=== PATIENT | male | born 1940 | race Caucasian/White ===

== ENCOUNTER → 2016-05-29 | Outpatient (CLI) | payer OTHER, BC ==
[~2016-05-29] MED LIST: ALPR-411 PO; ALPR1TAB3 PO; CARBDRO OPB; CLB/200 PO; FOLI1TAB7 PO; MULT-506 PO; OFLO0.3S4 OPR; PRED1SUS3 OPR; TRAM-10 PO; TRAM-453 PO; WARF-246 PO; WARF5TAB7 PO; WARF7.5T4 PO
[2016-05-29 10:52] LABS: HEMATOCRIT 50.3 % (42-52); MEAN CORPUSCULAR HEMOGLOBIN 31.2 pg (25-34); MEAN CORPUSCULAR HGB CONC 33.2 g/dl (32-36); MEAN PLATELET VOLUME 9.8 fL (7.4-10.4); PLATELET COUNT 216 K/uL (130-400); RED BLOOD COUNT 5.35 M/uL (4.7-6.1); WHITE BLOOD COUNT 5.52 K/uL (4.8-10.8)
[2016-05-29 11:10] LABS: ESTIMATED AVERAGE GLUCOSE 114 mg/dl; HA1C FLAG Normal (Normal)
[2016-05-29 11:14] LABS: BLOOD UREA NITROGEN 21 mg/dl (7-18); BUN/CREATININE RATIO 18.9 (10-20); CALCIUM 8.7 mg/dl (8.5-10.1); CARBON DIOXIDE 33 mmol/L (21-32); CHLORIDE 106 mmol/L (98-107); GLUCOSE 88 mg/dl (70-99); POTASSIUM 4.2 mmol/L (3.5-5.1); SODIUM 143 mmol/L (136-145)
--- NOTE | 2016-06-07 10:43 | CODING QUERY MEDICAL NECESSITY ---
CQSUPPORTING DIAGNOSIS NEEDED A supporting diagnosis is required for the test/procedure performed on this patient in order for us to be reimbursed by the patient's insurance. Please provide a supporting diagnosis for the following test/procedure listed below next to the test name along with your signature. *If there is no additional diagnosis for this patient that would support the following test/procedure please document that below next to the test/procedure. Test(s)/Procedure(s) that require a supporting diagnosis: DOS 05/29/16 GLYCATED HEMOGLOBIN TEST Provider Signature: Date: Thank you Jazmine Willis Health Information Management Once completed, please kindly fax back to [phone] For questions please call [phone]
== END ==
LOC: C.LABBC 07:39
PROVIDERS: ATTEND Ophthalmology
DX: H35.61 Retinal hemorrhage, right eye (principal); H25.13 Age-related nuclear cataract, bilateral

== ENCOUNTER → 2016-05-31 | Outpatient (CLI) | payer OTHER, BC ==
--- NOTE | 2016-05-31 14:27 | DIAGNOSTIC IMAGING REPORT ---
BILATERAL CAROTID DOPPLER STUDY HISTORY: Mental status change RETINAL HEMORRHAGE RT EYE COMPARISON: None. TECHNIQUE: Real-time, grayscale, and color Doppler sonography of the carotid arteries was performed. Imaging reviewed in the transverse and longitudinal planes. All measurements were calculated based on NASCET criteria. FINDINGS: Antegrade flow is seen in the bilateral vertebral arteries. The brachial pressures are hemodynamically similar. Minimal plaque formation bilaterally The peak systolic velocity within the right ICA is 64. The right systolic ratio is 0.9. The peak systolic velocity within the left ICA is 59. The left systolic ratio is 0.8. IMPRESSION: Minimal plaque formation bilaterally. No significant stenotic process Electronically signed by: Vasile Grimes M.D. 05/31/2016 2:25 PM Dictated Date/Time: 05/31/2016 2:24 PM
== END | disposition home or self-care (01) ==
PROVIDERS: ATTEND Ophthalmology
DX: H35.61 Retinal hemorrhage, right eye (principal); I65.23 Occlusion and stenosis of bilateral carotid arteries

== ENCOUNTER → 2016-06-23 | Day surgery (SDC) | payer OTHER, BC ==
[2016-06-14 11:06] VITALS: Ht 188 cm; Wt 116.7 kg
--- NOTE | 2016-06-14 11:32 | PAT Medication Instructions ---
Service Date Jun 14, 2016. Current Home Medication List Alprazolam (Xanax), 1 MG PO HS Celecoxib (CeleBREX), 200 MG PO QAM Folic Acid (Folvite), 1 MG PO NOON Ofloxacin (Oph) (Ocuflox Oph Soln), 1 DROPS OPR UD Prednisolone Acetate (Ophth) (Pred Forte 1% Oph), 1 DROPS OPR UD Warfarin Sod (Jantoven), 5 MG PO 4XWEEK Warfarin Sod (Jantoven), 7.5 MG PO 3XWEEK Medication Instructions For Your Scheduled Surgery - Per 's instructions Ofloxacin (Oph) (Ocuflox Oph Soln), 1 DROPS OPR UD Prednisolone Acetate (Ophth) (Pred Forte 1% Oph), 1 DROPS OPR UD - Take the following medications as scheduled the day before surgery: Warfarin Sod (Coumadin) (okay to continue per ) Alprazolam (Xanax), 1 MG PO HS Celecoxib (CeleBREX), 200 MG PO QAM Folic Acid (Folvite), 1 MG PO NOON NO MEDS THE MORNING OF THE SURGERY; Nothing to eat or drink after midnight If you have any questions please call us at [phone] or [phone] or [phone]
[~2016-06-23] VITALS: Ht 188 cm; Wt 116.7 kg
[~2016-06-23] MED LIST changes: +500ML BSS 0.3ML EPI 1:1000PF IRRIG ONE; +ACETAMINOPHEN 325 MG TAB PO PRN; -ALPR-411 PO; +AMVISC PLUS 0.8ML SYRINGE INT OCU ONE; +ATROPINE SULFATE 0.1 MG/ML 5ML SYR IV PRN; +BSS FLUSH ONE; +DEXAMETHASONE SOD INJ 4 MG/ML VIAL ONE; +ENDOCOAT 0.85ML SYRINGE INT OCU ONE; +EpHEDrine SULFATE INJ 50 MG/ML AMP IV PRN; +EpINEphrine INJ 1MG/ML AMP 1 MG/ML AMP ONE; +LACTATED RINGER'S 1000ML 500 ML IV SCH; +LIDOCAINE 4% OP SOLN DROP CHARGE ONE; +LIDOCAINE 4% OP SOLN DROP CHARGE OPR SCH; +LIDOCAINE HCL 1% MPF 2 ML VIAL ONE; +LIDOCAINE HCL 2% 2 ML VIAL (20MG/ML) ONE; +MIDAZOLAM HCL 1 MG/ML 2ML VIAL ONE; +MIX: 4ML BSS 1ML EPI 1:1000 PF TOP ONE; +MOXIFLOXACIN OPH SOLN PER DROP CHARGE ONE; +ONDANSETRON INJ 2 MG/ML 2 ML VIAL ONE; +POVIDONE-IODINE OP SOLN 30 ML BTL ONE; +PROPARACAINE 0.5% OP SOLN PER DROP CHARGE OPR SCH; +PROPOFOL IV EMULSION 10 MG/ML 20 ML VIAL IV ONE; +TOBRAMYCIN/DEXAMETHASONE OPH OINT PER APPLN CHARGE ONE; -WARF-246 PO
[2016-06-23] MEDS: PHENYLEPHRINE HCL 2.5% OP SOLN PER DROP CHARGE OPR SCH ×3 (09:47→09:57)
[2016-06-23] MEDS: TROPICAMIDE 1% OP SOLN PER DROP CHARGE OPR SCH ×3 (09:48→09:58)
[2016-06-23] MEDS: CYCLOPENTOLATE HCL 1% OP SOLN PER DROP CHARGE OPR SCH ×3 (09:49→09:59)
[2016-06-23] MEDS: MOXIFLOXACIN OPH SOLN PER DROP CHARGE OPR SCH ×3 (09:50→10:00)
--- NOTE | 2016-06-23 11:03 | History & Physical Bridge - [place] ---
H&P Re-Evaluation Bridge Note: I have examined the patient, reviewed the History & Physical and in the interval since the performance of the History & Physical I have noted the following changes of clinical significance: No changes noted
--- NOTE | 2016-06-23 11:39 | [facility] Post Operative Brief Note ---
Immediate Operative Summary Operative Date Jun 23, 2016. Pre-Operative Diagnosis Cataract Right Eye Post-Operative Diagnosis Same Procedure(s) Performed Right Cataract Phacoemulsification With Intraocular Lens Implant Surgeon Dr. Blanton Payer Specialist Surgeon(s) None Estimated Blood Loss 0 mL Findings right cataract Specimens None Complication(s) None Disposition
--- NOTE | 2016-06-23 11:40 | [facility] Operative Report ---
Operative Report Date of Service Jun 23, 2016. Operative Report Phaco with monofocal IOL DATE OF OPERATION: 06/23/16 PREOPERATIVE DIAGNOSIS: Senile nuclear cataract, right eye POSTOPERATIVE DIAGNOSIS: Senile nuclear cataract, right eye PROCEDURE PERFORMED: Phacoemulsification with intraocular lens implantation, right eye SURGEON: Dr. Emiliano Blanton ANESTHESIA: LMA general COMPLICATIONS: None DESCRIPTION OF PROCEDURE: After positively identifying the patient both verbally and by wristband in the preoperative area, the right eye was marked as the operative eye. The patient was then brought back to the operating room by the anesthesia and nursing staff where they were given a drop of Lidocaine and betadine into the operative eye. They were then sterilely prepped and draped in the standard fashion typical for ophthalmic surgery. Steri-strips were placed along the upper eyelids to keep the lashes back, and a lid speculum was placed into the operative eye. At this point, a documented time out was performed with members of the ophthalmology, nursing, and anesthesia staffs all agreeing upon the correct patient, correct location for surgery, correct procedure, and correct type and power of intraocular lens to be implanted. The microscope was then swung into position. First, a paracentesis wound was made using a sideport blade. Then, in sequence, 1% preservative-free lidocaine followed by Endocoat viscoelastic was injected into the anterior chamber. Next , the main incision was made with a keratome blade in triplanar fashion. A sharp cystotome was introduced into the eye and used to create a tear in the anterior capsule, which was directed into a continuous curvilinear capsulorrhexis using Utrata forceps. Hydrodissection was then performed with BSS on a flat-tip cannula. Next, the phacoemulsification handpiece was introduced into the eye and used to remove the nucleus in a cqkdal-eep-bqkzkem fashion. This was done without complication and then the irrigation-aspiration handpiece was introduced into the eye and used to remove all remaining cortical and epinuclear material. Amvisc was then injected into the anterior chamber as well as into the capsular bag and using the lens injector system, an MX60 18.5 D lens, serial number [id number], and expiration date 11/2018 was injected into the capsular bag and rotated into the correct position. Next, the irrigation- aspiration handpiece was used to remove all remaining Amvisc. BSS was used to hydrate the main wound, and then BSS was injected into the paracentesis site to reach physiologic pressure and then the main wound was checked and found to be watertight. The patient was given drops of Vigamox and Tobradex ointment into the operative eye, and then the surrounding area was cleaned and dried. A clear plastic shield was placed over the eye and the patient was then sat up and taken from the operating room by the anesthesia staff having tolerated the procedure well and suffering no complications. DISPOSITION: The patient was returned to the recovery room in stable condition. I attest to the content of the Intraoperative Record and any orders documented therein. Any exceptions are noted below.
--- NOTE | 2016-06-23 11:41 | Discharge Instructions-SurgCtr ---
Discharge Instructions Date of Service Jun 23, 2016. Visit Reason for Visit: Right Cataract Discharge Discharge Diagnosis / Problem: right cataract Discharge Goals Goal(s): Decrease discomfort, Improve function Activity Recommendations Activity Limitations: as noted below Anesthesia . Post Anesthesia Instructions: If you have had General Anesthesia or IV Sedation: * Do not drive today. * Resume driving when surgeon permits. * Do not make important decisions or sign legal documents today. * Call surgeon for: 1. Temperature elevations greater than 101 degrees F. 2. Uncontrollable pain. 3. Excessive bleeding. 4. Persistent nausea and vomiting. 5. Medication intolerance (nausea, vomiting or rash). * For nausea and vomiting use only clear liquids such as: tea, soda, bouillon until nausea subsides, then gradually increase diet as tolerated. * If you have any concerns or questions, call your surgeon's office. If physician is unavailable and it is an emergency, call 911 or go to the nearest emergency room. . Instructions / Follow-Up Instructions / Follow-Up ACTIVITY RECOMMENDATIONS: * Light activities. * You may walk outside, read, watch television. * You may notice redness on the white part of the eye and some blurry vision - this is normal. MEDICATIONS: Resume previous medications unless instructed otherwise by your surgeon. Start all eye drops at 1:30 pm today: * Eye drops (today): Prednisone - one drop in operative eye every 2 hours while awake Ofloxacin - one drop in operative eye every 2 hours while awake SPECIAL CARE INSTRUCTIONS: * Tape plastic shield over eye to sleep at night. Call your doctor at with any concerns or problems. FOLLOW UP VISIT: Follow-up with Dr Blanton at [place] office as scheduled. Diet Recommendations Home Diet: no limitations Procedures Procedures Performed: Right Cataract Phacoemulsification With Intraocular Lens Implant Pending Studies Studies pending at discharge: no Medical Emergencies . Who to Call and When: Medical Emergencies: If at any time you feel your situation is an emergency, please call 911 immediately. . Non-Emergent Contact Non-Emergency issues call your: Surgeon . . "Provider Documentation" section prepared by Emiliano Blanton.
[2016-06-23 12:17] VITALS: TEMP 36.4
--- NOTE | 2016-06-23 12:29 | Anesthesia Progress Nt - [facility] ---
Anesthesia Post Op Note Date & Time Jun 23, 2016 at 12:29 Vital Signs Pain Intensity: 2 Vital Signs Past 12 Hours Date Time Temp Pulse Resp B/P Pulse Ox O2 Delivery O2 Flow Rate FiO2 06/23/16 12:17 36.4 66 16 122/81 94 Room Air 06/23/16 12:09 36.8 06/23/16 12:07 77 19 94 06/23/16 12:07 76 19 06/23/16 12:05 137/93 06/23/16 12:02 75 19 95 06/23/16 12:02 79 19 06/23/16 12:00 126/88 06/23/16 11:57 67 18 06/23/16 11:57 66 18 98 06/23/16 11:55 137/86 06/23/16 11:52 73 16 06/23/16 11:52 72 16 97 06/23/16 11:50 144/88 06/23/16 11:49 143/90 06/23/16 11:46 36.4 74 16 148/90 97 Diffusion Mask 5 06/23/16 09:36 36.7 79 22 165/83 98 Room Air Notes Mental Status: alert / awake / arousable, participated in evaluation Pt Amnestic to Procedure: Yes Nausea / Vomiting: adequately controlled Pain: adequately controlled Airway Patency, RR, SpO2: stable & adequate BP & HR: stable & adequate Hydration State: stable & adequate Anesthetic Complications: no major complications apparent
[2016-06-23 12:39] VITALS: BP 142/86; PULSE 67; O2SAT 97
== END | disposition home or self-care (01) ==
LOC: X.SURG 09:00
PROVIDERS: ATTEND Ophthalmology
DX: H25.11 Age-related nuclear cataract, right eye (principal); E78.00 Pure hypercholesterolemia, unspecified

== ENCOUNTER → 2016-07-07 | Day surgery (SDC) | payer OTHER, BC ==
[2016-07-06 10:22] VITALS: Ht 188 cm; Wt 115.9 kg
[~2016-07-07] VITALS: Ht 188 cm; Wt 115.9 kg
[~2016-07-07] MED LIST changes: +FENTANYL CITRATE INJ 50 MCG/1 ML 2 ML VIAL ONE; +LIDOCAINE 4% OP SOLN DROP CHARGE OPL SCH; -LIDOCAINE 4% OP SOLN DROP CHARGE OPR SCH; -OFLO0.3S4 OPR; +PROPARACAINE 0.5% OP SOLN PER DROP CHARGE OPL SCH; -PROPARACAINE 0.5% OP SOLN PER DROP CHARGE OPR SCH
--- NOTE | 2016-07-07 07:32 | History & Physical Bridge - [place] ---
H&P Re-Evaluation Bridge Note: I have examined the patient, reviewed the History & Physical and in the interval since the performance of the History & Physical I have noted the following changes of clinical significance: No changes noted. Left eye cataract surgery
[2016-07-07] MEDS: PHENYLEPHRINE HCL 2.5% OP SOLN PER DROP CHARGE OPL SCH ×3 (07:33→07:43)
[2016-07-07] MEDS: TROPICAMIDE 1% OP SOLN PER DROP CHARGE OPL SCH ×3 (07:34→07:44)
[2016-07-07] MEDS: CYCLOPENTOLATE HCL 1% OP SOLN PER DROP CHARGE OPL SCH ×3 (07:35→07:45)
[2016-07-07] MEDS: MOXIFLOXACIN OPH SOLN PER DROP CHARGE OPL SCH ×3 (07:36→07:46)
--- NOTE | 2016-07-07 08:39 | [facility] Post Operative Brief Note ---
Immediate Operative Summary Operative Date Jul 07, 2016. Pre-Operative Diagnosis Cataract Left Eye Post-Operative Diagnosis Same Procedure(s) Performed Left Cataract Phacoemulsification With Intraocular Lens Implant Surgeon Dr. Blanton Meat Pumper Surgeon(s) None Estimated Blood Loss 0 Findings left cataract Specimens None Complication(s) None Disposition
--- NOTE | 2016-07-07 08:41 | [facility] Operative Report ---
Operative Report Date of Service Jul 07, 2016. Operative Report Phaco with monofocal IOL DATE OF OPERATION: 07/07/16 PREOPERATIVE DIAGNOSIS: Senile nuclear cataract, left eye POSTOPERATIVE DIAGNOSIS: Senile nuclear cataract, left eye PROCEDURE PERFORMED: Phacoemulsification with intraocular lens implantation, left eye SURGEON: Dr. Emiliano Blanton ANESTHESIA: LMA general COMPLICATIONS: None DESCRIPTION OF PROCEDURE: After positively identifying the patient both verbally and by wristband in the preoperative area, the left eye was marked as the operative eye. The patient was then brought back to the operating room by the anesthesia and nursing staff where general anesthesia by LMA was induced by the anesthesia staff. The patient was then sterilely prepped and draped in the standard fashion typical for ophthalmic surgery. Steri-strips were placed along the upper eyelids to keep the lashes back, and a lid speculum was placed into the operative eye. At this point, a documented time out was performed with members of the ophthalmology, nursing, and anesthesia staffs all agreeing upon the correct patient, correct location for surgery, correct procedure, and correct type and power of intraocular lens to be implanted. The microscope was then swung into position. First, a paracentesis wound was made using a sideport blade. Then, in sequence, 1% preservative-free lidocaine followed by Endocoat viscoelastic was injected into the anterior chamber. Next , the main incision was made with a keratome blade in triplanar fashion. A sharp cystotome was introduced into the eye and used to create a tear in the anterior capsule, which was directed into a continuous curvilinear capsulorrhexis using Utrata forceps. Hydrodissection was then performed with BSS on a flat-tip cannula. Next, the phacoemulsification handpiece was introduced into the eye and used to remove the nucleus in a sbmntv-ygl-csyrhln fashion. This was done without complication and then the irrigation-aspiration handpiece was introduced into the eye and used to remove all remaining cortical and epinuclear material. Amvisc was then injected into the anterior chamber as well as into the capsular bag and using the lens injector system, an MX60 18.0 D lens, serial number [id number], and expiration date 04/2018 was injected into the capsular bag and rotated into the correct position. Next, the irrigation- aspiration handpiece was used to remove all remaining Amvisc. BSS was used to hydrate the main wound, and then BSS was injected into the paracentesis site to reach physiologic pressure and then the main wound was checked and found to be watertight. The patient was given drops of Vigamox and Tobradex ointment into the operative eye, and then the surrounding area was cleaned and dried. A clear plastic shield was placed over the eye and the patient was then sat up and taken from the operating room by the anesthesia staff having tolerated the procedure well and suffering no complications. DISPOSITION: The patient was returned to the recovery room in stable condition. I attest to the content of the Intraoperative Record and any orders documented therein. Any exceptions are noted below.
--- NOTE | 2016-07-07 08:42 | Discharge Instructions-SurgCtr ---
Discharge Instructions Date of Service Jul 07, 2016. Visit Reason for Visit: Left Cataract Discharge Discharge Diagnosis / Problem: left cataract Discharge Goals Goal(s): Decrease discomfort, Improve function Activity Recommendations Activity Limitations: as noted below Anesthesia . Post Anesthesia Instructions: If you have had General Anesthesia or IV Sedation: * Do not drive today. * Resume driving when surgeon permits. * Do not make important decisions or sign legal documents today. * Call surgeon for: 1. Temperature elevations greater than 101 degrees F. 2. Uncontrollable pain. 3. Excessive bleeding. 4. Persistent nausea and vomiting. 5. Medication intolerance (nausea, vomiting or rash). * For nausea and vomiting use only clear liquids such as: tea, soda, bouillon until nausea subsides, then gradually increase diet as tolerated. * If you have any concerns or questions, call your surgeon's office. If physician is unavailable and it is an emergency, call 911 or go to the nearest emergency room. . Instructions / Follow-Up Instructions / Follow-Up ACTIVITY RECOMMENDATIONS: * Light activities. * You may walk outside, read, watch television. * You may notice redness on the white part of the eye and some blurry vision - this is normal. MEDICATIONS: Resume previous medications unless instructed otherwise by your surgeon. Start all eye drops at 10:30 am today: * Eye drops (today): Prednisone - one drop in operative eye every 2 hours while awake Ofloxacin - one drop in operative eye every 2 hours while awake SPECIAL CARE INSTRUCTIONS: * Tape plastic shield over eye to sleep at night. Call your doctor at with any concerns or problems. FOLLOW UP VISIT: Follow-up with Dr Blanton at [place] office as scheduled. Diet Recommendations Home Diet: no limitations Procedures Procedures Performed: Left Cataract Phacoemulsification With Intraocular Lens Implant Pending Studies Studies pending at discharge: no Medical Emergencies . Who to Call and When: Medical Emergencies: If at any time you feel your situation is an emergency, please call 911 immediately. . Non-Emergent Contact Non-Emergency issues call your: Surgeon . . "Provider Documentation" section prepared by Emiliano Blanton. .
[2016-07-07 09:17] VITALS: TEMP 36.2
--- NOTE | 2016-07-07 09:33 | Anesthesia Progress Nt - [facility] ---
Anesthesia Post Op Note Date & Time Jul 07, 2016 at 09:32 Vital Signs Pain Intensity: 1 Vital Signs Past 12 Hours Date Time Temp Pulse Resp B/P Pulse Ox O2 Delivery O2 Flow Rate FiO2 07/07/16 09:17 36.2 64 18 133/86 95 Room Air 07/07/16 09:10 36.6 135/80 07/07/16 09:07 68 10 07/07/16 09:07 68 10 93 07/07/16 09:05 133/80 07/07/16 09:02 69 14 07/07/16 09:02 69 14 95 07/07/16 09:00 129/78 07/07/16 08:57 71 11 07/07/16 08:57 72 11 94 07/07/16 08:55 128/73 07/07/16 08:52 73 20 07/07/16 08:52 75 20 96 07/07/16 08:51 141/84 07/07/16 08:47 71 19 99 07/07/16 08:47 71 19 07/07/16 08:45 135/81 07/07/16 08:43 135/85 07/07/16 08:42 36.4 77 16 138/85 96 Mask 6 07/07/16 07:23 36.6 73 16 145/93 96 Room Air Notes Mental Status: alert / awake / arousable, participated in evaluation Pt Amnestic to Procedure: Yes Nausea / Vomiting: adequately controlled Pain: adequately controlled Airway Patency, RR, SpO2: stable & adequate BP & HR: stable & adequate Hydration State: stable & adequate Anesthetic Complications: no major complications apparent
[2016-07-07 09:40] VITALS: BP 137/82; PULSE 65; O2SAT 96
== END | disposition home or self-care (01) ==
LOC: X.SURG 07:06
PROVIDERS: ATTEND Ophthalmology
DX: H25.12 Age-related nuclear cataract, left eye (principal); E78.00 Pure hypercholesterolemia, unspecified; Z79.01 Long term (current) use of anticoagulants; Z79.899 Other long term (current) drug therapy; Z86.718 Personal history of other venous thrombosis and embolism

== ENCOUNTER 2016-12-07 04:55 | Day surgery (SDC) | payer OTHER, BC ==
[2016-12-01 15:48] VITALS: BMI 33.0
--- NOTE | 2016-12-01 16:15 | PAT Medication Instructions ---
Service Date Dec 01, 2016. Current Home Medication List Alprazolam (Xanax), 1 MG PO HS Carboxymethylcellulose-Glyceri (Clear Eyes For Dry Eyes), 1 DROP OPB PRN Celecoxib (CeleBREX), 200 MG PO QAM Folic Acid (Folvite), 1 MG PO NOON Warfarin Sod (Jantoven), 5 MG PO 3XWEEK Warfarin Sod (Jantoven), 7.5 MG PO 4XWEEK Medication Instructions For Your Scheduled Surgery - Check with surgeon/Dr. Shankar for instructions: Warfarin Sod (Jantoven), 5 MG PO 3XWEEK Warfarin Sod (Jantoven), 7.5 MG PO 4XWEEK - Check with surgeon for instructions: Celecoxib (CeleBREX), 200 MG PO QAM - Hold the following medications the morning of surgery: Folic Acid (Folvite), 1 MG PO NOON - Take the following medications the morning of surgery with a sip of water: Carboxymethylcellulose-Glyceri (Clear Eyes For Dry Eyes), 1 DROP OPB PRN (if needed) - Take the following medications as scheduled the night before surgery: Carboxymethylcellulose-Glyceri (Clear Eyes For Dry Eyes), 1 DROP OPB PRN(if needed) Alprazolam (Xanax), 1 MG PO HS If you have any questions please call us at [phone] or [phone] or [phone]
[2016-12-01 16:35] LABS: BASO % 1.3 %; BASO ABS # 0.08 K/uL (0-0.2); COMPLETE YES; EOS % 5.5 %; IG% 0.2 %; LYMPH % 35.3 %; LYMPH ABS # 2.18 K/uL (1.2-3.4); MEAN CELL VOLUME 94.9 fL (80-100); MEAN CORPUSCULAR HEMOGLOBIN 32.6 pg (25-34); MEAN CORPUSCULAR HGB CONC 34.4 g/dl (32-36); MEAN PLATELET VOLUME 9.7 fL (7.4-10.4); MONO % 9.2 %; NEUT % 48.5 %; PLATELET COUNT 199 K/uL (130-400); RED BLOOD COUNT 5.06 M/uL (4.7-6.1); WHITE BLOOD COUNT 6.17 K/uL (4.8-10.8)
[2016-12-01 16:53] LABS: BUN/CREATININE RATIO 14.6 (10-20); CALCIUM 9.4 mg/dl (8.5-10.1); CREATININE 1.2 mg/dl (0.60-1.40)
--- NOTE | 2016-12-01 16:54 | DIAGNOSTIC IMAGING REPORT ---
CHEST 2 VIEWS ROUTINE CLINICAL HISTORY: pat preoperative evaluation COMPARISON STUDY: 05/10/2014 FINDINGS: The bones soft tissues and hemidiaphragms are normal. The cardiomediastinal silhouette is normal. The lungs are clear. The pulmonary vasculature is normal. IMPRESSION: Negative chest. The above report was generated using voice recognition software. It may contain grammatical, syntax or spelling errors. Electronically signed by: Vasile Grimes M.D. 12/01/2016 4:53 PM Dictated Date/Time: 12/01/2016 4:52 PM
[2016-12-01 17:00] LABS: INR 1.9 (0.9-1.1); PARTIAL THROMBOPLASTIN RATIO 1.3; PROTHROMBIN TIME (PATIENT) 20.4 SECONDS (9.0-12.0)
[~2016-12-07] VITALS: Ht 182.9 cm; Wt 109.0 kg
[~2016-12-07 04:55] MED LIST changes: -500ML BSS 0.3ML EPI 1:1000PF IRRIG ONE; -ACETAMINOPHEN 325 MG TAB PO PRN; -AMVISC PLUS 0.8ML SYRINGE INT OCU ONE; -ATROPINE SULFATE 0.1 MG/ML 5ML SYR IV PRN; -BSS FLUSH ONE; -DEXAMETHASONE SOD INJ 4 MG/ML VIAL ONE; -ENDOCOAT 0.85ML SYRINGE INT OCU ONE; -EpHEDrine SULFATE INJ 50 MG/ML AMP IV PRN; -EpINEphrine INJ 1MG/ML AMP 1 MG/ML AMP ONE; -FENTANYL CITRATE INJ 50 MCG/1 ML 2 ML VIAL ONE; -LACTATED RINGER'S 1000ML 500 ML IV SCH; -LIDOCAINE 4% OP SOLN DROP CHARGE ONE; -LIDOCAINE 4% OP SOLN DROP CHARGE OPL SCH; -LIDOCAINE HCL 1% MPF 2 ML VIAL ONE; -LIDOCAINE HCL 2% 2 ML VIAL (20MG/ML) ONE; -MIDAZOLAM HCL 1 MG/ML 2ML VIAL ONE; -MIX: 4ML BSS 1ML EPI 1:1000 PF TOP ONE; -MOXIFLOXACIN OPH SOLN PER DROP CHARGE ONE; -MULT-506 PO; -ONDANSETRON INJ 2 MG/ML 2 ML VIAL ONE; -POVIDONE-IODINE OP SOLN 30 ML BTL ONE; -PRED1SUS3 OPR; -PROPARACAINE 0.5% OP SOLN PER DROP CHARGE OPL SCH; -PROPOFOL IV EMULSION 10 MG/ML 20 ML VIAL IV ONE; -TOBRAMYCIN/DEXAMETHASONE OPH OINT PER APPLN CHARGE ONE; -TRAM-10 PO; -TRAM-453 PO
[2016-12-07 05:32] VITALS: BP 135/79; PULSE 77; TEMP 37; O2SAT 96; Ht 182.9 cm; Wt 109.0 kg
[2016-12-07] MEDS ORDERED: MULT-506 PO (05:32)
[2016-12-07] MEDS ORDERED: LACTATED RINGER'S 1000ML 1,000 ML IV SCH (06:00)
[2016-12-07] MEDS ORDERED: PROPOFOL IV EMULSION 10 MG/ML 20 ML VIAL IV ONE (06:21)
[2016-12-07] MEDS ORDERED: LIDOCAINE HCL 2% 2 ML VIAL (20MG/ML) ONE (06:21)
[2016-12-07] MEDS ORDERED: DEXAMETHASONE SOD INJ 4 MG/ML VIAL ONE (06:21)
[2016-12-07] MEDS ORDERED: CISATRACURIUM BESYLATE IV SOLN 2 MG/ML 10 ML VIAL ONE (06:21)
[2016-12-07] MEDS ORDERED: ONDANSETRON INJ 2 MG/ML 2 ML VIAL ONE (06:21)
[2016-12-07 06:22] LABS: INR 1.1 (0.9-1.1); PROTHROMBIN TIME (PATIENT) 11.9 SECONDS (9.0-12.0)
[2016-12-07] MEDS ORDERED: FENTANYL CITRATE INJ 50 MCG/1 ML 2 ML VIAL ONE (06:22)
--- NOTE | 2016-12-07 06:31 | History & Physical Bridge Note ---
H&P Re-Evaluation Bridge Note: I have examined the patient, reviewed the History & Physical and in the interval since the performance of the History & Physical I have noted the following changes of clinical significance: No changes noted pt marked son to be here later
[2016-12-07] MEDS ORDERED: BUPIVACAINE 0.5 % 5 MG/1 ML MPF 30ML VIAL ONE (06:41)
[2016-12-07] MEDS ORDERED: BACITRACIN 50000 UNIT VIAL ONE (06:42)
[2016-12-07] MEDS ORDERED: CEFAZOLIN SOD 1 GM VIAL ONE (07:17)
[2016-12-07] MEDS ORDERED: ETOMIDATE 2 MG/ML 20 ML VIAL IV ONE (08:17)
[2016-12-07] MEDS ORDERED: SODIUM CHLORIDE 0.9% 1000ML 1,000 ML IV SCH (08:33)
--- NOTE | 2016-12-07 08:41 | Discharge Instructions ---
Discharge Instructions Date of Service Dec 07, 2016. Admission Reason for Admission: Right Inguinal Hernia Discharge Discharge Diagnosis / Problem: Right Inguinal Hernia Discharge Goals Goal(s): Decrease discomfort, Improve function Activity Recommendations Activity Limitations: as noted below Lifting Limitations: no more than 10 pounds Exercise/Sports Limitations: until after follow-up appointment May Resume Sexual Activity: after follow-up appointment Shower/Bathe: tomorrow Driving or Machine Use: resume 3 days after discharge . Instructions / Follow-Up Instructions / Follow-Up You may apply an ice bag to the area for the next [address]. [address] ice directly on surgical incision. You may restart your Coumadin today, 12/07/2016. Please follow-up in the office for staple removal in 1 week. Please follow-up with Dr. Arechiga in the office in 1-2 weeks. Please call the office at [phone] to make an appointment if you do not have one already. Please call the office with any questions or concerns. Current Hospital Diet Patient's current hospital diet: Discharge Diet Recommended Diet: Regular Diet Procedures Procedures Performed: Right Open Incarcerated Pantaloon Hernia Repair with Marlex Mesh and Excision of Lipoma of the Cord, Partial Omentectomy Pending Studies Studies pending at discharge: yes List of pending studies: Pathology report. Medical Emergencies . Who to Call and When: Medical Emergencies: If at any time you feel your situation is an emergency, please call 911 immediately. . Non-Emergent Contact Non-Emergency issues call your: Primary Care Provider, Surgeon Call Non-Emergent contact if: temperature is above 101.5, your pain is not controlled, wound has increased drainage, wound has increased redness . "Provider Documentation" section prepared by Raegan Hyde. . VTE Core Measure Inpt VTE Proph given/why not?: SCD's [place] Drug Monitoring Program Search Results: patient reviewed within database, no issues identified
--- NOTE | 2016-12-07 08:42 | [facility] Operative Report ---
Operative Report Operative Date Dec 07, 2016. Pre-Operative Diagnosis Right Inguinal Hernia Post-Operative Diagnosis Right Incarcerated Pantaloon Hernia Procedure(s) Performed Right Open Incarcerated Pantaloon Hernia Repair with Marlex Mesh and Excision of Lipoma of the Cord, Partial Omentectomy Surgeon Dr. Ezio Arechiga Application Lead Surgeon(s) Raegan Hyde PA-C Estimated Blood Loss 10ml Findings incarcerated omentum in pantaloon hernia and lipoma cord Specimens A.) Omentum B.) Hernia Sac C.) Lipoma of the Cord Indications pain right groin Description of Procedure Or summary dictated confirmation number [id number] I attest to the content of the Intraoperative Record and any orders documented therein. Any exceptions are noted below.
[2016-12-07] MEDS ORDERED: ATROPINE SULFATE 0.1 MG/ML 5ML SYR IV PRN (08:45)
[2016-12-07] MEDS ORDERED: FLUMAZENIL 0.1 MG/1 ML 10 ML VIAL IV PRN (08:45)
[2016-12-07] MEDS ORDERED: LABETALOL HCL IV 5 MG/ML 20ML IV PRN (08:45)
[2016-12-07] MEDS ORDERED: PROMETHAZINE HCL INJ 12.5 MG in SODIUM CHLORIDE 0.9% 50ML 50 ML IV PRN (08:45)
[2016-12-07] MEDS ORDERED: HYDROmorphone INJ 1 MG/ML SYR IV PRN (08:45)
[2016-12-07] MEDS ORDERED: ONDANSETRON INJ 2 MG/ML 2 ML VIAL IV PRN ×2 (08:45)
[2016-12-07] MEDS ORDERED: NALOXONE HCL 0.4 MG/1 ML VIAL/CARP IV PRN (08:45)
[2016-12-07] MEDS ORDERED: EpHEDrine SULFATE INJ 50 MG/ML AMP IV PRN (08:45)
[2016-12-07] MEDS ORDERED: METOPROLOL TARTRATE 1 MG/ML VIAL ONE (08:47)
[2016-12-07] MEDS ORDERED: METOPROLOL TARTRATE 1 MG/ML VIAL IV STA (08:48)
[2016-12-07] MEDS ORDERED: TRAM-10 PO (08:51)
--- NOTE | 2016-12-07 09:28 | Anesthesiology Progress Note ---
Anesthesia Post Op Note Date & Time Dec 07, 2016 at 09:27 Vital Signs Pain Intensity: 0 Vital Signs Past 12 Hours Date Time Temp Pulse Resp B/P (MAP) Pulse Ox O2 Delivery O2 Flow Rate FiO2 12/07/16 09:21 92 125/78 12/07/16 09:20 93 22 152/94 93 Room Air 12/07/16 09:10 98 24 141/66 92 Room Air 12/07/16 09:00 93 24 141/89 92 Room Air 12/07/16 08:51 104 146/89 12/07/16 08:50 96 24 154/91 99 Oxymask 10 12/07/16 08:40 92 22 134/97 99 Oxymask 10 12/07/16 08:31 37.2 86 16 163/89 98 Oxymask 10 12/07/16 05:32 37 77 20 135/79 (97) 96 Room Air Notes Mental Status: alert / awake / arousable, participated in evaluation Pt Amnestic to Procedure: Yes Nausea / Vomiting: adequately controlled Pain: adequately controlled Airway Patency, RR, SpO2: stable & adequate BP & HR: stable & adequate Hydration State: stable & adequate Anesthetic Complications: no major complications apparent
[2016-12-07 09:35] VITALS: BP 138/82; PULSE 78; TEMP 36.5; O2SAT 97
[2016-12-07 10:05] VITALS: BP 155/80; PULSE 80; O2SAT 95
[2016-12-07] MEDS ORDERED: TRAM-453 PO (10:14)
--- NOTE | 2016-12-07 17:20 | OPERATIVE REPORT ---
DATE OF OPERATION: 12/07/2016 SURGEON: Dr. Arechiga. HYPOID GEAR GENERATOR: Raegan Hyde. PREOPERATIVE DIAGNOSIS: Right inguinal hernia. POSTOPERATIVE DIAGNOSES: Right incarcerated pantaloon hernia and lipoma of the cord. PROCEDURE: Open repair of right pantaloon hernia with partial omentectomy and excision lipoma of the cord with Marlex mesh repair tension free. SUMMARY: The patient was brought into the operating room theater. Right lower quadrant was prepped with Betadine scrubbing solution and properly draped. Systemic antibiotics was given, 0.5% Marcaine was used to infiltrate 2 fingerbreadths medial anterior superior iliac crest as a preemptive analgesia with .5% marcaine deep to the external oblique. An incision was made parallel to the inguinal ligament, deepened through subcutaneous tissue. The patient had a significant amount of soft tissue lipomatous tissue, in fact the lateral portion where the incision was abutting a previous sort of mathews incision, right lower quadrant for ruptured appendix done years ago. The incision was quite low that initially I thought he may have had repair of hernia. When I examined him in the office, this was more for an appendectomy. Once we gone into the external oblique, we freed the subcutaneous tissue from the external oblique to the shelving portion. More local was used underneath the external oblique. We opened the external oblique to the course this fibers down the external ring. Significant amount of tissue was protruding through the external ring. We at this point finger dissection placed around the cord and structure over a Ange drain and then we identified that the patient had a significant amount of tissue and contents along the cord structure that actually went above the conjoined tendon all the way laterally, superiorly was stuck underneath the previous appendectomy incision. We freed up these adhesive bands down to the transversalis fascia with fibers using the cautery. We then were able to once freed this up, identified the inferior epigastric vessels very easily. The patient had a direct weakness coming through and also an indirect hernia which was quite large. The indirect hernia was then opened after we freed up from the cord structures, which was a chronic inflammatory tissue. Once we got into the hernial sac, we were able to identify that the patient had an incarcerated omentum in that area adherent to the hernia wall. We freed this up and then partially resected it, ligating the base with 2-0 silk, returned everything in the abdomen, resected the indirect sac and closed it with 3-0 chromic suture. We then used nterrupted 3-0 silk sutures just sort of approximating some transversalis fascia above and below the direct area all the way to the internal ring to get some of this fibrotic tissue out of the way. The patient also had a lipomatous tissue going down along the cord that we freed up and ligated at the base with 2-0 silk. Once this has been performed, we then brought a sheet of Marlex mesh and sutured onto the symphysis pubis, conjoined tendon and shelving portion of the inguinal ligament superiorly, we went way up high underneath the external oblique to make sure that we incorporated enough of good tissue and went very laterally onto the scar tissue that he had had underneath the external oblique from the previous appendectomy incision the internal ring that could only accommodate the tip of a hemostat. Throughout the procedure, we never did see any nerve fibers recognizable, there was a lot of pulling of these fibrous tissue, the curves could be pulled. Once the internal ring was reconstructed to accommodate the tip of a hemostat, the area was checked for hemostasis and appeared satisfactory. A few small bleeders along the cord were ligated with 2-0 silk. We irrigated, more local was used and closed the external oblique on top of the cord and mesh with 3-0 interrupted silk, 3-0 Dexon subcutaneously and mi for skin edges. Dressing was applied. The procedure was tolerated well by the patient. Estimated blood loss approximately 10 mL. The patient was taken to recovery room in good condition. I attest to the content of the Intraoperative Record and any orders documented therein. Any exceptions are noted below. SHERRY
== END 2016-12-07 10:51 | disposition home or self-care (01) ==
LOC: C.ACU 04:55
PROVIDERS: ATTEND Surgery
DX: K40.30 Unilateral inguinal hernia, with obstruction, without gangrene, not specified as recurrent (principal); D17.6 Benign lipomatous neoplasm of spermatic cord; M19.90 Unspecified osteoarthritis, unspecified site; E78.5 Hyperlipidemia, unspecified; Z79.01 Long term (current) use of anticoagulants; Z86.718 Personal history of other venous thrombosis and embolism; Z86.711 Personal history of pulmonary embolism; Z90.49 Acquired absence of other specified parts of digestive tract; Z82.49 Family history of ischemic heart disease and other diseases of the circulatory system

== ENCOUNTER 2018-05-29 07:58 | Inpatient (IN) ==
[2018-05-29 08:29] LABS: Basophils # (auto) 0.04 K/uL (0-0.2); Basophils % (auto) 0.8 %; Eosinophils # (auto) 0.33 K/uL (0-0.5); Eosinophils % (auto) 6.4 %; Hematocrit (blood only) 47.6 % (42-52); Hemoglobin 16.2 g/dL (14.0-18.0); Lymphocytes # (auto) 2.01 K/uL (1.2-3.4); Lymphocytes % (auto) 38.8 %; Mean Corpuscular Volume 94.4 fL (80-100); Mean Platelet Volume 9.4 fL (7.4-10.4); Monocytes # (auto) 0.39 K/uL (0.11-0.59); Monocytes % (auto) 7.5 %; Neutrophils # (auto) 2.41 K/uL (1.4-6.5); Neutrophils % (auto) 46.5 %; Platelet Count 186 K/uL (130-400); RDW Coefficient of Variation 13.3 % (11.5-14.5); RDW Standard Deviation 45.9 fL (36.4-46.3); Red Blood Count 5.04 M/uL (4.7-6.1); White Blood Count 5.18 K/uL (4.8-10.8)
[2018-05-29 08:41] LABS: INR 2.6 (0.9-1.1); Prothrombin Time 24.8 Seconds (9.0-12.0)
--- NOTE | 2018-05-29 08:41 | XRay Report ---
XR chest 1V portable CLINICAL HISTORY: Atypical chest pain COMPARISON STUDY: May 10, 2014 FINDINGS: The heart is the upper limits of normal in size. There is stable aortic tortuosity/ectasia. There is mild elevation right hemidiaphragm. There is no failure. There is no focal pulmonary consol idation. There are no pleural effusions. Linear opacities at both lung bases likely represent subsegm ental atelectasis.[ IMPRESSION: Stable mild aortic tortuosity/ectasia. No acute findings. Electronically signed by: Josh Blackwood M.D. 05/29/2018 8:40 AM
[2018-05-29 08:44] LABS: Alanine Aminotransferase 28 U/L (12-78); Albumin Level 3.4 gm/dl (3.4-5.0); Aspartate Aminotransferase 25 U/L (15-37); BUN Creatinine Ratio 20.9 (10-20); Blood Urea Nitrogen 25 mg/dl (7-18); Calcium 8.7 mg/dl (8.5-10.1); Carbon Dioxide 30 mmol/L (21-32); Chloride 104 mmol/L (98-107); Est GFR (African American) 67.7; Est GFR (Non-African American) 58.4; Glucose 86 mg/dl (70-99); Potassium 3.9 mmol/L (3.5-5.1); Sodium 139 mmol/L (136-145)
[2018-05-29 08:49] LABS: Albumin Globulin Ratio 0.8 (0.9-2); Alkaline Phosphatase 55 U/L (45-117); Bilirubin,Total 0.5 mg/dl (0.2-1); Globulin 4.2 gm/dl (2.5-4.0); Total Protein 7.6 gm/dl (6.4-8.2); Troponin I < 0.015 ng/ml (0-0.045)
--- NOTE | 2018-05-29 09:52 | Emergency Department Note ---
Entered by Audrey Patel acting as a scribe for Zhou Beckham DO History of Present Illness General Chief complaint: Chest Pain Stated complaint: CHEST PAIN Time Seen by Provider: 05/29/18 08:21 Source: patient History of Present Illness Provider complaint: chest pain Onset (ago): month(s) (over 1 month) Location: chest Severity: mild Pain Consistency: + intermittent Quality: + other (chest pain) Exacerbated By: + other (exercise) Associated symptoms: + other (shortness of breath) The patient is a 77 year old male who presents to the Emergency Room with complaints of intermittent, mild chest pain beginning over 1 month ago. He reports he experiences this pain after a few minutes of using a treadmill or bike, and he was previously able to exercise for over 1 hour. The patient states he also experiences this pain when attempting to walk. He reports his chest pain is accompanied by shortness of breath. The patient notes he saw his PCP (Dr. Shankar) for these symptoms 3 weeks ago, and has a stress test scheduled for later this week. Home Medications Home Medications Medication Instructions Recorded Confirmed Type Cataract Injection 0 mg IM UD 05/29/18 05/29/18 History alprazolam 0.5 mg PO BID 05/29/18 05/29/18 History carboxymethylcellulose-glycern 1 drp OPB QAM 05/29/18 05/29/18 History celecoxib 400 mg PO QAM 05/29/18 05/29/18 History warfarin 5 mg PO 3XWK 05/29/18 05/29/18 History warfarin 7.5 mg PO 4XWK 05/29/18 05/29/18 History Allergies Allergy/AdvReac Type Severity Reaction Status Date / Time diltiazem Allergy Intermediate ITCHING Verified 05/29/18 08:33 AND FLUSHING codeine Allergy Mild RASH Verified 05/29/18 08:33 Past Med/Surg History Medical History Murmur (Chronic) Hx of blood clots (Resolved) Social History Feels Safe at Home: Yes Smoking Status: Never smoker Review of Systems See HPI for pertinent positives & negatives. and A total of 10 systems reviewed and were otherwise negative Physical Exam Vital Signs Vital Signs - 24 hr 05/29/18 07:58 05/29/18 08:05 05/29/18 08:23 Temperature 36.7 C Temperature Source Oral Oral Sepsis Recent Fever Within 48 Hours No Sepsis New/Unexplained Change in Mental Status No Sepsis Action Taken by Nursing No Action Required Pulse Rate 81 70 Respiratory Rate 20 20 Respiratory Effort / Characteristics Non-Labored Respiratory Depth Normal Respiratory Pattern Regular Blood Pressure 150/94 H Blood Pressure Mean 112 Pulse Oximetry 97 93 Oxygen Delivery Method Room Air Room Air CONSTITUTIONAL/VITAL SIGNS: Reviewed / noted above. GENERAL: Non-toxic in appearance. INTEGUMENTARY: Warm, dry, and [place]. HEAD: Normocephalic. EYES: without scleral icterus or trauma. ENT/OROPHARYNX: clear and moist. LYMPHADENOPATHY/NECK: Is supple without lymphadenopathy or meningismus. RESPIRATORY: Lungs clear and equal. CARDIOVASCULAR: Regular rate and rhythm. Systolic ejection murmur. GI/ABDOMEN: Soft and nontender. No organomegaly or pulsatile mass. No rebound or guarding. Normal bowel sounds. EXTREMITIES: Warm and well perfused. BACK: No CVA tenderness. NEUROLOGICAL: Intact without focal deficits. PSYCHIATRIC: normal affect. MUSCULOSKELETAL: Normally developed with good muscle tone. Course 0826: Past medical records reviewed. The patient was evaluated in room A10, and a complete history and physical examination were performed. 0838: I reviewed the patient's case with Liza Ogden advanced practice provider. He recommends hospitalist evaluation of the patient and a catheterization tomorrow. 0954: Discussed the case with Lucia Law [facility] hospitalist. She will evaluated the patient for further management. 0959: Upon reevaluation, the patient is resting. I discussed test results. They verbalized agreement with the treatment plan. Consultations Consultation #1: Liza Ogden advanced practice provider Time: 08:38 Consultation #2: Lucia Law [facility] hospitalist Time: 09:54 Medical Decision Making Differential Diagnosis the differential was considered includes acute myocardial infarction, acute coronary syndrome, myocarditis, pericarditis, pericardial effusions /tamponad, esophageal perforation, thoracic aortic dissection, pulmonary embolism, pneumonia, pneumothorax, pancreatitis, shingles, acute cholecystitis, perforated abdominal viscus. Medical Records Attestation: I reviewed the patient's medical records. Home Medications Current Medication List: was personally reviewed by me Laboratory Data Attestation: I reviewed the patient's lab results. Result diagrams: 05/29/18 08:13 05/29/18 08:13 Lab Results 05/29/18 05/29/18 05/29/18 Range/Units 08:13 08:13 08:13 WBC 5.18 (4.8-10.8) K/uL RBC 5.04 (4.7-6.1) M/uL Hgb 16.2 (14.0-18.0) g/dL Hct 47.6 (42-52) % MCV 94.4 (80-100) fL MCH 32.1 (25-34) pg MCHC 34.0 (32-36) g/dL RDW Std Deviation 45.9 (36.4-46.3) fL RDW Coeff of Ryan 13.3 (11.5-14.5) % Plt Count 186 (130-400) K/uL MPV 9.4 (7.4-10.4) fL Immature Gran % (Auto) 0.0 % Neut % (Auto) 46.5 % Lymph % (Auto) 38.8 % [place] % (Auto) 7.5 % Eos % (Auto) 6.4 % Baso % (Auto) 0.8 % Immature Gran # (Auto) 0.00 (0.00-0.02) K/uL Neut # (Auto) 2.41 (1.4-6.5) K/uL Lymph # (Auto) 2.01 (1.2-3.4) K/uL Sioux # (Auto) 0.39 (0.11-0.59) K/uL Eos # (Auto) 0.33 (0-0.5) K/uL Baso # (Auto) 0.04 (0-0.2) K/uL PT 24.8 H (9.0-12.0) Seconds INR 2.6 H (0.9-1.1) Sodium 139 (136-145) mmol/L Potassium 3.9 (3.5-5.1) mmol/L Chloride 104 (98-107) mmol/L Carbon Dioxide 30 (21-32) mmol/L Anion Gap 5.0 (3-11) BUN 25 H (7-18) mg/dl Creatinine 1.20 (0.6-1.4) mg/dl Est Cr Clr Drug Dosing 66.0 ml/min Est GFR ( Amer) 67.7 Est GFR (Non-Af Amer) 58.4 BUN/Creatinine Ratio 20.9 H (10-20) Glucose 86 (70-99) mg/dl Calcium 8.7 (8.5-10.1) mg/dl Total Bilirubin 0.5 (0.2-1) mg/dl AST 25 (15-37) U/L ALT 28 (12-78) U/L Alkaline Phosphatase 55 (45-117) U/L Troponin I < 0.015 (0-0.045) ng/ml Total Protein 7.6 (6.4-8.2) gm/dl Albumin 3.4 (3.4-5.0) gm/dl Globulin 4.2 H (2.5-4.0) gm/dl Albumin/Globulin Ratio 0.8 L (0.9-2) Lipase 115 (73-393) U/L Imaging Data Radiologist's Impression: Radiology results as stated below per my review and the radiologist's interpretation: XR chest 1V portable CLINICAL HISTORY: Atypical chest pain COMPARISON STUDY: May 10, 2014 FINDINGS: The heart is the upper limits of normal in size. There is stable aortic tortuosity/ectasia. There is mild elevation right hemidiaphragm. There is no failure. There is no focal pulmonary consolidation. There are no pleural effusions. Linear opacities at both lung bases likely represent subsegmental atelectasis.[ IMPRESSION: Stable mild aortic tortuosity/ectasia. No acute findings. Electronically signed by: Josh Blackwood M.D. 05/29/2018 8:40 AM ECG Data Attestation: I personally reviewed and interpreted this ECG as follows: Indication: chest pain Rate (beats per minute): 75 Rhythm: normal sinus Findings: no PAC, no PVC and no ST elevation Blood Pressure Blood Pressure Findings: Elevated blood pressure Blood Pressure Disposition: further management by hospitalist DANIEL Pereira This is a 77-year-old male who presents to the ED with a chief complaint of upper chest pain and dyspnea on exertion. The patient reports that he used to be able to do about 1 hour of exercise on a treadmill, recumbent bike or walking in the neighborhood. Over the past month or so, the patient states that he is only been able to walk for about 5 or 10 minutes and then he develops retrosternal chest pain in the upper sternum area as well as dyspnea. His symptoms resolved with rest. The patient states that he saw his PCP and is scheduled to have a stress test on the of this month but felt that he could not wait any longer. He is currently not having any symptoms. His EKG shows a normal sinus rhythm at a rate of 75. CBC is normal. Chemistry panel was unremarkable. INR is 2.6. He is on Coumadin for history of PE. Troponin was negative. I did speak with Dr. garcia from [place] cardiology. He recommends the patient be admitted to the medicine service for likely cardiac catheteriza tion tomorrow. Impression & Plan Unstable angina Discharge Plan Visit Data Chief Complaint: Chest Pain Stated Complaint: CHEST PAIN ED Provider: Zhou Beckham Discharge Problem: Unstable angina Patient Disposition: Being Evaluated by Hospitalist Forms Stand Alone Forms: Call Back Authorization, My [facility] Prescriptions Prescriptions: No Action celecoxib 200 mg capsule 400 mg PO QAM RF: 0 alprazolam 0.5 mg tablet 0.5 mg PO BID RF: 0 warfarin 5 mg tablet 5 mg PO 3XWK RF: 0 warfarin 5 mg tablet 7.5 mg PO 4XWK RF: 0 carboxymethylcellulose-glycern 0.5-0.9 % Drops 1 drp OPB QAM RF: 0 Cataract Injection IM UD RF: 0 Referrals Referrals: Roque Shankar MD [Primary Care Provider] - The scribe's documentation has been prepared under my direction and personally reviewed by me in its entirety. I confirm that the note above accurately reflects all work, treatment, procedures, and medical decision making performed by me.
[2018-05-29] MEDS ORDERED: ONDANSETRON INJ 2 MG/ML 2 ML VIAL IV PRN (10:04)
[2018-05-29] MEDS ORDERED: ACETAMINOPHEN 325 MG TAB PO PRN (10:04)
[2018-05-29] MEDS ORDERED: WARFARIN SOD 5 MG TAB PO SCH ×2 (10:15)
--- NOTE | 2018-05-29 10:35 | History & Physical Report ---
Date of Service May 29, 2018 Assessment & Plan (1) Unstable angina: - Admit to tele - Trend cardiac biomarkers, initial set was negative - EKG reviewed as above - Check 2 D echo, will request outside records be sent as pt recalls having Echo within past 6mo-[address] Joy - Cardiology consulted for possible cath tomorrow - will hold coumadin and bridge with heparin gtt overnight. - PT/OT consulted (2) HLD (hyperlipidemia): - Cholesterol panel recently drawn, per pt last week. No repeats at this time. Not on statin therapy. (3) Atrial flutter: - hx of such in 2013, pt was electively cardioverted at that time. No recurrent bouts. (4) History of pulmonary embolism: (5) History of DVT (deep vein thrombosis): - Hx of clots in 2010 s/p L TKA - Hold coumadin tonight in anticipation of cardiac cath tomorrow am. Bridge with heparin gtt. Resume coumadin per cardiology. (6) Cervical radiculopathy: - Stable (7) Arthritis: - Stable, hold celecoxib. Would discontinue as outpatient with increased risk for GI bleed while on anticoagulation - discuss w/ pt prior to dc (8) Anxiety: - Stable (9) DVT prophylaxis: - Heparin gtt as above History of Present Illness Chief Complaint: Exertional chest pain, dyspnea Primary Care Provider: Roque Shankar MD This is a 77 yo M with PMHx of atrial flutter about 5 years ago, DVT and PE in 2010 s/p Left TKA on Coumadin, HLD, arthritis, cervical radiculopathy, anxiety, who presents today with worsening chest pain and dyspnea on exertion. The patient notes that he has been exercising routinely for at least one year. He typically works out for 1 hour/day on treadmill or bicycle. Within the last 6 weeks the patient has been unable to complete an entire hour and feels worsening chest pain and dyspnea on exertion within the first 5 minutes of exercise. He reports that he has seen his PCP, Dr. Shankar and followed up with cardiology, Dr. Tatum as an outpatient. He believes he has an upcoming stress test scheduled this . Cardiology advises that the patient should be admitted for possible stress testing and/or cardiac cath. Patient denies any shortness of breath or chest pain at rest. He denies any lightheadedness, dizziness, palpitations or flutter. Allergies Allergy/AdvReac Type Severity Reaction Status Date / Time diltiazem Allergy Intermediate ITCHING Verified 05/29/18 08:33 AND FLUSHING codeine Allergy Mild RASH Verified 05/29/18 08:33 Home Medications Home Medications Medication Instructions Recorded Confirmed Type Cataract Injection 0 mg IM UD 05/29/18 05/29/18 History alprazolam 0.5 mg PO BID 05/29/18 05/29/18 History carboxymethylcellulose-glycern 1 drp OPB QAM 05/29/18 05/29/18 History celecoxib 400 mg PO QAM 05/29/18 05/29/18 History warfarin 5 mg PO 3XWK 05/29/18 05/29/18 History warfarin 7.5 mg PO 4XWK 05/29/18 05/29/18 History Past Med/Surg History Medical History 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, sequela Anxiety Arthritis Cervical radiculopathy Anticoagulated on Coumadin History of DVT (deep vein thrombosis) History of pulmonary embolism Atrial flutter HLD (hyperlipidemia) Murmur (Chronic) Hx of blood clots (Resolved) Surgical History Status post total left knee replacement S/P hernia repair S/P tonsillectomy S/P hemorrhoidectomy S/P cataract surgery History of appendectomy Social History Preferred Language: Sudanese Communication Ability: Effective Sql Ssrs Ssis Developer Required: No Beliefs That Will Affect Care: None Current Living Situation: Alone Other Information That Helps Us Care for You: No Feels Safe at Home: Yes Safety Concerns: Feels Safe At This Time Smoking Status: Never smoker Hx Alcohol Use: No Hx Substance Use: No Review of Systems Constitutional: No fever, sweats or chills Eyes: No diplopia, no worsening or blurred vision ENT: normal hearing, no trouble swallowing Respiratory: As per HPI. No cough, sputum. Cardiovascular: As per HPI. No tightness or palpitations Abdomen: No pain, nausea, vomiting, diarrhea or constipation Musculoskeletal: No joint pain, calf pain, swelling Neurologic: No weakness, numbness/tingling, or balance problems Psychiatric: No anxiety or depression Skin: No rash or itch Physical Exam Vital Signs (Past 24 Hours): Last Vital Signs Temp 36.7 C 05/29/18 08:05 Pulse 77 05/29/18 10:10 Resp 21 05/29/18 10:10 BP 138/85 05/29/18 10:03 Pulse Ox 97 05/29/18 10:10 Physical Exam: General: awake, alert, no apparent distress Head: Normocephalic, atraumatic ENT: PERRL, EOMI, no pharyngeal exudate, mucous membranes moist Chest: Clear to auscultation, on room air, no adventitious breath sounds Cardiac: Regular rate and rhythm, + NAZIA, no JVD, normal peripheral pulses, good capillary refill Abdominal: NABS x 4 quadrants, soft, nontender to palpation, no rebound, guarding or tenderness Extremities: Normal inspection, L partial amputation of ring finger, + left TKA scar, no peripheral edema or erythema, calfs nontender to palpation Psych: Normal mood and affect Neuro: AAO x 3, strength intact bilaterally and related 5/5, no motor deficits, speech is clear, no peripheral sensory deficits Constitutional: WD/WN, vitals as above Eyes: normal visual cornelius by confrontation and + anicteric sclerae Neck: normal visual inspection and trachea midline Respiratory: normal respiratory effort, lungs clear to auscultation Cardiovascular: Rate/Rhythm: regular rate and regular rhythm Gastrointestinal (Abdomen): Inspection/Auscultation: abdomen not distended Percussion/Palpation: abdomen soft; abdomen nontender Musculoskeletal: Head/Neck/Chest: normocephalic and head atraumatic Neg for peripheral LE edema, + pedal pulses Skin: no rashes, warm and dry Neurologic: awake; not confused Speech / Cognition: normal speech Psychiatric: A+Ox3, euthymic affect Lymphatic: Exam as done by Angelina Clifton DO Results & Data Diagnostic Findings XR chest 1V portable CLINICAL HISTORY: Atypical chest pain COMPARISON STUDY: May 10, 2014 FINDINGS: The heart is the upper limits of normal in size. There is stable aortic tortuosity/ectasia. There is mild elevation right hemidiaphragm. There is no failure. There is no focal pulmonary consolidation. There are no pleural effusions. Linear opacities at both lung bases likely represent subsegmental atelectasis.[ IMPRESSION: Stable mild aortic tortuosity/ectasia. No acute findings. ECG Additional Comments: 29-MAY-2018 08:04:05 [facility] Normal sinus rhythm Left axis deviation Abnormal ECG When compared with ECG of 14-JUN-2016 11:43, No significant change was found Vent. rate 75 BPM IA interval 150 ms QRS duration 92 ms QT/QTc 392/437 ms P-R-T axes 46 -40 17 Code Status & VTE Plan Code Status Full code Supervising Physician Co-Signing Physician Notes Pt seen and examined by me. Denies current chest pain or SOB. Last chest pain was Tuesday but just didn't feel right. States he has been working out "pretty hard" since joining a gym in July but over the last month he was having difficulty exercising on the treadmill or bike after about 5 minutes. He became more concerned once he started having chest pain. Tolerating PO without issue. Agree with HPI/ROS as noted by PA See above for my exam in PE section Agree with plan as outlined above Chest pain Cardiology is planning on cath tomorrow INR is within range on coumadin, reversing and then restarting post-cath as per cardiology EKG NSR Trop neg and will trend
[2018-05-29] MEDS ORDERED: PHYTONADIONE 5 MG TAB PO STA (14:13)
[2018-05-29] MEDS ORDERED: PHYTONADIONE PED 2 MG, ORA-SWEET SYRUP 2.25 ML, ORA-PLUS SUSP VEHICLE 2.25 ML, BARCODE ... PO SCH (14:30)
[2018-05-29] MEDS ORDERED: Heparin IV Low Dose *NO* Bolus IV ONE (20:00)
[2018-05-29] MEDS ORDERED: HEPARIN LOW DOSE DEXTROSE 25,000 UNITS/500 ML IV SCH (20:00)
[2018-05-29] MEDS: ALPRAZolam 0.5 MG TABLET PO SCH (21:09)
[2018-05-30 06:49] LABS: Hematocrit (blood only) 49.6 % (42-52); Mean Corpuscular Hgb Conc 34.3 g/dL (32-36); Mean Corpuscular Volume 94.7 fL (80-100); Mean Platelet Volume 9.7 fL (7.4-10.4); Platelet Count 196 K/uL (130-400); RDW Coefficient of Variation 13.3 % (11.5-14.5); RDW Standard Deviation 46.2 fL (36.4-46.3); Red Blood Count 5.24 M/uL (4.7-6.1); White Blood Count 6.03 K/uL (4.8-10.8)
[2018-05-30 06:59] LABS: INR 1.7 (0.9-1.1); Prothrombin Time 17.1 Seconds (9.0-12.0)
[2018-05-30 07:22] LABS: Albumin Level 3.4 gm/dl (3.4-5.0); BUN Creatinine Ratio 18.4 (10-20); Calcium 8.5 mg/dl (8.5-10.1); Creatinine Clr Calc Pharmacy 67.5 ml/min; Est GFR (African American) 70.5; Est GFR (Non-African American) 60.8; Magnesium 2.2 mg/dl (1.8-2.4); Potassium 3.9 mmol/L (3.5-5.1)
[2018-05-30 07:25] LABS: Albumin Globulin Ratio 0.7 (0.9-2); Globulin 4.6 gm/dl (2.5-4.0)
[2018-05-30] MEDS ORDERED: SODIUM CHLORIDE 0.9% 1000ML 1,000 ML IV ONE (09:00)
[2018-05-30] MEDS: ALPRAZolam 0.5 MG TABLET PO SCH ×2 (10:22→22:01)
--- NOTE | 2018-05-30 10:35 | Consultation Report ---
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 REASON FOR CONSULTATION: Chest discomfort and unstable angina. Dear Dr. Andersen: Thank you for requesting a cardiology consultation on Ra with regards to his progressive anginal symptoms. As you know, he is a very pleasant 77-year-old gentleman who has been working out over the last 9 months. He was exercising almost every day, burning 700 calories while at the gym. Off until 6 weeks ago, he felt well. He started noticing 6 weeks ago when he would walk on the treadmill that he would get upper chest tightness and then burning into his throat. There was no radiation to his jaw, down his arms or into his back. If he stopped, his symptoms would improve. He also noted increasing belching after the episode. He also notes if he climbs 2 flights of stairs. He is starting to get some shortness of breath and some mild tightness. This was a significant change for him. He had contacted his primary care provider who recommended stress testing which was scheduled for this week. His son was in town and was concerned about his symptoms and suggests that he should come to the Emergency Room. In the ER, his troponins are negative. He is currently pain free. His INR was therapeutic upon arrival. He was given oral vitamin K in order to reverse his Coumadin level. He does describe driving to his son's which is about 4-1/2 hours from here and then driving to [place]. He notes that his Coumadin levels have been therapeutic and he was therapeutic when he came to the hospital today. He notes when he traveled, he got up out of the car every couple of hours and walked around, given his history of prior DVT and pulmonary emboli. He denies any bleeding, bruising, dark stools, black stools, fevers, chills, sweats, cough, productive sputum. He denies any upcoming surgery or need for colonoscopy or tooth extraction. He denies any palpitations or fluttering. He has noted some mild shortness of breath in the last week or 2 when he goes to lay down at night which was new for him as well. He does have some arthritic discomfort. The rest of review of system is otherwise negative. PAST MEDICAL HISTORY: 1. Episode of atrial flutter in July 2012, status post cardioversion. 2. Echocardiogram 05/2016 with mild to moderate aortic stenosis and mild aortic insufficiency and normal biventricular size and function. 3. History of PACs. 4. 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 5. Hyperlipidemia. 6. Osteoarthritis, status post bilateral knee replacements. 7. History of vertigo. 8. Anxiety. 9. Cervical disc disease. 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 He denies any tobacco use. He does drink beer and wine. ALLERGIES: CODEINE AND DILTIAZEM. MEDICATIONS: Reviewed in electronic medical record. FAMILY HISTORY: Noncontributory. PHYSICAL EXAMINATION: GENERAL: He is awake, alert, oriented x3. He is in no acute distress. He is a well-appearing male, looks younger than stated age. VITAL SIGNS: His heart rate is 72, blood pressure 122/77, respirations 18. His sat is 95% on room air. HEENT: 2+ carotid upstrokes. No evidence of carotid bruits. Jugular venous pressure appeared normal. Sclerae is anicteric. Hearing is normal. LUNGS: Clear to auscultation bilaterally. No rales, rhonchi or wheezing. HEART: Regular rate and rhythm. There is a soft systolic ejection murmur, 2/6 early to mid peaking. There were no appreciable diastolic murmurs. ABDOMEN: Soft, nontender, nondistended. Positive bowel sounds. EXTREMITIES: No clubbing, cyanosis or edema. PSYCHIATRIC: His affect appeared appropriate. NEUROLOGIC: Grossly nonfocal. LABORATORY STUDIES: Sodium 138, potassium 3.9, BUN 21, creatinine 1.16. AST and ALT were normal. His lipase was normal. Troponins are negative x3. Hemoglobin was 17, platelet count of 196. His INR on admission was 2.6 and is 1.7 this morning. Chest x-ray: Tortuous aorta. No acute findings. EKG, 05/29/2018, normal sinus rhythm, left axis deviation, no acute ST-T changes. IMPRESSION: 1. Unstable angina. 2. History of atrial flutter, maintaining sinus rhythm. 3. Normal biventricular size and function by echo, May 2016. 4. History of PACs. 5. Mild to moderate aortic stenosis with mild aortic insufficiency. 6. 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 As I discussed with Ra and his family, I believe he needs a cardiac catheterization to define his coronary anatomy given his classic symptoms of unstable angina. I do not think he has had a recurrent pulmonary embolism as his INRs have been therapeutic and he has been very cognizant of getting out of the car and walking around after an hour or 2 of driving. I discussed the risks and benefits of cardiac catheterization, risks including but not limited to bleeding or infection of the puncture site, damage to his radial or femoral artery, risk of contrast-induced nephropathy, allergic reaction to contrast and one in 1000 risk of heart attack, stroke or dying with the procedure were discussed. I discussed with him his options with catheterization would be medical therapy versus angioplasty and stenting versus the small chance that he would need bypass surgery if he had left main or triple-vessel disease. He understands the risks and wishes to proceed. I have contacted the cardiac catheterization, laboratory and discussed his case with Dr. Samuel Ward of interventional cardiology. His INR this morning is 1.7 and therefore it is safe to proceed with his catheterization. I did discuss with him if we do intervene with a stent, he will be on Plavix and Coumadin and triple therapy with aspirin, Plavix and Coumadin for a month. Additionally, given his MTHFR mutation, we will need to bridge him with Lovenox until his INR comes back up in light of his oral vitamin K that he received. We will start IV fluids at 80 mL an hour x1 liter. Additionally, I would start Crestor 20 mg at bedtime. His heart rate and blood pressure at this point are acceptable and depending on the results, we can consider adding low-dose beta kylah. Further recommendations will be forthcoming. Thank you for allowing us to participate in his care. SHERRY
[2018-05-30] MEDS ORDERED: MIDAZOLAM HCL 1 MG/ML 2ML VIAL ONE ×2 (14:45→15:38)
[2018-05-30] MEDS ORDERED: fentaNYL citrate 100 MCG/2 ML VIAL ONE (14:45)
[2018-05-30] MEDS ORDERED: NiCARDipine HCL INJ 2.5 MG/ML 10 ML AMP ONE (14:45)
[2018-05-30] MEDS ORDERED: HEPARIN (PORCINE) 1000 UNIT/ML 10 ML (CATH LAB USE ONLY) ONE (14:45)
[2018-05-30] MEDS ORDERED: NITROGLYCERIN/D5W 100MCG/ML 20ML SYR ONE (14:46)
--- NOTE | 2018-05-30 15:02 | Pre Anesthesia Assessment ---
Date of Service May 30, 2018 Pre Sedation Assessment Vital Signs Temp Pulse Pulse Resp BP BP Pulse Ox 05/30/18 11:01 36.7 C 77 19 145/81 H 93 05/30/18 08:00 72 05/30/18 07:31 36.6 C 74 18 122/77 95 05/30/18 03:57 36.4 C L 68 17 128/77 94 05/29/18 23:12 36.6 C 74 16 119/75 93 05/29/18 19:51 36.6 C 67 18 146/80 H 94 05/29/18 15:49 36.5 C 75 16 149/87 H 96 Cardiovascular RRR, no murmur, no edema Respiratory normal respiratory effort, lungs clear to auscultation Pre-Sedation Airway Assessment Smoking Status: Never smoker Hx Sleep Apnea: No Hx Difficult Intubation: No Short, Thick Neck: No Thyromental Distance: > or= 3.5 Finger Breadths Oral Cavity: + WNL Mallampati Class: III Procedure Planning Contraindications for Sedation: none Current Medications Reviewed: Yes Notes The planned sedation has been discussed with the patient. Informed Consent was obtained. I have identified the patient, determined the appropriateness of sedation and have assessed the patient immediately prior to the procedure. All medicine(s) and interventions are by my order.
[2018-05-30] MEDS ORDERED: TICAGRELOR 90 MG TAB PO ONE (16:10)
--- NOTE | 2018-05-30 16:51 | Cardiology Consultation ---
Date of Consultation May 30, 2018 Assessment & Plan (1) Unstable angina: 2. 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 Moderate aortic stenosis 4. Hyperlipidemia Patient here with progressive, accelerating typical angina over the last 6 weeks. Suspicion for high risk coronary disease is elevated and agree with proceeding directly with cardiac catheterization. Discussed procedure including risks, benefits, alternatives with patient and he is willing to proceed. INR today 1.7 after vitamin K yesterday. Plan to perform procedure via right radial artery. No other contraindications. Further recommendations pending findings of procedure. Thank you for allowing us to participate in the care of this patient. Please contact with any questions. History of Present Illness Attending Physician: Walter Andersen History of Present Illness Mr. Li is a 77-year-old male admitted with unstable angina followed by Dr. Joy. Interventional cardiology consult for cardiac catheterization. Patient has a history of mild to moderate aortic stenosis, multiple prior PE/DVT with MT HFR mutation on chronic anticoagulation, hyperlipidemia, single episode of atrial flutter back in 2012. Prior to 6 weeks ago was very active exercising regularly without limitations. Since that time is had progressive exertional chest pressure radiating up into his neck. Due to progressive nature of symptoms presented to ED. EKG unremarkable. Troponins have been negative. Allergies Allergy/AdvReac Type Severity Reaction Status Date / Time diltiazem Allergy Intermediate ITCHING Verified 05/29/18 08:33 AND FLUSHING codeine Allergy Mild RASH Verified 05/29/18 08:33 Home Medications Home Medications Medication Instructions Recorded Confirmed Type Cataract Injection 0 mg IM UD 05/29/18 05/29/18 History alprazolam 0.5 mg PO BID 05/29/18 05/29/18 History carboxymethylcellulose-glycern 1 drp OPB QAM 05/29/18 05/29/18 History celecoxib 400 mg PO QAM 05/29/18 05/29/18 History warfarin 5 mg PO 3XWK 05/29/18 05/29/18 History warfarin 7.5 mg PO 4XWK 05/29/18 05/29/18 History Patient History Medical History 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, sequela Anxiety Arthritis Cervical radiculopathy Anticoagulated on Coumadin History of DVT (deep vein thrombosis) History of pulmonary embolism Atrial flutter HLD (hyperlipidemia) Murmur (Chronic) Hx of blood clots (Resolved) Surgical History Status post total left knee replacement S/P hernia repair S/P tonsillectomy S/P hemorrhoidectomy S/P cataract surgery History of appendectomy Social History Communication Ability: Effective Beliefs That Will Affect Care: None marital status: / Current Living Situation: Alone Other Information That Helps Us Care for You: No Feels Safe at Home: Yes Safety Concerns: Feels Safe At This Time Smoking Status: Never smoker Hx Alcohol Use: No Hx Substance Use: No Review of Systems 10 point review of systems was completed and was otherwise negative unless stated in HPI Physical Exam Vital Signs (Past 24 Hours): Last Vital Signs Temp 36.6 C 05/30/18 16:27 Pulse 80 05/30/18 16:44 Resp 16 05/30/18 16:44 BP 130/82 05/30/18 16:44 Pulse Ox 94 05/30/18 16:44 Physical Exam: General: Comfortable, no acute distress Eyes: Sclerae anicteric, extraocular movements intact HENT: Oropharynx clear mucous membranes moist Neck: Normal carotid upstrokes, no bruits. No JVD. Lungs: Clear to auscultation bilaterally, no rhonchi or wheezes Cardiac: Regular rate and rhythm, 2 out of 6 systolic ejection murmur Vascular: 2+ radial bilaterally Abdomen: Soft, nontender, nondistended, positive bowel sounds. Extremities: Well perfused, no peripheral edema Skin: No rashes or lesions. Neuro: Nonfocal Psych: Alert orient x3, normal affect and mood
--- NOTE | 2018-05-30 16:56 | Post Anesthesia Assessment ---
Date of Service May 30, 2018 Post Sedation Assessment Vital Signs Temp Pulse Pulse Resp BP BP Pulse Ox 05/30/18 16:44 80 16 130/82 94 05/30/18 16:27 36.6 C 84 16 128/86 94 05/30/18 16:15 91 H 18 135/82 97 05/30/18 11:01 36.7 C 77 19 145/81 H 93 05/30/18 08:00 72 05/30/18 07:31 36.6 C 74 18 122/77 95 05/30/18 03:57 36.4 C L 68 17 128/77 94 05/29/18 23:12 36.6 C 74 16 119/75 93 05/29/18 19:51 36.6 C 67 18 146/80 H 94 Recovery Score Activity: Moves 4 extremities Respiration: Deep Breath/Cough Circulation: +/-20% PreAnes Value Consciousness: Fully Awake Oxygen Saturation: O2 needed for >90% Discharge Sedation Level of Care: Fast Track Phase II Post Sedation Plan On clinical assessment, the patient appears to have tolerated the sedation without complications. Patient is recovering as anticipated. Patient will continue to be monitored by nursing and may be discharged when sedation discharge criteria are met per below protocol. Upon Completions of procedure and additional 15 minutes continue every 5 minute vital signs and the P.A.R. score; then discharge to a Phase I or Fast Track to Phase II per the following guidelines: * Discharge Patient to appropriate Phase II area if PAR is 8 or greater or return to pre- procedure baseline. The post - procedure orders will be as directed. * If PAR score is less than 8 or not return to pre-procedure baseline then patient will follow Phase I monitoring till PAR is reached for Phase II. The Phase I may be done in procedure room or may call to secure a Phase I area. * If naloxone or flumazenil are used for reversal, hold in Phase I for continued monitoring from when last reversal dose was given for a minimum of 60 minutes or longer pending the nurse and/or physician discretion of patient condition before discharge to Phase II. Please call the Sedation Physician to re-evaluate and complete post-note for discharge to Phase II area. Do NOT discharge from procedure sedation or Phase 1 until post- sedation evaluation note is complete by procedure /sedation MD Sedation Discharge Instructions to be given to the patient at discharge to home.
[2018-05-30] MEDS ORDERED: SODIUM CHLORIDE 0.9% 1000ML 1,000 ML IV SCH (17:00)
--- NOTE | 2018-05-30 17:07 | Cardiac Catheterization ---
Cardiac Cath Procedure Full Procedure Date May 30, 2018 Pre-Procedure Diagnosis Pre-Procedure Diagnosis: Acute Coronary Syndrome AUC Score AUC Score: 7 Post-Procedure Diagnosis Post-Procedure Diagnosis: Severe CAD and Successful PCI Procedure(s) Performed Procedure(s) Performed: Coronary Angiography and Drug Eluting Stent Mechanical Service Representative Samuel Ward MD Public Health Educator(s) Jamie Estimated Blood Loss Estimated Blood Loss: 15 Medication(s) Medication(s): Fentanyl, Heparin, Lidocaine 1%, Nicardipine, Nitroglycerin and Versed Summary of Findings Indication: Accelerating angina Access: 6 Fr right radial artery Catheters: [place], JL 3.5 guide Findings: LM -angiographically normal LAD -95+% hazy focal ostial stenosis, mid to distal luminal irregularities. Vessel extends to the apex gives off moderate caliber first diagonal with 50-60% proximal stenosis Circumflex -large caliber vessel, 20% ostial stenosis. Gives off large trifurcating OM 3 without significant disease RCA -large caliber, dominant, 30-40% proximal stenosis, mid and distal segment luminal irregularities.. -- PCI -- Antithrombotic therapy: Heparin, ticagrelor Procedure: Left main cannulated with JL 3.5 guide Cylinder Sander Operator 50 wire passed across lesion into distal vessel Pro-water wire passed into circumflex artery Ostial LAD lesion predilated with 2.5 compliant balloon Dilated lesion stented with 3.0 x 15 mm Xience Lorna drug-eluting stent Stent post-dilated with 3.5 noncompliant balloon IC vasodilators administered for spasm Post procedure YSABEL 3 flow, stent well expanded with minimal residual stenosis and no apparent cardiac complications. Arterial Closure: TR band Summary: 1. Severe single vessel coronary artery disease -95+% ostial LAD 50-60% proximal first diagonal 2. Successful PCI of ostial LAD with single drug-eluting stent (3.0 x 15 mm Xience Lorna; postdilated with 3.5 NC). Recommendations: To PCU for continued monitoring Loaded with ticagrelor and Chief Writer Can resume Coumadin tonight. Transition ticagrelor to clopidogrel tomorrow. Triple therapy with aspirin, clopidogrel, Coumadin for 1 month then okay to continue on clopidogrel, Coumadin alone for at least one year. Continue statin, and ASCVD risk factor modification Consult cardiac Rehab Hemodynamics Rest Ao:: 123/77/100 Final Ao: 121/70/95 LV: Recommendations Recommendations: PCI without planned CABG Specimens Specimens: None Radiation Exposure (mGy) 3331 Contrast (mls) 130 Fluids (cc crystalloids) Fluids (cc crystalloids): 90 Drains Drains: None Anesthesia moderate Procedural Complication(s) None Disposition PCU ACC Data: Chief Writer Cardiac Status Clinical evaluation leading to the procedure CAD Presenation: Unstable angina Anginal Classification: CCS III Heart Failure: No Cardiogenic Shock within 24 Hours: No Cardiac Arrest within 24 Hours: No Imaging Studies Past 6 Months: Yes Stress Studies Past 6 Months: No Diagnostic Physicians Name: Samuel Ward MD Status: Elective Closure Device Percutaneous Entry Location: Radial Closure Device: Angio-Seal Recommendations: PCI without planned CABG PCI Indication: Unstable Angina Lesion Segment Name: Ostial LAD Culprit Artery: Yes Stenosis Prior to Rx (%): 95% Chronic Total Occlusion: No IVUS: No FFR: No Pre-Procedure YSABEL Flow: 2 Previously Treated Lesion: No Lesion Complexity: Non-High/Non-C Lesion Length (mm): 12 Thrombus Present: Yes Bifurcation Lesion: Yes Guidewire Across Lesion: Stenosis Post-Procedure (%): 0 Post-Procedure YSABEL Flow: 3 Devices(s) Deployed: Yes Yes Intraprocedure Events Significant Disection: No Perforation: No
[2018-05-30] MEDS ORDERED: WARFARIN SOD 7.5 MG TAB PO ONE (18:30)
[2018-05-30] MEDS ORDERED: ROSUVASTATIN CALCIUM 20 MG TAB PO SCH (21:00)
[2018-05-30] MEDS ORDERED: TICAGRELOR 90 MG TAB PO SCH (21:00)
--- NOTE | 2018-05-30 21:18 | Hospitalist Progress Note ---
Date of Service May 30, 2018 Assessment & Plan (1) Unstable angina: - Admit to tele - Trend cardiac biomarkers, x3 negative Given clinical presentation of unstable angina, patient had catherization done. Coumadin was held, but was reinstated today. 7.5 mg of coumadin given today. Cath findings: Severe single vessel coronary artery disease -95+% ostial LAD 50-60% proximal first diagonal Successful PCI of ostial LAD with single drug-eluting stent (3.0 x 15 mm Xience Lorna; postdilated with 3.5 NC). Loaded with ticagrelor and Belt Back Operator Transition ticagrelor to clopidogrel tomorrow. Triple therapy with aspirin, clopidogrel, Coumadin for 1 month then okay to continue on clopidogrel, Coumadin alone for at least one year. Continue statin, and ASCVD risk factor modification Consult cardiac Rehab EKG reviewed (2) HLD (hyperlipidemia): Started on rosuvastatin. (3) Atrial flutter: - hx of such in 2013, pt was electively cardioverted at that time. No recurrent bouts. (4) History of pulmonary embolism: (5) History of DVT (deep vein thrombosis): - Hx of clots in 2010 s/p L TKA (6) Cervical radiculopathy: - Stable (7) Arthritis: - Stable, hold celecoxib. Would discontinue as outpatient with increased risk for GI bleed while on anticoagulation - discuss w/ pt prior to dc (8) Anxiety: - Stable (9) DVT prophylaxis: - restarted coumadin. Subjective 77 yo male reports feeling well.Patient had catherization done today and has mild pain in his right wrist. Aside from this, patient denies any chest pain, nausea, vomiting, diarrhea. ROS: Constitutional: No fever, sweats or chills Eyes: No diplopia, no worsening or blurred vision ENT: normal hearing, no trouble swallowing Respiratory: No cough, sputum. Cardiovascular: No tightness or palpitations Abdomen: No pain, nausea, vomiting, diarrhea or constipation Musculoskeletal: No joint pain, calf pain, swelling Neurologic: No weakness, numbness/tingling, or balance problems Psychiatric: No anxiety or depression Skin: No rash or itch Physical Exam Vital Signs (Past 24 Hours): Last Vital Signs Temp 36.5 C 05/30/18 20:22 Pulse 68 05/30/18 20:37 Resp 18 05/30/18 20:37 BP 129/84 05/30/18 20:37 Pulse Ox 96 05/30/18 20:37 Physical Exam: General: awake, alert, no apparent distress Head: Normocephalic, atraumatic ENT: PERRL, EOMI, no pharyngeal exudate, mucous membranes moist Chest: Clear to auscultation, on room air, no adventitious breath sounds Cardiac: Regular rate and rhythm, + NAZIA, no JVD, normal peripheral pulses, good capillary refill Abdominal: NABS x 4 quadrants, soft, nontender to palpation, no rebound, guarding or tenderness Extremities: Normal inspection, L partial amputation of ring finger, + left TKA scar, no peripheral edema or erythema, calfs nontender to palpation; right wrist has ecchymosis from procedure. Psych: Normal mood and affect Neuro: AAO x 3, strength intact bilaterally and related 5/5, no motor deficits, speech is clear, no peripheral sensory deficits
[2018-05-31 06:28] LABS: Hemoglobin 16.9 g/dL (14.0-18.0); Mean Corpuscular Hgb Conc 35.2 g/dL (32-36); Mean Corpuscular Volume 94.3 fL (80-100); Mean Platelet Volume 9.2 fL (7.4-10.4); Platelet Count 193 K/uL (130-400); RDW Coefficient of Variation 13.2 % (11.5-14.5); RDW Standard Deviation 45.6 fL (36.4-46.3); Red Blood Count 5.09 M/uL (4.7-6.1); White Blood Count 6.72 K/uL (4.8-10.8)
[2018-05-31 06:44] LABS: INR 1.3 (0.9-1.1); Prothrombin Time 12.9 Seconds (9.0-12.0)
[2018-05-31 06:54] LABS: Albumin Level 3.3 gm/dl (3.4-5.0); BUN Creatinine Ratio 19.9 (10-20); Calcium 8.5 mg/dl (8.5-10.1); Creatinine Clr Calc Pharmacy 79.3 ml/min; Est GFR (African American) 86.5; Est GFR (Non-African American) 74.6; Magnesium 2.1 mg/dl (1.8-2.4); Potassium 3.8 mmol/L (3.5-5.1)
[2018-05-31 06:57] LABS: Albumin Globulin Ratio 0.7 (0.9-2); Bilirubin,Total 0.9 mg/dl (0.2-1); Globulin 4.4 gm/dl (2.5-4.0); Total Protein 7.7 gm/dl (6.4-8.2)
[2018-05-31] MEDS: ALPRAZolam 0.5 MG TABLET PO SCH (08:13)
[2018-05-31] MEDS ORDERED: CLOPIDOGREL BISULFATE 300 MG TAB PO SCH (09:00)
[2018-05-31] MEDS ORDERED: ASPIRIN 81 MG ECTAB PO SCH (09:00)
--- NOTE | 2018-05-31 09:20 | Cardiology Progress Note ---
Date of Service May 31, 2018 He feels well. He has any chest pain chest pressure chest heaviness. Denies any shortness of breath. He denies any throat discomfort like he had before his hospitalization. He has had palpitations or lightheadedness dizziness presyncope or syncope. Denies any lower extremity edema. He notes he has not slept well in the hospital. He denies any right wrist or arm discomfort or hand discomfort. The rest of the complete review of systems otherwise negative Physical Exam Vital Signs (Past 24 Hours): Last Vital Signs Temp 36.3 C L 05/31/18 07:11 Pulse 80 05/31/18 07:11 Resp 16 05/31/18 07:11 BP 119/77 05/31/18 07:11 Pulse Ox 96 05/31/18 07:11 He is awake alert oriented x3 HEENT 1+ carotid upstrokes, no evidence of carotid bruits, jugular venous pressu re appeared normal, sclerae anicteric hearing is normal Lungs: Clear to auscultation bilaterally no rales rhonchi or wheezing Heart: Regular rate and rhythm there is a 2 out of 6 crescendo decrescendo murmur which is early to mid peaking at the right sternal border Abdomen: Soft nontender nondistended positive bowel sounds Extremities: He has brisk right radial pulse his right hand is warm to touch she has no discomfort; no lower extremity edema Psychiatric: His affect appeared appropriate Findings: LM -angiographically normal LAD -95+% hazy focal ostial stenosis, mid to distal luminal irregularities. Vessel extends to the apex gives off moderate caliber first diagonal with 50-60% proximal stenosis Circumflex -large caliber vessel, 20% ostial stenosis. Gives off large trifurcating OM 3 without significant disease RCA -large caliber, dominant, 30-40% proximal stenosis, mid and distal segment luminal irregularities.. -- PCI -- Antithrombotic therapy: Heparin, ticagrelor Procedure: Left main cannulated with JL 3.5 guide Staff Nurse Midwife 50 wire passed across lesion into distal vessel Pro-water wire passed into circumflex artery Ostial LAD lesion predilated with 2.5 compliant balloon Dilated lesion stented with 3.0 x 15 mm Xience Lorna drug-eluting stent Summary: 1. Severe single vessel coronary artery disease -95+% ostial LAD 50-60% proximal first diagonal 2. Successful PCI of ostial LAD with single drug-eluting stent (3.0 x 15 mm Xience Lorna; postdilated with 3.5 NC). Impressions: 1. Unstable angina 2. Status post angioplasty and stenting of a 95% ostial LAD lesion 3. Residual 50-60% proximal first diagonal lesion and a 30-40% proximal RCA lesion 4. Hyperlipidemia 5. History of previous DVT and pulmonary embolism with MTHFR mutation on chronic Coumadin anticoagulation In discussion with interventional cardiology we would recommend aspirin 81 mg daily for 30 days. Plavix 75 mg daily for a year along with his chronic Coumadin anticoagulation. Given his prior extensive history of DVT and PE and a subtherapeutic INR as we reversed his Coumadin with oral vitamin K I would recommend Lovenox a milligram per kilogram twice daily until his INR is greater than 2.0. This was again discussed with interventional cardiology. I would start him on pantoprazole to protect his stomach over the next year while on triple therapy initially and then dual therapy for the next year. His blood pressure is well controlled there is no room for beta blockers or JANELLE inhibitors at this point. We will arrange for his follow-up in the office in the next 10 days. He was given post-cath instructions including not driving until Tuesday and avoiding submerging his right wrist into a hot tub bath tub pool or bucket of water. He was also given important instructions with regards to signs and symptoms of bleeding.
[2018-05-31] MEDS ORDERED: CLOPIDOGREL BISULFATE 75 MG TAB PO SCH (10:00)
[2018-05-31] MEDS ORDERED: PANTOprazole 40 MG TAB PO SCH (10:00)
[2018-05-31] MEDS ORDERED: ENOXAPARIN 100 MG/1ML SYR SQ SCH (10:00)
[2018-05-31] MEDS ORDERED: WARFARIN SOD 7.5 MG TAB PO ONE (18:04)
--- NOTE | 2018-06-08 16:13 | Discharge Summary ---
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 The patient notes that he has been exercising routinely for at least one year. He typically works out for 1 hour/day on treadmill or bicycle. Within the last 6 weeks the patient has been unable to complete an entire hour and feels worsening chest pain and dyspnea on exertion within the first 5 minutes of exercise. He reports that he has seen his PCP, Dr. Shankar and followed up with cardiology, Dr. Tatum as an outpatient. He believes he has an upcoming stress test scheduled this . Cardiology advises that the patient should be admitted for possible stress testing and/or cardiac cath. Patient denies any shortness of breath or chest pain at rest. He denies any lightheadedness, dizziness, palpitations or flutter. Principal Diagnosis Unstable angina Discharge Exam General: awake, alert, no apparent distress Head: Normocephalic, atraumatic ENT: PERRL, EOMI, no pharyngeal exudate, mucous membranes moist Chest: Clear to auscultation, on room air, no adventitious breath sounds Cardiac: Regular rate and rhythm, + NAZIA, no JVD, normal peripheral pulses, good capillary refill Abdominal: NABS x 4 quadrants, soft, nontender to palpation, no rebound, guarding or tenderness Extremities: Normal inspection, L partial amputation of ring finger, + left TKA scar, no peripheral edema or erythema, calfs nontender to palpation; Psych: Normal mood and affect Neuro: AAO x 3, strength intact bilaterally and related 5/5, no motor deficits, speech is clear, no peripheral sensory deficits Discharge Data Allergies Allergy/AdvReac Type Severity Reaction Status Date / Time diltiazem Allergy Intermediate ITCHING Verified 05/29/18 08:33 AND FLUSHING codeine Allergy Mild RASH Verified 05/29/18 08:33 Consultations 05/29/18 09:54 ED Decision to Admit Stat 05/29/18 10:03 Consult Case Management - Discharge Planning Routine 05/29/18 10:50 Consult Health Information Management Stat 05/29/18 11:21 Consult Cardiology Routine 05/30/18 08:59 Consult Cardiac Catheterization Routine 05/31/18 09:55 Consult Cardiac Rehabilitation Routine Procedures Performed Operation Date: 05/30/18 14:00 Actual Procedures p Cath, Coronaries ONLY (no LV) - Jayy Ward MD s Drug Eluting Stent SGl Vessel - Jayy Ward MD s Cineradiography w/Routine Exam - Jayy Ward MD Ordered Studies 05/30/18 11:25 CL Cath Imgs for PACS use only Routine Hospital Course (1) Unstable angina: - Admit to tele - Trend cardiac biomarkers, x3 negative Given clinical presentation of unstable angina, patient had catherization done. Coumadin was held, but was reinstated today. 7.5 mg of coumadin given today. 05/30 Cath findings: Severe single vessel coronary artery disease -95+% ostial LAD 50-60% proximal first diagonal Successful PCI of ostial LAD with single drug-eluting stent (3.0 x 15 mm Xience Lorna; postdilated with 3.5 NC). Loaded with ticagrelor and Lining Cutter Transition ticagrelor to clopidogrel tomorrow. Triple therapy with aspirin, clopidogrel, Coumadin for 1 month then okay to continue on clopidogrel, Coumadin alone for at least one year. Continue statin, and ASCVD risk factor modification Consult cardiac Rehab EKG reviewed 05/31 Appreciate Cardio input. In discussion with interventional cardiology we would recommend aspirin 81 mg daily for 30 days. Plavix 75 mg daily for a year along with his chronic Coumadin anticoagulation. Given his prior extensive history of DVT and PE and a subtherapeutic INR as we reversed his Coumadin with oral vitamin K I would recommend Lovenox a milligram per kilogram twice daily until his INR is greater than 2.0. This was again discussed with interventional cardiology. I would start him on pantoprazole to protect his stomach over the next year while on triple therapy initially and then dual therapy for the next year. His blood pressure is well controlled there is no room for beta blockers or JANELLE inhibitors at this point. We will arrange for his follow-up in the office in the next 10 days. He was given post-cath instructions including not driving until Tuesday and avoiding submerging his right wrist into a hot tub bath tub pool or bucket of water. He was also given important instructions with regards to signs and symptoms of bleeding. (2) HLD (hyperlipidemia): Started on rosuvastatin. (3) Atrial flutter: - hx of such in 2013, pt was electively cardioverted at that time. No recurrent bouts. (4) History of pulmonary embolism: (5) History of DVT (deep vein thrombosis): - Hx of clots in 2010 s/p L TKA (6) Cervical radiculopathy: - Stable (7) Arthritis: - Stable, hold celecoxib. Would discontinue as outpatient with increased risk for GI bleed while on anticoagulation - discuss w/ pt prior to dc (8) Anxiety: - Stable (9) DVT prophylaxis: - restarted coumadin. Total Time Total Time Spent Total Time Spent (In Minutes): 31 Total Time Includes: Examination of the Patient, Discharge Planning and Medication Reconciliation Discharge Plan Discharge Items Patient Disposition: Home - Self-Care Reason For Visit: UNSTABLE ANGINA Discharge Diagnosis: Unstable angina Discharge Goals: Decrease discomfort Activity: Resume your previous activity Non-emergency contact: Primary Care Provider Call non-emergency contact if: you have any medication questions Follow-up/Referrals: Roque Shankar MD [Primary Care Provider] - 06/05/18 1:10 pm (Please, follow up with Dr. Jan Shankar on TuesdayJune 05 at 1:10 pm. *If you need to change this appointment, call the office at [phone].) Gigi Joy, [Family Provider] - (Please, follow up with Dr. Joy. His nurse will call you with the appointment details. *If you have any questions, call the office at [phone].) Diet: Heart Healthy [facility] Provider Instructions: You were seen here and had a stent placed in your heart. You will be discharged on warfarin. You will have your INR rechecked on tuesday. you will continue on lovenox until tuesday. Prescriptions: New clopidogrel 75 mg Tablet 75 mg PO QAM Qty: 30 RF: 0 rosuvastatin [Crestor] 20 mg Tablet 20 mg PO HS Qty: 30 RF: 0 aspirin [Ecotrin Low Strength] 81 mg Tablet,Delayed Release (Dr/Ec) 81 mg PO QAM Qty: 30 RF: 0 enoxaparin 100 mg/mL syringe 100 mg SQ Q12H Qty: 5 RF: 0 Continued alprazolam 0.5 mg tablet 0.5 mg PO BID RF: 0 warfarin 5 mg tablet 5 mg PO 3XWK RF: 0 warfarin 5 mg tablet 7.5 mg PO 4XWK RF: 0 carboxymethylcellulose-glycern 0.5-0.9 % Drops 1 drp OPB QAM RF: 0 Cataract Injection IM UD RF: 0 Discontinued celecoxib 200 mg capsule 400 mg PO QAM RF: 0 Stand-Alone Forms: Call Back Authorization, [facility] Discharge Orders: Discharge Order (Routine); Ordered 05/31/18 Ordered By: Walter Andersen Admission Data Admit Date/Time: 05/29/18 10:02 Attending Provider: Walter Andersen Admit Provider: Angelina Clifton Primary Care Provider: Roque Shankar Other Providers: Patrick Manning ; Angelina Clifton ; Jayy Ward Service: Telemetry Other Interventions: Discharge Summary Assessment (RN) Last Done: 05/31/18 11:22 DC Date/Time DO NOT enter until pt leaves facility: 05/31/18 11:48
== END 2018-05-31 11:48 | disposition home or self-care (01) | DRG 247 ==
LOC: ED 07:58 → SUATTDRO 10:02 → 2S 10:02
PROC: CLB.CCO (2018-05-30 14:00)

== ENCOUNTER 2022-09-15 19:43 | Inpatient (IN) ==
[2022-09-15 20:39] LABS: Basophils # (auto) 0.06 K/uL (0-0.2); Basophils % (auto) 0.9 %; Eosinophils % (auto) 1.5 %; Hematocrit (blood only) 46.5 % (42.0-52.0); Immature Granulocytes # (auto) 0.02 K/uL (0.01-0.20); Immature Granulocytes % (auto) 0.3 %; Lymphocytes # (auto) 1.85 K/uL (1.2-3.4); Lymphocytes % (auto) 27.2 %; Mean Corpuscular Hemoglobin 29.9 pg (25.0-34.0); Mean Corpuscular Hgb Conc 34.4 g/dL (32.0-36.0); Mean Corpuscular Volume 86.9 fL (80.0-100.0); Mean Platelet Volume 9.4 fL (9.4-12.4); Monocytes % (auto) 7.3 %; Neutrophils # (auto) 4.28 K/uL (1.40-6.50); Neutrophils % (auto) 62.8 %; Platelet Count 243 K/uL (130-400); RDW Coefficient of Variation 13.3 % (11.5-14.5); RDW Standard Deviation 41.4 fL (36.4-46.3); Red Blood Count 5.35 M/uL (4.70-6.10); White Blood Count 6.81 K/ul (4.8-10.8)
[2022-09-15 20:50] LABS: Albumin Globulin Ratio 1.2 (0.9-2); Albumin Level 4.2 gm/dl (3.4-5.0); BUN Creatinine Ratio 11.6 (10-20); Bilirubin,Total 0.7 mg/dl (0.2-1.0); Calcium 9.3 mg/dl (8.6-10.3); Creatinine Clr Calc Pharmacy 57.6 ml/min; Est GFR (African American) 59.9 ml/min; Est GFR (Non-African American) 51.7 ml/min; Globulin 3.6 gm/dl (2.5-4.0); Potassium 3.8 mmol/L (3.5-5.1); Total Protein 7.8 gm/dl (6.0-8.3)
[2022-09-15] MEDS ORDERED: SODIUM CHLORIDE 0.9% 500 ML IV ONE (20:56)
[2022-09-15 20:57] LABS: Troponin I High Sensitivity 14.9 pg/ml (0-20)
--- NOTE | 2022-09-15 20:57 | Emergency Department Note ---
Impression & Plan Atrial fibrillation with RVR, Anticoagulated on Coumadin, History of atrial flutter, Hypertension ED Provider Note NAME: INDIRA NCIHOLS AGE: 82 SEX: M ARRIVES VIA: Walk-In INFORMANT: Patient ED PROVIDER(S): Morgan Ngo MD CHIEF COMPLAINT: Dizziness, weakness. 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 The patient is a poor historian regarding exactly what he is feeling but denies shortness of breath or heart racing but simply "cannot get comfortable". He was seen in the emergency department 2 weeks ago for similar symptoms and improved with Ativan. His blood pressure was elevated and he reports upon follow-up with his steno typist had his diltiazem increased from 120 XR daily to 240 XR daily which he has been doing. He denies any fevers, cough, congestion, chest pain or shortness of breath. He reports he will feel lightheaded and weak frequently. Of note, the patient did arrive to emergency department during time of high volume, acuity and prolonged emergency department waiting times. Critical pathways initiated from triage. On my evaluation, the patient is well-appearing no acute distress, afebrile with heart rate in the 100s-130s and what appears to be atrial flutter with variable AV block versus atrial fibrillation. Blood pressure was elevated at 170s/130s. Vital signs otherwise stable. Patient appears clinically dry to euvolemic. EKG demonstrates atrial fibrillation versus atrial flutter with variable AV block at 135 bpm, left anterior fascicular block, LVH, no overt ST elevation or depression, QTc 399, QRS 86. CXR negative for acute cardiopulmonary process per my preliminary review. WBC, H/H and platelets within normal limits. H/H is 16/46.5 increased from prior and so may reflect a component of hemoconcentration. INR is therapeutic at 2.9. Chemistry without metabolic acidosis. Electrolytes and LFTs without significant abnormality. High-sensitivity troponin 14.9, within normal limits. TSH within normal limits. COVID-19 RNA, KIYA test was negative. Patient was treated with IV fluid hydration and 15 mg of IV diltiazem with some improvement in his heart rate to the 110s-120s but with continued hypertension. Given the patient's recurrent symptoms and repeat Emergency Department visits in the past 2 weeks the patient and his son at the bedside did agree with plan for admission for further management. He was given additional 15 mg dose of IV diltiazem and had additional rate control and improvement. Case was discussed with Dr. Campbell, [facility] who will evaluate the patient for admission. Further management per admitting team. Triage Nursing notes reviewed and agree them. Prior/outside medical records reviewed Vital Signs: reviewed Differential diagnosis: Benign positional vertigo, dehydration, hypovolemia, anemia, tumor, infection, hypoglycemia, electrolyte abnormalities, cardiac sources, intracerebral event, toxicologic, neurologic, as well as other pathologies. ER treatment provided: See below. Diagnostics interpreted by me: ECG: Atrial fibrillation versus atrial flutter with variable AV block at 135 bpm, left anterior fascicular block, LVH, no overt ST elevation or depression, QTc 399, QRS 86 Cardiac Monitoring: An order for continuous cardiac monitoring was placed and demonstrated Atrial fibrillation versus atrial flutter with variable AV block at 135 bpm. Laboratory studies: See below Imaging studies: See below Consultation(s): Case was discussed with Dr. Campbell, [facility] who will evaluate the patient for admission. 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 The patient is a poor historian regarding exactly what he is feeling but denies shortness of breath or heart racing but simply "cannot get comfortable". He was seen in the emergency department 2 weeks ago for similar symptoms and improved with Ativan. His blood pressure was elevated and he reports upon follow-up with his steno typist had his diltiazem increased from 120 XR daily to 240 XR daily which he has been doing. He denies any feve rs, cough, congestion, chest pain or shortness of breath. He reports he will feel lightheaded and weak frequently. ROS: See above HPI for pertinent positives & negatives. A total of 10 systems reviewed and were otherwise negative. VITALS:See Below PHYSICAL EXAMINATION: GENERAL: Awake, alert, well-appearing, in no distress. BmI 33.0. HENT: Normocephalic, atraumatic. Oropharynx with dry mucous membranes and otherwise unremarkable. EYES: Normal conjunctiva. Sclera non-icteric. NECK: Supple. No nuchal rigidity. FROM. No JVD. RESPIRATORY: Clear to auscultation. CARDIAC: Tachycardic rate, normal rhythm. Extremities warm and well perfused. Pulses equal. ABDOMEN: Soft, non-distended. No tenderness to palpation. No rebound or guarding. No masses. RECTAL: Deferred. MUSCULOSKELETAL: Chest examination reveals no tenderness. The back is symmetrical on inspection without obvious abnormality. There is no CVA tenderness to palpation. No joint edema. LOWER EXTREMITIES: Calves are equal size bilaterally and non-tender. No edema. No discoloration. NEURO: Normal sensorium. No sensory or motor deficits noted. SKIN: No rash or jaundice noted. ED COURSE: Critical Care: I have personally spent greater than 45 minutes of critical care time in the direct management of this patient. This includes bedside care, interpretation of diagnostic studies, and testing, discussion with consultants, patient, and family members, and other required patient management activities. This 45 minutes is in excess of all separately billable procedures. 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, sequela Surgical History History of appendectomy S/P cataract surgery S/P hemorrhoidectomy S/P hernia repair S/P tonsillectomy Status post total left knee replacement Family History Other Family history of 5, 10-methylenetetrahydofolate deficiency Hypertension Stroke Social History Smoking Status: Never smoker Second Hand Exposure: No; Do You Dip or Chew Tobacco: No; Tobacco Cessation Education Requested by Patient: No Hx Alcohol Use: No Hx Substance Use: No Preferred Language: Belarusian Communication Ability: Effective Chick Room Supervisor Required: No Beliefs That Will Affect Care: None marital status: / Current Living Situation: Alone Other Information That Helps Us Care for You: No Feels Safe at Home: Yes Safety Concerns: Feels Safe At This Time Assistive Devices: None Allergies Allergies Allergy/AdvReac Type Severity Reaction Status Date / Time codeine Allergy Intermediate RASH Verified 05/19/22 01:50 diltiazem Allergy Intermediate ITCHING Verified 05/19/22 01:50 AND FLUSHING Home Meds Home Medications Medication Instructions Recorded Confirmed celecoxib 200 mg capsule (Celebrex) 200 mg PO DAILY 08/07/18 09/15/22 pantoprazole 40 mg tablet,delayed 40 mg PO DAILY 12/21/18 09/15/22 release (Protonix) quetiapine 25 mg tablet 25 mg PO HS 03/27/20 09/15/22 melatonin 5 mg capsule 5 mg PO HS 01/14/21 09/15/22 folic acid 1 mg tablet 1 mg PO DAILY 09/18/21 09/15/22 diltiazem HCl 120 mg 120 mg PO BID 02/22/22 09/16/22 capsule,extended release 24 hr (Cartia XT) aspirin 81 mg tablet,delayed 81 mg PO DAILY 05/18/22 09/15/22 release (Adult Low Dose Aspirin) warfarin 5 mg tablet See Rx Instructions PO UD 09/02/22 09/15/22 Results & Data (ED) Vital Signs Vital Signs - 24 hr 09/15/22 19:52 09/15/22 20:28 09/15/22 20:30 Temperature 36.8 C Temperature Source Temporal Artery Scan Pulse Rate - Lying Pulse Rate - Sitting Pulse Rate - Standing Pulse Rate 109 H 129 H Pulse Rate from SpO2 Sensor 117 H 111 H Respiratory Rate 18 20 Blood Pressure - Lying Blood Pressure - Sitting Blood Pressure- Standing Blood Pressure 174/130 H Blood Pressure Mean 144 Pulse Oximetry 98 95 93 Oxygen Delivery Method Room Air Sepsis Recent Fever Within 48 Hours No Sepsis New/Unexplained Change in Mental Status No Sepsis Action Taken by Nursing No Action Required 09/15/22 20:47 09/15/22 20:17 09/15/22 21:00 Temperature Temperature Source Pulse Rate - Lying Pulse Rate - Sitting Pulse Rate - Standing Pulse Rate 122 H 141 H 117 H Pulse Rate from SpO2 Sensor 116 H 102 H Respiratory Rate 11 L 22 Blood Pressure - Lying Blood Pressure - Sitting Blood Pressure- Standing Blood Pressure 156/111 H 127/102 H Blood Pressure Mean 126 110 Pulse Oximetry 96 96 Oxygen Delivery Method Sepsis Recent Fever Within 48 Hours Sepsis New/Unexplained Change in Mental Status Sepsis Action Taken by Nursing 09/15/22 21:49 09/15/22 22:00 09/15/22 22:06 Temperature Temperature Source Pulse Rate - Lying Pulse Rate - Sitting Pulse Rate - Standing Pulse Rate 130 H 120 H Pulse Rate from SpO2 Sensor 104 H Respiratory Rate 16 17 Blood Pressure - Lying Blood Pressure - Sitting Blood Pressure- Standing Blood Pressure Blood Pressure Mean Pulse Oximetry 95 93 Oxygen Delivery Method Sepsis Recent Fever Within 48 Hours Sepsis New/Unexplained Change in Mental Status Sepsis Action Taken by Nursing 09/15/22 22:06 09/15/22 22:30 09/15/22 22:32 Temperature Temperature Source Pulse Rate - Lying Pulse Rate - Sitting Pulse Rate - Standing Pulse Rate 130 H Pulse Rate from SpO2 Sensor Respiratory Rate 23 Blood Pressure - Lying Blood Pressure - Sitting Blood Pressure- Standing Blood Pressure 152/113 H 198/114 H Blood Pressure Mean 126 142 Pulse Oximetry Oxygen Delivery Method Sepsis Recent Fever Within 48 Hours Sepsis New/Unexplained Change in Mental Status Sepsis Action Taken by Nursing 09/15/22 22:32 09/15/22 22:37 09/15/22 22:37 Temperature Temperature Source Pulse Rate - Lying Pulse Rate - Sitting Pulse Rate - Standing Pulse Rate 133 H 134 H Pulse Rate from SpO2 Sensor Respiratory Rate 22 21 Blood Pressure - Lying Blood Pressure - Sitting Blood Pressure- Standing Blood Pressure 189/153 H Blood Pressure Mean 165 Pulse Oximetry 97 Oxygen Delivery Method Sepsis Recent Fever Within 48 Hours Sepsis New/Unexplained Change in Mental Status Sepsis Action Taken by Nursing 09/15/22 22:45 09/15/22 22:46 09/15/22 22:46 Temperature Temperature Source Pulse Rate - Lying Pulse Rate - Sitting Pulse Rate - Standing Pulse Rate 108 H 118 H 101 H Pulse Rate from SpO2 Sensor Respiratory Rate 18 16 Blood Pressure - Lying Blood Pressure - Sitting Blood Pressure- Standing Blood Pressure 173/128 H Blood Pressure Mean 143 Pulse Oximetry 96 Oxygen Delivery Method Sepsis Recent Fever Within 48 Hours Sepsis New/Unexplained Change in Mental Status Sepsis Action Taken by Nursing 09/15/22 23:00 09/15/22 23:00 09/15/22 23:15 Temperature Temperature Source Pulse Rate - Lying Pulse Rate - Sitting Pulse Rate - Standing Pulse Rate 103 H 99 H Pulse Rate from SpO2 Sensor Respiratory Rate 16 21 Blood Pressure - Lying Blood Pressure - Sitting Blood Pressure- Standing Blood Pressure 158/120 H 165/107 H Blood Pressure Mean 132 126 Pulse Oximetry 98 97 Oxygen Delivery Method Room Air Sepsis Recent Fever Within 48 Hours Sepsis New/Unexplained Change in Mental Status Sepsis Action Taken by Nursing 09/15/22 23:15 09/15/22 23:30 09/16/22 00:00 Temperature Temperature Source Pulse Rate - Lying Pulse Rate - Sitting Pulse Rate - Standing Pulse Rate 93 H 101 H Pulse Rate from SpO2 Sensor 96 H 109 H Respiratory Rate 11 L Blood Pressure - Lying Blood Pressure - Sitting Blood Pressure- Standing Blood Pressure 165/107 H 163/108 H Blood Pressure Mean 126 126 Pulse Oximetry 96 94 Oxygen Delivery Method Sepsis Recent Fever Within 48 Hours Sepsis New/Unexplained Change in Mental Status Sepsis Action Taken by Nursing 09/16/22 00:01 09/16/22 00:19 09/16/22 00:17 Temperature Temperature Source Pulse Rate - Lying Pulse Rate - Sitting Pulse Rate - Standing Pulse Rate 114 H 89 85 Pulse Rate from SpO2 Sensor 96 H 85 Respiratory Rate 18 13 Blood Pressure - Lying Blood Pressure - Sitting Blood Pressure- Standing Blood Pressure 154/119 H 145/106 H Blood Pressure Mean 130 119 Pulse Oximetry 95 95 Oxygen Delivery Method Sepsis Recent Fever Within 48 Hours Sepsis New/Unexplained Change in Mental Status Sepsis Action Taken by Nursing 09/16/22 00:30 09/16/22 00:30 09/16/22 01:16 Temperature Temperature Source Pulse Rate - Lying 93 H Pulse Rate - Sitting 109 H Pulse Rate - Standing 119 H Pulse Rate 92 H Pulse Rate from SpO2 Sensor 97 H Respiratory Rate 20 Blood Pressure - Lying 164/110 H Blood Pressure - Sitting 133/106 H Blood Pressure- Standing 132/78 Blood Pressure 152/100 H 152/100 H Blood Pressure Mean 117 117 Pulse Oximetry 94 Oxygen Delivery Method Sepsis Recent Fever Within 48 Hours Sepsis New/Unexplained Change in Mental Status Sepsis Action Taken by Nursing 09/16/22 01:16 09/16/22 01:16 09/16/22 01:18 Temperature Temperature Source Pulse Rate - Lying Pulse Rate - Sitting Pulse Rate - Standing Pulse Rate 96 H 114 H Pulse Rate from SpO2 Sensor Respiratory Rate 10 L 20 Blood Pressure - Lying Blood Pressure - Sitting Blood Pressure- Standing Blood Pressure 164/111 H Blood Pressure Mean 128 Pulse Oximetry Oxygen Delivery Method Sepsis Recent Fever Within 48 Hours Sepsis New/Unexplained Change in Mental Status Sepsis Action Taken by Nursing 09/16/22 01:18 09/16/22 01:19 09/16/22 01:19 Temperature Temperature Source Pulse Rate - Lying Pulse Rate - Sitting Pulse Rate - Standing Pulse Rate 128 H Pulse Rate from SpO2 Sensor Respiratory Rate 18 Blood Pressure - Lying Blood Pressure - Sitting Blood Pressure- Standing Blood Pressure 133/106 H 132/78 Blood Pressure Mean 115 96 Pulse Oximetry Oxygen Delivery Method Sepsis Recent Fever Within 48 Hours Sepsis New/Unexplained Change in Mental Status Sepsis Action Taken by Nursing 09/16/22 01:30 Temperature Temperature Source Pulse Rate - Lying Pulse Rate - Sitting Pulse Rate - Standing Pulse Rate 102 H Pulse Rate from SpO2 Sensor Respiratory Rate 14 Blood Pressure - Lying Blood Pressure - Sitting Blood Pressure- Standing Blood Pressure Blood Pressure Mean Pulse Oximetry Oxygen Delivery Method Sepsis Recent Fever Within 48 Hours Sepsis New/Unexplained Change in Mental Status Sepsis Action Taken by Nursing Laboratory Data Attestation: I reviewed the patient's lab results. 09/15/22 20:10 09/15/22 20:10 Lab Results 09/15/22 09/15/22 09/15/22 Range/Units 20:10 20:10 20:10 WBC 6.81 (4.8-10.8) K/ul RBC 5.35 (4.70-6.10) M/uL Hgb 16.0 (14.0-18.0) g/dl Hct 46.5 (42.0-52.0) % MCV 86.9 (80.0-100.0) fL MCH 29.9 (25.0-34.0) pg MCHC 34.4 (32.0-36.0) g/dL RDW Std Deviation 41.4 (36.4-46.3) fL RDW Coeff of Ryan 13.3 (11.5-14.5) % Plt Count 243 (130-400) K/uL MPV 9.4 (9.4-12.4) fL Immature Gran % (Auto) 0.3 % Neut % (Auto) 62.8 % Lymph % (Auto) 27.2 % [place] % (Auto) 7.3 % Eos % (Auto) 1.5 % Baso % (Auto) 0.9 % Neut # (Auto) 4.28 (1.40-6.50) K/uL Lymph # (Auto) 1.85 (1.2-3.4) K/uL [place] # (Auto) 0.50 (0.11-0.59) K/uL Eos # (Auto) 0.10 (0-0.50) K/uL Baso # (Auto) 0.06 (0-0.2) K/uL Immature Gran # (Auto) 0.02 (0.01-0.20) K/uL PT 29.8 H (9.0-12.0) Seconds INR 2.9 H (0.9-1.1) APTT 38.5 H (21.0-31.0) Seconds PTT Ratio 1.4 Sodium 138 (136-145) mmol/L Potassium 3.8 (3.5-5.1) mmol/L Chloride 104 (98-107) mmol/L Carbon Dioxide 26 (21-32) mmol/L Anion Gap 8 (3-11) BUN 15 (6-23) mg/dl Creatinine 1.29 (0.6-1.4) mg/dl Est Cr Clr Drug Dosing 57.6 ml/min Est GFR ( Amer) 59.9 ml/min Est GFR (Non-Af Amer) 51.7 ml/min BUN/Creatinine Ratio 11.6 (10-20) Glucose 109 H (70-99(Fasting)) mg/dl Calcium 9.3 (8.6-10.3) mg/dl Phosphorus 3.1 (2.5-4.9) mg/dl Magnesium 2.1 (1.7-2.4) mg/dl Total Bilirubin 0.7 (0.2-1.0) mg/dl AST 20 (13-39) U/L ALT 12 (7-52) U/L Alkaline Phosphatase 66 (34-104) U/L Troponin I High Sens 14.9 (0-20) pg/ml Total Protein 7.8 (6.0-8.3) gm/dl Albumin 4.2 (3.4-5.0) gm/dl Globulin 3.6 (2.5-4.0) gm/dl Albumin/Globulin Ratio 1.2 (0.9-2) TSH (0.300-4.500) uIu/ml SARS-CoV-2, RNA, NAAT (NEGATIVE) 09/15/22 09/16/22 Range/Units 21:02 00:24 WBC (4.8-10.8) K/ul RBC (4.70-6.10) M/uL Hgb (14.0-18.0) g/dl Hct (42.0-52.0) % MCV (80.0-100.0) fL MCH (25.0-34.0) pg MCHC (32.0-36.0) g/dL RDW Std Deviation (36.4-46.3) fL RDW Coeff of Ryan (11.5-14.5) % Plt Count (130-400) K/uL MPV (9.4-12.4) fL Immature Gran % (Auto) % Neut % (Auto) % Lymph % (Auto) % [place] % (Auto) % Eos % (Auto) % Baso % (Auto) % Neut # (Auto) (1.40-6.50) K/uL Lymph # (Auto) (1.2-3.4) K/uL [place] # (Auto) (0.11-0.59) K/uL Eos # (Auto) (0-0.50) K/uL Baso # (Auto) (0-0.2) K/uL Immature Gran # (Auto) (0.01-0.20) K/uL PT (9.0-12.0) Seconds INR (0.9-1.1) APTT (21.0-31.0) Seconds PTT Ratio Sodium (136-145) mmol/L Potassium (3.5-5.1) mmol/L Chloride (98-107) mmol/L Carbon Dioxide (21-32) mmol/L Anion Gap (3-11) BUN (6-23) mg/dl Creatinine (0.6-1.4) mg/dl Est Cr Clr Drug Dosing ml/min Est GFR ( Amer) ml/min Est GFR (Non-Af Amer) ml/min BUN/Creatinine Ratio (10-20) Glucose (70-99(Fasting)) mg/dl Calcium (8.6-10.3) mg/dl Phosphorus (2.5-4.9) mg/dl Magnesium (1.7-2.4) mg/dl Total Bilirubin (0.2-1.0) mg/dl AST (13-39) U/L ALT (7-52) U/L Alkaline Phosphatase (34-104) U/L Troponin I High Sens (0-20) pg/ml Total Protein (6.0-8.3) gm/dl Albumin (3.4-5.0) gm/dl Globulin (2.5-4.0) gm/dl Albumin/Globulin Ratio (0.9-2) TSH 2.457 (0.300-4.500) uIu/ml SARS-CoV-2, RNA, NAAT NEGATIVE (NEGATIVE) Administered Medications Aspirin (Aspirin 81 Mg Ectab) 81 mg PO DAILY [facility] Stop: 10/16/22 08:59 Last Admin: 09/16/22 09:01 Dose: 81 mg Documented By: ES Folic Acid (Folic Acid 1 Mg Tab) 1 mg PO DAILY [facility] Stop: 10/16/22 08:59 Last Admin: 09/16/22 09:02 Dose: 1 mg Documented By: ES Hydroxyzine HCl (Hydroxyzine Hcl 10 Mg Tab) 10 mg PO QID PRN PRN Reason: Anxiety Stop: 10/16/22 06:03 Last Admin: 09/16/22 11:53 Dose: 10 mg Documented By: ES Pantoprazole Sodium (Pantoprazole 40 Mg Tab) 40 mg PO DAILY [facility] Stop: 10/16/22 08:59 Last Admin: 09/16/22 09:01 Dose: 40 mg Documented By: ES Warfarin Sodium (Warfarin Sod 5 Mg Tab) 5 mg PO [id number] [facility] Stop: 10/16/22 16:14 Last Admin: 09/16/22 17:00 Dose: 5 mg Documented By: ES Discontinued Medications Diltiazem HCl (Diltiazem Hcl 5 Mg/Ml 5 Ml Vial) 15 mg IV NOW STA Stop: 09/15/22 22:27 Last Admin: 09/15/22 22:37 Dose: 15 mg Documented By: RAMOS Co-signed By: CAROLIN Diltiazem HCl (Diltiazem Hcl 5 Mg/Ml 5 Ml Vial) 15 mg IV NOW STA Stop: 09/15/22 23:44 Last Admin: 09/16/22 00:02 Dose: 15 mg Documented By: SONG Co-signed By: RAMOS Diltiazem HCl (Diltiazem Hcl 120 Mg Capcr) 120 mg PO BID YVON Stop: 10/16/22 08:59 Last Admin: 09/16/22 09:01 Dose: 120 mg Documented By: LISANDRO Diltiazem HCl (Diltiazem Hcl 120 Mg Capcr) 120 mg PO ONE ONE Stop: 09/16/22 12:01 Last Admin: 09/16/22 13:36 Dose: 120 mg Documented By: LISANDRO Sodium Chloride (Nss) 500 mls @ 999 mls/hr IV .Q31M ONE Stop: 09/15/22 21:26 Last Infusion: 09/15/22 23:00 Dose: 0 mls/hr Documented By: Admin: 09/15/22 22:02 Dose: 999 mls/hr Documented By: SONG Potassium Chloride/Sodium Chloride (Normal Saline W/20 Meq Kcl) 20 meq in 1,000 mls @ 50 mls/hr IV .Q20H STA; Protocol Stop: 09/16/22 21:14 Last Infusion: 09/16/22 17:00 Dose: 0 mls/hr Documented By: Admin: 09/16/22 01:53 Dose: 50 mls/hr Documented By: SONG Melatonin (Melatonin 3 Mg Tab) 6 mg PO ONE STA Stop: 09/16/22 02:56 Last Admin: 09/16/22 03:04 Dose: 6 mg Documented By: SONG Metoprolol Tartrate (Metoprolol Tartrate 1 Mg/Ml Vial) 2.5 mg IV NOW STA Stop: 09/16/22 03:34 Last Admin: 09/16/22 04:03 Dose: 2.5 mg Documented By: MIKI Potassium Chloride (Potassium Chloride Crtab 20 Meq Tabcr) 20 meq PO NOW STA Stop: 09/16/22 00:25 Last Admin: 09/16/22 01:21 Dose: 20 meq Documented By: SONG Quetiapine Fumarate (Quetiapine Fumarate 25 Mg Tablet) 25 mg PO ONE STA Stop: 09/16/22 02:55 Last Admin: 09/16/22 03:04 Dose: 25 mg Documented By: BS Imaging Data Radiologist's Impression: Chest X-Ray 09/15/22 19:56 SINGLE VIEW CHEST CLINICAL HISTORY: Atypical chest pain. FINDINGS: An AP, portable, upright chest radiograph is compared to chest x-ray and chest CT dated 08/30/2022. The heart is enlarged noting atherosclerotic calcification of the thoracic aorta. The pulmonary vasculature is noncongested. Chronic interstitial thickening is previous. There is chronic elevation of the right hemidiaphragm with bibasilar scarring/atelectasis. No airspace co nsolidation or large pleural effusion is identified. No pneumothorax is seen. The skeletal structures are osteopenic. The bony thorax is grossly intact. IMPRESSION: Cardiomegaly with no acute cardiopulmonary abnormality identified. ACT 112: Negative or not required by law. Electronically signed by: Christiano Avery M.D. 09/16/2022 7:19 AM Discharge Plan Visit Data Chief Complaint: Cardiac Assessment Stated Complaint: ANXIETY, HASNT SLEPT IN 2 DAYS ED Provider: Morgan Ngo Discharge Problem: Atrial fibrillation with RVR, Anticoagulated on Coumadin, History of atrial flutter, Hypertension Patient Disposition: Admitted As Inpatient Discharge Instructions Interventions: ED Discharge Assessment Last Done: 09/16/22 03:48
[2022-09-15 21:05] LABS: INR 2.9 (0.9-1.1); Partial Thromboplastin Ratio 1.4; Partial Thromboplastin Time 38.5 Seconds (21.0-31.0); Prothrombin Time 29.8 Seconds (9.0-12.0)
[2022-09-15 21:34] LABS: Magnesium 2.1 mg/dl (1.7-2.4)
[2022-09-15 21:40] LABS: Phosphorus 3.1 mg/dl (2.5-4.9)
[2022-09-15] MEDS ORDERED: dilTIAZem HCl 5 MG/ML 5 ML VIAL IV STA ×2 (22:26→23:43)
[2022-09-16] MEDS ORDERED: POTASSIUM CHLORIDE CRTAB 20 MEQ TABCR PO STA (00:24)
[2022-09-16] MEDS ORDERED: NSS + 20MEQ KCL 20 MEQ/1,000 ML BAG IV STA (01:15)
--- NOTE | 2022-09-16 01:32 | History & Physical Report ---
Date of Service September 16, 2022 Assessment & Plan (1) Atrial fibrillation with rapid ventricular response: Plan: New onset secondary to uncontrolled BP, anxiety hx atrial flutter status post cardioversion PE/DVT/MTHFR mutation on Coumadin INR therapeutic hx CAD status post stent moderate to severe (TTE 2021 ) hyperlipidemia on statin Rx PCU Titrate patient's home calcium channel kylah TTE, cardiology consult Re: New onset A-fib N.p.o. until patient seen by cardiology in a.m. for possible cardioversion if patient does not convert Anxiolytic as needed Psych consult re: anxiety DVT prophylaxis. Coumadin INR goal between 2 and 3 Full code Text document was generated using [employer] voice recognition software. It may contain grammatical or spelling errors. Kindly contact undersigned for clarification of any documentation item in question. History of Present Illness Chief Complaint: Anxiety, feel like I am going to pass out Primary Care Provider: Javier Price, DO History obtained from patient, family, and records. Medical history significant for CAD status post stent, PE DVT/MTHFR mutation/atrial flutter status post cardioversion on Coumadin, moderate to severe (TTE 2021 ), hypertension, hyperlipidemia, anxiety disorder, osteoarthritis. Last confinement 2018 for unstable angina. Successful PCI of ostial LAD lesion done. Recent ER visit 2 weeks ago for shortness of breath and weakness. Patient discharged home with negative work-up except for subtherapeutic INR. Last night, patient felt like he was going to pass out. Increased anxiety levels for some time now as per patient. Denies suicidality. Compliant with home medications. Denies chest pain, SOB, abdominal pain, headache. SBP 170s upon arrival at the ER. Patient noted to be in rapid A-fib. 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 Allergies Allergy/AdvReac Type Severity Reaction Status Date / Time codeine Allergy Intermediate RASH Verified 05/19/22 01:50 diltiazem Allergy Intermediate ITCHING Verified 05/19/22 01:50 AND FLUSHING Home Medications Medication Instructions Recorded Confirmed Type celecoxib 200 mg capsule (Celebrex) 200 mg PO DAILY 08/07/18 09/15/22 History pantoprazole 40 mg tablet,delayed 40 mg PO DAILY 12/21/18 09/15/22 History release (Protonix) quetiapine 25 mg tablet 25 mg PO HS 03/27/20 09/15/22 History melatonin 5 mg capsule 5 mg PO HS 01/14/21 09/15/22 History folic acid 1 mg tablet 1 mg PO DAILY 09/18/21 09/15/22 History diltiazem HCl 120 mg 120 mg PO BID 02/22/22 09/16/22 History capsule,extended release 24 hr (Cartia XT) aspirin 81 mg tablet,delayed 81 mg PO DAILY 05/18/22 09/15/22 History release (Adult Low Dose Aspirin) warfarin 5 mg tablet See Rx Instructions PO UD 09/02/22 09/15/22 History Past Med/Surg History Medical History Anticoagulated on Coumadin Anxiety Arthritis Atrial flutter Cervical radiculopathy History of DVT (deep vein thrombosis) History of pulmonary embolism HLD (hyperlipidemia) Hx of blood clots Murmur 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, sequela Surgical History History of appendectomy S/P cataract surgery S/P hemorrhoidectomy S/P hernia repair S/P tonsillectomy Status post total left knee replacement Family History Other Family history of 5, 10-methylenetetrahydofolate deficiency Hypertension Stroke Social History Smoking Status: Never smoker Second Hand Exposure: No; Do You Dip or Chew Tobacco: No; Tobacco Cessation Education Requested by Patient: No Hx Alcohol Use: No Hx Substance Use: No Preferred Language: Haitian Communication Ability: Effective 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 Beliefs That Will Affect Care: None marital status: / Current Living Situation: Alone Other Information That Helps Us Care for You: No Feels Safe at Home: Yes Safety Concerns: Feels Safe At This Time Assistive Devices: None Review of Systems Review of Systems: As per HPI, all other systems reviewed and negative Physical Exam Physical Exam: GENERAL: Comfortable, pleasant, slightly anxious, obese, no respiratory distress SKIN: Normal color, warm HEENT: Partial alopecia, [place] palpebral conjunctivae, no ptosis, moist buccal mucosa NECK : Supple, no tenderness CHEST : CTA, no tenderness HEART : Irregular, systolic murmur ABDOMEN: Some distention, nontender EXTREMITIES : No LE swelling/tenderness, no other conspicuous deformities noted NEUROLOGIC : Coherent, no facial asymmetry, no other gross focality Results & Data Results & Data Vital Signs (Past 12 Hours) Vital Signs Temp Pulse Resp BP Pulse Ox O2 Del Method 09/16/22 00:30 92 H 20 152/100 H 94 09/16/22 00:30 152/100 H 09/16/22 00:17 85 13 145/106 H 95 09/16/22 00:19 89 09/16/22 00:01 114 H 18 154/119 H 95 09/16/22 00:00 101 H 94 09/15/22 23:30 93 H 11 L 163/108 H 96 09/15/22 23:15 165/107 H 09/15/22 23:15 99 H 21 165/107 H 97 09/15/22 23:00 103 H 16 98 Room Air 09/15/22 23:00 158/120 H 09/15/22 22:46 101 H 173/128 H 09/15/22 22:46 118 H 16 09/15/22 22:45 108 H 18 96 09/15/22 22:37 189/153 H 09/15/22 22:37 134 H 21 09/15/22 22:32 133 H 22 97 09/15/22 22:32 198/114 H 09/15/22 22:30 130 H 23 09/15/22 22:06 152/113 H 09/15/22 22:06 120 H 17 93 09/15/22 22:00 130 H 16 09/15/22 21:49 95 09/15/22 21:00 117 H 22 127/102 H 96 09/15/22 20:17 141 H 09/15/22 20:47 122 H 11 L 156/111 H 96 09/15/22 20:30 129 H 20 93 09/15/22 20:28 95 09/15/22 19:52 36.8 C 109 H 18 174/130 H 98 Room Air Laboratory Results Laboratory Results WBC 6.81 K/ul (4.8-10.8) 09/15/22 20:10 RBC 5.35 M/uL (4.70-6.10) 09/15/22 20:10 Hgb 16.0 g/dl (14.0-18.0) 09/15/22 20:10 Hct 46.5 % (42.0-52.0) 09/15/22 20:10 MCV 86.9 fL (80.0-100.0) 09/15/22 20:10 MCH 29.9 pg (25.0-34.0) 09/15/22 20:10 MCHC 34.4 g/dL (32.0-36.0) 09/15/22 20:10 RDW Std Deviation 41.4 fL (36.4-46.3) 09/15/22 20:10 RDW Coeff of Ryan 13.3 % (11.5-14.5) 09/15/22 20:10 Plt Count 243 K/uL (130-400) 09/15/22 20:10 MPV 9.4 fL (9.4-12.4) 09/15/22 20:10 Immature Gran % (Auto) 0.3 % 09/15/22 20:10 Neut % (Auto) 62.8 % 09/15/22 20:10 Lymph % (Auto) 27.2 % 09/15/22 20:10 [place] % (Auto) 7.3 % 09/15/22 20:10 Eos % (Auto) 1.5 % 09/15/22 20:10 Baso % (Auto) 0.9 % 09/15/22 20:10 Neut # (Auto) 4.28 K/uL (1.40-6.50) 09/15/22 20:10 Lymph # (Auto) 1.85 K/uL (1.2-3.4) 09/15/22 20:10 [place] # (Auto) 0.50 K/uL (0.11-0.59) 09/15/22 20:10 Eos # (Auto) 0.10 K/uL (0-0.50) 09/15/22 20:10 Baso # (Auto) 0.06 K/uL (0-0.2) 09/15/22 20:10 Immature Gran # (Auto) 0.02 K/uL (0.01-0.20) 09/15/22 20:10 PT 29.8 Seconds (9.0-12.0) H 09/15/22 20:10 INR 2.9 (0.9-1.1) H 09/15/22 20:10 APTT 38.5 Seconds (21.0-31.0) H 09/15/22 20:10 PTT Ratio 1.4 09/15/22 20:10 Sodium 138 mmol/L (136-145) 09/15/22 20:10 Potassium 3.8 mmol/L (3.5-5.1) 09/15/22 20:10 Chloride 104 mmol/L (98-107) 09/15/22 20:10 Carbon Dioxide 26 mmol/L (21-32) 09/15/22 20:10 Anion Gap 8 (3-11) 09/15/22 20:10 BUN 15 mg/dl (6-23) 09/15/22 20:10 Creatinine 1.29 mg/dl (0.6-1.4) 09/15/22 20:10 Est Cr Clr Drug Dosing 57.6 ml/min 09/15/22 20:10 Est GFR ( Amer) 59.9 ml/min 09/15/22 20:10 Est GFR (Non-Af Amer) 51.7 ml/min 09/15/22 20:10 BUN/Creatinine Ratio 11.6 (10-20) 09/15/22 20:10 Glucose 109 mg/dl (70-99(Fasting)) H 09/15/22 20:10 Calcium 9.3 mg/dl (8.6-10.3) 09/15/22 20:10 Phosphorus 3.1 mg/dl (2.5-4.9) 09/15/22 20:10 Magnesium 2.1 mg/dl (1.7-2.4) 09/15/22 20:10 Total Bilirubin 0.7 mg/dl (0.2-1.0) 09/15/22 20:10 AST 20 U/L (13-39) 09/15/22 20:10 ALT 12 U/L (7-52) 09/15/22 20:10 Alkaline Phosphatase 66 U/L (34-104) 09/15/22 20:10 Troponin I High Sens 14.9 pg/ml (0-20) 09/15/22 20:10 Total Protein 7.8 gm/dl (6.0-8.3) 09/15/22 20:10 Albumin 4.2 gm/dl (3.4-5.0) 09/15/22 20:10 Globulin 3.6 gm/dl (2.5-4.0) 09/15/22 20:10 Albumin/Globulin Ratio 1.2 (0.9-2) 09/15/22 20:10 TSH 2.457 uIu/ml (0.300-4.500) 09/16/22 00:24 SARS-CoV-2, RNA, NAAT NEGATIVE (NEGATIVE) 09/15/22 21:02 Diagnostic Findings Chest x-ray as per interpretation cardiomegaly EKG as per my interpretation :Rate 140, A-fib, LAD, LAFB, no ischemia
[2022-09-16] MEDS ORDERED: QUEtiapine FUMARATE 25 MG TABLET PO STA (02:54)
[2022-09-16] MEDS ORDERED: MELATONIN 3 MG TAB PO STA (02:55)
[2022-09-16] MEDS ORDERED: METOPROLOL TARTRATE 1 MG/ML VIAL IV STA (03:33)
[2022-09-16] MEDS ORDERED: ACETAMINOPHEN 325 MG TAB PO PRN (03:57)
[2022-09-16] MEDS ORDERED: MELATONIN 3 MG TAB PO PRN (04:03)
[2022-09-16 06:14] LABS: Basophils # (auto) 0.06 K/uL (0-0.2); Basophils % (auto) 0.9 %; Eosinophils # (auto) 0.09 K/uL (0-0.50); Eosinophils % (auto) 1.4 %; Hematocrit (blood only) 43.7 % (42.0-52.0); Hemoglobin 14.9 g/dl (14.0-18.0); Immature Granulocytes # (auto) 0.01 K/uL (0.01-0.20); Immature Granulocytes % (auto) 0.2 %; Lymphocytes # (auto) 1.18 K/uL (1.2-3.4); Lymphocytes % (auto) 18.4 %; Mean Corpuscular Hemoglobin 29.3 pg (25.0-34.0); Mean Corpuscular Hgb Conc 34.1 g/dL (32.0-36.0); Mean Platelet Volume 9.6 fL (9.4-12.4); Monocytes # (auto) 0.62 K/uL (0.11-0.59); Monocytes % (auto) 9.7 %; Neutrophils # (auto) 4.46 K/uL (1.40-6.50); Neutrophils % (auto) 69.4 %; Platelet Count 203 K/uL (130-400); RDW Coefficient of Variation 13.1 % (11.5-14.5); RDW Standard Deviation 40.9 fL (36.4-46.3); Red Blood Count 5.08 M/uL (4.70-6.10); White Blood Count 6.42 K/ul (4.8-10.8)
[2022-09-16 06:39] LABS: BUN Creatinine Ratio 9.6 (10-20); Calcium 8.7 mg/dl (8.6-10.3); Creatinine Clr Calc Pharmacy 59.4 ml/min; Est GFR (African American) 62.2 ml/min; Est GFR (Non-African American) 53.7 ml/min; INR 2.5 (0.9-1.1); Potassium 3.8 mmol/L (3.5-5.1); Prothrombin Time 25.7 Seconds (9.0-12.0)
--- NOTE | 2022-09-16 07:21 | XRay Report ---
SINGLE VIEW CHEST CLINICAL HISTORY: Atypical chest pain. FINDINGS: An AP, portable, upright chest radiograph is compared to chest x-ray and chest CT dated 08/19. The heart is enlarged noting atherosclerotic calcification of the thoracic aorta. The pulmona ry vasculature is noncongested. Chronic interstitial thickening is previous. There is chronic elevati on of the right hemidiaphragm with bibasilar scarring/atelectasis. No airspace consolidation or large pleural effusion is identified. No pneumothorax is seen. The skeletal structures are osteopenic. The bony thorax is grossly intact. IMPRESSION: Cardiomegaly with no acute cardiopulmonary abnormality identified. ACT 112: Negative or not required by law. Electronically signed by: Christiano Avery M.D. 09/16/2022 7:19 AM
--- NOTE | 2022-09-16 08:47 | Electrocardiogram Report ---
Test Reason : Blood Pressure : / mmHG Vent. Rate : 135 BPM Atrial Rate : 000 BPM P-R Int : 000 ms QRS Dur : 086 ms QT Int : 266 ms P-R-T Axes : 000 -53 017 degrees QTc Int : 399 ms Atrial fibrillation with rapid ventricular response Left anterior fascicular block Pulmonary disease pattern Voltage criteria for left ventricular hypertrophy Abnormal ECG When compared with ECG of 30-AUG-2022 09:00, Atrial fibrillation has replaced Sinus rhythm HR has increased by 37 bpm Confirmed by Leo Meng ([id number]) on 09/16/2022 8:47:10 AM Referred By: REFERRED SELF Confirmed By:Leo Meng
[2022-09-16] MEDS ORDERED: dilTIAZem HCL 120 MG CAPCR PO SCH (09:00)
[2022-09-16] MEDS: ASPIRIN 81 MG ECTAB PO SCH (09:01)
[2022-09-16] MEDS: PANTOprazole 40 MG TAB PO SCH (09:01)
[2022-09-16] MEDS: FOLIC ACID 1 MG TAB PO SCH (09:02)
--- NOTE | 2022-09-16 11:45 | Cardiology Consultation ---
Date of Consultation September 16, 2022 Assessment & Plan (1) Atrial fibrillation with rapid ventricular response: Plan Cardiac History: 1. History of CAD s/p cardiac catheterization 05/29/18 with angioplasty and stenting of hazy 95% ostial LAD lesion with mid to distal luminal irregula rities; moderate size first diagonal branch with a 50-60% proximal stenosis; large circumflex with a 20% ostial stenosis; large dominant RCA with a 30-40% proximal stenosis. 2. Status post angioplasty and stenting with a 3.0 x 15 mm Xience Lorna drug- eluting stent 2018. 3. Cardiac catheterization 12/08/2020 with normal right-sided and left-sided pressures. Status post angioplasty and stenting of a 90% proximal OM3 lesion. 4. Negative stress echo for ischemia on 06/07/2021, with a functional capacity that was 116%, better than most men his age without evidence of chronotropic incompetence. 5. Hyperlipidemia. 6. History of pulmonary emboli and DVT with MTHFR mutation. 7. Echocardiogram 08/2022 with [id number] aortic stenosis, preserved left ventricular systolic function and no evidence of regional wall motion abnormalities. 8. History of atrial flutter 07/2012 status post cardioversion. Unfortunately, Mr. Li's INR had a period 2 weeks ago of subtherapeutic levels. At this point he would need CHEVY first to safely cardiovert without undue risk of stroke. The alternative is to discharge him to home with a rate control strategy and plan for cardioversion in a couple of weeks on an outpatient basis after he has been anticoagulated properly for at least 3 weeks. These options were discussed with him and he is agreeable to discharge and cardioversion outpatient. We'll see him in the office in 2 weeks. If he is tolerating rate controlled afib, we may just continue with that strategy. My suspicion is he was having episodes of afib over the last few months at least given his complaints of worsening fatigue. I did ask that he get up and start to move around to make sure he is tolerating being in a fib ok and that his heart rate is not excessively high with exertion. I would give him until this evening before deciding on discharge depending on how he does through the day. He is not having any concerning anginal symptoms and his HS troponin was normal. He appears euvolemic. His daily diltiazem dosing can be increased to 360 mg. His resting sinus rate tends to run a little on the high side 70s-90s so this should not make him excessively bradycardic should he convert on his own. He has also been hypertensive and his diltiazem was last titrated up on 09/03. He has an echo pending. He had one this month in the [facility] system which was stable from previous. History of Present Illness Attending Physician: Shorty Scott MD History of Present Illness Mr. Li presented to the emergency department last night for complaints of fatigue and shortness of breath. He was found to be in afib RVR and treated with diltiazem pushes. He did not have any sensation of palpitations. He denies any chest pain. He has not had any recent illnesses or changes in his oral intake. No obvious triggers. His electrolytes were unremarkable on presentation. At this point he is feeling fairly comfortable. He remains in afib on the monitor, rate in the 80s-1teens. Allergies Allergy/AdvReac Type Severity Reaction Status Date / Time codeine Allergy Intermediate RASH Verified 05/19/22 01:50 diltiazem Allergy Intermediate ITCHING Verified 05/19/22 01:50 AND FLUSHING Home Medications Medication Instructions Recorded Confirmed Type celecoxib 200 mg capsule (Celebrex) 200 mg PO DAILY 08/07/18 09/15/22 History pantoprazole 40 mg tablet,delayed 40 mg PO DAILY 12/21/18 09/15/22 History release (Protonix) quetiapine 25 mg tablet 25 mg PO HS 03/27/20 09/15/22 History melatonin 5 mg capsule 5 mg PO HS 01/14/21 09/15/22 History folic acid 1 mg tablet 1 mg PO DAILY 09/18/21 09/15/22 History diltiazem HCl 120 mg 120 mg PO BID 02/22/22 09/16/22 History capsule,extended release 24 hr (Cartia XT) aspirin 81 mg tablet,delayed 81 mg PO DAILY 05/18/22 09/15/22 History release (Adult Low Dose Aspirin) warfarin 5 mg tablet See Rx Instructions PO UD 09/02/22 09/15/22 History Patient History Medical History Anticoagulated on Coumadin Anxiety Arthritis Atrial flutter Cervical radiculopathy History of DVT (deep vein thrombosis) History of pulmonary embolism HLD (hyperlipidemia) Hx of blood clots Murmur 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, sequela Surgical History History of appendectomy S/P cataract surgery S/P hemorrhoidectomy S/P hernia repair S/P tonsillectomy Status post total left knee replacement Family History Other Family history of 5, 10-methylenetetrahydofolate deficiency Hypertension Stroke Social History Smoking Status: Never smoker Second Hand Exposure: No; Do You Dip or Chew Tobacco: No; Tobacco Cessation Education Requested by Patient: No Hx Alcohol Use: No Hx Substance Use: No Preferred Language: Palauan Communication Ability: Effective 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 Beliefs That Will Affect Care: None marital status: / Current Living Situation: Alone Other Information That Helps Us Care for You: No Feels Safe at Home: Yes Safety Concerns: Feels Safe At This Time Assistive Devices: None Review of Systems Review of Systems: All systems reviewed & are unremarkable except as noted in HPI & below Physical Exam Constitutional: WD/WN, vitals as above Respiratory: normal respiratory effort, lungs clear to auscultation Cardiovascular: Rate/Rhythm: + abnormal rate and + abnormal rhythm Heart Sounds: + murmur (3/6 rusb systolic murmur) Extremities: no edema Skin: no rashes, warm and dry Neurologic: moves all extremities and awake Psychiatric: A+Ox3, euthymic affect Results & Data Vital Signs (Past 12 Hours) Vital Signs Temp Pulse Pulse Resp BP BP Pulse Ox 09/16/22 09:24 89 18 09/16/22 08:14 36.4 C L 87 21 148/88 H 95 09/16/22 04:30 09/16/22 03:57 09/16/22 04:03 36.5 C 110 H 16 170/91 H 95 09/16/22 04:03 89 138/85 09/16/22 04:03 36.5 C 110 H 16 170/91 H 95 09/16/22 02:35 109 H 14 09/16/22 02:00 94 H 18 171/101 H 94 09/16/22 01:30 102 H 14 09/16/22 01:19 128 H 18 09/16/22 01:19 132/78 09/16/22 01:18 133/106 H 09/16/22 01:18 114 H 20 09/16/22 01:16 96 H 10 L 09/16/22 01:16 164/111 H 09/16/22 00:30 92 H 20 152/100 H 94 09/16/22 00:30 152/100 H 09/16/22 00:17 85 13 145/106 H 95 09/16/22 00:19 89 09/16/22 00:01 114 H 18 154/119 H 95 09/16/22 00:00 101 H 94 Pulse Ox O2 Del Method O2 Del Method 09/16/22 09:24 09/16/22 08:14 Room Air 09/16/22 04:30 Room Air 09/16/22 03:57 95 Room Air 09/16/22 04:03 Room Air 09/16/22 04:03 09/16/22 04:03 Room Air 09/16/22 02:35 09/16/22 02:00 Room Air 09/16/22 01:30 09/16/22 01:19 09/16/22 01:19 09/16/22 01:18 09/16/22 01:18 09/16/22 01:16 09/16/22 01:16 09/16/22 00:30 09/16/22 00:30 09/16/22 00:17 09/16/22 00:19 09/16/22 00:01 09/16/22 00:00
[2022-09-16] MEDS: hydrOXYzine HCl 10 MG TAB PO PRN ×2 (11:53→21:33)
[2022-09-16] MEDS ORDERED: dilTIAZem HCL 120 MG CAPCR PO ONE (12:00)
--- NOTE | 2022-09-16 15:35 | XCELERA ---
[id number]
[2022-09-16] MEDS ORDERED: WARFARIN SOD 5 MG TAB PO SCH (16:15)
--- NOTE | 2022-09-16 18:22 | Hospitalist Progress Note ---
Date of Service September 16, 2022 delayed entry date of service noted above Assessment & Plan (1) Atrial fibrillation with rapid ventricular response: Plan: per admitting service notes with addendum: New onset secondary to uncontrolled BP, anxiety hx atrial flutter status post cardioversion PE/DVT/MTHFR mutation on Coumadin -- Cardiology consulted Cardizem increased monitor plan for cardioversion as outpatient -- INR reviewed continue Coumadin hx CAD status post stent moderate to severe (TTE 2021 ) hyperlipidemia on statin Rx Psych consult re: anxiety DVT prophylaxis. Coumadin INR goal between 2 and 3 Full code plan of care discussed with patient in detail and at length all questions answered he is understanding, agreeable, comfortable with the plan of care Admission and Anticipated Discharge Date Admission Date: September 16, 2022 Subjective ff up for A fib, etc seen resting in bed, comfortable states he feels fine overall no chest pain, dyspnea, palpitations, dizziness denies anxiety no other symptoms Review of Systems Review of Systems: all noted and negative except for above Physical Exam Physical Exam: General- oriented x 3, not in distress, speaks in sentences with no effort or accessory muscle use Head- atraumatic Eyes- PERRL, EOMI, anicteric ENT- oropharynx clear Neck- supple, no JVD, no adenopathy, no thyromegaly; carotids +2/2, no bruits appreciated Lungs- clear to auscultation bilaterally, no rales/wheezes Heart- normal rate, irregularly irregular rhythm; no murmur, no gallop, no rub appreciated Abdomen- normal bowel sounds, nondistended, soft, nontender, no masses or hepatosplenomegaly Extremities- no pretibial edema, no calf tenderness; peripheral pulses intact Neuro- alert, oriented x 3; CN 2-12 grossly intact; motor 5/5 bilaterally;sensation 100% on all extremities; no other gross focal neurologic deficits Skin- warm & dry Results & Data Results & Data Vital Signs (Past 12 Hours) Vital Signs Temp Pulse Pulse Resp BP BP Pulse Ox 09/16/22 16:56 36.3 C L 89 18 147/98 H 97 09/16/22 11:53 36.6 C 16 96 09/16/22 11:50 114 H 153/105 H 159/92 H 09/16/22 09:24 89 18 09/16/22 08:14 36.4 C L 87 21 148/88 H 95 O2 Del Method 09/16/22 16:56 Room Air 09/16/22 11:53 Room Air 09/16/22 11:50 09/16/22 09:24 09/16/22 08:14 Room Air all noted and reviewed including below
[2022-09-16] MEDS ORDERED: QUEtiapine FUMARATE 25 MG TABLET PO SCH (21:00)
[2022-09-17] MEDS: FOLIC ACID 1 MG TAB PO SCH (07:59)
[2022-09-17] MEDS: PANTOprazole 40 MG TAB PO SCH (07:59)
[2022-09-17] MEDS: ASPIRIN 81 MG ECTAB PO SCH (07:59)
[2022-09-17 08:57] LABS: INR 1.9 (0.9-1.1); Prothrombin Time 19.8 Seconds (9.0-12.0)
[2022-09-17] MEDS ORDERED: dilTIAZem HCL 180 MG CAPCR PO SCH (09:00)
[2022-09-17] MEDS ORDERED: WARFARIN SOD 7.5 MG TAB PO SCH (16:00)
--- NOTE | 2022-09-22 08:52 | Hospitalist Progress Note ---
Date of Service September 22, 2022 delayed entry date of service 09/17/22 Assessment & Plan (1) Atrial fibrillation with rapid ventricular response: Plan: hx atrial flutter status post cardioversion PE/DVT/MTHFR mutation on Coumadin - echo: normal EF, moderate to severe aortic stenosis, severe LVH -- Cardiology consulted- Dr. Joy Cardizem increased to 360mg daily HR controlled plan for possible cardioversion as outpatient in 2-3 weeks -- continue Coumadin Anxiety -- patient reports panic attacks Psych consulted recommend Vistaril 10mg QID PRN -- ff up with PCP hx CAD status post stent moderate to severe (TTE 2021 ) hyperlipidemia on statin Rx DVT prophylaxis. Coumadin INR goal between 2 and 3 Full code plan of care discussed with patient in detail and at length all questions answered he is understanding, agreeable, comfortable with the plan of care Admission and Anticipated Discharge Date Admission Date: September 16, 2022 Subjective ff up for a fib in RVR, etc seen resting in chair, comfortable states he feels fine overall no chest pain, dyspnea, palpitations, dizziness ambulating with no problems admits to having panic attacks at home - happens anytime during the day, also at night- preventing him from falling asleep had an episode last evening and this morning- Vistaril helped no other symptoms Review of Systems Review of Systems: all noted and negative except for above Physical Exam Physical Exam: General- oriented x 3, not in distress, speaks in sentences with no effort or accessory muscle use Eyes- anicteric Neck- no JVD Lungs- clear breath sounds bilaterally, no rales/wheezes Heart- normal rate, irregularly irregular rhythm; no murmurs Abdomen- normal bowel sounds, nondistended, soft, nontender Extremities- no pretibial edema, no calf tenderness Neuro- alert, oriented x 3; no gross focal neurologic deficits Skin- warm & dry Results & Data Results & Data Vital Signs (Past 12 Hours) all noted and reviewed including below
--- NOTE | 2022-09-22 08:57 | Discharge Summary ---
Discharge Summary Date of Service September 22, 2022 delayed entry date of service 09/17/22 Notes For Next Care Provider Medication Changes From Visit Cardizem CD (diltiazem controlled release) -long acting Cardizem for heart rate control Vistaril (hydroxyzine) -as needed for anxiety, panic attack Please stop taking Cartia XT Admission HPI Per Admitting Provider History obtained from patient, family, and records. Medical history significant for CAD status post stent, PE DVT/MTHFR mutation/atrial flutter status post cardioversion on Coumadin, moderate to severe (TTE 2021 ), hypertension, hyperlipidemia, anxiety disorder, osteoarthritis. Last confinement 2018 for unstable angina. Successful PCI of ostial LAD lesion done. Recent ER visit 2 weeks ago for shortness of breath and weakness. Patient discharged home with negative work-up except for subtherapeutic INR. Last night, patient felt like he was going to pass out. Increased anxiety levels for some time now as per patient. Denies suicidality. Compliant with home medications. Denies chest pain, SOB, abdominal pain, headache. SBP 170s upon arrival at the ER. Patient noted to be in rapid A-fib. 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 Admission Exam Per Admitting Provider General- oriented x 3, not in distress, speaks in sentences with no effort or accessory muscle use Eyes- anicteric Neck- no JVD Lungs- clear breath sounds bilaterally, no rales/wheezes Heart- normal rate, irregularly irregular rhythm; no murmurs Abdomen- normal bowel sounds, nondistended, soft, nontender Extremities- no pretibial edema, no calf tenderness Neuro- alert, oriented x 3; no gross focal neurologic deficits Skin- warm & dry Principal Dx & Hospital Course #1 = Principal Diagnosis (1) Atrial fibrillation with rapid ventricular response: hx atrial flutter status post cardioversion PE/DVT/MTHFR mutation on Coumadin - echo: normal EF, moderate to severe aortic stenosis, severe LVH -- Cardiology consulted- Dr. Benita Lopezm increased to 360mg daily HR controlled plan for possible cardioversion as outpatient in 2-3 weeks ff up rashad Joy in 2 weeks -- continue Coumadin Anxiety -- patient reports panic attacks Psych consulted recommend Vistaril 10mg QID PRN -- ff up with PCP hx CAD status post stent moderate to severe (TTE 2021 ) hyperlipidemia on statin Rx DVT prophylaxis. Coumadin INR goal between 2 and 3 Full code plan of care discussed with patient in detail and at length all questions answered he is understanding, agreeable, comfortable with the plan of care Discharge Exam General- oriented x 3, not in distress, speaks in sentences with no effort or accessory muscle use Eyes- anicteric Neck- no JVD Lungs- clear breath sounds bilaterally, no rales/wheezes Heart- normal rate, irregularly irregular rhythm; no murmurs Abdomen- normal bowel sounds, nondistended, soft, nontender Extremities- no pretibial edema, no calf tenderness Neuro- alert, oriented x 3; no gross focal neurologic deficits Skin- warm & dry Updated Medication List Medication Instructions Recorded Confirmed Type celecoxib 200 mg capsule (Celebrex) 200 mg PO DAILY 08/07/18 09/15/22 History pantoprazole 40 mg tablet,delayed 40 mg PO DAILY 12/21/18 09/15/22 History release (Protonix) quetiapine 25 mg tablet 25 mg PO HS 03/27/20 09/15/22 History melatonin 5 mg capsule 5 mg PO HS 01/14/21 09/15/22 History folic acid 1 mg tablet 1 mg PO DAILY 09/18/21 09/15/22 History aspirin 81 mg tablet,delayed 81 mg PO DAILY 05/18/22 09/15/22 History release (Adult Low Dose Aspirin) warfarin 5 mg tablet See Rx Instructions PO UD 09/02/22 09/15/22 History diltiazem HCl 180 mg 360 mg PO QAM 30 days #60 caps 09/17/22 Rx capsule,extended release 24 hr hydroxyzine HCl 10 mg tablet 10 mg PO QID PRN Anxiety, panic 09/17/22 Rx attack #20 tabs Hospital Stay Data Consultations 09/15/22 23:47 ED Decision to Admit Stat 09/16/22 03:57 Consult Cardiology Routine 09/16/22 10:06 Consult Behavioral Health Liaison Routine Pending Results Patient Have Any Pending Studies at Discharge: No Discharge Instructions Given to Patient (Per Discharging Provider) PLEASE REFER TO YOUR NEW MEDICATION LIST AND FOLLOW INSTRUCTIONS CAREFULLY. YOUR NEW MEDICATIONS INCLUDE: Cardizem CD (diltiazem controlled release) -long acting Cardizem for heart rate control Vistaril (hydroxyzine) -as needed for anxiety, panic attack Please stop taking Cartia XT PLEASE CALL YOUR PRIMARY CARE PHYSICIAN OR RETURN TO THE ER IF WITH WORSENING OF SYMPTOMS, INCLUDING Palpitations, dizziness, chest pain, shortness of breath, Worsening of anxiety, panic attacks, etc. FOLLOW UP WITH PRIMARY CARE PHYSICIAN OUTLINED ABOVE. 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 Total Time Total Time Spent Total Time Spent (In Minutes): > 30 minutes
== END 2022-09-17 17:29 | disposition home or self-care (01) | DRG 309 ==
LOC: ED 19:43 → OBSVTOIN 09-16 01:34 → INTOOBSV 09-16 01:34 → 4W 09-16 01:34

== ENCOUNTER 2024-06-25 09:59 | Inpatient (IN) ==
--- NOTE | 2024-06-25 10:42 | Emergency Department Note ---
Impression & Plan Falls, Current use of half-way anticoagulation, Back pain, Gallbladder pain ED Provider Note Provider: Tio Jackson MD CHIEF COMPLAINT: Falls, back pain HISTORY OF PRESENT ILLNESS: Patient is a 83-year-old gentleman past medical history significant for atrial fibrillation on Coumadin, factor V Leiden, arthritis, PE, and hyperlipidemia presenting here today with son after several falls. Patient states over the past 6 days he has had multiple falls too numerous to count. States that he has been unsteady on his feet and been tripping on things. Denies fainting or feeling lightheaded or having palpitations. Denies striking his head to his knowledge. He did fall last night and was on the ground for about 2 hours but then was able to get up and make his way to his bed and sleep for approximately 10 hours. Feeling well rested and no pain if not moving. If trying to move developed significant to severe mid lower back pain. Unsteady on his feet according to son. No fevers or recent cough or cold. No chest pain, shortness of breath, abdominal pain, nausea or vomiting. Denies significant injury to the extremities. Denies history of back surgery or significant back problems. No new numbness or tingling reported in the extremities. PAST MEDICAL HISTORY: As noted above MEDICATIONS: Reviewed home medications includes Coumadin SOCIAL HISTORY: Lives at home by himself PHYSICAL EXAM: GENERAL: alert and oriented in no acute distress on stretcher, somewhat hard of hearing and son at bedside Head: normocephalic and atraumatic EYES: No injection, discharge or icterus. EOMI. NECK: Trachea midline. Good range of motion ENT: Mucous membranes pink and moist. LUNGS: Airway patent. No retractions. Breath sounds clear HEART: Regular rate and rhythm. No chest wall tenderness ABDOMEN: Soft moderate mid abdominal tenderness to the right abdomen. No guarding. BACK: No midline tenderness, no SI joint tenderness. No bilateral flank tenderness. SKIN: Acyanotic, warm, dry, without rashes EXTREMITIES: Without swelling, tenderness or deformity NEUROLOGICAL: No focal deficits. No aphasia. No facial droop or slurred speech. Normal strength and tone in the extremities. Sensation to gross touch normal. Ambulatory. EK bpm atrial fibrillation. No acute ST segment elevation or depression with a QTc of 469. Left axis noted. CONTINUOUS CARDIAC MONITORING: was ordered and showed a heart rate of 90s to 110s bpm in atrial fibrillation GCS 15. Patient's laboratory studies and imaging reviewed. Differential includes Fracture, dislocation, contusion, intra-abdominal, pneumothorax, intrathoracic, intracranial, neurologic, compartment syndrome, rhabdomyolysis, as well as other pathologies. IMPRESSION/MEDICAL DECISION MAKING: Patient with multiple falls. Denies striking head but is on significant anticoagulation with Coumadin. INR basic blood work checked. He describes a mechanical trip and fall type events but we will do a broad workup to exclude any obvious findings of metabolic or infectious abnormality. Does not appear meningitic. Does not appear septic. Given his use of anticoagulation with falls trauma hoff scan with lumbar spine CT additionally obtained to look for occult traumatic injury or occult bleeding. Patient with no significant wounds. Some mild lower abdominal tenderness of unclear etiology as he denies abdominal pain without palpation. States he has been eating and drinking okay. Noted to be in A-fib but has a history and fairly well rate controlled at this time. Blood work here without significant anemia or leukocytosis. Normal platelet count. Normal electrolytes. No significant transaminitis or elevated CK. Doubt rhabdomyolysis. Normal troponin. Creatinine 1.49 today from baseline around 1.2. INR slightly subtherapeutic at 1.5. In the case of his multiple falls this is a good thing. Doubt acute CVA or stroke. CT head and cervical spine per radiology report without acute traumatic injury noted. CT lumbar spine without acute traumatic injury noted per report. CT of the chest abdomen pelvis without traumatic findings and evidence of a small right pleural effusion without pneumothorax and some mild dilation of the aorta and central pulmonary arteries. There is a note of some mild gallbladder distention and thickening with small amount of paracolic fluid and stranding nonspecific in nature. Discussed the patient and son. Patient again states the pain is mostly with movement but critically tender in the right upper quadrant. Denies a lot of pain at rest. Does report that he has not been eating or well last several days as he is lost an appetite. Maybe vomited. Son was unaware of this. Will discuss with general surgery and complete a right upper quadrant ultrasound of the gallbladder for further evaluation here. General surgery team recommended Zosyn and medical admission given his comorbidities and they will further evaluate. Does appear additionally that we have ERCP capabilities here this week as well if needed. DIAGNOSIS: Falls, abdominal pain, back pain, long-term anticoagulationA-fib DISPOSITION: Hospitalist will evaluate as well as general surgery team Patient was agreeable with this plan. 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 S/P hernia repair x3, open inguinal hernia repair 12/07/16 LMA#5. S/P tonsillectomy S/P hemorrhoidectomy S/P cataract surgery rt/lt History of appendectomy Anxiety Arthritis Cervical radiculopathy happens periodically Anticoagulated on Coumadin (Acute) History of DVT (deep vein thrombosis) ~11 years ago, "moderate" History of pulmonary embolism "severe" blood clot, years ago Atrial flutter f/u dr. joy, [facility] HLD (hyperlipidemia) Medical History (Updated 06/25/24 @ 13:43 by Angelina Lobo PA-C) Aortic stenosis mod-severe CAD (coronary artery disease) CAD s/p cardiac catheterization 05/29/18 with angioplasty and stenting of hazy 95% ostial LAD lesion with mid to distal luminal irregularities; moderate size first diagonal branch with a 50-60% proximal stenosis; large circumflex with a 20% ostial stenosis; large dominant RCA with a 30-40% proximal stenosis. Status post angioplasty and stenting with a 3.0 x 15 mm Xience Lorna drug- eluting stent 2018. Cardiac catheterization 12/08/2020 with normal right-sided and left-sided pressures. Status post angioplasty and stenting of a 90% proximal OM3 lesion. Factor V Leiden GERD (gastroesophageal reflux disease) Retinal vein occlusion of right eye seeing Dr. Gonzales currently for injections for ~8-9 weeks Murmur Surgical History (Updated 06/25/24 @ 14:31 by HERRERA Wood) S/P TAVR (transcatheter aortic valve replacement) History of cardiac cath 05/2018, [facility], x1 stent 11/2020, [facility] x1 stent; f/u dr. joy, [facility] History of toe surgery Kellert procedure-part of joint removed and toe is now shorter History of esophagogastroduodenoscopy (EGD) Hx of colonoscopy Family History Other Family history of 5, 10-methylenetetrahydofolate deficiency Hypertension Stroke Social History Smoking Status: Never smoker Second Hand Exposure: Yes; Do You Dip or Chew Tobacco: No; Hx Alcohol Use: Yes Alcohol type: beer and wine Hx Substance Use: No Preferred Language: Gabonese Communication Ability: Effective Coutierier Required: No Beliefs That Will Affect Care: None marital status: / Current Living Situation: Alone current occupation: Retired Feels Safe at Home: Yes Assistive Devices: None Allergies Allergies Allergy/AdvReac Type Severity Reaction Status Date / Time codeine Allergy Intermediate RASH Verified 10/18/22 14:23 diltiazem Allergy Intermediate ITCHING Verified 10/18/22 14:23 AND FLUSHING Home Meds Home Medications Medication Instructions Recorded Confirmed celecoxib 200 mg capsule (Celebrex) 200 mg PO QAM 08/07/18 06/25/24 pantoprazole 40 mg tablet,delayed 40 mg PO QAM 12/21/18 06/25/24 release (Protonix) melatonin 5 mg capsule 5 mg PO HS 01/14/21 06/25/24 folic acid 1 mg tablet 1 mg PO QAM 09/18/21 06/25/24 aspirin 81 mg tablet,delayed 81 mg PO QAM 05/18/22 06/25/24 release (Adult Low Dose Aspirin) sertraline 50 mg tablet 100 mg PO Q24H 01/18/23 06/25/24 furosemide 20 mg tablet (Lasix) 20 mg PO DAILY PRN Edema 02/01/23 06/25/24 diltiazem HCl 300 mg capsule,24 300 mg PO DAILY 10/19/23 06/25/24 hr,extended release acetaminophen 325 mg tablet 650 mg PO Q6H PRN pain 12/21/23 06/25/24 amoxicillin 500 mg capsule 2,000 mg PO UD PRN prior to dental 12/21/23 06/25/24 visits metoprolol succinate 25 mg 50 mg PO HS 12/21/23 06/25/24 tablet,extended release 24 hr (Toprol XL) pravastatin 10 mg tablet 10 mg PO DAILY 05/28/24 06/25/24 Previous Rx's Medication Instructions Recorded warfarin 4 mg tablet See Rx Instructions PO DAILY #80 04/02/24 tabs Results & Data (ED) Vital Signs Vital Signs - 24 hr 06/25/24 10:14 06/25/24 10:29 06/25/24 10:56 Temperature 36.6 C Temperature Source Temporal Artery Scan Pulse Rate 117 H 112 H Pulse Rate [Apical] 116 H Respiratory Rate 18 17 17 Respiratory Effort / Characteristics Non-Labored Non-Labored Spontaneous Respiratory Depth Normal Normal Respiratory Pattern Regular Blood Pressure 118/79 Blood Pressure [Left Arm] 107/81 Blood Pressure Mean 92 Blood Pressure Mean [Left Arm] 89 Blood Pressure Position [Left Arm] Semi-fowlers Pulse Oximetry 93 95 94 Oxygen Delivery Method Room Air Room Air Room Air Sepsis Recent Fever Within 48 Hours No Sepsis New/Unexplained Change in Mental Status N/A Sepsis Action Taken by Nursing No Action Required 06/25/24 11:17 06/25/24 11:19 06/25/24 11:19 Temperature Temperature Source Pulse Rate 112 H Pulse Rate [Apical] 104 H 101 H Respiratory Rate 18 17 Respiratory Effort / Characteristics Non-Labored Spontaneous Non-Labored Spontaneous Respiratory Depth Normal Normal Respiratory Pattern Regular Blood Pressure Blood Pressure [Left Arm] 156/93 H 156/93 H Blood Pressure Mean Blood Pressure Mean [Left Arm] 114 114 Blood Pressure Position [Left Arm] Semi-fowlers Pulse Oximetry 95 95 Oxygen Delivery Method Room Air Room Air Sepsis Recent Fever Within 48 Hours Sepsis New/Unexplained Change in Mental Status Sepsis Action Taken by Nursing 06/25/24 12:00 06/25/24 13:00 06/25/24 13:00 Temperature Temperature Source Pulse Rate Pulse Rate [Apical] 91 H 98 H 95 H Respiratory Rate 17 17 17 Respiratory Effort / Characteristics Non-Labored Spontaneous Non-Labored Spontaneous Non-Labored Spontaneous Respiratory Depth Normal Normal Normal Respiratory Pattern Blood Pressure Blood Pressure [Left Arm] 150/94 H 146/86 H 146/86 H Blood Pressure Mean Blood Pressure Mean [Left Arm] 112 106 106 Blood Pressure Position [Left Arm] Semi-fowlers Semi-fowlers Semi-fowlers Pulse Oximetry 97 97 93 Oxygen Delivery Method Room Air Room Air Room Air Sepsis Recent Fever Within 48 Hours Sepsis New/Unexplained Change in Mental Status Sepsis Action Taken by Nursing Laboratory Data 06/25/24 10:53 06/25/24 10:53 Lab Results 06/25/24 06/25/24 06/25/24 Range/Units 10:53 10:59 11:01 WBC 8.50 (4.8-10.8) K/ul RBC 4.82 (4.70-6.10) M/uL Hgb 15.3 (14.0-18.0) g/dl POC Hgb 15.6 (14.0-18.0) g/dl Hct 43.8 (42.0-52.0) % POC Hct 46 (42-52) % MCV 90.9 (80.0-100.0) fL MCH 31.7 (25.0-34.0) pg MCHC 34.9 (32.0-36.0) g/dL RDW Std Deviation 43.8 (36.4-46.3) fL RDW Coeff of Ryan 13.1 (11.5-14.5) % Plt Count 200 (130-400) K/uL MPV 9.5 (9.4-12.4) fL Immature Gran % (Auto) 0.6 % Neut % (Auto) 80.4 % Lymph % (Auto) 9.1 % Freestone % (Auto) 9.2 % Eos % (Auto) 0.2 % Baso % (Auto) 0.5 % Neut # (Auto) 6.84 H (1.40-6.50) K/uL Lymph # (Auto) 0.77 L (1.20-3.40) K/uL Freestone # (Auto) 0.78 H (0.11-0.59) K/uL Eos # (Auto) 0.02 (0.00-0.50) K/uL Baso # (Auto) 0.04 (0.00-0.20) K/uL Immature Gran # (Auto) 0.05 (0.01-0.20) K/uL PT 15.5 H (9.0-12.0) Seconds INR 1.5 H (0.9-1.1) APTT 33 H (21-31) Seconds PTT Ratio 1.2 POC Sodium 136 (135-144) mmol/L Sodium 136 (136-145) mmol/L POC Potassium 3.7 (3.3-5.0) mmol/L Potassium 3.8 (3.5-5.1) mmol/L POC Chloride 101 (101-112) mmol/L Chloride 100 (98-107) mmol/L Carbon Dioxide 26 (21-32) mmol/L POC Total CO2 23 L (24-31) mmol/L Anion Gap 10 (3-11) POC Anion Gap 17.0 (16-25) mmol/L POC BUN 26 H (7-18) mg/dl BUN 24 H (6-23) mg/dl Creatinine 1.49 H (0.6-1.4) mg/dl POC Creatinine 1.6 H (0.6-1.3) mg/dl Est Cr Clr Drug Dosing Not Reportable eGFR 46.57 BUN/Creatinine Ratio 16.1 (10-20) Glucose 94 (70-99(Fasting)) mg/dl POC Glucose (other) 95 (70-99) mg/dl Calcium 9.1 (8.6-10.3) mg/dl POC Ioniz Calcium Luis 1.11 L (1.12-1.32) mmol/l Total Bilirubin 1.9 H (0.2-1.0) mg/dl AST 21 (13-39) U/L ALT 19 (7-52) U/L Alkaline Phosphatase 64 (34-104) U/L Total Creatine Kinase 55 (30-223) U/L Troponin I High Sens 13.4 (0-20) pg/ml Total Protein 7.6 (6.0-8.3) gm/dl Albumin 3.6 (3.4-5.0) gm/dl Globulin 4.0 (2.5-4.0) gm/dl Albumin/Globulin Ratio 0.9 (0.9-2) Lipase 8 L (11-82) U/L Urine Color Urine Appearance (Clear) Urine pH (4.5-7.5) Ur Specific [place] (1.000-1.030) Urine Protein (Negative) Urine Glucose (UA) (Negative) Urine Ketones (Negative) Urine Blood (Negative) Urine Nitrite (Negative) Urine Bilirubin (Negative) Urine Urobilinogen (Negative) Ur Leukocyte Esterase (Negative) Urine WBC (Auto) (0-5) /hpf Urine RBC (Auto) (0-2) /hpf U Hyaline Cast (Auto) (0-2) /lpf U Epithel Cells (Auto) (0-2) /hpf Urine Bacteria (Auto) (None Seen) Urine Mucus (None Prsent) SARS-CoV-2, RNA, NAAT NEGATIVE (NEGATIVE) Blood Type A Positive Antibody Screen NEGATIVE 06/25/24 Range/Units 12:23 WBC (4.8-10.8) K/ul RBC (4.70-6.10) M/uL Hgb (14.0-18.0) g/dl POC Hgb (14.0-18.0) g/dl Hct (42.0-52.0) % POC Hct (42-52) % MCV (80.0-100.0) fL MCH (25.0-34.0) pg MCHC (32.0-36.0) g/dL RDW Std Deviation (36.4-46.3) fL RDW Coeff of Ryan (11.5-14.5) % Plt Count (130-400) K/uL MPV (9.4-12.4) fL Immature Gran % (Auto) % Neut % (Auto) % Lymph % (Auto) % Freestone % (Auto) % Eos % (Auto) % Baso % (Auto) % Neut # (Auto) (1.40-6.50) K/uL Lymph # (Auto) (1.20-3.40) K/uL Freestone # (Auto) (0.11-0.59) K/uL Eos # (Auto) (0.00-0.50) K/uL Baso # (Auto) (0.00-0.20) K/uL Immature Gran # (Auto) (0.01-0.20) K/uL PT (9.0-12.0) Seconds INR (0.9-1.1) APTT (21-31) Seconds PTT Ratio POC Sodium (135-144) mmol/L Sodium (136-145) mmol/L POC Potassium (3.3-5.0) mmol/L Potassium (3.5-5.1) mmol/L POC Chloride (101-112) mmol/L Chloride (98-107) mmol/L Carbon Dioxide (21-32) mmol/L POC Total CO2 (24-31) mmol/L Anion Gap (3-11) POC Anion Gap (16-25) mmol/L POC BUN (7-18) mg/dl BUN (6-23) mg/dl Creatinine (0.6-1.4) mg/dl POC Creatinine (0.6-1.3) mg/dl Est Cr Clr Drug Dosing eGFR BUN/Creatinine Ratio (10-20) Glucose (70-99(Fasting)) mg/dl POC Glucose (other) (70-99) mg/dl Calcium (8.6-10.3) mg/dl POC Ioniz Calcium Luis (1.12-1.32) mmol/l Total Bilirubin (0.2-1.0) mg/dl AST (13-39) U/L ALT (7-52) U/L Alkaline Phosphatase (34-104) U/L Total Creatine Kinase (30-223) U/L Troponin I High Sens (0-20) pg/ml Total Protein (6.0-8.3) gm/dl Albumin (3.4-5.0) gm/dl Globulin (2.5-4.0) gm/dl Albumin/Globulin Ratio (0.9-2) Lipase (11-82) U/L Urine Color Dark Yellow Urine Appearance Clear (Clear) Urine pH 6.0 (4.5-7.5) Ur Specific [place] 1.045 H (1.000-1.030) Urine Protein 1+ H (Negative) Urine Glucose (UA) Negative (Negative) Urine Ketones Trace H (Negative) Urine Blood Negative (Negative) Urine Nitrite Negative (Negative) Urine Bilirubin Negative (Negative) Urine Urobilinogen Positive H (Negative) Ur Leukocyte Esterase Negative (Negative) Urine WBC (Auto) 0-5 (0-5) /hpf Urine RBC (Auto) 0-2 (0-2) /hpf U Hyaline Cast (Auto) 0-2 (0-2) /lpf U Epithel Cells (Auto) 0-2 (0-2) /hpf Urine Bacteria (Auto) None Seen (None Seen) Urine Mucus Present A (None Prsent) SARS-CoV-2, RNA, NAAT (NEGATIVE) Blood Type Antibody Screen Administered Medications Discontinued Medications Fentanyl Citrate (Fentanyl Citrate Pf 100 Mcg/2 Ml Vial) 25 mcg IV NOW STA Stop: 06/25/24 12:55 Last Admin: 06/25/24 13:17 Dose: 25 mcg Documented By: MARC Piperacillin Sod/Tazobactam Sod (Zosyn) 4.5 gm in 100 mls @ 200 mls/hr IV NOW ONE; Protocol Stop: 06/25/24 13:23 Last Infusion: 06/25/24 14:09 Dose: Infused Documented By: [facility] Admin: 06/25/24 13:17 Dose: 200 mls/hr Documented By: MARC Ioversol (Optiray 320 100ml) 94 ml IV ONCE ONE Stop: 06/25/24 11:41 Last Admin: 06/25/24 11:41 Dose: 94 ml Documented By: [facility] Imaging Data Radiologist's Impression: Abdomen/Pelvis CT 06/25/24 10:35 CT SCAN OF THE ABDOMEN AND PELVIS WITH IV CONTRAST CLINICAL HISTORY: Fall. COMPARISON STUDY: CT of the abdomen and pelvis May 19, 2022. TECHNIQUE: Following the IV administration of 94 cc of Optiray 320, CT scan of the abdomen and pelvis is performed from the lung bases to the proximal femora. Images are reviewed in the axial, sagittal, and coronal planes. IV contrast was administered without complication. A dose lowering technique was utilized adhering to the principles of ALARA. FINDINGS: The chest CT will be reported separately. A small right pleural effusion is present. There is cardiomegaly with dilatation the central pulmonary arteries. The gallbladder is mildly distended. Mild gallbladder wall thickening with a small amount of pericholecystic fluid. There is no biliary or pancreatic ductal dilatation. There is no evidence for traumatic injury to the liver, spleen, adrenal glands, kidneys or pancreas. There is no hydronephrosis. Caliber and wall thickness of small and large bowel are normal. There is extensive sigmoid diverticulosis without evidence for acute diverticulitis. No acute fractures within the lumbar spine, pelvis or hips are identified. IMPRESSION: 1. No acute traumatic findings within the abdomen or pelvis. 2. Mildly distended gallbladder with mild gallbladder wall thickening and small amount of pericholecystic fluid and stranding. These findings are nonspecific and acute cholecystitis cannot be excluded. Right upper quadrant ultrasound could be obtained for further evaluation. 3. Extensive sigmoid diverticulosis. No evidence for acute diverticulitis. ACT 112: Negative or not required by law. Electronically signed by: Isaiah Nye M.D. 06/25/2024 12:[address] 06/25/24 10:35 CT cervical spine wo con CLINICAL HISTORY: Trauma. COMPARISON: 05/19/2022 TECHNIQUE: Multiple axial CT images of the cervical spine were obtained without contrast. A dose lowering technique was utilized adhering to the principles of ALARA. FINDINGS: There are mild diffuse degenerative findings. No fracture or subluxation seen at the cervical spine. There are carotid bulb calcifications. IMPRESSION: No cervical spine fracture seen. ACT 112: Negative or not required by law. The above report was generated using voice recognition software. It may contain grammatical, syntax or spelling errors. Electronically signed by: Primitivo Dhaliwal M.D. 06/25/2024 12:[address] 06/25/24 10:35 CT SCAN OF THE CHEST WITH IV CONTRAST CLINICAL HISTORY: Fall. COMPARISON STUDY: Chest CT August 30, 2022. Chest radiograph performed earlier today. TECHNIQUE: Following the IV administration of 94 cc of Optiray 320, CT scan of the thorax was performed from the thoracic inlet to the upper abdomen. Images are reviewed in the axial, sagittal, and coronal planes. IV contrast was administered without complication. A dose lowering technique was utilized adhering to the principles of ALARA. FINDINGS: There is no evidence for traumatic injury to the thoracic aorta. Ascending aorta is mildly dilated, measuring 4.2 cm at the level of the main pulmonary artery. There is a prosthetic cardiac valve. The heart is moderately enlarged. There is moderate dilatation of the central pulmonary arteries. There is no pericardial effusion. No pneumothorax. Small right pleural effusion is present. Ground glass opacities within the lungs favor atelectasis. There is no pulmonary contusion. No acute rib or thoracic spine fractures identified. The abdomen and pelvis CT will be reported separately. Mild gallbladder distention is better depicted on that exam. IMPRESSION: 1. No acute traumatic findings within the chest. 2. Small right pleural effusion. No pneumothorax. 3. Moderate cardiomegaly and mild dilatation of the ascending aorta. Moderate dilatation of the central pulmonary arteries. ACT 112: Negative or not required by law. Electronically signed by: Isaiah Nye M.D. 06/25/2024 12:07 PM Chest X-Ray 06/25/24 10:35 XR chest 1V portable CLINICAL HISTORY: Trauma COMPARISON STUDY: 09/15/2022 FINDINGS: There is prior cardiac valve repair. There is mild cardiomegaly without pulmonary vascular congestion. There is stable mild elevation of the right hemidiaphragm. Stable mild scarring or atelectasis at the right lung base. No new consolidation or pleural effusion. No pneumothorax. IMPRESSION: No acute findings. ACT 112: Negative or not required by law. Electronically signed by: Primitivo Dhaliwal M.D. 06/25/2024 11:[address] 06/25/24 10:35 CT head/brain wo con CLINICAL HISTORY: trauma. TECHNIQUE: Multiple axial CT images of the head were obtained without contrast. A dose lowering technique was utilized adhering to the principles of ALARA. COMPARISON: 06/18/2022 FINDINGS: No intracranial hemorrhage seen. No mass effect, midline shift, or hydrocephalus. There are moderate chronic small vessel ischemic changes. No skull fracture seen. Visualized paranasal sinuses and mastoid air cells are clear. IMPRESSION: No acute findings. ACT 112: Negative or not required by law. The above report was generated using voice recognition software. It may contain grammatical, syntax or spelling errors. Electronically signed by: Primitivo Dhaliwal M.D. 06/25/2024 12:[address] 06/25/24 10:35 CT lumbar spine w con CLINICAL HISTORY: fall, coumadin, back pain COMPARISON STUDY: CT of the abdomen and pelvis May 19, 2022. TECHNIQUE: Axial images of the lumbar spine were obtained following intravenous injection of 94 cc of Optiray 320 IV. Sagittal and coronal reformats were viewed. A dose lowering technique was utilized adhering to the principles of ALARA. FINDINGS: There is mild rightward curvature of the lumbar spine. Vertebral body heights are maintained. There are no lumbar spine fractures. No osseous lesions are identified. The central canal and neural foramen are suboptimally assessed given CT technique. There is severe multilevel facet arthrosis. Moderate disc space narrowing is most pronounced at the L2-L3 level. There is endplate osteophytosis within the lumbar spine. IMPRESSION: 1. No acute lumbar spine fractures. 2. Moderate multilevel degenerative changes within the lumbar spine. ACT 112: Negative or not required by law. Electronically signed by: Isaiah Nye M.D. 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, Back pain, Gallbladder pain Patient Disposition: Being Evaluated by Hospitalist Forms Stand Alone Forms: [facility] Prescriptions Prescriptions: No Action celecoxib [Celebrex] 200 mg capsule 200 mg PO QAM Patient Comments: mid morning metoprolol succinate [Toprol XL] 25 mg tablet extended release 24 hr 50 mg PO HS sertraline 50 mg tablet 100 mg PO Q24H acetaminophen 325 mg tablet 650 mg PO Q6H PRN (Reason: pain) amoxicillin 500 mg capsule 2,000 mg PO UD PRN (Reason: prior to dental visits) folic acid 1 mg tablet 1 mg PO QAM Patient Comments: mid morning pantoprazole [Protonix] 40 mg tablet,delayed release (DR/EC) 40 mg PO QAM melatonin 5 mg capsule 5 mg PO HS aspirin [Adult Low Dose Aspirin] 81 mg tablet,delayed release (DR/EC) 81 mg PO QAM Patient Comments: per patient, Dr. Joy added back in April 2022 furosemide [Lasix] 20 mg tablet 20 mg PO DAILY PRN (Reason: Edema) Rx Instructions: reported med diltiazem HCl 300 mg capsule,extended release 24 hr 300 mg PO DAILY pravastatin 10 mg tablet 10 mg PO DAILY warfarin 4 mg tablet See Rx Instructions PO DAILY Qty: 80 0RF Rx Instructions: no warfarin on Sundays, 4 mg all other days -- per [facility] Referrals Referrals: Javier Price DO [Primary Care Provider] -
[2024-06-25 11:12] LABS: Basophils # (auto) 0.04 K/uL (0.00-0.20); Basophils % (auto) 0.5 %; Eosinophils # (auto) 0.02 K/uL (0.00-0.50); Eosinophils % (auto) 0.2 %; Hematocrit (blood only) 43.8 % (42.0-52.0); Hemoglobin 15.3 g/dl (14.0-18.0); Immature Granulocytes # (auto) 0.05 K/uL (0.01-0.20); Immature Granulocytes % (auto) 0.6 %; Lymphocytes # (auto) 0.77 K/uL (1.20-3.40); Lymphocytes % (auto) 9.1 %; Mean Corpuscular Hemoglobin 31.7 pg (25.0-34.0); Mean Corpuscular Hgb Conc 34.9 g/dL (32.0-36.0); Mean Corpuscular Volume 90.9 fL (80.0-100.0); Mean Platelet Volume 9.5 fL (9.4-12.4); Monocytes # (auto) 0.78 K/uL (0.11-0.59); Monocytes % (auto) 9.2 %; Neutrophils # (auto) 6.84 K/uL (1.40-6.50); Neutrophils % (auto) 80.4 %; Platelet Count 200 K/uL (130-400); RDW Coefficient of Variation 13.1 % (11.5-14.5); RDW Standard Deviation 43.8 fL (36.4-46.3); Red Blood Count 4.82 M/uL (4.70-6.10)
[2024-06-25 11:13] LABS: iSTAT Creatinine 1.6 mg/dl (0.6-1.3); iSTAT Hemoglobin 15.6 g/dl (14.0-18.0); iSTAT Ionized Calcium 1.11 mmol/l (1.12-1.32); iSTAT Potassium 3.7 mmol/L (3.3-5.0)
--- NOTE | 2024-06-25 11:14 | XRay Report ---
XR chest 1V portable CLINICAL HISTORY: Trauma COMPARISON STUDY: 09/15/2022 FINDINGS: There is prior cardiac valve repair. There is mild cardiomegaly without pulmonary vascular congestion. There is stable mild elevation of the right hemidiaphragm. Stable mild scarring or atelec tasis at the right lung base. No new consolidation or pleural effusion. No pneumothorax. IMPRESSION: No acute findings. ACT 112: Negative or not required by law. Electronically signed by: Primitivo Dhaliwal M.D. 06/25/2024 11:13 AM
[2024-06-25 11:33] LABS: Alanine Aminotransferase 19 U/L (7-52); Albumin Globulin Ratio 0.9 (0.9-2); Albumin Level 3.6 gm/dl (3.4-5.0); Alkaline Phosphatase 64 U/L (34-104); Anion Gap 10 (3-11); Aspartate Aminotransferase 21 U/L (13-39); BUN Creatinine Ratio 16.1 (10-20); Bilirubin,Total 1.9 mg/dl (0.2-1.0); Blood Urea Nitrogen 24 mg/dl (6-23); Calcium 9.1 mg/dl (8.6-10.3); Carbon Dioxide 26 mmol/L (21-32); Chloride 100 mmol/L (98-107); Creatine Kinase 55 U/L (30-223); Glucose 94 mg/dl (70-99(Fasting)); Lipase 8 U/L (11-82); Potassium 3.8 mmol/L (3.5-5.1); Sodium 136 mmol/L (136-145); Total Protein 7.6 gm/dl (6.0-8.3)
[2024-06-25 11:36] LABS: Troponin I High Sensitivity 13.4 pg/ml (0-20)
[2024-06-25] MEDS: OPTIRAY 320 100ml IV ONE (11:41)
[2024-06-25 11:46] LABS: INR 1.5 (0.9-1.1); Partial Thromboplastin Ratio 1.2; Partial Thromboplastin Time 33 Seconds (21-31); Prothrombin Time 15.5 Seconds (9.0-12.0)
--- NOTE | 2024-06-25 12:09 | CT Scan Report ---
CT SCAN OF THE CHEST WITH IV CONTRAST CLINICAL HISTORY: Fall. COMPARISON STUDY: Chest CT August 30, 2022. Chest radiograph performed earlier today. TECHNIQUE: Following the IV administration of 94 cc of Optiray 320, CT scan of the thorax was perform ed from the thoracic inlet to the upper abdomen. Images are reviewed in the axial, sagittal, and verónica nal planes. IV contrast was administered without complication. A dose lowering technique was utilize d adhering to the principles of ALARA. FINDINGS: There is no evidence for traumatic injury to the thoracic aorta. Ascending aorta is mildly dilated, measuring 4.2 cm at the level of the main pulmonary artery. There is a prosthetic cardiac va lve. The heart is moderately enlarged. There is moderate dilatation of the central pulmonary arteries . There is no pericardial effusion. No pneumothorax. Small right pleural effusion is present. Ground glass opacities within the lungs favor atelectasis. There is no pulmonary contusion. No acute rib or thoracic spine fractures identified. The abdomen and pelvis CT will be reported separately. Mild gall bladder distention is better depicted on that exam. IMPRESSION: 1. No acute traumatic findings within the chest. 2. Small right pleural effusion. No pneumothorax. 3. Moderate cardiomegaly and mild dilatation of the ascending aorta. Moderate dilatation of the centr al pulmonary arteries. ACT 112: Negative or not required by law. Electronically signed by: Isaiah Nye M.D. 06/25/2024 12:07 PM
--- NOTE | 2024-06-25 12:12 | CT Scan Report ---
CT head/brain wo con CLINICAL HISTORY: trauma. TECHNIQUE: Multiple axial CT images of the head were obtained without contrast. A dose lowering tech nique was utilized adhering to the principles of ALARA. COMPARISON: 06/18/2022 FINDINGS: No intracranial hemorrhage seen. No mass effect, midline shift, or hydrocephalus. There are moderate chronic small vessel ischemic changes. No skull fracture seen. Visualized paranasal sinuses and mastoid air cells are clear. IMPRESSION: No acute findings. ACT 112: Negative or not required by law. The above report was generated using voice recognition software. It may contain grammatical, syntax o r spelling errors. Electronically signed by: Primitivo Dhaliwal M.D. 06/25/2024 12:11 PM
--- NOTE | 2024-06-25 12:12 | CT Scan Report ---
CT SCAN OF THE ABDOMEN AND PELVIS WITH IV CONTRAST CLINICAL HISTORY: Fall. COMPARISON STUDY: CT of the abdomen and pelvis May 19, 2022. TECHNIQUE: Following the IV administration of 94 cc of Optiray 320, CT scan of the abdomen and pelvi s is performed from the lung bases to the proximal femora. Images are reviewed in the axial, sagittal , and coronal planes. IV contrast was administered without complication. A dose lowering technique wa s utilized adhering to the principles of ALARA. FINDINGS: The chest CT will be reported separately. A small right pleural effusion is present. There is cardiomegaly with dilatation the central pulmonary arteries. The gallbladder is mildly distended. Mild gallbladder wall thickening with a small amount of pericholecystic fluid. There is no biliary or pancreatic ductal dilatation. There is no evidence for traumatic injury to the liver, spleen, adrena l glands, kidneys or pancreas. There is no hydronephrosis. Caliber and wall thickness of small and la rge bowel are normal. There is extensive sigmoid diverticulosis without evidence for acute diverticul itis. No acute fractures within the lumbar spine, pelvis or hips are identified. IMPRESSION: 1. No acute traumatic findings within the abdomen or pelvis. 2. Mildly distended gallbladder with mild gallbladder wall thickening and small amount of pericholecy stic fluid and stranding. These findings are nonspecific and acute cholecystitis cannot be excluded. Right upper quadrant ultrasound could be obtained for further evaluation. 3. Extensive sigmoid diverticulosis. No evidence for acute diverticulitis. ACT 112: Negative or not required by law. Electronically signed by: Isaiah Nye M.D. 06/25/2024 12:11 PM
--- NOTE | 2024-06-25 12:14 | CT Scan Report ---
CT lumbar spine w con CLINICAL HISTORY: fall, coumadin, back pain COMPARISON STUDY: CT of the abdomen and pelvis May 19, 2022. TECHNIQUE: Axial images of the lumbar spine were obtained following intravenous injection of 94 cc of Optiray 320 IV. Sagittal and coronal reformats were viewed. A dose lowering technique was utilized a dhering to the principles of ALARA. FINDINGS: There is mild rightward curvature of the lumbar spine. Vertebral body heights are maintaine d. There are no lumbar spine fractures. No osseous lesions are identified. The central canal and neur al foramen are suboptimally assessed given CT technique. There is severe multilevel facet arthrosis. Moderate disc space narrowing is most pronounced at the L2-L3 level. There is endplate osteophytosis within the lumbar spine. IMPRESSION: 1. No acute lumbar spine fractures. 2. Moderate multilevel degenerative changes within the lumbar spine. ACT 112: Negative or not required by law. Electronically signed by: Isaiah Nye M.D. 06/25/2024 12:13 PM
--- NOTE | 2024-06-25 12:15 | CT Scan Report ---
CT cervical spine wo con CLINICAL HISTORY: Trauma. COMPARISON: 05/19/2022 TECHNIQUE: Multiple axial CT images of the cervical spine were obtained without contrast. A dose low ering technique was utilized adhering to the principles of ALARA. FINDINGS: There are mild diffuse degenerative findings. No fracture or subluxation seen at the cervic al spine. There are carotid bulb calcifications. IMPRESSION: No cervical spine fracture seen. ACT 112: Negative or not required by law. The above report was generated using voice recognition software. It may contain grammatical, syntax o r spelling errors. Electronically signed by: Primitivo Dhaliwal M.D. 06/25/2024 12:14 PM
[2024-06-25 12:55] LABS: Appearance Urine Clear (Clear); Bacteria Urine Automated None Seen (None Seen); Bilirubin Urine Negative (Negative); Blood Urine Negative (Negative); Color Urine Dark Yellow; Epithelial Cell Urine Auto 0-2 /hpf (0-2); Glucose Urine UA Negative (Negative); Ketones Urine Trace (Negative); Leukocyte Esterase Urine Negative (Negative); Mucus Urine Present (None Prsent); Nitrite Urine Negative (Negative); Protein Urine 1+ (Negative); RBC Urine Automated 0-2 /hpf (0-2); Specific Gravity Urine 1.045 (1.000-1.030); Urobilinogen Urine Positive (Negative); WBC Urine Automated 0-5 /hpf (0-5)
[2024-06-25 12:56] LABS: Cast Urine Automated 0-2 /lpf (0-2)
[2024-06-25] MEDS: PIPERACILLIN/TAZOBACTAM 4.5 GM/100 ML BAG IV ONE (13:17)
[2024-06-25] MEDS: fentaNYL citrate PF 100 MCG/2 ML VIAL IV STA (13:17)
--- NOTE | 2024-06-25 13:44 | Surgery Consultation ---
Date of Consultation June 25, 2024 Assessment & Plan (1) Falls: (2) Atrial fibrillation with rapid ventricular response: (3) RUQ abdominal pain: (4) History of pulmonary embolism: (5) CAD (coronary artery disease): (6) S/P TAVR (transcatheter aortic valve replacement): (7) Gallbladder pain: (8) History of atrial flutter: Plan 83 yo male with history of afib on Coumadin with subtherapeutic INR at 1.5 who presented to ED due to multiple falls more recently in last week with CT scan showing possible acute cholecystitis. Possible biliary obstruction given mild jaundice and T. bili is 1.9 and examination is consistent with acute cholecystitis. Although no leukocytosis and lfts, alk phos, and lipase are wnl. Waiting for abdominal ultrasound. Discussed with patient and son may require further gallbladder imaging with HIDA scan vs MRCP pending ultrasound results. IF there is any biliary obstruction will need GI consult for ERCP. Will await ultrasound results and determine next steps. Recommend hospitalist admit, Continue Zosyn, pain management as needed, and hold Coumadin. Discussed with Dr. Blank who agrees with above. History of Present Illness Reason for Consultation: RUQ pain, Cholecystitis Requesting Physician: Dr. Jackson History of Present Illness Mr. Li is a 83 yo male with history of afib, factor V leiden, HTN, atrial flutter, hyperlipidemia, arhtritis, anxiety, who presented to ED due to multiple falls. History obtained by patient and son is at bedside. History is somewhat limited, but patient states that he has had falls but significantly increased in last 6 days or so with at least 6 falls. Was face down after last fall for a few hours. States he was not feeling sick prior to these multiple falls. No fevers or chills but appetite has been low and he states I have not been eating or drinking much or taking my normal medications. Urinating has been decreased. Son states he was at his house Tuesday evening for meal and ate some food without any nausea, vomiting, or abdominal pain. He denies of any recent postprandial abdominal pain, nausea or vomiting. No prior issues with his gallbladder. History of hernia repair and appendectomy. Takes Coumadin for his afib but has not been taking his medications recently. Allergies Allergy/AdvReac Type Severity Reaction Status Date / Time codeine Allergy Intermediate RASH Verified 10/18/22 14:23 diltiazem Allergy Intermediate ITCHING Verified 10/18/22 14:23 AND FLUSHING Home Medications Medication Instructions Recorded Confirmed Type celecoxib 200 mg capsule (Celebrex) 200 mg PO QAM 08/07/18 06/25/24 History pantoprazole 40 mg tablet,delayed 40 mg PO QAM 12/21/18 06/25/24 History release (Protonix) melatonin 5 mg capsule 5 mg PO HS 01/14/21 06/25/24 History folic acid 1 mg tablet 1 mg PO QAM 09/18/21 06/25/24 History aspirin 81 mg tablet,delayed 81 mg PO QAM 05/18/22 06/25/24 History release (Adult Low Dose Aspirin) sertraline 50 mg tablet 100 mg PO Q24H 01/18/23 06/25/24 History furosemide 20 mg tablet (Lasix) 20 mg PO DAILY PRN Edema 02/01/23 06/25/24 History diltiazem HCl 300 mg capsule,24 300 mg PO DAILY 10/19/23 06/25/24 History hr,extended release acetaminophen 325 mg tablet 650 mg PO Q6H PRN pain 12/21/23 06/25/24 History amoxicillin 500 mg capsule 2,000 mg PO UD PRN prior to dental 12/21/23 06/25/24 History visits metoprolol succinate 25 mg 50 mg PO HS 12/21/23 06/25/24 History tablet,extended release 24 hr (Toprol XL) warfarin 4 mg tablet See Rx Instructions PO DAILY #80 04/02/24 06/25/24 Rx tabs pravastatin 10 mg tablet 10 mg PO DAILY 05/28/24 06/25/24 History Patient History Medical History (Updated 06/25/24 @ 13:43 by Angelina Lobo PA-C) Aortic stenosis mod-severe CAD (coronary artery disease) CAD s/p cardiac catheterization 05/29/18 with angioplasty and stenting of hazy 95% ostial LAD lesion with mid to distal luminal irregularities; moderate size first diagonal branch with a 50-60% proximal stenosis; large circumflex with a 20% ostial stenosis; large dominant RCA with a 30-40% proximal stenosis. Status post angioplasty and stenting with a 3.0 x 15 mm Xience Lorna drug- eluting stent 2018. Cardiac catheterization 12/08/2020 with normal right-sided and left-sided pressures. Status post angioplasty and stenting of a 90% proximal OM3 lesion. Factor V Leiden GERD (gastroesophageal reflux disease) Retinal vein occlusion of right eye seeing Dr. Gonzales currently for injections for ~8-9 weeks Murmur Surgical History (Updated 06/25/24 @ 14:31 by HERRERA Wood) S/P TAVR (transcatheter aortic valve replacement) History of cardiac cath 05/2018, [facility], x1 stent 11/2020, [facility] x1 stent; f/u dr. oglesby, [facility] History of toe surgery Kellert procedure-part of joint removed and toe is now shorter History of esophagogastroduodenoscopy (EGD) Hx of colonoscopy Family History Other Family history of 5, 10-methylenetetrahydofolate deficiency Hypertension Stroke Social History Smoking Status: Never smoker Second Hand Exposure: Yes; Do You Dip or Chew Tobacco: No; Hx Alcohol Use: Yes Alcohol type: beer and wine Hx Substance Use: No Preferred Language: Hong Konger Communication Ability: Effective Tso Required: No Beliefs That Will Affect Care: None marital status: / Current Living Situation: Alone current occupation: Retired Feels Safe at Home: Yes Assistive Devices: None Review of Systems Review of Systems: All systems reviewed & are unremarkable except as noted in HPI & below Physical Exam Constitutional: WD/WN, vitals as above cooperative and comfortable; no acute distress, not ill appearing, not in distress and not diaphoretic Eyes: + icteric sclera Respiratory: normal respiratory effort, lungs clear to auscultation Cardiovascular: Rate/Rhythm: + irregularly irregular Heart Sounds: normal S1 and normal S2 Gastrointestinal (Abdomen): Inspection/Auscultation: abdomen normal to inspection; abdomen not distended Percussion/Palpation: + abdomen tender (RUQ), + guarding (RUQ, + Muprhy's) and abdomen soft; abdomen not rigid and abdomen not firm Skin: no rashes, warm and dry + jaundice (mild generalized jaundice) Psychiatric: Orientation: alert and oriented x 3 Results & Data Vital Signs (Past 12 Hours) Vital Signs Temp Pulse Pulse Resp BP BP Pulse Ox 06/25/24 12:00 91 H 17 150/94 H 97 06/25/24 11:19 101 H 17 156/93 H 95 06/25/24 11:19 104 H 18 156/93 H 95 06/25/24 11:17 112 H 06/25/24 10:56 112 H 17 94 06/25/24 10:29 116 H 17 107/81 95 06/25/24 10:14 36.6 C 117 H 18 118/79 93 O2 Del Method 06/25/24 12:00 Room Air 06/25/24 11:19 Room Air 06/25/24 11:19 Room Air 06/25/24 11:17 06/25/24 10:56 Room Air 06/25/24 10:29 Room Air 06/25/24 10:14 Room Air Laboratory Results 06/25/24 06/25/24 06/25/24 Range/Units 12:23 11:01 10:59 WBC (4.8-10.8) K/ul RBC (4.70-6.10) M/uL Hgb (14.0-18.0) g/dl POC Hgb 15.6 (14.0-18.0) g/dl Hct (42.0-52.0) % POC Hct 46 (42-52) % MCV (80.0-100.0) fL MCH (25.0-34.0) pg MCHC (32.0-36.0) g/dL RDW Std Deviation (36.4-46.3) fL RDW Coeff of Ryan (11.5-14.5) % Plt Count (130-400) K/uL MPV (9.4-12.4) fL Immature Gran % (Auto) % Neut % (Auto) % Lymph % (Auto) % [place] % (Auto) % Eos % (Auto) % Baso % (Auto) % Neut # (Auto) (1.40-6.50) K/uL Lymph # (Auto) (1.20-3.40) K/uL [place] # (Auto) (0.11-0.59) K/uL Eos # (Auto) (0.00-0.50) K/uL Baso # (Auto) (0.00-0.20) K/uL Immature Gran # (Auto) (0.01-0.20) K/uL PT (9.0-12.0) Seconds INR (0.9-1.1) APTT (21-31) Seconds PTT Ratio POC Sodium 136 (135-144) mmol/L Sodium (136-145) mmol/L POC Potassium 3.7 (3.3-5.0) mmol/L Potassium (3.5-5.1) mmol/L POC Chloride 101 (101-112) mmol/L Chloride (98-107) mmol/L Carbon Dioxide (21-32) mmol/L POC Total CO2 23 L (24-31) mmol/L Anion Gap (3-11) POC Anion Gap 17.0 (16-25) mmol/L POC BUN 26 H (7-18) mg/dl BUN (6-23) mg/dl Creatinine (0.6-1.4) mg/dl POC Creatinine 1.6 H (0.6-1.3) mg/dl Est Cr Clr Drug Dosing eGFR BUN/Creatinine Ratio (10-20) Glucose (70-99(Fasting)) mg/dl POC Glucose (other) 95 (70-99) mg/dl Calcium (8.6-10.3) mg/dl POC Ioniz Calcium Luis 1.11 L (1.12-1.32) mmol/l Total Bilirubin (0.2-1.0) mg/dl AST (13-39) U/L ALT (7-52) U/L Alkaline Phosphatase (34-104) U/L Total Creatine Kinase (30-223) U/L Troponin I High Sens (0-20) pg/ml Total Protein (6.0-8.3) gm/dl Albumin (3.4-5.0) gm/dl Globulin (2.5-4.0) gm/dl Albumin/Globulin Ratio (0.9-2) Lipase (11-82) U/L Urine Color Dark Yellow Urine Appearance Clear (Clear) Urine pH 6.0 (4.5-7.5) Ur Specific Scalf 1.045 H (1.000-1.030) Urine Protein 1+ H (Negative) Urine Glucose (UA) Negative (Negative) Urine Ketones Trace H (Negative) Urine Blood Negative (Negative) Urine Nitrite Negative (Negative) Urine Bilirubin Negative (Negative) Urine Urobilinogen Positive H (Negative) Ur Leukocyte Esterase Negative (Negative) Urine WBC (Auto) 0-5 (0-5) /hpf Urine RBC (Auto) 0-2 (0-2) /hpf U Hyaline Cast (Auto) 0-2 (0-2) /lpf U Epithel Cells (Auto) 0-2 (0-2) /hpf Urine Bacteria (Auto) None Seen (None Seen) Urine Mucus Present A (None Prsent) SARS-CoV-2, RNA, NAAT NEGATIVE (NEGATIVE) Blood Type Antibody Screen 06/25/24 Range/Units 10:53 WBC 8.50 (4.8-10.8) K/ul RBC 4.82 (4.70-6.10) M/uL Hgb 15.3 (14.0-18.0) g/dl POC Hgb (14.0-18.0) g/dl Hct 43.8 (42.0-52.0) % POC Hct (42-52) % MCV 90.9 (80.0-100.0) fL MCH 31.7 (25.0-34.0) pg MCHC 34.9 (32.0-36.0) g/dL RDW Std Deviation 43.8 (36.4-46.3) fL RDW Coeff of Ryan 13.1 (11.5-14.5) % Plt Count 200 (130-400) K/uL MPV 9.5 (9.4-12.4) fL Immature Gran % (Auto) 0.6 % Neut % (Auto) 80.4 % Lymph % (Auto) 9.1 % [place] % (Auto) 9.2 % Eos % (Auto) 0.2 % Baso % (Auto) 0.5 % Neut # (Auto) 6.84 H (1.40-6.50) K/uL Lymph # (Auto) 0.77 L (1.20-3.40) K/uL [place] # (Auto) 0.78 H (0.11-0.59) K/uL Eos # (Auto) 0.02 (0.00-0.50) K/uL Baso # (Auto) 0.04 (0.00-0.20) K/uL Immature Gran # (Auto) 0.05 (0.01-0.20) K/uL PT 15.5 H (9.0-12.0) Seconds INR 1.5 H (0.9-1.1) APTT 33 H (21-31) Seconds PTT Ratio 1.2 POC Sodium (135-144) mmol/L Sodium 136 (136-145) mmol/L POC Potassium (3.3-5.0) mmol/L Potassium 3.8 (3.5-5.1) mmol/L POC Chloride (101-112) mmol/L Chloride 100 (98-107) mmol/L Carbon Dioxide 26 (21-32) mmol/L POC Total CO2 (24-31) mmol/L Anion Gap 10 (3-11) POC Anion Gap (16-25) mmol/L POC BUN (7-18) mg/dl BUN 24 H (6-23) mg/dl Creatinine 1.49 H (0.6-1.4) mg/dl POC Creatinine (0.6-1.3) mg/dl Est Cr Clr Drug Dosing Not Reportable eGFR 46.57 BUN/Creatinine Ratio 16.1 (10-20) Glucose 94 (70-99(Fasting)) mg/dl POC Glucose (other) (70-99) mg/dl Calcium 9.1 (8.6-10.3) mg/dl POC Ioniz Calcium Luis (1.12-1.32) mmol/l Total Bilirubin 1.9 H (0.2-1.0) mg/dl AST 21 (13-39) U/L ALT 19 (7-52) U/L Alkaline Phosphatase 64 (34-104) U/L Total Creatine Kinase 55 (30-223) U/L Troponin I High Sens 13.4 (0-20) pg/ml Total Protein 7.6 (6.0-8.3) gm/dl Albumin 3.6 (3.4-5.0) gm/dl Globulin 4.0 (2.5-4.0) gm/dl Albumin/Globulin Ratio 0.9 (0.9-2) Lipase 8 L (11-82) U/L Urine Color Urine Appearance (Clear) Urine pH (4.5-7.5) Ur Specific Scalf (1.000-1.030) Urine Protein (Negative) Urine Glucose (UA) (Negative) Urine Ketones (Negative) Urine Blood (Negative) Urine Nitrite (Negative) Urine Bilirubin (Negative) Urine Urobilinogen (Negative) Ur Leukocyte Esterase (Negative) Urine WBC (Auto) (0-5) /hpf Urine RBC (Auto) (0-2) /hpf U Hyaline Cast (Auto) (0-2) /lpf U Epithel Cells (Auto) (0-2) /hpf Urine Bacteria (Auto) (None Seen) Urine Mucus (None Prsent) SARS-CoV-2, RNA, NAAT (NEGATIVE) Blood Type A Positive Antibody Screen NEGATIVE Diagnostic Findings CT SCAN OF THE ABDOMEN AND PELVIS WITH IV CONTRAST CLINICAL HISTORY: Fall. COMPARISON STUDY: CT of the abdomen and pelvis May 19, 2022. TECHNIQUE: Following the IV administration of 94 cc of Optiray 320, CT scan of the abdomen and pelvis is performed from the lung bases to the proximal femora. Images are reviewed in the axial, sagittal, and coronal planes. IV contrast was administered without complication. A dose lowering technique was utilized adhering to the principles of ALARA. FINDINGS: The chest CT will be reported separately. A small right pleural effusion is present. There is cardiomegaly with dilatation the central pulmonary arteries. The gallbladder is mildly distended. Mild gallbladder wall thickening with a small amount of pericholecystic fluid. There is no biliary or pancreatic ductal dilatation. There is no evidence for traumatic injury to the liver, spleen, adrenal glands, kidneys or pancreas. There is no hydronephrosis. Caliber and wall thickness of small and large bowel are normal. There is extensive sigmoid diverticulosis without evidence for acute diverticulitis. No acute fr actures within the lumbar spine, pelvis or hips are identified. IMPRESSION: 1. No acute traumatic findings within the abdomen or pelvis. 2. Mildly distended gallbladder with mild gallbladder wall thickening and small amount of pericholecystic fluid and stranding. These findings are nonspecific and acute cholecystitis cannot be excluded. Right upper quadrant ultrasound could be obtained for further evaluation. 3. Extensive sigmoid diverticulosis. No evidence for acute diverticulitis. I PERSONALLY REVIEWED CT SCAN IMAGES AND CONCUR WITH ABOVE FINDINGS
--- NOTE | 2024-06-25 14:53 | History & Physical Report ---
Date of Service June 25, 2024 Assessment & Plan (1) RUQ abdominal pain: Plan: 83 year old male presenting to the emergency room with complaints of increased falls and as per patient's son "not seeming right". Also found to have severe RUQ pain. 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 * Admit to [facility] Telemetry * CT abdomen and pelvis showed Mildly distended gallbladder with mild gallbladder wall thickening and small amount of pericholecystic fluid and stranding. * US Gallbladder consistent with early acute cholecystitis. Gallbladder sludge with a few small gallstones and trace pericholecystic fluid. * General Surgery consulted * NPO with IVF possible surgery tomorrow s/p Zosyn administration in the ED. Will continue abx regimen. * CBC no diff ordered for AM labs (2) CHAVA (acute kidney injury): Plan: Evidence of CHAVA with elevated creatinine, BUN with stable electrolytes * IVF- Normal saline with KCL at 80ml/hr while NPO * Trend renal functioning * CMP ordered for AM labs (3) Atrial fibrillation with rapid ventricular response: Plan: [facility] * Resume home meds- dilitiazem, metropolol * Coumadin on hold for surgery * Subtherapeutic INR 1.5- will begin heparin as bridge for surgery * Heparin low-dose without bolus ordered * INR, Mag, Phos ordered for AM labs * Appreciate Cardiology input- consult ordered, follows with [facility] * EKG as needed for chest pain (4) CAD (coronary artery disease): Plan: History of multivessel disease with angioplasty and stent placement. S/P TAVR with post-operative retinal vein occlusion, PE, DVT, See HPI for details. Chronic anticoagulation with close follow-up at [facility] Anticoagulation clinic. History of Factor V Leiden and hypercoagulable genetic disposition. * Holding aspirin for now, continue statin and beta kylah as per home routine * Echo order placed Plan DVT Ppx: On IV Heparin as above Code status: Full PCP: Dr. Javier Price Dispo: Admit to [place] Patient seen in collaboration with Dr. Alcantar. Please see addendum.I spent a total of 75 minutes coordinating, documenting and providing care for this patient excluding time spent in the performance of separately billed services or time spent by another provider/QHP. History of Present Illness Primary Care Provider: Javier Price, DO 83 year old male presenting to the emergency room with complaints of increased falls and as per patient's son "not seeming right". Also found to have severe RUQ pain. 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 Patient is a poor historian of present illness with periods of confusion and uncertainty with reasons why he was taken to the emergency room. His son was at the bedside and assisted with obtaining a history. The son contacted his father this morning and reported his father did not seem right. The patient has been falling more frequently recently, but last Tuesday seemed fine and did not report any abdominal pain. The patient reports for the past several days, he has had RUQ pain, shortness of breath that he believes is from the RUQ pain, decreased appetite. He reports not taking any of his medications in the past 3 days. The son was not able to confirm recent medication adherence. The patient denies chest pain, N/V/D, urinary difficulty, recent illnesses, fevers, lower leg swelling. In the emergency room, the patient had severe RUQ tenderness with repositioning and deep breathing. He was hemodynamically stable with a stable pulse ox at 95% on room air. Heart rate high 90's- 110's. No apparent injuries from recent falls. No evidence of leukocystosis. CHAVA present, possibly due to decreased intake the past few days, Cr 1.49 (baseline 1.2), BUN 24. GFR 46. Urine Spec Grav elevated 1.045 with protein, ketones and urobili. Liver enzymes normal. History obtained from patient and family member report as well as external chart review. Allergies Allergy/AdvReac Type Severity Reaction Status Date / Time codeine Allergy Intermediate RASH Verified 10/18/22 14:23 diltiazem Allergy Intermediate ITCHING Verified 10/18/22 14:23 AND FLUSHING Home Medications Medication Instructions Recorded Confirmed Type celecoxib 200 mg capsule (Celebrex) 200 mg PO QAM 08/07/18 06/25/24 History pantoprazole 40 mg tablet,delayed 40 mg PO QAM 12/21/18 06/25/24 History release (Protonix) melatonin 5 mg capsule 5 mg PO HS 01/14/21 06/25/24 History folic acid 1 mg tablet 1 mg PO QAM 09/18/21 06/25/24 History aspirin 81 mg tablet,delayed 81 mg PO QAM 05/18/22 06/25/24 History release (Adult Low Dose Aspirin) sertraline 50 mg tablet 100 mg PO Q24H 01/18/23 06/25/24 History furosemide 20 mg tablet (Lasix) 20 mg PO DAILY PRN Edema 02/01/23 06/25/24 History diltiazem HCl 300 mg capsule,24 300 mg PO DAILY 10/19/23 06/25/24 History hr,extended release acetaminophen 325 mg tablet 650 mg PO Q6H PRN pain 12/21/23 06/25/24 History amoxicillin 500 mg capsule 2,000 mg PO UD PRN prior to dental 12/21/23 06/25/24 History visits metoprolol succinate 25 mg 50 mg PO HS 12/21/23 06/25/24 History tablet,extended release 24 hr (Toprol XL) warfarin 4 mg tablet See Rx Instructions PO DAILY #80 04/02/24 06/25/24 Rx tabs pravastatin 10 mg tablet 10 mg PO DAILY 05/28/24 06/25/24 History Past Med/Surg History Problem List (Updated 06/25/24 @ 15:29 by HERRERA Wood) CHAVA (acute kidney injury) RUQ abdominal pain Gallbladder pain (Acute) Back pain (Acute) Current use of scrap charger anticoagulation (Acute) Falls (Acute) Encounter for pre-operative examination Factor V Leiden (Chronic) Unstable angina (Acute) DVT prophylaxis Epistaxis Chronic anticoagulation (Chronic) Atrial fibrillation with rapid ventricular response Atrial fibrillation with RVR (Acute) History of atrial flutter (Acute) Hypertension (Acute) 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 S/P hernia repair x3, open inguinal hernia repair 12/07/16 LMA#5. S/P tonsillectomy S/P hemorrhoidectomy S/P cataract surgery rt/lt History of appendectomy Anxiety Arthritis Cervical radiculopathy happens periodically Anticoagulated on Coumadin (Acute) History of DVT (deep vein thrombosis) ~11 years ago, "moderate" History of pulmonary embolism "severe" blood clot, years ago Atrial flutter f/u dr. oglesby, [facility] HLD (hyperlipidemia) Medical History (Updated 06/25/24 @ 15:29 by HERRERA Wood) Aortic stenosis mod-severe CAD (coronary artery disease) CAD s/p cardiac catheterization 05/29/18 with angioplasty and stenting of hazy 95% ostial LAD lesion with mid to distal luminal irregularities; moderate size first diagonal branch with a 50-60% proximal stenosis; large circumflex with a 20% ostial stenosis; large dominant RCA with a 30-40% proximal stenosis. Status post angioplasty and stenting with a 3.0 x 15 mm Xience Lorna drug- eluting stent 2018. Cardiac catheterization 12/08/2020 with normal right-sided and left-sided pressures. Status post angioplasty and stenting of a 90% proximal OM3 lesion. Factor V Leiden GERD (gastroesophageal reflux disease) Retinal vein occlusion of right eye seeing Dr. Gonzales currently for injections for ~8-9 weeks Murmur Surgical History (Updated 06/25/24 @ 14:31 by HERRERA Wood) S/P TAVR (transcatheter aortic valve replacement) History of cardiac cath 05/2018, [facility], x1 stent 11/2020, [facility] x1 stent; f/u dr. oglesby, [facility] History of toe surgery Kellert procedure-part of joint removed and toe is now shorter History of esophagogastroduodenoscopy (EGD) Hx of colonoscopy Family History Other Family history of 5, 10-methylenetetrahydofolate deficiency Hypertension Stroke Social History Smoking Status: Never smoker Second Hand Exposure: Yes; Do You Dip or Chew Tobacco: No; Hx Alcohol Use: Yes Alcohol type: beer and wine Hx Substance Use: No Preferred Language: Sinhala Communication Ability: Effective Dope Firer Required: No Beliefs That Will Affect Care: None marital status: / Current Living Situation: Alone current occupation: Retired Feels Safe at Home: Yes Assistive Devices: None Review of Systems Review of Systems: All systems reviewed & are unremarkable except as noted in HPI & below Physical Exam Physical Exam: VITALS: Reviewed. WEIGHT/BMI reviewed. GEN: Healthy appearing, well-developed, NAD. PSYCH: Good Judgment. AOx3, forgetful with limited insight. Normal memory, mood, and affect. HEENT -Head: NC/AT; -Eyes: PERRL, EOMI. No discharge or redn ess; -Nose: Normal nares. -Mouth and throat: MMM. Normal gums, muc ponce, palate,.[place] teeth NECK: Supple, with no masses. CV: irregularly, irregular rhythm, slightly tachycardic 90-110's, + murmur, no swelling, strong pulses LUNGS: CTAB, slightly diminished d/t effort, no w/r/c. ABD: Soft, severe tenderness RUQ, NBS, no masses or organomegaly. : N/A SKIN: Warm, well perfused. 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 NEURO: Normal muscle strength and tone. No focal deficits. Results & Data Results & Data Vital Signs (Past 12 Hours) Vital Signs Temp Pulse Pulse Resp BP BP Pulse Ox 06/25/24 13:00 95 H 17 146/86 H 93 06/25/24 13:00 98 H 17 146/86 H 97 06/25/24 12:00 91 H 17 150/94 H 97 06/25/24 11:19 101 H 17 156/93 H 95 06/25/24 11:19 104 H 18 156/93 H 95 06/25/24 11:17 112 H 06/25/24 10:56 112 H 17 94 06/25/24 10:29 116 H 17 107/81 95 06/25/24 10:14 36.6 C 117 H 18 118/79 93 O2 Del Method 06/25/24 13:00 Room Air 06/25/24 13:00 Room Air 06/25/24 12:00 Room Air 06/25/24 11:19 Room Air 06/25/24 11:19 Room Air 06/25/24 11:17 06/25/24 10:56 Room Air 06/25/24 10:29 Room Air 06/25/24 10:14 Room Air Laboratory Results Short CBC 06/25/24 Range/Units 10:53 WBC 8.50 (4.8-10.8) K/ul Hgb 15.3 (14.0-18.0) g/dl Hct 43.8 (42.0-52.0) % Plt Count 200 (130-400) K/uL BMP 06/25/24 10:53 Sodium 136 Potassium 3.8 Chloride 100 Carbon Dioxide 26 BUN 24 H Creatinine 1.49 H Glucose 94 Calcium 9.1 Cardiac Enzymes 06/25/24 Range/Units 10:53 Total Creatine Kinase 55 (30-223) U/L Liver Function 06/25/24 Range/Units 10:53 Total Bilirubin 1.9 H (0.2-1.0) mg/dl AST 21 (13-39) U/L ALT 19 (7-52) U/L Alkaline Phosphatase 64 (34-104) U/L Albumin 3.6 (3.4-5.0) gm/dl Urine 06/25/24 Range/Units 12:23 Urine Color Dark Yellow Urine Appearance Clear (Clear) Urine pH 6.0 (4.5-7.5) Ur Specific [place] 1.045 H (1.000-1.030) Urine Protein 1+ H (Negative) Urine Glucose (UA) Negative (Negative) Diagnostic Findings Abdomen/Pelvis CT 06/25/24 10:35 CT SCAN OF THE ABDOMEN AND PELVIS WITH IV CONTRAST CLINICAL HISTORY: Fall. COMPARISON STUDY: CT of the abdomen and pelvis May 19, 2022. TECHNIQUE: Following the IV administration of 94 cc of Optiray 320, CT scan of the abdomen and pelvis is performed from the lung bases to the proximal femora. Images are reviewed in the axial, sagittal, and coronal planes. IV contrast was administered without complication. A dose lowering technique was utilized adhering to the principles of ALARA. FINDINGS: The chest CT will be reported separately. A small right pleural effusion is present. There is cardiomegaly with dilatation the central pulmonary arteries. The gallbladder is mildly distended. Mild gallbladder wall thickening with a small amount of pericholecystic fluid. There is no biliary or pancreatic ductal dilatation. There is no evidence for traumatic injury to the liver, spleen, adrenal glands, kidneys or pancreas. There is no hydronephrosis. Caliber and wall thickness of small and large bowel are normal. There is extensive sigmoid diverticulosis without evidence for acute diverticulitis. No acute fractures within the lumbar spine, pelvis or hips are identified. IMPRESSION: 1. No acute traumatic findings within the abdomen or pelvis. 2. Mildly distended gallbladder with mild gallbladder wall thickening and small amount of pericholecystic fluid and stranding. These findings are nonspecific and acute cholecystitis cannot be excluded. Right upper quadrant ultrasound could be obtained for further evaluation. 3. Extensive sigmoid diverticulosis. No evidence for acute diverticulitis. ACT 112: Negative or not required by law. Electronically signed by: Isaiah Nye M.D. 06/25/2024 12:[address] 06/25/24 10:35 CT cervical spine wo con CLINICAL HISTORY: Trauma. COMPARISON: 05/19/2022 TECHNIQUE: Multiple axial CT images of the cervical spine were obtained without contrast. A dose lowering technique was utilized adhering to the principles of ALARA. FINDINGS: There are mild diffuse degenerative findings. No fracture or subluxation seen at the cervical spine. There are carotid bulb calcifications. IMPRESSION: No cervical spine fracture seen. ACT 112: Negative or not required by law. The above report was generated using voice recognition software. It may contain grammatical, syntax or spelling errors. Electronically signed by: Primitivo Dhaliwal M.D. 06/25/2024 12:[address] 06/25/24 10:35 CT SCAN OF THE CHEST WITH IV CONTRAST CLINICAL HISTORY: Fall. COMPARISON STUDY: Chest CT August 30, 2022. Chest radiograph performed earlier today. TECHNIQUE: Following the IV administration of 94 cc of Optiray 320, CT scan of the thorax was performed from the thoracic inlet to the upper abdomen. Images are reviewed in the axial, sagittal, and coronal planes. IV contrast was administered without complication. A dose lowering technique was utilized adhering to the principles of ALARA. FINDINGS: There is no evidence for traumatic injury to the thoracic aorta. Ascending aorta is mildly dilated, measuring 4.2 cm at the level of the main pulmonary artery. There is a prosthetic cardiac valve. The heart is moderately enlarged. There is moderate dilatation of the central pulmonary arteries. There is no pericardial effusion. No pneumothorax. Small right pleural effusion is present. Ground glass opacities within the lungs favor atelectasis. There is no pulmonary contusion. No acute rib or thoracic spine fractures identified. The abdomen and pelvis CT will be reported separately. Mild gallbladder distention is better depicted on that exam. IMPRESSION: 1. No acute traumatic findings within the chest. 2. Small right pleural effusion. No pneumothorax. 3. Moderate cardiomegaly and mild dilatation of the ascending aorta. Moderate dilatation of the central pulmonary arteries. ACT 112: Negative or not required by law. Electronically signed by: Isaiah Nye M.D. 06/25/2024 12:07 PM Chest X-Ray 06/25/24 10:35 XR chest 1V portable CLINICAL HISTORY: Trauma COMPARISON STUDY: 09/15/2022 FINDINGS: There is prior cardiac valve repair. There is mild cardiomegaly without pulmonary vascular congestion. There is stable mild elevation of the right hemidiaphragm. Stable mild scarring or atelectasis at the right lung base. No new consolidation or pleural effusion. No pneumothorax. IMPRESSION: No acute findings. ACT 112: Negative or not required by law. Electronically signed by: Primitivo Dhaliwal M.D. 06/25/2024 11:[address] 06/25/24 10:35 CT head/brain wo con CLINICAL HISTORY: trauma. TECHNIQUE: Multiple axial CT images of the head were obtained without contrast. A dose lowering technique was utilized adhering to the principles of ALARA. COMPARISON: 06/18/2022 FINDINGS: No intracranial hemorrhage seen. No mass effect, midline shift, or hydrocephalus. There are moderate chronic small vessel ischemic changes. No skull fracture seen. Visualized paranasal sinuses and mastoid air cells are clear. IMPRESSION: No acute findings. ACT 112: Negative or not required by law. The above report was generated using voice recognition software. It may contain grammatical, syntax or spelling errors. Electronically signed by: Primitivo Dhaliwal M.D. 06/25/2024 12:[address] 06/25/24 10:35 CT lumbar spine w con CLINICAL HISTORY: fall, coumadin, back pain COMPARISON STUDY: CT of the abdomen and pelvis May 19, 2022. TECHNIQUE: Axial images of the lumbar spine were obtained following intravenous injection of 94 cc of Optiray 320 IV. Sagittal and coronal reformats were viewed. A dose lowering technique was utilized adhering to the principles of ALARA. FINDINGS: There is mild rightward curvature of the lumbar spine. Vertebral body heights are maintained. There are no lumbar spine fractures. No osseous lesions are identified. The central canal and neural foramen are suboptimally assessed given CT technique. There is severe multilevel facet arthrosis. Moderate disc space narrowing is most pronounced at the L2-L3 level. There is endplate osteophytosis within the lumbar spine. IMPRESSION: 1. No acute lumbar spine fractures. 2. Moderate multilevel degenerative changes within the lumbar spine. ACT 112: Negative or not required by law. Electronically signed by: Isaiah Nye M.D. 06/25/2024 12:13 PM Gallbladder Ultrasound 06/25/24 12:44 US gallbladder CLINICAL HISTORY: Pain, gallbladder COMPARISON STUDY: CT scan earlier today. FINDINGS: Liver is unremarkable measuring 13 cm. Pancreas is not well seen due to overlying bowel gas. There is gallbladder sludge and a few small gallstones. There is mild gallbladder wall thickening measuring up to 5 mm thickness. There is trace pericholecystic fluid. Common bile duct measures normal diameter of 5 mm. No ascites seen. Right kidney shows no hydronephrosis. IMPRESSION: Findings consistent with early acute cholecystitis. ACT 112: Negative or not required by law. Electronically signed by: Primitivo Dhaliwal M.D. 06/25/2024 2:57 PM ECG Additional Comments: I have independently reviewed and interpreted patient's admitting EKG which r evealed: Afib RVR vent rate 107, QTc 469. Code Status & VTE Plan Code Status FULL VTE Prophylaxis Plan VTE Prophylaxis will be ordered: No Supervising Physician Co-Signing Physician Notes Pt was seen and examined by myself, Yanely Alcantar MD on the day of service. Care was coordinated with Patricia Byrne and HERRERA Terry. 83yoM admitted with concern for acute cholecystitis, frequent falls at home. On exam, AAOx3 but poor historian. Very tender in RUQ of the abdomen on exam, faint crackles at the right lung base, trace edema in lower extremities bilaterally. Acute cholecystitis- Gen surg consult, appreciate further recs, IV Zosyn Small right pleural effusion, moderate dilation of central pulm arteries- repeat echo pending, BNP. Holding home lasix in the setting of NPO status and mild CHAVA on admission. However, given concern for CHF/possible right sided heart failure, will hold of continuous IV fluids at this time. Cardiology consult pending for periop recs/optimization. Pt also with Hx of TAVR, CAD Hx of factor 5 leiden, hx of DVT/PE, Hx of a fib/a flutter- on warfarin, will hold perioperatively, INR 1.5 on admission. IV heparin in the interim CHAVA- mild, will defer on continuous IV fluids at this time given pleural effusion. Hold home lasix and other nephtotoxic agents Frequent falls- head ct unremarkable, consider brain MRI, PT/OT Hypocalcemia- AM ionized calcium, replete as needed Otherwise as above. I spent a total [id number] coordinating, documenting, and providing care for this patient excluding time spent in the performance of separately billed services
--- NOTE | 2024-06-25 14:58 | Ultrasound Report ---
US gallbladder CLINICAL HISTORY: Pain, gallbladder COMPARISON STUDY: CT scan earlier today. FINDINGS: Liver is unremarkable measuring 13 cm. Pancreas is not well seen due to overlying bowel gas . There is gallbladder sludge and a few small gallstones. There is mild gallbladder wall thickening m easuring up to 5 mm thickness. There is trace pericholecystic fluid. Common bile duct measures normal diameter of 5 mm. No ascites seen. Right kidney shows no hydronephrosis. IMPRESSION: Findings consistent with early acute cholecystitis. ACT 112: Negative or not required by law. Electronically signed by: Primitivo Dhaliwal M.D. 06/25/2024 2:57 PM
--- NOTE | 2024-06-25 17:10 | Consultation ---
Date of Consultation June 25, 2024 History of Present Illness Reason for Consultation: Blood consent was obtained from the patient (or patient delegate) as delegated by . Risks and benefits were explained. All questions were answered, and the patient (or patient delegate) was offered the opportunity to discuss with attending physician and declined. Allergies Allergy/AdvReac Type Severity Reaction Status Date / Time codeine Allergy Intermediate RASH Verified 10/18/22 14:23 diltiazem Allergy Intermediate ITCHING Verified 10/18/22 14:23 AND FLUSHING Home Medications Medication Instructions Recorded Confirmed Type celecoxib 200 mg capsule (Celebrex) 200 mg PO QAM 08/07/18 06/25/24 History pantoprazole 40 mg tablet,delayed 40 mg PO QAM 12/21/18 06/25/24 History release (Protonix) melatonin 5 mg capsule 5 mg PO HS 01/14/21 06/25/24 History folic acid 1 mg tablet 1 mg PO QAM 09/18/21 06/25/24 History aspirin 81 mg tablet,delayed 81 mg PO QAM 05/18/22 06/25/24 History release (Adult Low Dose Aspirin) sertraline 50 mg tablet 100 mg PO Q24H 01/18/23 06/25/24 History furosemide 20 mg tablet (Lasix) 20 mg PO DAILY PRN Edema 02/01/23 06/25/24 History diltiazem HCl 300 mg capsule,24 300 mg PO DAILY 10/19/23 06/25/24 History hr,extended release acetaminophen 325 mg tablet 650 mg PO Q6H PRN pain 12/21/23 06/25/24 History amoxicillin 500 mg capsule 2,000 mg PO UD PRN prior to dental 12/21/23 06/25/24 History visits metoprolol succinate 25 mg 50 mg PO HS 12/21/23 06/25/24 History tablet,extended release 24 hr (Toprol XL) warfarin 4 mg tablet See Rx Instructions PO DAILY #80 04/02/24 06/25/24 Rx tabs pravastatin 10 mg tablet 10 mg PO DAILY 05/28/24 06/25/24 History Patient History Medical History (Updated 06/25/24 @ 15:29 by HERRERA Wood) Aortic stenosis mod-severe CAD (coronary artery disease) CAD s/p cardiac catheterization 05/29/18 with angioplasty and stenting of hazy 95% ostial LAD lesion with mid to distal luminal irregularities; moderate size first diagonal branch with a 50-60% proximal stenosis; large circumflex with a 20% ostial stenosis; large dominant RCA with a 30-40% proximal stenosis. Status post angioplasty and stenting with a 3.0 x 15 mm Xience Lorna drug- eluting stent 2018. Cardiac catheterization 12/08/2020 with normal right-sided and left-sided pressures. Status post angioplasty and stenting of a 90% proximal OM3 lesion. Factor V Leiden GERD (gastroesophageal reflux disease) Retinal vein occlusion of right eye seeing Dr. Gonzales currently for injections for ~8-9 weeks Murmur Surgical History (Updated 06/25/24 @ 14:31 by HERRERA Wood) S/P TAVR (transcatheter aortic valve replacement) History of cardiac cath 05/2018, [facility], x1 stent 11/2020, [facility] x1 stent; f/u dr. oglesby, [facility] History of toe surgery Kellert procedure-part of joint removed and toe is now shorter History of esophagogastroduodenoscopy (EGD) Hx of colonoscopy Family History Other Family history of 5, 10-methylenetetrahydofolate deficiency Hypertension Stroke Social History Smoking Status: Never smoker Second Hand Exposure: Yes; Do You Dip or Chew Tobacco: No; Hx Alcohol Use: Yes Alcohol type: beer and wine Hx Substance Use: No Preferred Language: Czech Communication Ability: Effective Mock Up Assembler Required: No Beliefs That Will Affect Care: None marital status: / Current Living Situation: Alone current occupation: Retired Feels Safe at Home: Yes Assistive Devices: None Results & Data Vital Signs (Past 12 Hours) Vital Signs Temp Pulse Pulse Resp BP BP Pulse Ox 06/25/24 17:00 37.1 C 103 H 18 158/111 H 95 06/25/24 16:00 37 C 92 H 18 137/99 99 06/25/24 15:25 89 06/25/24 15:00 37 C 93 H 18 154/98 H 95 06/25/24 14:00 85 17 136/108 H 93 06/25/24 13:00 95 H 17 146/86 H 93 06/25/24 13:00 98 H 17 146/86 H 97 06/25/24 12:00 91 H 17 150/94 H 97 06/25/24 11:19 101 H 17 156/93 H 95 06/25/24 11:19 104 H 18 156/93 H 95 06/25/24 11:17 112 H 06/25/24 10:56 112 H 17 94 06/25/24 10:29 116 H 17 107/81 95 06/25/24 10:14 36.6 C 117 H 18 118/79 93 O2 Del Method 06/25/24 17:00 Room Air 06/25/24 16:00 Room Air 06/25/24 15:25 06/25/24 15:00 Room Air 06/25/24 14:00 Room Air 06/25/24 13:00 Room Air 06/25/24 13:00 Room Air 06/25/24 12:00 Room Air 06/25/24 11:19 Room Air 06/25/24 11:19 Room Air 06/25/24 11:17 06/25/24 10:56 Room Air 06/25/24 10:29 Room Air 06/25/24 10:14 Room Air
[2024-06-25] MEDS ORDERED: ONDANSETRON INJ 2 MG/ML 2 ML VIAL IV PRN (18:20)
[2024-06-25] MEDS: PIPERACILLIN/TAZOBACTAM 4.5 GM/100 ML BAG IV SCH (20:30)
[2024-06-25] MEDS: Heparin IV Adult Wt-Based Low-Dose *NO* INITIAL Bolus Protocol IV STA (20:35)
[2024-06-25] MEDS: HEPARIN 25000 UNIT/500 ML D5W 25,000 UNITS/500 ML BAG IV SCH (20:35)
[2024-06-25] MEDS: Patient's HEIGHT &/or WEIGHT Needed STA (20:39)
[2024-06-25] MEDS: SERTRALINE HCL 100 MG TABLET PO SCH (20:39)
[2024-06-25] MEDS: METOPROLOL SUCC 50MG EXT REL TAB PO SCH (20:39)
--- NOTE | 2024-06-25 21:30 | Electrocardiogram Report ---
Test Reason : Blood Pressure : */* mmHG Vent. Rate : 107 BPM Atrial Rate : * BPM P-R Int : * ms QRS Dur : 86 ms QT Int : 352 ms P-R-T Axes : * -43 52 degrees QTcB Int : 469 ms Atrial fibrillation with rapid ventricular response Left axis deviation Possible Anterior infarct (cited on or before 19-Oct-2022) Abnormal ECG When compared with ECG of 19-Oct-2022 07:30, Atrial fibrillation has replaced Sinus rhythm Confirmed by Popeye Chatman ([id number]) on 06/25/2024 9:29:57 PM Referred By: REFERRED SELF Confirmed By: Popeye Chatman
[2024-06-26 03:09] LABS: Hematocrit (blood only) 41.5 % (42.0-52.0); Hemoglobin 14.6 g/dl (14.0-18.0); Mean Corpuscular Hemoglobin 31.7 pg (25.0-34.0); Mean Corpuscular Hgb Conc 35.2 g/dL (32.0-36.0); Mean Corpuscular Volume 90.2 fL (80.0-100.0); Mean Platelet Volume 9.8 fL (9.4-12.4); Platelet Count 189 K/uL (130-400); RDW Standard Deviation 42.5 fL (36.4-46.3); White Blood Count 8.57 K/ul (4.8-10.8)
[2024-06-26 03:25] LABS: Albumin Globulin Ratio 0.9 (0.9-2); Albumin Level 3.4 gm/dl (3.4-5.0); BUN Creatinine Ratio 15.4 (10-20); Bilirubin,Total 1.5 mg/dl (0.2-1.0); Calcium 8.7 mg/dl (8.6-10.3); Creatinine Clr Calc Pharmacy 46.6 ml/min; Globulin 3.7 gm/dl (2.5-4.0); Phosphorus 3.3 mg/dl (2.5-4.9); Potassium 3.6 mmol/L (3.5-5.1); Total Protein 7.1 gm/dl (6.0-8.3)
[2024-06-26 03:40] LABS: ANTI-Xa, UFH(UnfractionatedHep 0.21 IU/ml (0.3-0.7); INR 1.5 (0.9-1.1); Prothrombin Time 15.8 Seconds (9.0-12.0)
[2024-06-26] MEDS: D5NSS + 20MEQ KCL 20 MEQ/1,000 ML BAG IV SCH (06:24)
--- NOTE | 2024-06-26 08:50 | Cardiology Consultation ---
Date of Consultation June 26, 2024 Assessment & Plan (1) Atrial fibrillation with RVR: (2) Gallbladder pain: Plan Past cardiac history: 1. CAD s/p cardiac catheterization 05/29/2018 with angioplasty and stenting of 95% ostial LAD lesion wtih mid to distal luminal irregularities; moderat size first diagonal branch with 50-60% proximal stenosis; large circumflex with a 20% ostial stenosis; large dominant RCA with 30-40% proximal stenosis 2. Cardiac catheterization 12/08/2020 with normal right and left sided pressures. S/p angioplasty and stetnting of a 90% proximal OM3 lesion 3. HLD 4. History of PE and DVT with MTHFR mutation 5. S/p resilia 29 mm TAVR 09/2023 6. Post TAVR LBBB now resolved 7. Echo 10/2023 with normal LV function, TAVR function, mild perivalvular leak, moderate MR and TR 8. Chronic afib Mr. Li has an echo pending. His bnp is elevated but he is not overtly fluid overloaded. I would hold off diuresis for now given his limited po intake and mild CHAVA. He is not having any concerning anginal symptoms or ischemic changes on EKG. His trop was wnl. His heart rate has improved now that he is taking his medications and his pain is better controlled. He is in chronic afib. His diastolic murmur over his aortic valve sounds similar to previous. He has an echo pending. Baby aspirin should be maintained perioperatively. Barring any concerning findings on his echo, he can proceed with his surgery at a moderate risk for cardiac complication perioperatively. We discussed that this includes less likely severe adverse events like , heart attack and stroke and also more manageable and more likely events like afib rvr or heart failure. History of Present Illness Attending Physician: Jonathan Rhodes DO History of Present Illness Mr Li presented to the emergency department yesterday due to increased falls and family's concern that he was not himself. He also had severe RUQ pain. He had not been taking his medications for the past 3 days. He is currently undergoing workup for acute cholecystitis and general surgery is consulted. His heart rates have been ranging [id number] in afib. His HS troponin was normal. No overt ischemic changes on EKG. He does have an elevated bnp but no significant congestion on CT, although he does have a small pleural effusion and moderate dilation of his central pulmonary arteries. His son is with him at bedside. Mr. Li denies sob or chest pain. He appears comfortable laying back in bed. No edema. He does have some moments of confusion. Allergies Allergy/AdvReac Type Severity Reaction Status Date / Time codeine Allergy Intermediate RASH Verified 10/18/22 14:23 diltiazem Allergy Intermediate ITCHING Verified 10/18/22 14:23 AND FLUSHING Home Medications Medication Instructions Recorded Confirmed Type celecoxib 200 mg capsule (Celebrex) 200 mg PO QAM 08/07/18 06/25/24 History pantoprazole 40 mg tablet,delayed 40 mg PO QAM 12/21/18 06/25/24 History release (Protonix) melatonin 5 mg capsule 5 mg PO HS 01/14/21 06/25/24 History folic acid 1 mg tablet 1 mg PO QAM 09/18/21 06/25/24 History aspirin 81 mg tablet,delayed 81 mg PO QAM 05/18/22 06/25/24 History release (Adult Low Dose Aspirin) sertraline 50 mg tablet 100 mg PO Q24H 01/18/23 06/25/24 History furosemide 20 mg tablet (Lasix) 20 mg PO DAILY PRN Edema 02/01/23 06/25/24 History diltiazem HCl 300 mg capsule,24 300 mg PO DAILY 10/19/23 06/25/24 History hr,extended release acetaminophen 325 mg tablet 650 mg PO Q6H PRN pain 12/21/23 06/25/24 History amoxicillin 500 mg capsule 2,000 mg PO UD PRN prior to dental 12/21/23 06/25/24 History visits metoprolol succinate 25 mg 50 mg PO HS 12/21/23 06/25/24 History tablet,extended release 24 hr (Toprol XL) warfarin 4 mg tablet See Rx Instructions PO DAILY #80 04/02/24 06/25/24 Rx tabs pravastatin 10 mg tablet 10 mg PO DAILY 05/28/24 06/25/24 History Patient History Medical History Aortic stenosis mod-severe CAD (coronary artery disease) CAD s/p cardiac catheterization 05/29/18 with angioplasty and stenting of hazy 95% ostial LAD lesion with mid to distal luminal irregularities; moderate size first diagonal branch with a 50-60% proximal stenosis; large circumflex with a 20% ostial stenosis; large dominant RCA with a 30-40% proximal stenosis. Status post angioplasty and stenting with a 3.0 x 15 mm Xience Lorna drug- eluting stent 2018. Cardiac catheterization 12/08/2020 with normal right-sided and left-sided pressures. Status post angioplasty and stenting of a 90% proximal OM3 lesion. Factor V Leiden GERD (gastroesophageal reflux disease) Retinal vein occlusion of right eye seeing Dr. Gonzales currently for injections for ~8-9 weeks Murmur Surgical History S/P TAVR (transcatheter aortic valve replacement) History of cardiac cath 05/2018, [facility], x1 stent 11/2020, [facility] x1 stent; f/u dr. oglesby, [facility] History of toe surgery Kellert procedure-part of joint removed and toe is now shorter History of esophagogastroduodenoscopy (EGD) Hx of colonoscopy Family History Other Family history of 5, 10-methylenetetrahydofolate deficiency Hypertension Stroke Social History Smoking Status: Never smoker Second Hand Exposure: Yes; Do You Dip or Chew Tobacco: No; Hx Alcohol Use: Yes Alcohol type: beer and wine Hx Substance Use: No Preferred Language: Croatian Communication Ability: Effective Partner Alliance Manager Required: No Beliefs That Will Affect Care: None marital status: / Current Living Situation: Alone current occupation: Retired Other Information That Helps Us Care for You: No Feels Safe at Home: Yes Safety Concerns: Feels Safe At This Time Assistive Devices: Walker Assistive Devices Comment: all at home Review of Systems Review of Systems: All systems reviewed & are unremarkable except as noted in HPI & below Physical Exam Constitutional: WD/WN, vitals as above Respiratory: normal respiratory effort, lungs clear to auscultation Cardiovascular: Rate/Rhythm: + abnormal rate and + abnormal rhythm Heart Sounds: + murmur (rusb diastolic murmur 2/6) Extremities: no edema Neurologic: moves all extremities and awake Psychiatric: Orientation: oriented x 3 (some confusion ) Results & Data Vital Signs (Past 12 Hours) Vital Signs Temp Pulse Pulse Resp BP BP Pulse Ox 06/26/24 08:00 37.0 C 93 H 16 159/97 H 95 06/26/24 07:34 91 H 06/26/24 02:25 36.8 C 91 H 16 130/79 95 06/25/24 22:41 36.9 C 98 H 18 145/95 H 94 06/25/24 21:48 92 H O2 Del Method 06/26/24 08:00 Room Air 06/26/24 07:34 06/26/24 02:25 Room Air 06/25/24 22:41 Room Air 06/25/24 21:48
[2024-06-26] MEDS: MoRPHine SULFATE 2 MG/ML CARP ONE (09:17)
--- NOTE | 2024-06-26 10:09 | Nuclear Medicine Report ---
NUCLEAR MEDICINE HEPATOBILIARY SCAN CLINICAL HISTORY: Right upper quadrant pain. COMPARISON: Right upper quadrant ultrasound and CT of the abdomen and pelvis June 25, 2024. TECHNIQUE: 5 mCi of technetium 99m Choletec IV was injected at 8:11 AM on June 26, 2024. Immediatel y following injection, imaging of the abdomen was carried out for 60 minutes in the anterior projecti on. Radiotracer within the gallbladder was not visualized at 60 minutes. Therefore, 2 mg of morphine was administered IV as per protocol. Imaging was performed for an additional 30 minutes. FINDINGS: Hepatic uptake of radiotracer is prompt and homogeneous. Radiotracer activity is identifie d within the common bile duct and small bowel at 15 minutes. There is no radiotracer within the gallb ladder at 60 minutes. No radiotracer within the gallbladder was noted 30 minutes following morphine a dministration. IMPRESSION: Nonvisualization of radiotracer within the gallbladder indicative of cystic duct obstruc tion. The findings are consistent acute cholecystitis. ACT 112: Negative or not required by law. Electronically signed by: Isaiah Nye M.D. 06/26/2024 10:07 AM
[2024-06-26] MEDS: dilTIAZem HCL 300 MG CAPCR PO SCH (10:10)
[2024-06-26] MEDS: PRAVASTATIN SOD 10 MG TAB PO SCH (10:10)
[2024-06-26] MEDS: FOLIC ACID 1 MG TAB PO SCH (10:11)
[2024-06-26] MEDS: PANTOprazole 40 MG TAB PO SCH (10:11)
[2024-06-26] MEDS: SINCALIDE 2 MCG in SODIUM CHLORIDE 0.9% 100 ML IV ONE (10:16)
--- NOTE | 2024-06-26 10:39 | Surgery Progress Note ---
Date of Service June 26, 2024 Assessment & Plan (1) Acute cholecystitis: Plan: con't IV bax HIDA shows obstruction will need IR drainage or lap addi depending an cardiac clearance if OK'd by cards will plan lap addi for 06/28 if poor surgical candidate IR drainage hold coumadin clear liquids Admission and Anticipated Discharge Date Admission Date: June 25, 2024 Subjective pain controlled no N/V Review of Systems Constitutional: no fever and no chills Respiratory: no cough and no dyspnea Cardiovascular: no chest pain Gastrointestinal: + abdominal pain; no nausea, no vomiting and no change in bowel habits Musculoskeletal: no back pain Physical Exam Constitutional: WD/WN, vitals as above Neck: trachea midline Respiratory: normal respiratory effort, lungs clear to auscultation Cardiovascular: RRR, no murmur, no edema Gastrointestinal (Abdomen): Inspection/Auscultation: abdomen normal to inspection, + abdomen distended and normal bowel sounds Percussion/Palpation: + abdomen tender and abdomen soft; no guarding and abdomen not rigid Musculoskeletal: Head/Neck/Chest: normocephalic and head atraumatic Skin: no rashes, warm and dry Results & Data Vital Signs (Past 12 Hours) Vital Signs Temp Pulse Pulse Resp BP BP Pulse Ox 06/26/24 08:00 37.0 C 93 H 16 159/97 H 95 06/26/24 07:34 91 H 06/26/24 02:25 36.8 C 91 H 16 130/79 95 06/25/24 22:41 36.9 C 98 H 18 145/95 H 94 O2 Del Method 06/26/24 08:00 Room Air 06/26/24 07:34 06/26/24 02:25 Room Air 06/25/24 22:41 Room Air Diagnostic Findings NUCLEAR MEDICINE HEPATOBILIARY SCAN CLINICAL HISTORY: Right upper quadrant pain. COMPARISON: Right upper quadrant ultrasound and CT of the abdomen and pelvis June 25, 2024. TECHNIQUE: 5 mCi of technetium 99m Choletec IV was injected at 8:11 AM on June 26, 2024. Immediately following injection, imaging of the abdomen was carried out for 60 minutes in the anterior projection. Radiotracer within the gallbladder was not visualized at 60 minutes. Therefore, 2 mg of morphine was administered IV as per protocol. Imaging was performed for an additional 30 minutes. FINDINGS: Hepatic uptake of radiotracer is prompt and homogeneous. Radiotracer activity is identified within the common bile duct and small bowel at 15 minutes. There is no radiotracer within the gallbladder at 60 minutes. No radiotracer within the gallbladder was noted 30 minutes following morphine administration. IMPRESSION: Nonvisualization of radiotracer within the gallbladder indicative of cystic duct obstruction. The findings are consistent acute cholecystitis.
[2024-06-26 11:02] LABS: ANTI-Xa, UFH(UnfractionatedHep 0.26 IU/ml (0.3-0.7)
[2024-06-26] MEDS ORDERED: HYDROmorphone INJ 0.5 MG/0.5 ML SYR IV PRN (12:25)
[2024-06-26] MEDS ORDERED: oxyCODONE HCL IR 5 MG TAB (IMMEDIATE RELEASE) PO PRN (12:25)
--- NOTE | 2024-06-26 12:33 | Hospitalist Progress Note ---
Date of Service June 26, 2024 Assessment & Plan (1) Acute cholecystitis: (2) Atrial fibrillation with rapid ventricular response: (3) CHAVA (acute kidney injury): (4) Factor V Leiden: (5) Hypertension: (6) Anticoagulated on Coumadin: (7) CAD (coronary artery disease): (8) Aortic stenosis: Plan Patient with acute cholecystitis. Known atrial fibrillation and factor V Leiden deficiency and coronary artery disease on chronic anticoagulation. Heart rates have improved with some hydration and pain control. Continue IV antibiotics Reviewed surgical consultation. Anticipate either cholecystectomy or coordinating IR drainage depending on cardiac clearance Cardiology consult for surgical restratification Continue IV heparin well planning for procedures. Monitor INR Patient tolerating clear liquid diet, get some oral potassium supplementation Renal function is improving, continue some gentle IV hydration monitor creatinine, monitor for volume overload Son at bedside updated to plan of care as well. Oral and IV options for pain control Admission and Anticipated Discharge Date Admission Date: June 25, 2024 Subjective Patient reports abdominal pain significantly improved. Pain medications helping. No chest pain, shortness of breath or palpitations. Physical Exam Physical Exam: Constitutional: Alert, nontoxic HEENT: Mucous membranes moist. Lungs: Clear to auscultation, decreased, no wheezes rales or rhonchi CV: S1-S2, irregular irregular Abdomen: Soft, moderate right upper quadrant tenderness, positive Fuentes's, slight guarding, no rigidity Extremities: No significant edema Neuro: No focal deficits Psych: Cooperative, normal mood Results & Data Results & Data Vital Signs (Past 12 Hours) Vital Signs Temp Pulse Pulse Resp BP BP Pulse Ox 06/26/24 11:15 36.9 C 98 H 16 154/83 H 95 06/26/24 10:40 06/26/24 08:00 37.0 C 93 H 16 159/97 H 95 06/26/24 07:34 91 H 06/26/24 02:25 36.8 C 91 H 16 130/79 95 O2 Del Method 06/26/24 11:15 Room Air 06/26/24 10:40 Room Air 06/26/24 08:00 Room Air 06/26/24 07:34 06/26/24 02:25 Room Air Diagnostic Findings Reviewed imaging, laboratory and diagnostic studies. Pertinent findings as below. WBCs 8.5 Hemoglobin 14.6 INR 1.5 Sodium 135 Potassium 3.6 Creatinine 1.43, improved HIDA scan consistent with acute cholecystitis
[2024-06-26] MEDS: POTASSIUM CHLORIDE CRTAB 20 MEQ TABCR PO STA (12:45)
[2024-06-26] MEDS: oxyCODONE HCL IR 5 MG TAB (IMMEDIATE RELEASE) PO PRN (12:45)
--- NOTE | 2024-06-26 17:03 | XCELERA ---
[id number]
[2024-06-26 17:32] LABS: ANTI-Xa, UFH(UnfractionatedHep 0.32 IU/ml (0.3-0.7)
[2024-06-27 07:26] LABS: Hematocrit (blood only) 38.8 % (42.0-52.0); Hemoglobin 13.2 g/dl (14.0-18.0); Mean Corpuscular Hemoglobin 31.4 pg (25.0-34.0); Mean Corpuscular Volume 92.2 fL (80.0-100.0); Mean Platelet Volume 9.7 fL (9.4-12.4); Platelet Count 190 K/uL (130-400); RDW Coefficient of Variation 13.1 % (11.5-14.5); RDW Standard Deviation 44.2 fL (36.4-46.3); Red Blood Count 4.21 M/uL (4.70-6.10); White Blood Count 8.03 K/ul (4.8-10.8)
[2024-06-27 07:31] LABS: ANTI-Xa, UFH(UnfractionatedHep 0.32 IU/ml (0.3-0.7)
[2024-06-27 07:56] LABS: BUN Creatinine Ratio 14.4 (10-20); Calcium 8.4 mg/dl (8.6-10.3); Creatinine Clr Calc Pharmacy 50.6 ml/min; Potassium 4.2 mmol/L (3.5-5.1)
--- NOTE | 2024-06-27 08:55 | Cardiology Progress Note ---
Date of Service June 27, 2024 Assessment & Plan (1) Atrial fibrillation with RVR: Plan: on Heparin rate controlled at this time (2) S/P TAVR (transcatheter aortic valve replacement): (3) Diastolic murmur: Plan: will repeat echo with attn to the TAVR to assess for AI as well as PI will review OP ECHO done immediately post TAVR in October (4) Gallbladder pain: Plan: From a CV standpoint he is considered optimized at this time if GB surgery is required. His CV risk is intermediate. Cont IV heparin for Afib as well as Factor V Leiden. Cont IV Abx for coverage for not only GB but also for TAVR. HR control Afib with IV BB and or IV cardizem if needed periop and pt not able to take po check post op ECG Plan Past cardiac history: 1. CAD s/p cardiac catheterization 05/29/2018 with angioplasty and stenting of 95% ostial LAD lesion wtih mid to distal luminal irregularities; moderat size first diagonal branch with 50-60% proximal stenosis; large circumflex with a 20% ostial stenosis; large dominant RCA with 30-40% proximal stenosis 2. Cardiac catheterization 12/08/2020 with normal right and left sided pressures. S/p angioplasty and stetnting of a 90% proximal OM3 lesion 3. HLD 4. History of PE and DVT with MTHFR mutation and Factor V Leiden according to patient 5. S/p resilia 29 mm TAVR 09/2023 6. Post TAVR LBBB now resolved 7. Echo 10/2023 with normal LV function, TAVR function, mild perivalvular leak, moderate MR and TR 8. Chronic afib His bnp is elevated but he is not overtly fluid overloaded. I would hold off diuresis for now given his limited po intake and mild CHAVA. He is not having any concerning anginal symptoms or ischemic changes on EKG. His trop was wnl. His heart rate has improved now that he is taking his medications and his pain is better controlled. He is in chronic afib. Barring any concerning findings on his echo, he can proceed with his surgery at a moderate risk for cardiac complication perioperatively. We discussed that this includes less likely severe adverse events like , heart attack and stroke and also more manageable and more likely events like afib rvr or heart failure. Admission and Anticipated Discharge Date Admission Date: June 25, 2024 Subjective Pt seen and examined. ECHO reviewed.He Has no cardiac complaints at this time. Had TAVR in September 2023 eating clear liquids Review of Systems Review of Systems: All systems reviewed & are unremarkable except as noted in HPI & below Physical Exam Physical Exam: AAO x 3 in NAD Respiratory: CTA Cardiovascular: Grade 3 diastolic murmur noted at base Results & Data Vital Signs (Past 12 Hours) Vital Signs Temp Pulse Resp BP BP Pulse Ox O2 Del Method 06/27/24 07:43 36.8 C 61 18 122/62 97 Room Air 06/27/24 02:27 36.7 C 71 16 129/77 95 Room Air 06/26/24 22:00 36.6 C 74 18 110/70 92 Room Air Laboratory Results Abnormal lab results 06/26/24 06/27/24 Range/Units 10:28 06:45 RBC 4.21 L (4.70-6.10) M/uL Hgb 13.2 L (14.0-18.0) g/dl Hct 38.8 L (42.0-52.0) % Heparin Anti-Xa, Unfract 0.26 L (0.3-0.7) IU/ml Glucose 112 H (70-99(Fasting)) mg/dl Calcium 8.4 L (8.6-10.3) mg/dl Diagnostic Findings ECHO EF normal TAVR appreciated-eccentric AI appreciated-severity difficult to quantitate gradients across valve ok Medications Administered Current Inpatient Medications Acetaminophen (Acetaminophen 325 Mg Tab) 650 mg PO Q4H PRN PRN Reason: pain/fever Stop: 07/25/24 18:19 Diltiazem HCl (Diltiazem Hcl 300 Mg Capcr) 300 mg PO DAILY [facility] Stop: 07/26/24 08:59 Last Admin: 06/27/24 08:51 Dose: 300 mg Folic Acid (Folic Acid 1 Mg Tab) 1 mg PO QAM [facility] Stop: 07/26/24 08:59 Last Admin: 06/27/24 08:52 Dose: 1 mg Hydromorphone HCl (Hydromorphone Inj 0.5 Mg/0.5 Ml Syr) 0.5 mg IV Q4H PRN PRN Reason: Severe Pain (Scale 7, 8, 9,10) Stop: 07/10/24 12:24 Piperacillin Sod/Tazobactam Sod (Zosyn) 4.5 gm in 100 mls @ 25 mls/hr IV Q8H [facility]; Protocol Stop: 07/05/24 18:19 Last Infusion: 06/27/24 05:31 Dose: Infused Heparin Sodium/Dextrose (Heparin 93118 Unit/500 Ml D5w) 25,000 units in 500 mls @ 24 mls/hr IV .[id number] [facility]; Protocol Stop: 07/25/24 18:19 Last Titration: 06/27/24 07:51 Dose: 1,200 units/hr, 24 mls/hr Metoprolol Succinate (Metoprolol Succ 50mg Ext Rel Tab) 50 mg PO HS [facility] Stop: 07/25/24 20:59 Last Admin: 06/26/24 20:22 Dose: 50 mg Ondansetron HCl (Ondansetron Inj 2 Mg/Ml 2 Ml Vial) 4 mg IV Q6H PRN PRN Reason: Nausea Stop: 07/25/24 18:19 Oxycodone HCl (Oxycodone Hcl Ir 5 Mg Tab (Immediate Release)) 5 mg PO Q4H PRN PRN Reason: Moderate Pain (Scale 4, 5, 6) Stop: 07/10/24 12:24 Last Admin: 06/26/24 12:45 Dose: 5 mg Oxycodone HCl (Oxycodone Hcl Ir 5 Mg Tab (Immediate Release)) 10 mg PO Q4H PRN PRN Reason: Severe Pain (Scale 7, 8, 9,10) Stop: 07/10/24 12:24 Pantoprazole Sodium (Pantoprazole 40 Mg Tab) 40 mg PO QAM [facility] Stop: 07/26/24 08:59 Last Admin: 06/27/24 08:52 Dose: 40 mg Pravastatin Sodium (Pravastatin Sod 10 Mg Tab) 10 mg PO DAILY [facility] Stop: 07/26/24 08:59 Last Admin: 06/27/24 08:52 Dose: 10 mg Sertraline HCl (Sertraline Hcl 100 Mg Tablet) 100 mg PO Q24H [facility] Stop: 07/25/24 18:19 Last Admin: 06/26/24 17:26 Dose: 100 mg ECG Additional Comments: Afib LVH
--- NOTE | 2024-06-27 09:44 | Surgery Progress Note ---
Date of Service June 27, 2024 Assessment & Plan (1) Acute cholecystitis: Plan: con't IV abx off coumadin HIDA positive for duct obstruction await cardiac clearance but appears will be reasonable candidate tentative lap addi in AM Admission and Anticipated Discharge Date Admission Date: June 25, 2024 Subjective feels better no complaints Review of Systems Constitutional: no fever, no chills and no anorexia Eyes: no problem reported Respiratory: no cough and no dyspnea Cardiovascular: no chest pain Gastrointestinal: + abdominal pain; no nausea, no vomiting and no change in bowel habits Genitourinary: no dysuria Musculoskeletal: no back pain Neurologic: no localized weakness and no generalized weakness Psychiatric: no behavioral changes Hematologic / Lymphatic: no problem reported Physical Exam Constitutional: WD/WN, vitals as above Eyes: no scleral abnormality Neck: trachea midline Respiratory: normal respiratory effort, lungs clear to auscultation Cardiovascular: RRR, no murmur, no edema Gastrointestinal (Abdomen): Inspection/Auscultation: abdomen normal to inspection and normal bowel sounds; abdomen not distended Percussion/Palpation: + abdomen tender (mild) and abdomen soft; no guarding and abdomen not rigid Musculoskeletal: Head/Neck/Chest: + abnormal head shape and + evidence of head trauma Skin: no rashes, warm and dry Results & Data Vital Signs (Past 12 Hours) Vital Signs Temp Pulse Resp BP BP Pulse Ox O2 Del Method 06/27/24 07:43 36.8 C 61 18 122/62 97 Room Air 06/27/24 02:27 36.7 C 71 16 129/77 95 Room Air 06/26/24 22:00 36.6 C 74 18 110/70 92 Room Air Diagnostic Findings NUCLEAR MEDICINE HEPATOBILIARY SCAN CLINICAL HISTORY: Right upper quadrant pain. COMPARISON: Right upper quadrant ultrasound and CT of the abdomen and pelvis June 25, 2024. TECHNIQUE: 5 mCi of technetium 99m Choletec IV was injected at 8:11 AM on June 26, 2024. Immediately following injection, imaging of the abdomen was carried out for 60 minutes in the anterior projection. Radiotracer within the gallbladder was not visualized at 60 minutes. Therefore, 2 mg of morphine was administered IV as per protocol. Imaging was performed for an additional 30 minutes. FINDINGS: Hepatic uptake of radiotracer is prompt and homogeneous. Radiotracer activity is identified within the common bile duct and small bowel at 15 minutes. There is no radiotracer within the gallbladder at 60 minutes. No radiotracer within the gallbladder was noted 30 minutes following morphine administration. IMPRESSION: Nonvisualization of radiotracer within the gallbladder indicative of cystic duct obstruction. The findings are consistent acute cholecystitis.
--- NOTE | 2024-06-27 17:00 | Hospitalist Progress Note ---
Date of Service June 27, 2024 Assessment & Plan (1) Acute cholecystitis: Plan: -positive HIDA scan for cystic duct dilation and blockage -appreciate surgical consultation, planning lap addi 06/28/2024 -NPO after midnight, preop labs ordered -continue IV abx -continue current level of pain control (2) Atrial fibrillation with rapid ventricular response: Plan: -rate controlled at this time (3) CHAVA (acute kidney injury): Plan: -improved (4) Factor V Leiden: Plan: -noted (5) Hypertension: Plan: -continue home meds (6) Anticoagulated on Coumadin: Plan: -noted -on heparin, stop before procedure (7) CAD (coronary artery disease): Plan: -noted (8) Aortic stenosis: Plan: -noted Plan I spent a total of 45 minutes in direct patient care, including [id number] time with the patient and/or family, reviewing medical records, ordering and reviewing diagnostic tests, and coordinating care with other healthcare providers. This time includes: history taking, physical examination, medical decision making, counseling, ECG interpretation, imaging interpretation, lab interpretation, orders, and education, excluding time spent in the performance of separately billed services. Admission and Anticipated Discharge Date Admission Date: June 25, 2024 Subjective Patient seen and examined at bedside. Patient doing well today. Feels right upper quadrant is much more comfortable today. Review of Systems Review of Systems: CONSTITUTIONAL: Patient denies fevers, chills, sweats and weight changes. EYES: Patient denies any visual symptoms. EARS, NOSE, AND THROAT: No difficulties with hearing. No symptoms of rhinitis or sore throat. CARDIOVASCULAR: Patient denies chest pains, palpitations, orthopnea and paroxysmal nocturnal dyspnea. RESPIRATORY: No dyspnea on exertion, no wheezing or cough. GI: RUQ pain : No urinary hesitancy or dribbling. No nocturia or urinary frequency. No abnormal urethral discharge. MUSCULOSKELETAL: No myalgias or arthralgias. NEUROLOGIC: No chronic headaches, no seizures. Patient denies numbness, tingling or weakness. PSYCHIATRIC: Patient denies problems with mood disturbance. No problems with anxiety. ENDOCRINE: No excessive urination or excessive thirst. DERMATOLOGIC: Patient denies any rashes or skin changes. Physical Exam Physical Exam: Gen: A&O 3 NAD HEENT: NCAT, EOMI, not icteric. External ears normal. No rhinorrhea. Moist mucous membranes. Neck: Supple, full range of motion, no observable masses, No meningeal sign. Lungs: No Respiratory distress. CV: RRR, no edema. Abdomen: RUQ tenderness, mild, per patient improved MSK: No joint swelling, no redness. Skin: No rashes, petechiae, lesions. Normal color per patient. Neuro: Normal Gait, Grossly intact. Psych: Appropriate for situation. Results & Data Results & Data Vital Signs (Past 12 Hours) Vital Signs Temp Pulse Resp BP Pulse Ox O2 Del Method 06/27/24 15:47 36.6 C 49 L 18 121/76 92 Room Air 06/27/24 11:45 36.4 C L 57 L 18 119/72 94 Room Air 06/27/24 07:43 36.8 C 61 18 122/62 97 Room Air Laboratory Results -personally reviewed, hgb at baseline, no leukocytosis, creatinine at baseline Medications Administered Diltiazem HCl (Diltiazem Hcl 300 Mg Capcr) 300 mg PO DAILY [facility] Stop: 07/26/24 08:59 Last Admin: 06/27/24 08:51 Dose: 300 mg Documented By: Admin: 06/26/24 10:10 Dose: 300 mg Documented By: ROSEY Folic Acid (Folic Acid 1 Mg Tab) [facility] [place] Stop: 07/26/24 08:59 Last Admin: 06/27/24 08:52 Dose: 1 mg Documented By: Admin: 06/26/24 10:11 Dose: 1 mg Documented By: ROSEY Piperacillin Sod/Tazobactam Sod (Zosyn) 4.5 gm in 100 mls @ 25 mls/hr IV Q8H [facility]; Protocol Stop: 07/05/24 18:19 Last Infusion: 06/27/24 14:55 Dose: Infused Documented By: Admin: 06/27/24 10:49 Dose: 25 mls/hr Documented By: AEAbhijit Infusion: 06/27/24 05:31 Dose: Infused Documented By: Admin: 06/27/24 02:04 Dose: 25 mls/hr Documented By: Infusion: 06/26/24 21:41 Dose: Infused Documented By: Admin: 06/26/24 17:25 Dose: 25 mls/hr Documented By: Infusion: 06/26/24 14:12 Dose: Infused Documented By: Admin: 06/26/24 10:18 Dose: 25 mls/hr Documented By: Infusion: 06/26/24 06:39 Dose: Infused Documented By: Admin: 06/26/24 02:48 Dose: 25 mls/hr Documented By: Infusion: 06/26/24 00:30 Dose: Infused Documented By: Admin: 06/25/24 20:30 Dose: 25 mls/hr Documented By: BMS Heparin Sodium/Dextrose (Heparin 98760 Unit/500 Ml D5w) 25,000 units in 500 mls @ 24 mls/hr IV .[id number] [facility]; Protocol Stop: 07/25/24 18:19 Last Admin: 06/27/24 13:32 Dose: 1,200 units/hr, 24 mls/hr Documented By: AEM Co-signed By: KMG Titration: 06/27/24 13:32 Dose: Infused Documented By: AEM Co-signed By: KMG Titration: 06/27/24 07:51 Dose: 1,200 units/hr, 24 mls/hr Documented By: AEM Co-signed By: KMG Titration: 06/27/24 07:11 Dose: 1,200 units/hr, 24 mls/hr Documented By: AEM Co-signed By: MCS Titration: 06/26/24 19:10 Dose: 1,200 units/hr, 24 mls/hr Documented By: MCS Co-signed By: AMS Admin: 06/26/24 18:12 Dose: 1,200 units/hr, 24 mls/hr Documented By: AMS Co-signed By: KMC Titration: 06/26/24 18:12 Dose: Infused Documented By: AMS Co-signed By: KMC Titration: 06/26/24 17:36 Dose: 1,200 units/hr, 24 mls/hr Documented By: AMS Co-signed By: KMC Titration: 06/26/24 11:08 Dose: 1,200 units/hr, 24 mls/hr Documented By: AMS Co-signed By: KMG Titration: 06/26/24 07:25 Dose: 1,100 units/hr, 22 mls/hr Documented By: AMS Co-signed By: BMS Titration: 06/26/24 03:59 Dose: 1,100 units/hr, 22 mls/hr Documented By: RONNY Co-signed By: LUIS ENRIQUE Admin: 06/25/24 20:35 Dose: 1,000 units/hr, 20 mls/hr Documented By: RONNY Co-signed By: SHAMEKA Metoprolol Succinate (Metoprolol Succ 50mg Ext Rel Tab) 50 mg PO [facility] Stop: 07/25/24 20:59 Last Admin: 06/26/24 20:22 Dose: 50 mg Documented By: Admin: 06/25/24 20:39 Dose: 50 mg Documented By: RONNY Oxycodone HCl (Oxycodone Hcl Ir 5 Mg Tab (Immediate Release)) 5 mg PO Q4H PRN PRN Reason: Moderate Pain (Scale 4, 5, 6) Stop: 07/10/24 12:24 Last Admin: 06/26/24 12:45 Dose: 5 mg Documented By: ROSEY Pantoprazole Sodium (Pantoprazole 40 Mg Tab) 40 mg PO [facility] Stop: 07/26/24 08:59 Last Admin: 06/27/24 08:52 Dose: 40 mg Documented By: Admin: 06/26/24 10:11 Dose: 40 mg Documented By: ROSEY Pravastatin Sodium (Pravastatin Sod 10 Mg Tab) 10 mg PO DAILY [facility] Stop: 07/26/24 08:59 Last Admin: 06/27/24 08:52 Dose: 10 mg Documented By: Admin: 06/26/24 10:10 Dose: 10 mg Documented By: ROSEY Sertraline HCl (Sertraline Hcl 100 Mg Tablet) 100 mg PO Q24H [facility] Stop: 07/25/24 18:19 Last Admin: 06/26/24 17:26 Dose: 100 mg Documented By: Admin: 06/25/24 20:39 Dose: 100 mg Documented By: RONNY
[2024-06-27] MEDS: ACETAMINOPHEN 325 MG TAB PO PRN (21:06)
--- NOTE | 2024-06-28 07:17 | History & Physical Bridge Note ---
Date of Service June 28, 2024 History & Physical Bridge Note I have examined the patient, reviewed the History & Physical and in the interval since the performance of the History & Physical I have noted the following changes of clinical significance: no changes noted
[2024-06-28 07:46] LABS: Hematocrit (blood only) 38.7 % (42.0-52.0); Hemoglobin 13.3 g/dl (14.0-18.0); Mean Corpuscular Hemoglobin 31.2 pg (25.0-34.0); Mean Corpuscular Hgb Conc 34.4 g/dL (32.0-36.0); Mean Corpuscular Volume 90.8 fL (80.0-100.0); Mean Platelet Volume 9.5 fL (9.4-12.4); Platelet Count 210 K/uL (130-400); RDW Standard Deviation 42.9 fL (36.4-46.3); Red Blood Count 4.26 M/uL (4.70-6.10); White Blood Count 7.24 K/ul (4.8-10.8)
--- NOTE | 2024-06-28 08:14 | Anesthesiology Consultation ---
Date of Service June 28, 2024 Assessment & Plan Chart Review Chart Review: Acceptable Risk for Surgery and Patient NOT seen in Pre Admission Testing Consults Requested none ASA ASA4 Proposed Anesthesia Anesthesia Type: General History Surgery Operation Date: 06/28/24 08:50 Proposed Procedures p Laparoscopic Cholecystectomy - Luisito Blank MD Height/Weight Height: 5 ft 10 in Weight: 98.339 kg Allergies Allergy/AdvReac Type Severity Reaction Status Date / Time codeine Allergy Intermediate RASH Verified 10/18/22 14:23 diltiazem Allergy Intermediate ITCHING Verified 10/18/22 14:23 AND FLUSHING Medications Home Medications Medication Instructions Recorded Confirmed Last Taken celecoxib 200 mg capsule (Celebrex) 200 mg PO QAM 08/07/18 06/25/24 05/18/22 pantoprazole 40 mg tablet,delayed 40 mg PO QAM 12/21/18 06/25/24 05/18/22 release (Protonix) melatonin 5 mg capsule 5 mg PO HS 01/14/21 06/25/24 05/17/22 folic acid 1 mg tablet 1 mg PO QAM 09/18/21 06/25/24 05/18/22 aspirin 81 mg tablet,delayed 81 mg PO QAM 05/18/22 06/25/24 05/18/22 release (Adult Low Dose Aspirin) sertraline 50 mg tablet 100 mg PO Q24H 01/18/23 06/25/24 Unknown furosemide 20 mg tablet (Lasix) 20 mg PO DAILY PRN Edema 02/01/23 06/25/24 Unknown diltiazem HCl 300 mg capsule,24 300 mg PO DAILY 10/19/23 06/25/24 Unknown hr,extended release acetaminophen 325 mg tablet 650 mg PO Q6H PRN pain 12/21/23 06/25/24 Unknown amoxicillin 500 mg capsule 2,000 mg PO UD PRN prior to dental 12/21/23 06/25/24 Unknown visits metoprolol succinate 25 mg 50 mg PO HS 12/21/23 06/25/24 Unknown tablet,extended release 24 hr (Toprol XL) warfarin 4 mg tablet See Rx Instructions PO DAILY #80 04/02/24 06/25/24 Unknown tabs pravastatin 10 mg tablet 10 mg PO DAILY 05/28/24 06/25/24 Unknown Active Medications Generic Name Dose Route Start Last Admin Trade Name Freq PRN Reason Stop Dose Admin Acetaminophen 650 mg 06/25/24 18:20 06/27/24 21:06 Acetaminophen 325 Mg Tab PO 07/25/24 18:19 650 mg Q4H PRN Administration pain/fever Diltiazem HCl 300 mg 06/26/24 09:00 06/27/24 08:51 Diltiazem Hcl 300 Mg Capcr PO 07/26/24 08:59 300 mg DAILY YVON Administration Folic Acid 1 mg 06/26/24 09:00 06/27/24 08:52 Folic Acid 1 Mg Tab PO 07/26/24 08:59 1 mg QAM YVON Administration Piperacillin Sod/Tazobactam Sod 4.5 gm in 100 mls @ 25 mls/hr 06/25/24 18:20 06/28/24 06:43 Zosyn IV 07/05/24 18:19 Infused Q8H YVON Infusion Protocol Heparin Sodium/Dextrose 25,000 units in 500 mls @ 0 mls/hr 06/25/24 18:20 06/28/24 01:25 Heparin 35017 Unit/500 Ml D5w IV 07/25/24 18:19 Not Given .Q0M YVON Protocol 0 UNITS/HR Metoprolol Succinate 50 mg 06/25/24 21:00 06/27/24 22:03 Metoprolol Succ 50mg Ext Rel Tab PO 07/25/24 20:59 50 mg HS YVON Administration Oxycodone HCl 5 mg 06/26/24 12:25 06/26/24 12:45 Oxycodone Hcl Ir 5 Mg Tab (Immediate Release) PO 07/10/24 12:24 5 mg Q4H PRN Administration Moderate Pain (Scale 4, 5, 6) Pantoprazole Sodium 40 mg 06/26/24 09:00 06/27/24 08:52 Pantoprazole 40 Mg Tab PO 07/26/24 08:59 40 mg QAM YVON Administration Pravastatin Sodium 10 mg 06/26/24 09:00 06/27/24 08:52 Pravastatin Sod 10 Mg Tab PO 07/26/24 08:59 10 mg DAILY YVON Administration Sertraline HCl 100 mg 06/25/24 18:20 06/27/24 18:04 Sertraline Hcl 100 Mg Tablet PO 07/25/24 18:19 100 mg Q24H YVON Administration Past Medical History Medical History Aortic stenosis mod-severe CAD (coronary artery disease) CAD s/p cardiac catheterization 05/29/18 with angioplasty and stenting of hazy 95% ostial LAD lesion with mid to distal luminal irregularities; moderate size first diagonal branch with a 50-60% proximal stenosis; large circumflex with a 20% ostial stenosis; large dominant RCA with a 30-40% proximal stenosis. Status post angioplasty and stenting with a 3.0 x 15 mm Xience Lorna drug- eluting stent 2018. Cardiac catheterization 12/08/2020 with normal right-sided and left-sided pressures. Status post angioplasty and stenting of a 90% proximal OM3 lesion. Factor V Leiden GERD (gastroesophageal reflux disease) Retinal vein occlusion of right eye seeing Dr. Gonzales currently for injections for ~8-9 weeks Murmur s/p TAVR for 09/2023 Exercise / Class Metabolic Activity III < 4 Walking/Shop/Light housework Past Family History Family History Other Family history of 5, 10-methylenetetrahydofolate deficiency Hypertension Stroke Past Surgical History Surgical History History of cardiac cath 05/2018, [facility], x1 stent 11/2020, [facility] x1 stent; f/u dr. oglesby, [facility] History of toe surgery Kellert procedure-part of joint removed and toe is now shorter History of esophagogastroduodenoscopy (EGD) Hx of colonoscopy s/p TAVR for 09/2023 Past Anesthesia History No Hx of Anesthesia Complications and No Family Hx of Anesthesia Complications History of PONV No Hx of PONV and No Hx of Motion Sickness Social History Smoking Status: Never smoker Do You Dip or Chew Tobacco: No Hx Alcohol Use: Yes Alcohol type: beer and wine alcohol intake frequency: holidays/special occasions only Hx Substance Use: No substance use type: does not use Physical Exam Vital Signs Last Vital Signs Temp 36.4 C L 06/28/24 07:24 Pulse 79 06/28/24 07:24 Resp 20 06/28/24 07:24 BP 154/82 H 06/28/24 07:24 Pulse Ox 97 06/28/24 07:24 O2 Del Method Room Air 06/28/24 07:24 Testing Laboratory Results 06/28/24 07:27 PT 15.8 Seconds (9.0-12.0) H 06/26/24 02:52 INR 1.5 (0.9-1.1) H 06/26/24 02:52 APTT 33 Seconds (21-31) H 06/25/24 10:53 Urine Color Dark Yellow 06/25/24 12:23 Urine Appearance Clear (Clear) 06/25/24 12:23 Urine pH 6.0 (4.5-7.5) 06/25/24 12:23 Ur Specific [place] 1.045 (1.000-1.030) H 06/25/24 12:23 Urine Protein 1+ (Negative) H 06/25/24 12:23 Urine Glucose (UA) Negative (Negative) 06/25/24 12:23 Urine Ketones Trace (Negative) H 06/25/24 12:23 Urine Nitrite Negative (Negative) 06/25/24 12:23 Ur Leukocyte Esterase Negative (Negative) 06/25/24 12:23 Urine WBC (Auto) 0-5 /hpf (0-5) 06/25/24 12:23 Urine RBC (Auto) 0-2 /hpf (0-2) 06/25/24 12:23 U Hyaline Cast (Auto) 0-2 /lpf (0-2) 06/25/24 12:23 U Epithel Cells (Auto) 0-2 /hpf (0-2) 06/25/24 12:23 Urine Bacteria (Auto) None Seen (None Seen) 06/25/24 12:23 Blood Type A Positive 06/27/24 09:26 Antibody Screen NEGATIVE 06/25/24 10:53 Electrocardiogram Date: 06/25/24 Findings: + AFIB @ (@ 107) Chest X-Ray Date: 06/25/24 Findings: + NAD and + cardiomegaly (mild) Echocardiogram Date: 06/26/24 EF: 55% LV Function: normal RWMA: + none Other Findings: + atrial enlargement (severe LA dilation) and + LVH (mild) Valvular Disease: + MR (mild ) TR - mild RV-mildly dilated w/ NL sys fxn mod. pulm HTN 45-50 Torr AV-bioprosthetic TAVR NL Fxn
[2024-06-28 08:16] LABS: BUN Creatinine Ratio 10.5 (10-20); Calcium 8.7 mg/dl (8.6-10.3); Potassium 3.8 mmol/L (3.5-5.1)
[2024-06-28] MEDS ORDERED: DEXAMETHASONE SOD INJ 4 MG/ML VIAL ONE (08:16)
[2024-06-28] MEDS ORDERED: ONDANSETRON INJ 2 MG/ML 2 ML VIAL ONE (08:16)
[2024-06-28] MEDS ORDERED: LIDOCAINE 2% 2 ML VIAL/AMP(20MG/ML) INFIL ONE (08:16)
[2024-06-28] MEDS ORDERED: fentaNYL citrate PF 100 MCG/2 ML VIAL ONE ×2 (08:16→10:03)
[2024-06-28] MEDS ORDERED: PROPOFOL IV EMULSION 10 MG/ML 20 ML VIAL IV ONE (08:16)
[2024-06-28] MEDS ORDERED: ROCURONIUM BROMIDE 10 MG/ML 5 ML VIAL IV ONE (08:19)
[2024-06-28 08:20] LABS: ANTI-Xa, UFH(UnfractionatedHep < 0.10 IU/ml (0.3-0.7); INR 1.8 (0.9-1.1); Prothrombin Time 18.8 Seconds (9.0-12.0)
[2024-06-28] MEDS: LACTATED RINGER'S 1,000 ML IV SCH (08:23)
[2024-06-28] MEDS ORDERED: NALOXONE HCL 0.4 MG/1 ML VIAL/CARP IV PRN (08:49)
[2024-06-28] MEDS ORDERED: fentaNYL citrate PF 100 MCG/2 ML VIAL IV PRN (08:49)
[2024-06-28] MEDS ORDERED: ePHEDrine sulfate 50 MG/ML AMP IV PRN (08:49)
[2024-06-28] MEDS ORDERED: ATROPINE SULFATE 0.1 MG/ML 10ML SYR IV PRN (08:49)
[2024-06-28] MEDS: ceFAZolin 2000MG 2,000 MG/15 ML SYR IV SCH (08:59)
--- NOTE | 2024-06-28 09:01 | Cardiology Progress Note ---
Date of Service June 28, 2024 Assessment & Plan (1) Atrial fibrillation with RVR: Plan: on Heparin rate controlled at this time (2) S/P TAVR (transcatheter aortic valve replacement): (3) Diastolic murmur: Plan: perivalvular AI will need fu post DC (4) Gallbladder pain: Plan: Cont IV heparin for Afib as well as Factor V Leiden. Cont IV Abx for coverage for not only GB but also for TAVR. HR control Afib with IV BB and or IV cardizem if needed periop and pt not able to take po check post op ECG Kindly resume ASA Plan Past cardiac history: 1. CAD s/p cardiac catheterization 05/29/2018 with angioplasty and stenting of 95% ostial LAD lesion wtih mid to distal luminal irregularities; moderat size first diagonal branch with 50-60% proximal stenosis; large circumflex with a 20% ostial stenosis; large dominant RCA with 30-40% proximal stenosis 2. Cardiac catheterization 12/08/2020 with normal right and left sided pressures. S/p angioplasty and stetnting of a 90% proximal OM3 lesion 3. HLD 4. History of PE and DVT with MTHFR mutation and Factor V Leiden according to patient 5. S/p resilia 29 mm TAVR 09/2023 with moderate perivalvular AI 6. Post TAVR LBBB now resolved 7. Echo 10/2023 with normal LV function, TAVR function, mild perivalvular leak, moderate MR and TR 8. Chronic afib Use IV BB if unable to take po meds. Admission and Anticipated Discharge Date Admission Date: June 25, 2024 Subjective Patient seen and post addi; resting comfortably VSS remain stable Limited ECHO reviewed: suspected moderate perivavlular AI. Will do follow up in the office with Dr. Joy after DC. Review of Systems Review of Systems: All systems reviewed & are unremarkable except as noted in HPI & below Physical Exam Physical Exam: AAO x 3 in NAD Cardiovascular: grade 3/6 diastolic murmur unchanged Results & Data Vital Signs (Past 12 Hours) Vital Signs Temp Pulse Pulse Resp BP BP Pulse Ox 06/28/24 08:27 36.6 C 69 20 148/94 H 96 06/28/24 07:24 36.4 C L 79 20 154/82 H 97 06/28/24 03:07 36.5 C 68 17 148/75 H 95 06/27/24 23:10 06/27/24 23:04 36.7 C 88 18 122/65 97 06/27/24 22:15 49 L O2 Del Method 06/28/24 08:27 Room Air 06/28/24 07:24 Room Air 06/28/24 03:07 Room Air 06/27/24 23:10 Room Air 06/27/24 23:04 Room Air 06/27/24 22:15 Laboratory Results Abnormal lab results 06/28/24 Range/Units 07:27 RBC 4.26 L (4.70-6.10) M/uL Hgb 13.3 L (14.0-18.0) g/dl Hct 38.7 L (42.0-52.0) % PT 18.8 H (9.0-12.0) Seconds INR 1.8 H (0.9-1.1) Heparin Anti-Xa, Unfract < 0.10 L (0.3-0.7) IU/ml Glucose 100 H (70-99(Fasting)) mg/dl Medications Administered Current Inpatient Medications Acetaminophen (Acetaminophen 325 Mg Tab) 650 mg PO Q4H PRN PRN Reason: pain/fever Stop: 07/25/24 18:19 Last Admin: 06/27/24 21:06 Dose: 650 mg Atropine Sulfate (Atropine Sulfate 0.1 Mg/Ml 10ml Syr) 0.5 mg IV Q1M PRN PRN Reason: PACU Use-HR<40 &/or Bradycardi Stop: 06/28/24 16:49 Diltiazem HCl (Diltiazem Hcl 300 Mg Capcr) 300 mg PO DAILY [facility] Stop: 07/26/24 08:59 Last Admin: 06/27/24 08:51 Dose: 300 mg Ephedrine Sulfate (Ephedrine Sulfate 50 Mg/Ml Amp) 5 mg IV Q5M PRN PRN Reason: PACU Use Only-SBP<90 mmHg Stop: 06/28/24 16:49 Fentanyl Citrate (Fentanyl Citrate Pf 100 Mcg/2 Ml Vial) 25 mcg IV Q5M PRN PRN Reason: PACU Use Only-Pain Stop: 06/28/24 16:50 Folic Acid (Folic Acid 1 Mg Tab) 1 mg PO QAM Y[facility]ON Stop: 07/26/24 08:59 Last Admin: 06/27/24 08:52 Dose: 1 mg Piperacillin Sod/Tazobactam Sod (Zosyn) 4.5 gm in 100 mls @ 25 mls/hr IV Q8H [facility]; Protocol Stop: 07/05/24 18:19 Last Infusion: 06/28/24 06:43 Dose: Infused Heparin Sodium/Dextrose (Heparin 44051 Unit/500 Ml D5w) 25,000 units in 500 mls @ 0 mls/hr IV .Q0M [facility]; Protocol Stop: 07/25/24 18:19 Last Admin: 06/28/24 01:25 Dose: Not Given Cefazolin Sodium (Ancef 2000mg) 2,000 mg in 15 mls @ 3.75 mls/min IV PREOP [facility]; Protocol Stop: 06/28/24 18:00 Lactated Ringer's (Lr) 1,000 mls @ 15 mls/hr IV .Q24H [facility] Stop: 06/29/24 08:14 Last Admin: 06/28/24 08:23 Dose: 15 mls/hr Promethazine HCl 6.25 mg/ (Sodium Chloride) 50.25 mls @ 204 mls/hr IV ONCE PRN PRN Reason: PACU Use Only-Nausea/Vomiting Stop: 06/28/24 16:50 Metoprolol Succinate (Metoprolol Succ 50mg Ext Rel Tab) 50 mg PO HS [facility] Stop: 07/25/24 20:59 Last Admin: 06/27/24 22:03 Dose: 50 mg Naloxone HCl (Naloxone Hcl 0.4 Mg/1 Ml Vial/Carp) 0.2 mg IV Q2M PRN PRN Reason: PACU Use Only-Opiate Reversal Stop: 06/28/24 16:50 Ondansetron HCl (Ondansetron Inj 2 Mg/Ml 2 Ml Vial) 4 mg IV Q6H PRN PRN Reason: Nausea Stop: 07/25/24 18:19 Ondansetron HCl (Ondansetron Inj 2 Mg/Ml 2 Ml Vial) 4 mg IV ONCE PRN PRN Reason: PACU Use Only-Nausea/Vomiting Stop: 06/28/24 16:50 Oxycodone HCl (Oxycodone Hcl Ir 5 Mg Tab (Immediate Release)) 5 mg PO Q4H PRN PRN Reason: Moderate Pain (Scale 4, 5, 6) Stop: 07/10/24 12:24 Last Admin: 06/26/24 12:45 Dose: 5 mg Oxycodone HCl (Oxycodone Hcl Ir 5 Mg Tab (Immediate Release)) 10 mg PO Q4H PRN PRN Reason: Severe Pain (Scale 7, 8, 9,10) Stop: 07/10/24 12:24 Pantoprazole Sodium (Pantoprazole 40 Mg Tab) 40 mg PO QAM [facility] Stop: 07/26/24 08:59 Last Admin: 06/27/24 08:52 Dose: 40 mg Pravastatin Sodium (Pravastatin Sod 10 Mg Tab) 10 mg PO DAILY [facility] Stop: 07/26/24 08:59 Last Admin: 06/27/24 08:52 Dose: 10 mg Sertraline HCl (Sertraline Hcl 100 Mg Tablet) 100 mg PO Q24H [facility] Stop: 07/25/24 18:19 Last Admin: 06/27/24 18:04 Dose: 100 mg ECG Additional Comments: post op ecg pnd
[2024-06-28] MEDS ORDERED: SUGAMMADEX SODIUM 200 MG/2 ML VIAL IV ONE (09:14)
[2024-06-28] MEDS ORDERED: ePHEDrine sulfate 50 MG/5 ML SYR ONE (09:28)
[2024-06-28] MEDS: BUPIVACAINE/EPINEPHRINE 0.5% MPF 1:200,000 30 ML VIAL ONE (09:31)
[2024-06-28] MEDS: SURGICEL ABSORB HEMOSTAT 2IN X 14IN TOP ONE (10:02)
--- NOTE | 2024-06-28 10:26 | Operative Report ---
Post Operative Report Pre & Post Diagnosis Operation Date: 06/28/24 08:50 Pre-Op Diagnosis: ACUTE CHOLECYSTITIS Post-Op Diagnosis: ACUTE CHOLECYSTITIS I identified the patient and participated in the time-out.: Yes Procedure Operation Date: 06/28/24 08:50 Actual Procedures p Laparoscopic Cholecystectomy(Not Applicable) - Luisito Blank MD Surgeon Luistio Blank MD Software Reverse Engineer Angelina Lobo PA-C Estimated Blood Loss 80 Findings Consistent with Post-Op Diagnosis Specimens Gallbladder to pathology Drains None Anesthesia Type General Complications none Disposition Accompanied Patient To Recovery: No Disposition: Recovery Room Indications This is an 83-year-old male admitted with acute cholecystitis. He is placed on IV fluids and IV antibiotics. He was on Eliquis and this was held for 72 hours. HIDA scan showed an acute obstruction. Is there for and we taken the OR for laparoscopic cholecystectomy. He understands all the risks in detail. Description of Procedure The patient was taken the OR, placed in the supine position and underwent excellent general endotracheal anesthesia. Their abdomen is prepped and draped normal sterile fashion. A transverse supraumbilical incision was made and dissection was taken down to identify the anterior fascia. Two Vicryl' sutures were placed on either side of the midline and his midline was then incised. The peritoneal cavity was entered bluntly with Ember clamp. A 12mm Ravi trocar was then inserted and secured. Good pneumoperitoneum was achieved to 15 mmHg pressure. The patient was placed in head up and rolled to the left position. A 11mm subxiphoid and two 5mm lateral ports were placed in the normal fashion. The gallbladder was identified and was acutely inflamed. An aspirator was then used to aspirate the gallbladder. This then facilitated grasping the the fundus of the gallbladder which was retracted superiorly. There was significant inflammation and a right hepatic artery high in the triangle with a short cystic artery. The neck of the gallbladder was grasped and then retracted laterally. This splayed open the Hepatocystic triangle. Attention was then turned to taking down the peritoneal attachments and identify the cystic duct and cystic artery. Once these were skeletonized and a medial and lateral window was created between the gallbladder fossa and the duct, thereby ensuring the critical view. Then three clips were then placed distally on cystic duct one proximally on the cystic duct, it was then transected. Two clips were then placed approximately on the cystic artery one distally, the cystic artery was transected. There was some bleeding from the right hepatic artery which was controlled with a tangential clip on the artery. An electrocautery hook was then used to move the gallbladder off the gallbladder fossa. There was some bile spillage but no stones were spilled. The gallbladder was then placed into an Endobag and brought out through the supraumbilical incision. The pneumoperitoneum was re-established and abdomen was irrigated out until the suction fluid was clear. There were some areas on the gallbladder fossa which were raw which were cauterized and then a Surgicel was used to cover the gallbladder fossa. The ports were then removed and the abdomen decompressed. The fascia of the supraumbilical incision was closed with Vicryls. 0.5% Marcaine with epinephrine local was to create a local field block. Interrupted Vicryl was used to close the skin. Dermabond was used to reinforce the incisions. Sterile dressings were applied. Patient tolerated the procedure without complication and sent to the postop recovery period of observation. They will then be sent to the floor for the rest of their care. Angelina Lobo PA-C was present and participated in the entire procedure. She was integral in skin closure, retraction, and camera manipulation. There was no qualified resident available to assist. I attest to the content of the Intraoperative Record and any orders documented therein. Any exceptions are noted below.
[2024-06-28] MEDS: ONDANSETRON INJ 2 MG/ML 2 ML VIAL IV PRN (10:45)
[2024-06-28] MEDS: PROMETHAZINE HCL 6.25 MG in SODIUM CHLORIDE 0.9% 50 ML IV PRN (11:03)
[2024-06-28] MEDS: SODIUM CHLORIDE 0.9% 50 ML BAG ONE (11:14)
[2024-06-28] MEDS: PROMETHAZINE HCL INJ 25 MG/ML 1 ML VIAL ONE (11:14)
[2024-06-28] MEDS: DROPERIDOL 5 MG/2 ML VIAL IV STA (11:43)
[2024-06-28] MEDS: DROPERIDOL 5 MG/2 ML VIAL ONE (11:43)
--- NOTE | 2024-06-28 12:12 | Anesthesiology Progress Note ---
Date of Service June 28, 2024 Anesthesia Post Procedure Vital Signs Vital Signs: Temp Pulse Pulse Pulse Resp BP BP 06/28/24 12:10 99 H 24 161/88 H 06/28/24 12:00 36.5 C 86 22 166/84 H 06/28/24 11:50 83 24 154/88 H 06/28/24 11:40 90 22 167/90 H 06/28/24 11:30 89 22 169/83 H 06/28/24 11:20 82 22 148/77 H 06/28/24 11:10 88 24 151/89 H 06/28/24 11:00 87 20 129/83 06/28/24 10:50 85 22 144/82 H 06/28/24 10:40 85 22 158/80 H 06/28/24 10:31 36.7 C 91 H 12 145/89 H 06/28/24 08:27 36.6 C 69 20 148/94 H 06/28/24 07:24 36.4 C L 79 20 154/82 H 06/28/24 03:07 36.5 C 68 17 148/75 H 06/27/24 23:10 06/27/24 23:04 36.7 C 88 18 122/65 06/27/24 22:15 49 L 06/27/24 19:18 36.6 C 66 16 104/59 L 06/27/24 15:47 36.6 C 49 L 18 121/76 06/27/24 13:00 49 L Pulse Ox O2 Del Method O2 Flow Rate 06/28/24 12:10 100 Nasal Cannula 2 06/28/24 12:00 98 Nasal Cannula 2 06/28/24 11:50 96 Nasal Cannula 2 06/28/24 11:40 95 Nasal Cannula 2 06/28/24 11:30 96 Nasal Cannula 2 06/28/24 11:20 95 Nasal Cannula 2 06/28/24 11:10 94 Nasal Cannula 2 06/28/24 11:00 95 Room Air 06/28/24 10:50 96 Room Air 06/28/24 10:40 97 Oxymask 9 06/28/24 10:31 98 Oxymask 9 06/28/24 08:27 96 Room Air 06/28/24 07:24 97 Room Air 06/28/24 03:07 95 Room Air 04/09/25 23:10 Room Air 06/27/24 23:04 97 Room Air 06/27/24 22:15 06/27/24 19:18 96 Room Air 06/27/24 15:47 92 Room Air 06/27/24 13:00 Pain Intensity Right Lower Abdomen: Pain Intensity: 4 Transfer of Care Handoff Completed per policy Notes Mental Status: alert / awake / arousable Patient Amnestic to Procedure: Yes Nausea / Vomiting: adequately controlled Pain: adequately controlled Airway Patency, RR, SpO2: stable & adequate BP & HR: stable & adequate Hydration State: stable & adequate Anesthetic Complications: no major complications apparent
[2024-06-28] MEDS ORDERED: MoRPHine SULFATE 2 MG/ML CARP IV PRN (12:24)
[2024-06-28] MEDS: MoRPHine SULFATE 2 MG/ML CARP IV PRN (13:15)
[2024-06-28] MEDS: PROMETHAZINE 6.25 MG/50.25 ML BAG IV STA (13:50)
[2024-06-28] MEDS ORDERED: Nursing to Pharmacy Communication SCH (14:15)
--- NOTE | 2024-06-28 14:39 | Hospitalist Progress Note ---
Date of Service June 28, 2024 Assessment & Plan (1) Acute cholecystitis: Plan: -positive HIDA scan for cystic duct dilation and blockage -now POD 0 after lap addi, no immediate post op complications Plan: -appreciate surgical assistance with case -continue IV abx for 24 hours post procedure, likely stop after -incentive spirometer, trend Hgb and creatinine (2) Atrial fibrillation with rapid ventricular response: Plan: -rate controlled at this time -on warfarin at home in setting of Factor V leiden, TAVR, and atrial fibrillation Plan: -will restart heparin when safe to post operatively -restart aspirin when safe to post operatively -will need bridging with heparin to warfarin given high risk for clot, can use lovenox if needed after discharge, discussed with family (3) CHAVA (acute kidney injury): Plan: -resolved (4) Factor V Leiden: Plan: -see above (5) Hypertension: Plan: -continue home meds (6) Anticoagulated on Coumadin: Plan: -noted -on heparin, stop before procedure (7) CAD (coronary artery disease): Plan: -noted (8) Aortic stenosis: Plan: -s/p TAVR Plan I spent a total of 40 minutes in direct patient care, including [id number] time with the patient and/or family, reviewing medical records, ordering and reviewing diagnostic tests, and coordinating care with other healthcare providers. This time includes: history taking, physical examination, medical decision making, counseling, ECG interpretation, imaging interpretation, lab interpretation, orders, and education, excluding time spent in the performance of separately billed services. Admission and Anticipated Discharge Date Admission Date: June 25, 2024 Subjective Patient in procedure this morning. Review of Systems Review of Systems: -in OR this morning Physical Exam Physical Exam: -in OR this morning Results & Data Results & Data Vital Signs (Past 12 Hours) Vital Signs Temp Pulse Pulse Pulse Resp BP BP 06/28/24 14:14 06/28/24 14:12 36.6 C 89 20 167/73 H 06/28/24 13:03 36.6 C 92 H 20 145/78 H 06/28/24 12:36 94 H 06/28/24 12:31 36.6 C 82 18 145/78 H 06/28/24 12:10 99 H 24 161/88 H 06/28/24 12:00 36.5 C 86 22 166/84 H 06/28/24 11:50 83 24 154/88 H 06/28/24 11:40 90 22 167/90 H 06/28/24 11:30 89 22 169/83 H 06/28/24 11:20 82 22 148/77 H 06/28/24 11:10 88 24 151/89 H 06/28/24 11:00 87 20 129/83 06/28/24 10:50 85 22 144/82 H 06/28/24 10:40 85 22 158/80 H 06/28/24 10:31 36.7 C 91 H 12 145/89 H 06/28/24 08:27 36.6 C 69 20 148/94 H 06/28/24 07:24 36.4 C L 79 20 154/82 H 06/28/24 03:07 36.5 C 68 17 148/75 H Pulse Ox O2 Del Method O2 Flow Rate 06/28/24 14:14 95 Room Air 06/28/24 14:12 100 Nasal Cannula 2 06/28/24 13:03 95 Nasal Cannula 2 06/28/24 12:36 06/28/24 12:31 97 Nasal Cannula 2 06/28/24 12:10 100 Nasal Cannula 2 06/28/24 12:00 98 Nasal Cannula 2 06/28/24 11:50 96 Nasal Cannula 2 06/28/24 11:40 95 Nasal Cannula 2 06/28/24 11:30 96 Nasal Cannula 2 06/28/24 11:20 95 Nasal Cannula 2 06/28/24 11:10 94 Nasal Cannula 2 06/28/24 11:00 95 Room Air 06/28/24 10:50 96 Room Air 06/28/24 10:40 97 Oxymask 9 06/28/24 10:31 98 Oxymask 9 06/28/24 08:27 96 Room Air 06/28/24 07:24 97 Room Air 06/28/24 03:07 95 Room Air Laboratory Results -personally reviewed, INR 1.8 subtherapeutic, creatinine and Hgb at baseline Medications Administered Acetaminophen (Acetaminophen 325 Mg Tab) 650 mg PO Q4H PRN PRN Reason: pain/fever Stop: 07/25/24 18:19 Last Admin: 06/27/24 21:06 Dose: 650 mg Documented By: MCS Diltiazem HCl (Diltiazem Hcl 300 Mg Capcr) 300 mg PO DAILY [facility] Stop: 07/26/24 08:59 Last Admin: 06/28/24 14:05 Dose: Not Given Documented By: Admin: 06/27/24 08:51 Dose: 300 mg Documented By: Admin: 06/26/24 10:10 Dose: 300 mg Documented By: AMS Folic Acid (Folic Acid 1 Mg Tab) 1 mg PO QAM [facility] Stop: 07/26/24 08:59 Last Admin: 06/28/24 14:05 Dose: Not Given Documented By: Admin: 06/27/24 08:52 Dose: 1 mg Documented By: Admin: 06/26/24 10:11 Dose: 1 mg Documented By: ROSEY Piperacillin Sod/Tazobactam Sod (Zosyn) 4.5 gm in 100 mls @ 25 mls/hr IV Q8H [facility]; Protocol Stop: 07/05/24 18:19 Last Admin: 06/28/24 14:07 Dose: 25 mls/hr Documented By: Infusion: 06/28/24 06:43 Dose: Infused Documented By: Admin: 06/28/24 02:38 Dose: 25 mls/hr Documented By: Infusion: 06/27/24 22:07 Dose: Infused Documented By: Admin: 06/27/24 17:59 Dose: 25 mls/hr Documented By: Infusion: 06/27/24 14:55 Dose: Infused Documented By: Admin: 06/27/24 10:49 Dose: 25 mls/hr Documented By: Infusion: 06/27/24 05:31 Dose: Infused Documented By: Admin: 06/27/24 02:04 Dose: 25 mls/hr Documented By: Infusion: 06/26/24 21:41 Dose: Infused Documented By: Admin: 06/26/24 17:25 Dose: 25 mls/hr Documented By: Infusion: 06/26/24 14:12 Dose: Infused Documented By: Admin: 06/26/24 10:18 Dose: 25 mls/hr Documented By: Infusion: 06/26/24 06:39 Dose: Infused Documented By: Admin: 06/26/24 02:48 Dose: 25 mls/hr Documented By: Infusion: 06/26/24 00:30 Dose: Infused Documented By: Admin: 06/25/24 20:30 Dose: 25 mls/hr Documented By: RONNY Cefazolin Sodium (Ancef 2000mg) 2,000 mg in 15 mls @ 3.75 mls/min IV PREOP [facility]; Protocol Stop: 06/28/24 18:00 Last Admin: 06/28/24 08:59 Dose: 3.75 mls/min Documented By: MYRIAM Lactated Ringer's (Lr) 1,000 mls @ 15 mls/hr IV .Q24H [facility] Stop: 06/29/24 08:14 Last Infusion: 06/28/24 13:50 Dose: Infused Documented By: Admin: 06/28/24 08:23 Dose: 15 mls/hr Documented By: EULOGIO Promethazine HCl 6.25 mg/ (Sodium Chloride) 50.25 mls @ 204 mls/hr IV ONCE PRN PRN Reason: PACU Use Only-Nausea/Vomiting Stop: 06/28/24 16:50 Last Infusion: 06/28/24 11:39 Dose: Infused Documented By: Admin: 06/28/24 11:24 Dose: 204 mls/hr Documented By: Infusion: 06/28/24 11:18 Dose: Infused Documented By: Admin: 06/28/24 11:03 Dose: 204 mls/hr Documented By: ARMANDO Metoprolol Succinate (Metoprolol Succ 50mg Ext Rel Tab) 50 mg PO HS [facility] Stop: 07/25/24 20:59 Last Admin: 06/27/24 22:03 Dose: 50 mg Documented By: [facility] Admin: 06/26/24 20:22 Dose: 50 mg Documented By: [facility] Admin: 06/25/24 20:39 Dose: 50 mg Documented By: RONNY Morphine Sulfate (Morphine Sulfate 2 Mg/Ml Carp) 1 mg IV Q3H PRN PRN Reason: Pain (1,2,3,4,5) & Pre PT Stop: 07/12/24 12:23 Last Admin: 06/28/24 13:15 Dose: 1 mg Documented By: WILDER Ondansetron HCl (Ondansetron Inj 2 Mg/Ml 2 Ml Vial) 4 mg IV ONCE PRN PRN Reason: PACU Use Only-Nausea/Vomiting Stop: 06/28/24 16:50 Last Admin: 06/28/24 10:45 Dose: 4 mg Documented By: ARMANDO Oxycodone HCl (Oxycodone Hcl Ir 5 Mg Tab (Immediate Release)) 5 mg PO Q4H PRN PRN Reason: Moderate Pain (Scale 4, 5, 6) Stop: 07/10/24 12:24 Last Admin: 06/26/24 12:45 Dose: 5 mg Documented By: ROSEY Pantoprazole Sodium (Pantoprazole 40 Mg Tab) 40 mg PO [facility] Stop: 07/26/24 08:59 Last Admin: 06/28/24 14:05 Dose: Not Given Documented By: Admin: 06/27/24 08:52 Dose: 40 mg Documented By: Admin: 06/26/24 10:11 Dose: 40 mg Documented By: ROSEY Pravastatin Sodium (Pravastatin Sod 10 Mg Tab) 10 mg PO DAILY [facility] Stop: 07/26/24 08:59 Last Admin: 06/28/24 14:05 Dose: Not Given Documented By: Admin: 06/27/24 08:52 Dose: 10 mg Documented By: Admin: 06/26/24 10:10 Dose: 10 mg Documented By: ROSEY Sertraline HCl (Sertraline Hcl 100 Mg Tablet) 100 mg PO Q24H [facility] Stop: 07/25/24 18:19 Last Admin: 06/27/24 18:04 Dose: 100 mg Documented By: Admin: 06/26/24 17:26 Dose: 100 mg Documented By: Admin: 06/25/24 20:39 Dose: 100 mg Documented By: RONNY
[2024-06-28] MEDS ORDERED: PHA DELIRIUM CONSULT PRN (20:17)
--- NOTE | 2024-06-28 21:34 | Electrocardiogram Report ---
Test Reason : Blood Pressure : */* mmHG Vent. Rate : 89 BPM Atrial Rate : 75 BPM P-R Int : * ms QRS Dur : 98 ms QT Int : 388 ms P-R-T Axes : * -35 13 degrees QTcB Int : 472 ms Atrial fibrillation Left axis deviation Minimal voltage criteria for LVH, may be normal variant Poor R wave progression, consider anterior [place] vs. lead placement vs. LVH Abnormal ECG When compared with ECG of 25-Jun-2024 10:43, No significant change was found Confirmed by Popeye Chatman ([id number]) on 06/28/2024 9:34:45 PM Referred By: REFERRED SELF Confirmed By: Popeye Chatman
[2024-06-29 07:53] LABS: Hematocrit (blood only) 38.8 % (42.0-52.0); Hemoglobin 13.2 g/dl (14.0-18.0); Mean Corpuscular Hemoglobin 31.2 pg (25.0-34.0); Mean Corpuscular Volume 91.7 fL (80.0-100.0); Platelet Count 232 K/uL (130-400); RDW Coefficient of Variation 12.8 % (11.5-14.5); RDW Standard Deviation 43.1 fL (36.4-46.3); Red Blood Count 4.23 M/uL (4.70-6.10); White Blood Count 10.87 K/ul (4.8-10.8)
[2024-06-29] MEDS ORDERED: Heparin IV Adult Wt-Based Low-Dose w/ INITIAL Bolus Protocol IV SCH (08:00)
[2024-06-29 08:13] LABS: Calcium 8.7 mg/dl (8.6-10.3); Creatinine Clr Calc Pharmacy 55.3 ml/min; Potassium 4.3 mmol/L (3.5-5.1)
[2024-06-29] MEDS: HEPARIN 25000 UNIT/500 ML D5W 25,000 UNITS/500 ML BAG IV SCH (09:26)
[2024-06-29] MEDS: HEPARIN SOD (PORCINE) 1000 UNIT/ML IV ONE (09:27)
--- NOTE | 2024-06-29 09:56 | Electrocardiogram Report ---
Test Reason : Blood Pressure : */* mmHG Vent. Rate : 85 BPM Atrial Rate : 375 BPM P-R Int : * ms QRS Dur : 100 ms QT Int : 390 ms P-R-T Axes : * -31 15 degrees QTcB Int : 464 ms Atrial fibrillation Left axis deviation Minimal voltage criteria for LVH, may be normal variant Abnormal ECG When compared with ECG of 28-Jun-2024 13:02, No significant change was found Confirmed by Popeye Chatman ([id number]) on 06/29/2024 9:56:24 AM Referred By: REFERRED SELF Confirmed By: Popeye Chatman
--- NOTE | 2024-06-29 13:34 | Surgery Progress Note ---
Date of Service June 29, 2024 Assessment & Plan (1) Acute cholecystitis: Plan: POD # 1 s/p lap addi avss postop pain controlled mild leukocytosis likely reactive Plan: Advance diet as tolerated continue Heparin Continue medical management can resume coumadin [place] surgery covering the weekend Discussed with Dr. Blank who agrees with above Admission and Anticipated Discharge Date Admission Date: June 25, 2024 Subjective feeling okay some pain in the RUQ no n,v tolerated diet this am able to urinate on his own no fevers or chills very tired Physical Exam Constitutional: WD/WN, vitals as above cooperative and comfortable; no acute distress and not ill appearing Respiratory: normal respiratory effort; no respiratory distress Gastrointestinal (Abdomen): Inspection/Auscultation: abdomen normal to inspection and + abdominal surgical incision (c/d/i with dermabond); abdomen not distended Percussion/Palpation: + abdomen tender (RUQ and at incision sites) and abdomen soft; no guarding and abdomen not rigid Skin: no rashes, warm and dry no jaundice Psychiatric: A+Ox3, euthymic affect Results & Data Vital Signs (Past 12 Hours) Vital Signs Temp Pulse Pulse Resp BP BP Pulse Ox 06/29/24 10:54 36.5 C 88 20 107/71 94 06/29/24 07:46 36.7 C 87 18 160/85 H 94 06/29/24 07:34 06/29/24 05:49 81 06/29/24 03:57 36.5 C 90 20 158/96 H 93 O2 Del Method O2 Flow Rate 06/29/24 10:54 Room Air 06/29/24 07:46 Room Air 06/29/24 07:34 Room Air 06/29/24 05:49 06/29/24 03:57 Nasal Cannula 2 Laboratory Results 06/29/24 Range/Units 07:34 WBC 10.87 H (4.8-10.8) K/ul RBC 4.23 L (4.70-6.10) M/uL Hgb 13.2 L (14.0-18.0) g/dl Hct 38.8 L (42.0-52.0) % MCV 91.7 (80.0-100.0) fL MCH 31.2 (25.0-34.0) pg MCHC 34.0 (32.0-36.0) g/dL RDW Std Deviation 43.1 (36.4-46.3) fL RDW Coeff of Ryan 12.8 (11.5-14.5) % Plt Count 232 (130-400) K/uL MPV 9.0 L (9.4-12.4) fL Sodium 137 (136-145) mmol/L Potassium 4.3 (3.5-5.1) mmol/L Chloride 102 (98-107) mmol/L Carbon Dioxide 31 (21-32) mmol/L Anion Gap 4 (3-11) BUN 12 (6-23) mg/dl Creatinine 1.20 (0.6-1.4) mg/dl Est Cr Clr Drug Dosing 55.3 ml/min eGFR 60.38 BUN/Creatinine Ratio 10.0 (10-20) Glucose 115 H (70-99(Fasting)) mg/dl Calcium 8.7 (8.6-10.3) mg/dl
[2024-06-29] MEDS: WARFARIN SOD 4 MG TAB PO SCH (15:11)
--- NOTE | 2024-06-29 15:12 | Hospitalist Progress Note ---
Date of Service June 29, 2024 Assessment & Plan (1) Acute cholecystitis: Plan: -positive HIDA scan for cystic duct dilation and blockage -now POD 1 after lap addi, no immediate post op complications Plan: -appreciate surgical assistance with case -stop antibioitics -incentive spirometer, trend Hgb and creatinine -PT/OT ordered -progress diet, tolerated full liquid well (2) Atrial fibrillation with rapid ventricular response: Plan: -rate controlled at this time -on warfarin at home in setting of Factor V leiden, TAVR, and atrial fibrillation Plan: -start heparin -start aspirin tomorrow morning -will need bridging with heparin to warfarin given high risk for clot, can use lovenox if needed after discharge, discussed with family (3) CHAVA (acute kidney injury): Plan: -resolved (4) Factor V Leiden: Plan: -see above (5) Hypertension: Plan: -continue home meds (6) Anticoagulated on Coumadin: Plan: -noted -on heparin, stop before procedure (7) CAD (coronary artery disease): Plan: -noted (8) Aortic stenosis: Plan: -s/p TAVR Plan I spent a total of 50 minutes in direct patient care, including [id number] time with the patient and/or family, reviewing medical records, ordering and reviewing diagnostic tests, and coordinating care with other healthcare providers. This time includes: history taking, physical examination, medical decision making, counseling, ECG interpretation, imaging interpretation, lab interpretation, orders, and education, excluding time spent in the performance of separately billed services. Admission and Anticipated Discharge Date Admission Date: June 25, 2024 Subjective Patient seen and examined at bedside. Patient doing ok today. States he is tired. However, feels ok overall. Does have some surgical pain. Review of Systems Review of Systems: CONSTITUTIONAL: fatigued EYES: Patient denies any visual symptoms. EARS, NOSE, AND THROAT: No difficulties with hearing. No symptoms of rhinitis or sore throat. CARDIOVASCULAR: Patient denies chest pains, palpitations, orthopnea and paroxysmal nocturnal dyspnea. RESPIRATORY: No dyspnea on exertion, no wheezing or cough. GI: post surgical pain : No urinary hesitancy or dribbling. No nocturia or urinary frequency. No abnormal urethral discharge. MUSCULOSKELETAL: No myalgias or arthralgias. NEUROLOGIC: No chronic headaches, no seizures. Patient denies numbness, tingling or weakness. PSYCHIATRIC: Patient denies problems with mood disturbance. No problems with anxiety. ENDOCRINE: No excessive urination or excessive thirst. DERMATOLOGIC: Patient denies any rashes or skin changes. Physical Exam Physical Exam: Gen: A&O 3 NAD HEENT: NCAT, EOMI, not icteric. External ears normal. No rhinorrhea. Moist mucous membranes. Neck: Supple, full range of motion, no observable masses, No meningeal sign. Lungs: No Respiratory distress. CV: RRR, no edema. Abdomen: mild RUQ pain MSK: No joint swelling, no redness. Skin: No rashes, petechiae, lesions. Normal color per patient. Neuro: Normal Gait, Grossly intact. appears tired Psych: Appropriate for situation. Results & Data Results & Data Vital Signs (Past 12 Hours) Vital Signs Temp Pulse Pulse Resp BP BP Pulse Ox 06/29/24 13:01 60 06/29/24 10:54 36.5 C 88 20 107/71 94 06/29/24 07:46 36.7 C 87 18 160/85 H 94 06/29/24 07:34 06/29/24 05:49 81 06/29/24 03:57 36.5 C 90 20 158/96 H 93 O2 Del Method O2 Flow Rate 06/29/24 13:01 06/29/24 10:54 Room Air 06/29/24 07:46 Room Air 06/29/24 07:34 Room Air 06/29/24 05:49 06/29/24 03:57 Nasal Cannula 2 Laboratory Results -personally reviewed, mild leukocytosis is likely reactive Medications Administered Acetaminophen (Acetaminophen 325 Mg Tab) 650 mg PO Q4H PRN PRN Reason: pain/fever Stop: 07/25/24 18:19 Last Admin: 06/29/24 14:16 Dose: 650 mg Documented By: Admin: 06/29/24 08:43 Dose: 650 mg Documented By: Admin: 06/27/24 21:06 Dose: 650 mg Documented By: DARLENE Diltiazem HCl (Diltiazem Hcl 300 Mg Capcr) 300 mg PO DAILY [facility] Stop: 07/26/24 08:59 Last Admin: 06/29/24 08:42 Dose: 300 mg Documented By: Admin: 06/28/24 14:05 Dose: Not Given Documented By: AEAbhijit Admin: 06/27/24 08:51 Dose: 300 mg Documented By: AEAbhijit Admin: 06/26/24 10:10 Dose: 300 mg Documented By: ROSEY Folic Acid (Folic Acid 1 Mg Tab) [facility] Stop: 07/26/24 08:59 Last Admin: 06/29/24 08:42 Dose: 1 mg Documented By: Admin: 06/28/24 14:05 Dose: Not Given Documented By: AEAbhijit Admin: 06/27/24 08:52 Dose: 1 mg Documented By: AEAbhijit Admin: 06/26/24 10:11 Dose: 1 mg Documented By: ROSEY Heparin Sodium/Dextrose (Heparin 28647 Unit/500 Ml D5w) 25,000 units in 500 mls @ 20 mls/hr IV .Q24H [facility]; Protocol Stop: 07/29/24 09:14 Last Admin: 06/29/24 09:26 Dose: 1,000 units/hr, 20 mls/hr Documented By: DORENE Co-signed By: QUEENIE Metoprolol Succinate (Metoprolol Succ 50mg Ext Rel Tab) 50 mg PO [facility] Stop: 07/25/24 20:59 Last Admin: 06/28/24 21:19 Dose: 50 mg Documented By: Admin: 06/27/24 22:03 Dose: 50 mg Documented By: Admin: 06/26/24 20:22 Dose: 50 mg Documented By: Admin: 06/25/24 20:39 Dose: 50 mg Documented By: RONNY Morphine Sulfate (Morphine Sulfate 2 Mg/Ml Carp) 1 mg IV Q3H PRN PRN Reason: Pain (1,2,3,4,5) & Pre PT Stop: 07/12/24 12:23 Last Admin: 06/28/24 13:15 Dose: 1 mg Documented By: AEAbhijit Oxycodone HCl (Oxycodone Hcl Ir 5 Mg Tab (Immediate Release)) 5 mg PO Q4H PRN PRN Reason: Moderate Pain (Scale 4, 5, 6) Stop: 07/10/24 12:24 Last Admin: 06/26/24 12:45 Dose: 5 mg Documented By: ROSEY Pantoprazole Sodium (Pantoprazole 40 Mg Tab) [facility] Stop: 07/26/24 08:59 Last Admin: 06/29/24 08:43 Dose: 40 mg Documented By: Admin: 06/28/24 14:05 Dose: Not Given Documented By: Admin: 06/27/24 08:52 Dose: 40 mg Documented By: Admin: 06/26/24 10:11 Dose: 40 mg Documented By: ROSEY Pravastatin Sodium (Pravastatin Sod 10 Mg Tab) 10 mg PO DAILY [facility] Stop: 07/26/24 08:59 Last Admin: 06/29/24 08:42 Dose: 10 mg Documented By: Admin: 06/28/24 14:05 Dose: Not Given Documented By: Admin: 06/27/24 08:52 Dose: 10 mg Documented By: Admin: 06/26/24 10:10 Dose: 10 mg Documented By: ROSEY Sertraline HCl (Sertraline Hcl 100 Mg Tablet) 100 mg PO Q24H [facility] Stop: 07/25/24 18:19 Last Admin: 06/28/24 18:06 Dose: 100 mg Documented By: Admin: 06/27/24 18:04 Dose: 100 mg Documented By: Admin: 06/26/24 17:26 Dose: 100 mg Documented By: Admin: 06/25/24 20:39 Dose: 100 mg Documented By: RONNY
[2024-06-29] MEDS ORDERED: MoRPHine SULFATE 2 MG/ML CARP IV PRN (15:56)
[2024-06-29] MEDS: ACETAMINOPHEN 1,000 MG/100 ML VIAL IV PRN (16:05)
[2024-06-29 16:10] LABS: ANTI-Xa, UFH(UnfractionatedHep 0.26 IU/ml (0.3-0.7)
[2024-06-29] MEDS: LACTATED RINGER'S 1,000 ML IV SCH (17:29)
[2024-06-30 00:31] LABS: ANTI-Xa, UFH(UnfractionatedHep 0.21 IU/ml (0.3-0.7)
[2024-06-30] MEDS: oxyCODONE HCL IR 5 MG TAB (IMMEDIATE RELEASE) PO PRN (01:15)
[2024-06-30 07:20] LABS: Hematocrit (blood only) 38.4 % (42.0-52.0); Hemoglobin 13.2 g/dl (14.0-18.0); Mean Corpuscular Hemoglobin 31.5 pg (25.0-34.0); Mean Corpuscular Hgb Conc 34.4 g/dL (32.0-36.0); Mean Corpuscular Volume 91.6 fL (80.0-100.0); Mean Platelet Volume 9.1 fL (9.4-12.4); Platelet Count 252 K/uL (130-400); RDW Standard Deviation 43.6 fL (36.4-46.3); Red Blood Count 4.19 M/uL (4.70-6.10); White Blood Count 9.86 K/ul (4.8-10.8)
[2024-06-30 07:38] LABS: BUN Creatinine Ratio 12.6 (10-20); Calcium 8.6 mg/dl (8.6-10.3); Creatinine Clr Calc Pharmacy 60.1 ml/min; Potassium 3.9 mmol/L (3.5-5.1)
[2024-06-30 07:46] LABS: ANTI-Xa, UFH(UnfractionatedHep 0.26 IU/ml (0.3-0.7); INR 3.1 (0.9-1.1); Prothrombin Time 30.3 Seconds (9.0-12.0)
[2024-06-30 08:13] VITALS: RESP 16
[2024-06-30] MEDS: ASPIRIN 81 MG ECTAB PO SCH (08:14)
--- NOTE | 2024-06-30 10:30 | Surgery Progress Note ---
<Statement entered by Haydee Guevara DO - 06/30/24 10:52> I have seen and examined this patient this am with the surgical [employer] and I agree with this plan Date of Service June 30, 2024 Assessment & Plan (1) RUQ abdominal pain: Plan: POD [address] Blank Pt tolerating diet denies n/v VSS , wbc wnl , h/h stable , was restarted on blood thinners port sites CDI no s/s infection noted pt stable for d/c from a general surgical standpoint our service will sign off at this time , call with questions/concerns pt to f/u Dr Blank o/p Admission and Anticipated Discharge Date Admission Date: June 25, 2024 Subjective pt denies n/v , f/c , abd pain Review of Systems Constitutional: no fever and no chills Respiratory: no dyspnea Cardiovascular: no chest pain Gastrointestinal: no abdominal pain, no nausea and no vomiting Physical Exam Constitutional: well groomed and comfortable; no acute distress Respiratory: normal respiratory effort; no respiratory distress Gastrointestinal (Abdomen): Inspection/Auscultation: + abdominal surgical incision (CDI dermabond ) Percussion/Palpation: + abdomen tender and abdomen soft Results & Data Vital Signs (Past 12 Hours) Vital Signs Temp Pulse Pulse Pulse Resp BP Pulse Ox 06/30/24 08:10 97.7 F 77 16 143/83 H 94 06/30/24 07:19 06/30/24 05:45 82 06/30/24 03:27 98.1 F 83 20 146/76 H 94 06/29/24 23:04 97.5 F L 68 18 136/69 95 O2 Del Method 06/30/24 08:10 Room Air 06/30/24 07:19 Room Air 06/30/24 05:45 06/30/24 03:27 Room Air 06/29/24 23:04 Room Air Results CBC w Diff Results: RBC 4.19 M/uL (4.70-6.10) L 06/30/24 WBC 9.86 K/ul (4.8-10.8) 06/30/24 Hgb 13.2 g/dl (14.0-18.0) L 06/30/24 Hct 38.4 % (42.0-52.0) L 06/30/24 MCV 91.6 fL (80.0-100.0) 06/30/24 MCH 31.5 pg (25.0-34.0) 06/30/24 MCHC 34.4 g/dL (32.0-36.0) 06/30/24 RDW Standard Deviation 43.6 fL (36.4-46.3) 06/30/24 RDW Coefficient of Variation 13.0 % (11.5-14.5) 06/30/24 Plt Count 252 K/uL (130-400) 06/30/24 MPV 9.1 fL (9.4-12.4) L 06/30/24 Neutrophils (%) (Auto) 80.4 % 06/25/24 Lymphocytes (%) (Auto) 9.1 % 06/25/24 Monocytes # (Auto) 0.78 K/uL (0.11-0.59) H 06/25/24 Eosinophils # (Auto) 0.02 K/uL (0.00-0.50) 06/25/24 Immature Granulocyte % (Auto) 0.6 % 06/25/24 Neutrophils # (Auto) 6.84 K/uL (1.40-6.50) H 06/25/24 Lymphocytes # (Auto) 0.77 K/uL (1.20-3.40) L 06/25/24 Monocytes # (Auto) 0.78 K/uL (0.11-0.59) H 06/25/24 Eosinophils # (Auto) 0.02 K/uL (0.00-0.50) 06/25/24 Basophils # (Auto) 0.04 K/uL (0.00-0.20) 06/25/24 Immature Granulocyte # (Auto) 0.05 K/uL (0.01-0.20) 5 PG Care Time/CCT Total # of Minutes Spent Total Time Spent with Patient: Total time spent is greater than 50% in coordination of care (as documented) at patient's floor/unit and/or counseling patient: Coding Level of Care Code 09313 SUB INP/OBS CARE 125MIN Diagnoses RUQ abdominal pain R10.11
[2024-06-30 11:17] LABS: Bilirubin Direct 0.7 mg/dl (0-0.2); Bilirubin,Total 1.7 mg/dl (0.2-1.0); Total Protein 6.5 gm/dl (6.0-8.3)
[2024-06-30 11:44] VITALS: TEMP 97.4; O2SAT 97
--- NOTE | 2024-06-30 16:10 | Discharge Summary ---
Discharge Summary Date of Service June 30, 2024 Principal Dx & Hospital Course #1 = Principal Diagnosis (1) Acute cholecystitis: -positive HIDA scan for cystic duct dilation and blockage -now POD 2 after lap addi, no post op complications Plan: -appreciate surgical assistance with case -incentive spirometer, trend Hgb and creatinine -tolerating solids, per surgery medically stable for discharge with f/u labs outpatient (2) Atrial fibrillation with rapid ventricular response: -rate controlled at this time -on warfarin at home in setting of Factor V leiden, TAVR, and atrial fibrillation Plan: -at goal INR, can f/u with INR checks outpatient -f/u CMP outpatient (3) CHAVA (acute kidney injury): -resolved (4) Factor V Leiden: -see above (5) Hypertension: -continue home meds (6) Anticoagulated on Coumadin: -noted -on heparin, stop before procedure (7) CAD (coronary artery disease): -noted (8) Aortic stenosis: -s/p TAVR Notes For Next Care Provider 83 year old male presenting to the emergency room with complaints of increased falls and as per patient's son "not seeming right". Also found to have severe RUQ pain. 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 Noted to have acute cholecystitis. On medicine, cardiology consulted for cardiac risk optimization. Taken to OR on 06/28/2024 for lap addi, no immediate post op complications. Had BM, urinating without difficulty despite need for straight cath x1 post surgery. Discussed discharge plans with family. On 06/30/2024 patient medically and surgically stable for discharge home. Medication Changes From Visit -see below Admission HPI Per Admitting Provider 83 year old male presenting to the emergency room with complaints of increased falls and as per patient's son "not seeming right". Also found to have severe RUQ pain. Past medical and surgical history significant for CAD s/p angioplasty ad stenting LAD in 2018 and angioplasty and stent of OM3 in 2020, TAVR placed 09/2023 and experienced a post-operative retinal artery occlusion, HLD, Parox ysmal Afib and Flutter, s/p cardioversion 2012, moderate MR, PE and DVT x 2 with MTHFR mutation, Factor V Leiden. Patient is a poor historian of present illness with periods of confusion and uncertainty with reasons why he was taken to the emergency room. His son was at the bedside and assisted with obtaining a history. The son contacted his father this morning and reported his father did not seem right. The patient has been falling more frequently recently, but last Tuesday seemed fine and did not report any abdominal pain. The patient reports for the past several days, he has had RUQ pain, shortness of breath that he believes is from the RUQ pain, decreased appetite. He reports not taking any of his medications in the past 3 days. The son was not able to confirm recent medication adherence. The patient denies chest pain, N/V/D, urinary difficulty, recent illnesses, fevers, lower leg swelling. In the emergency room, the patient had severe RUQ tenderness with repositioning and deep breathing. He was hemodynamically stable with a stable pulse ox at 95% on room air. Heart rate high 90's- 110's. No apparent injuries from recent falls. No evidence of leukocystosis. CHAVA present, possibly due to decreased intake the past few days, Cr 1.49 (baseline 1.2), BUN 24. GFR 46. Urine Spec Grav elevated 1.045 with protein, ketones and urobili. Liver enzymes normal. History obtained from patient and family member report as well as external chart review. Discharge Exam Gen: A&O 3 NAD HEENT: NCAT, EOMI, not icteric. External ears normal. No rhinorrhea. Moist mucous membranes. Neck: Supple, full range of motion, no observable masses, No meningeal sign. Lungs: No Respiratory distress. CV: RRR, no edema. Abdomen: mild RUQ pain MSK: No joint swelling, no redness. Skin: No rashes, petechiae, lesions. Normal color per patient. Neuro: Normal Gait, Grossly intact. appears tired Psych: Appropriate for situation. Updated Medication List Medication Instructions Recorded Confirmed Type celecoxib 200 mg capsule (Celebrex) 200 mg PO QAM 08/07/18 06/25/24 History pantoprazole 40 mg tablet,delayed 40 mg PO QAM 12/21/18 06/25/24 History release (Protonix) melatonin 5 mg capsule 5 mg PO HS 01/14/21 06/25/24 History folic acid 1 mg tablet 1 mg PO QAM 09/18/21 06/25/24 History aspirin 81 mg tablet,delayed 81 mg PO QAM 05/18/22 06/25/24 History release (Adult Low Dose Aspirin) sertraline 50 mg tablet 100 mg PO Q24H 01/18/23 06/25/24 History furosemide 20 mg tablet (Lasix) 20 mg PO DAILY PRN Edema 02/01/23 06/25/24 History diltiazem HCl 300 mg capsule,24 300 mg PO DAILY 10/19/23 06/25/24 History hr,extended release acetaminophen 325 mg tablet 650 mg PO Q6H PRN pain 12/21/23 06/25/24 History amoxicillin 500 mg capsule 2,000 mg PO UD PRN prior to dental 12/21/23 06/25/24 History visits metoprolol succinate 25 mg 50 mg PO HS 12/21/23 06/25/24 History tablet,extended release 24 hr (Toprol XL) warfarin 4 mg tablet See Rx Instructions PO DAILY #80 04/02/24 06/25/24 Rx tabs pravastatin 10 mg tablet 10 mg PO DAILY 05/28/24 06/25/24 History oxycodone 5 mg tablet 2.5 mg (1/2 x 5 mg) PO Q3HWA PRN 06/30/24 Rx pain #20 tabs Hospital Stay Data Consultations 06/25/24 12:51 Consult General Surgery Routine 06/25/24 13:12 ED Decision to Admit Stat 06/25/24 18:20 Consult Cardiology Routine Procedures Performed Operation Date: 06/28/24 08:50 Actual Procedures p Laparoscopic Cholecystectomy(Not Applicable) - Luisito Blank MD Diagnostic Imagining Performed 06/25/24 10:35 CT abd pelvis IV con only Stat CT cervical spine wo con Stat CT chest diagnostic w con Stat CT head/brain wo con Stat CT lumbar spine w con Stat 06/25/24 12:44 US gallbladder Stat Pending Results Patient Have Any Pending Studies at Discharge: Yes (gallbladder pathology, will be reviewed at postop visit) Discharge Instructions Given to Patient (Per Discharging Provider) 1. Please follow post surgical instructions. 2. Please get blood work in a few days and follow up with general surgery, PCP. 3. Please keep an eye on making sure he is voiding at home. 4. Gradually increase diet. 5. Patient is at PT/INR goal, please follow up with coumadin clinic in regards to outpatient management. 6. Referrals were placed for physical therapy. Total Time Total Time Spent Total Time Spent (In Minutes): I spent a total of 35 minutes in direct patient care, including [id number] time with the patient and/or family, reviewing medical records, ordering and reviewing diagnostic tests, and coordinating care with other healthcare providers. This time includes: history taking, physical examination, medical decision making, counseling, ECG interpretation, imaging interpretation, lab interpretation, orders, and education, excluding time spent in the performance of separately billed services.
[2024-06-30 17:07] VITALS: BP 107/71; PULSE 72
== END 2024-06-30 18:02 | disposition home health service (06) | DRG 418 ==
LOC: ED 09:59 → SUATTDRO 14:04 → 2W 14:04

== ENCOUNTER 2024-07-06 10:50 | Inpatient (IN) ==
[2024-07-06 12:08] LABS: Basophils # (auto) 0.04 K/uL (0.00-0.20); Basophils % (auto) 0.2 %; Eosinophils # (auto) 0.04 K/uL (0.00-0.50); Eosinophils % (auto) 0.2 %; Hemoglobin 13.2 g/dl (14.0-18.0); Immature Granulocytes # (auto) 0.24 K/uL (0.01-0.20); Immature Granulocytes % (auto) 1.2 %; Lymphocytes # (auto) 0.87 K/uL (1.20-3.40); Lymphocytes % (auto) 4.5 %; Mean Corpuscular Hemoglobin 30.9 pg (25.0-34.0); Mean Corpuscular Hgb Conc 34.7 g/dL (32.0-36.0); Mean Platelet Volume 9.3 fL (9.4-12.4); Monocytes # (auto) 0.89 K/uL (0.11-0.59); Monocytes % (auto) 4.6 %; Neutrophils # (auto) 17.47 K/uL (1.40-6.50); Neutrophils % (auto) 89.3 %; Platelet Count 408 K/uL (130-400); RDW Coefficient of Variation 14.3 % (11.5-14.5); Red Blood Count 4.27 M/uL (4.70-6.10); White Blood Count 19.55 K/ul (4.8-10.8)
[2024-07-06 12:24] LABS: Alanine Aminotransferase 69 U/L (7-52); Albumin Globulin Ratio 0.7 (0.9-2); Albumin Level 2.8 gm/dl (3.4-5.0); Alkaline Phosphatase 195 U/L (34-104); Anion Gap 7 (3-11); Aspartate Aminotransferase 76 U/L (13-39); BUN Creatinine Ratio 21.3 (10-20); Bilirubin,Total 2.9 mg/dl (0.2-1.0); Blood Urea Nitrogen 30 mg/dl (6-23); Calcium 8.5 mg/dl (8.6-10.3); Carbon Dioxide 29 mmol/L (21-32); Chloride 98 mmol/L (98-107); Globulin 4.1 gm/dl (2.5-4.0); Glucose 99 mg/dl (70-99(Fasting)); Potassium 3.9 mmol/L (3.5-5.1); Sodium 134 mmol/L (136-145); Total Protein 6.9 gm/dl (6.0-8.3)
[2024-07-06 12:34] LABS: Partial Thromboplastin Ratio 2.5; Partial Thromboplastin Time 67 Seconds (21-31); Prothrombin Time 77.9 Seconds (9.0-12.0)
[2024-07-06] MEDS: OPTIRAY 320 100ml IV ONE (12:47)
--- NOTE | 2024-07-06 13:08 | CT Scan Report ---
ABDOMEN AND PELVIS CT WITH IV CONTRAST CT DOSE: 1684.75 mGy.cm HISTORY: high wbc, lfts, recent addi TECHNIQUE: Multiaxial CT images of the abdomen and pelvis were performed following the IV administrat ion of 90 cc of Optiray, A dose lowering technique was utilized adhering to the principles of ALARA. COMPARISON STUDY: 06/25/2024 FINDINGS: There is a small right pleural effusion with moderate adjacent consolidation at the right l jennifer base, atelectasis versus pneumonia. ABDOMEN: There is interval cholecystectomy. There is an 8 cm collection of fluid and gas at the gallb ladder fossa consistent with abscess. There is an interval subcapsular fluid collection at the dome o f the liver measuring 16 cm. Spleen, pancreas, and adrenal glands are unremarkable. The kidneys show no hydronephrosis. There are scattered atherosclerotic calcifications. No abdominal aortic aneurysm. Pelvis: There is trace ascites. There is sigmoid diverticulosis. No acute diverticulitis. There is mi ld retained stool. No bowel inflammation or obstruction. No free air. Prostate is enlarged mildly. Ur inary bladder is nondistended. Osseous structures: There is lumbar degenerative disc disease. No acute osseous findings. IMPRESSION: 1. Atelectasis versus pneumonia right lung base. 2. Abscess at the gallbladder fossa. Subcapsular fluid collection at the dome of the liver. 3. Otherwise as described. ACT 112: Negative or not required by law. The above report was generated using voice recognition software. It may contain grammatical, syntax o r spelling errors. Electronically signed by: Primitivo Dhaliwal M.D. 07/06/2024 1:07 PM
[2024-07-06 13:31] LABS: INR 8.7 (0.9-1.1)
--- NOTE | 2024-07-06 14:12 | Emergency Department Note ---
Impression & Plan Elevated INR (international normalized ratio) due to prior anticoagulant medication ingestion, Weakness, History of laparoscopic cholecystectomy ED Provider Note Provider: Tio Jackson MD CHIEF COMPLAINT: Fatigue, rising INR HISTORY OF PRESENT ILLNESS: Patient is a 83-year-old gentleman significant past medical history including TAVR, A-fib/a flutter, factor V Leiden history of VTE currently on warfarin status post cholecystectomy here 8 days ago presenting due to rising INR. Has been following outpatient setting after discharge INR elevated at 6.3 on Tuesday and he has not taken Coumadin since then. Having some generalized fatigue but no fevers. Significant improved abdominal flank back pain from prior to the surgery by their report. No new falls. No nausea or vomiting but again has not been eating real well. No bleeding noted anywhere but has some bruising in left upper arm from blood draws they think. PAST MEDICAL HISTORY: As noted above MEDICATIONS: Reviewed home medications SOCIAL HISTORY: Non-smoker PHYSICAL EXAM: GENERAL: alert and oriented in no acute distress on stretcher Head: normocephalic and atraumatic EYES: No injection, discharge or icterus. NECK: Trachea midline. ENT: Mucous membranes pink and moist. LUNGS: Airway patent. No retractions. Breath sounds clear with good air entry bilaterally. HEART: Irregular rate and rhythm. No chest wall tenderness ABDOMEN: Soft not singly tender without guarding noted. Healing port wounds. SKIN: Acyanotic, warm, dry, without rashes with note of some healing contusion left upper arm. EXTREMITIES: Without swelling, tenderness or deformity soft compartments in the extremities NEUROLOGICAL: No focal deficits. No aphasia. No facial droop or slurred speech. Ambulatory. EK bpm atrial fibrillation. PVC but no clear acute ST segment elevation or depression. Left axis noted with QTc of 468. Nonspecific T wave changes. CONTINUOUS CARDIAC MONITORING: was ordered and showed a heart rate of 60s to 70s bpm in atrial fibrillation Patient's laboratory studies and imaging reviewed. Differential includes anemia, infection, dehydration, metabolic abnormality, hypo/hyperglycemia, electrolyte disturbance, anemia, hypoxia, cardiac sources, neurologic, as well as other pathologies. IMPRESSION/MEDICAL DECISION MAKING: Bruising left upper arm but no signs of other active bleeding at this time and none reported. INR significantly elevated 0.7. Vitamin K IV ordered. Hemoglobin stable 13.2 today. Significantly cytosis of 19 is noted with an INR of 8.7. Some of this could be related to diet as she has had decreased intake. Elevated bilirubin 2.9 with slight transaminitis noted. EKG lipase and troponin to be completed but not having active chest pain. Given recent postsurgical elevated INR although not significant tender CT abdomen pelvis obtained. This was notable for a large 8 cm collection of the gallbladder region concerning for abscess. Not having respiratory issues but there is question of atelectasis versus bone at the right base. At this time with leukocytosis and CT findings IV Zosyn ordered. Again blood culture and lactate to be obtained. Will discuss with general surgery given his recent postoperative state. Dr. Blank recommended ultrasound as well as completing MRCP and medical admission. Agreeable with plan for antibiotics at this time. He will follow-up in consult at this point. Patient's troponin mildly elevated. Lipase not elevated. Lactate not elevated. No believe he is septic given some IV fluids as he has had limited intake today. Question a little more demand is not have active chest pain and no evidence of STEMI. Again over anticoagulated at this point and again working on cautious reversal. Patient and son updated. Again has received Zosyn here. Discussed with the hospitalist. Ultrasound ordered and hospitalist will order MRCP and evaluate the patient for admission. Again not suffering significant abdominal pain. Not hypotensive tachycardic or febrile here. DIAGNOSIS: Elevated INR, transaminitis, gallbladder fluid collection postoperatively DISPOSITION: Hospitalist will evaluate with general surgery following Patient was agreeable with this plan. 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 S/P hernia repair x3, open inguinal hernia repair 12/07/16 LMA#5. S/P tonsillectomy S/P hemorrhoidectomy S/P cataract surgery rt/lt History of appendectomy Anxiety Arthritis Cervical radiculopathy happens periodically Anticoagulated on Coumadin (Acute) History of DVT (deep vein thrombosis) ~11 years ago, "moderate" History of pulmonary embolism "severe" blood clot, years ago Atrial flutter f/u dr. oglesby, [facility] HLD (hyperlipidemia) Medical History Aortic stenosis mod-severe CAD (coronary artery disease) CAD s/p cardiac catheterization 05/29/18 with angioplasty and stenting of hazy 95% ostial LAD lesion with mid to distal luminal irregularities; moderate size first diagonal branch with a 50-60% proximal stenosis; large circumflex with a 20% ostial stenosis; large dominant RCA with a 30-40% proximal stenosis. Status post angioplasty and stenting with a 3.0 x 15 mm Xience Lorna drug- eluting stent 2018. Cardiac catheterization 12/08/2020 with normal right-sided and left-sided pressures. Status post angioplasty and stenting of a 90% proximal OM3 lesion. Factor V Leiden GERD (gastroesophageal reflux disease) Retinal vein occlusion of right eye seeing Dr. Gonzales currently for injections for ~8-9 weeks Murmur Surgical History History of cardiac cath 05/2018, [facility], x1 stent 11/2020, [facility] x1 stent; f/u dr. 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 Beliefs That Will Affect Care: None marital status: / Current Living Situation: Alone current occupation: Retired Feels Safe at Home: Yes Assistive Devices: Walker Allergies Allergies Allergy/AdvReac Type Severity Reaction Status Date / Time codeine Allergy Intermediate RASH Verified 07/06/24 16:08 diltiazem Allergy Intermediate ITCHING Verified 07/06/24 16:08 AND FLUSHING Home Meds Home Medications Medication Instructions Recorded Confirmed pantoprazole 40 mg tablet,delayed 40 mg PO QAM 12/21/18 07/06/24 release (Protonix) melatonin 5 mg capsule 5 mg PO HS 01/14/21 07/06/24 folic acid 1 mg tablet 1 mg PO QAM 09/18/21 07/06/24 aspirin 81 mg tablet,delayed 81 mg PO QAM 05/18/22 07/06/24 release (Adult Low Dose Aspirin) furosemide 20 mg tablet (Lasix) 20 mg PO DAILY PRN Edema 02/01/23 07/06/24 acetaminophen 325 mg tablet 650 mg PO Q6H PRN pain 12/21/23 07/06/24 metoprolol succinate 25 mg 50 mg PO HS 12/21/23 07/06/24 tablet,extended release 24 hr (Toprol XL) pravastatin 10 mg tablet 10 mg PO DAILY 05/28/24 07/06/24 diltiazem HCl 300 mg 300 mg PO DAILY 07/06/24 07/06/24 tablet,extended release 24 hr (Matzim LA) sertraline 100 mg tablet 100 mg PO QAM 07/06/24 07/06/24 warfarin 4 mg tablet 4 mg PO [id number] 07/06/24 07/06/24 Results & Data (ED) Vital Signs Vital Signs - 24 hr 07/06/24 11:12 07/06/24 14:09 07/06/24 14:30 Temperature 36.0 C L Temperature Source Temporal Artery Scan Pulse Rate 80 Pulse Rate [Apical] 64 Pulse Rate from SpO2 Sensor Respiratory Rate 18 18 Respiratory Effort / Characteristics Non-Labored Spontaneous Respiratory Depth Normal Respiratory Pattern Regular Blood Pressure 114/79 119/69 Blood Pressure [Left Arm] 119/64 Blood Pressure Mean 90 93 Blood Pressure Mean [Left Arm] 82 Blood Pressure Position Sitting Pulse Oximetry 93 99 Oxygen Delivery Method Room Air Room Air Sepsis Recent Fever Within 48 Hours No Sepsis New/Unexplained Change in Mental Status No Sepsis Action Taken by Nursing No Action Required 07/06/24 14:30 07/06/24 15:00 07/06/24 15:00 Temperature Temperature Source Pulse Rate Pulse Rate [Apical] Pulse Rate from SpO2 Sensor Respiratory Rate Respiratory Effort / Characteristics Respiratory Depth Respiratory Pattern Blood Pressure 119/69 126/69 126/69 Blood Pressure [Left Arm] Blood Pressure Mean 93 79 79 Blood Pressure Mean [Left Arm] Blood Pressure Position Pulse Oximetry Oxygen Delivery Method Sepsis Recent Fever Within 48 Hours Sepsis New/Unexplained Change in Mental Status Sepsis Action Taken by Nursing 07/06/24 15:03 07/06/24 15:18 07/06/24 15:24 Temperature Temperature Source Pulse Rate 59 L 63 Pulse Rate [Apical] Pulse Rate from SpO2 Sensor 75 60 66 Respiratory Rate 16 16 17 Respiratory Effort / Characteristics Respiratory Depth Respiratory Pattern Blood Pressure Blood Pressure [Left Arm] Blood Pressure Mean Blood Pressure Mean [Left Arm] Blood Pressure Position Pulse Oximetry 88 L 95 94 Oxygen Delivery Method Sepsis Recent Fever Within 48 Hours Sepsis New/Unexplained Change in Mental Status Sepsis Action Taken by Nursing 07/06/24 15:27 Temperature Temperature Source Pulse Rate 63 Pulse Rate [Apical] Pulse Rate from SpO2 Sensor 63 Respiratory Rate 17 Respiratory Effort / Characteristics Respiratory Depth Respiratory Pattern Blood Pressure Blood Pressure [Left Arm] Blood Pressure Mean Blood Pressure Mean [Left Arm] Blood Pressure Position Pulse Oximetry 95 Oxygen Delivery Method Sepsis Recent Fever Within 48 Hours Sepsis New/Unexplained Change in Mental Status Sepsis Action Taken by Nursing Laboratory Data 07/06/24 11:41 07/06/24 11:41 Lab Results 07/06/24 07/06/24 07/06/24 Range/Units 11:41 14:23 14:24 WBC 19.55 H (4.8-10.8) K/ul RBC 4.27 L (4.70-6.10) M/uL Hgb 13.2 L (14.0-18.0) g/dl Hct 38.0 L (42.0-52.0) % MCV 89.0 (80.0-100.0) fL MCH 30.9 (25.0-34.0) pg MCHC 34.7 (32.0-36.0) g/dL RDW Std Deviation 46.0 (36.4-46.3) fL RDW Coeff of Ryan 14.3 (11.5-14.5) % Plt Count 408 H (130-400) K/uL MPV 9.3 L (9.4-12.4) fL Immature Gran % (Auto) 1.2 % Neut % (Auto) 89.3 % Lymph % (Auto) 4.5 % Early % (Auto) 4.6 % Eos % (Auto) 0.2 % Baso % (Auto) 0.2 % Neut # (Auto) 17.47 H (1.40-6.50) K/uL Lymph # (Auto) 0.87 L (1.20-3.40) K/uL Early # (Auto) 0.89 H (0.11-0.59) K/uL Eos # (Auto) 0.04 (0.00-0.50) K/uL Baso # (Auto) 0.04 (0.00-0.20) K/uL Immature Gran # (Auto) 0.24 H (0.01-0.20) K/uL PT 77.9 H (9.0-12.0) Seconds INR 8.7 H* (0.9-1.1) APTT 67 H (21-31) Seconds PTT Ratio 2.5 Sodium 134 L (136-145) mmol/L Potassium 3.9 (3.5-5.1) mmol/L Chloride 98 (98-107) mmol/L Carbon Dioxide 29 (21-32) mmol/L Anion Gap 7 (3-11) BUN 30 H (6-23) mg/dl Creatinine 1.41 H (0.6-1.4) mg/dl Est Cr Clr Drug Dosing Not Reportable eGFR 49.75 BUN/Creatinine Ratio 21.3 H (10-20) Glucose 99 (70-99(Fasting)) mg/dl Lactate 1.5 (0.4-2.0) mmol/L Calcium 8.5 L (8.6-10.3) mg/dl Total Bilirubin 2.9 H (0.2-1.0) mg/dl AST 76 H (13-39) U/L ALT 69 H (7-52) U/L Alkaline Phosphatase 195 H (34-104) U/L Troponin I High Sens 47.1 H (0-20) pg/ml Total Protein 6.9 (6.0-8.3) gm/dl Albumin 2.8 L (3.4-5.0) gm/dl Globulin 4.1 H (2.5-4.0) gm/dl Albumin/Globulin Ratio 0.7 L (0.9-2) Lipase 29 (11-82) U/L Blood Type A Positive Antibody Screen NEGATIVE Administered Medications Sodium Chloride (Nss) 1,000 mls @ 65 mls/hr IV .[id number] YVON Stop: 07/07/24 22:16 Last Admin: 07/06/24 16:10 Dose: 65 mls/hr Documented By: JANELLE Discontinued Medications Piperacillin Sod/Tazobactam Sod (Zosyn) 4.5 gm in 100 mls @ 200 mls/hr IV NOW ONE; Protocol Stop: 07/06/24 14:33 Last Infusion: 07/06/24 14:38 Dose: Infused Documented By: Admin: 07/06/24 14:14 Dose: 200 mls/hr Documented By: TEDDY Phytonadione 5 mg/ Dextrose 50.5 mls @ 101 mls/hr IV ONE ONE Stop: 07/06/24 14:34 Last Infusion: 07/06/24 14:52 Dose: Infused Documented By: Admin: 07/06/24 14:28 Dose: 101 mls/hr Documented By: TEDDY Sodium Chloride (Nss) 500 mls @ 999 mls/hr IV .Q31M ONE Stop: 07/06/24 15:16 Last Infusion: 07/06/24 17:12 Dose: Infused Documented By: Admin: 07/06/24 14:52 Dose: 999 mls/hr Documented By: TEDDY Ioversol (Optiray 320 100ml) 94 ml IV ONCE ONE Stop: 07/06/24 12:48 Last Admin: 07/06/24 12:47 Dose: 94 ml Documented By: LOU Imaging Data Radiologist's Impression: Abdomen/Pelvis CT 07/06/24 12:[address] WITH IV CONTRAST CT DOSE: 1684.75 mGy.cm HISTORY: high wbc, lfts, recent addi TECHNIQUE: Multiaxial CT images of the abdomen and pelvis were performed following the IV administration of 90 cc of Optiray, A dose lowering technique was utilized adhering to the principles of ALARA. COMPARISON STUDY: 06/25/2024 FINDINGS: There is a small right pleural effusion with moderate adjacent consolidation at the right lung base, atelectasis versus pneumonia. ABDOMEN: There is interval cholecystectomy. There is an 8 cm collection of fluid and gas at the gallbladder fossa consistent with abscess. There is an interval subcapsular fluid collection at the dome of the liver measuring 16 cm. Spleen, pancreas, and adrenal glands are unremarkable. The kidneys show no hydronephrosis. There are scattered atherosclerotic calcifications. No abdominal aortic aneurysm. Pelvis: There is trace ascites. There is sigmoid diverticulosis. No acute diverticulitis. There is mild retained stool. No bowel inflammation or obstruction. No free air. Prostate is enlarged mildly. Urinary bladder is nondistended. Osseous structures: There is lumbar degenerative disc disease. No acute osseous findings. IMPRESSION: 1. Atelectasis versus pneumonia right lung base. 2. Abscess at the gallbladder fossa. Subcapsular fluid collection at the dome of the liver. 3. Otherwise as described. ACT 112: Negative or not required by law. The above report was generated using voice recognition software. It may contain grammatical, syntax or spelling errors. Electronically signed by: Primitivo Dhaliwal M.D. 07/06/2024 1:07 PM Discharge Plan Visit Data Chief Complaint: Abnormal Labs/Diagnostic Testing Stated Complaint: INR COUNT HIGH, RECENT SURG ED Provider: Tio Jackson Discharge Problem: Elevated INR (international normalized ratio) due to prior anticoagulant medication ingestion, Weakness, History of laparoscopic cholecystectomy Patient Disposition: Admitted As Inpatient Discharge Instructions Interventions: ED Discharge Assessment Last Done: 07/06/24 16:47
[2024-07-06] MEDS: PIPERACILLIN/TAZOBACTAM 4.5 GM/100 ML BAG IV ONE (14:14)
[2024-07-06] MEDS: PHYTONADIONE 5 MG in DEXTROSE 5% 50 ML IV ONE (14:28)
[2024-07-06] MEDS: SODIUM CHLORIDE 0.9% 500 ML IV ONE (14:52)
[2024-07-06 14:59] LABS: Troponin I High Sensitivity 47.1 pg/ml (0-20)
[2024-07-06] MEDS ORDERED: ONDANSETRON INJ 2 MG/ML 2 ML VIAL IV PRN (15:30)
[2024-07-06] MEDS ORDERED: POLYETHYLENE (MIRALAX) 17 GM PACK PO PRN (15:30)
[2024-07-06] MEDS ORDERED: MAGNESIUM HYDROXIDE SUSP 30 ML UDC PO PRN (15:30)
--- NOTE | 2024-07-06 15:52 | History & Physical Report ---
Date of Service July 06, 2024 Assessment & Plan (1) Elevated INR: Plan Patient has been dealing with generalized fatigue, weakness, poor appetite since lap addi on 06/28/2024. He has taken only 1 dose of Coumadin since his operation and his INR was elevated at 6.3, hence he was sent to the ED for elevated INR. In the ED he was noted to have leukocytosis and possible gallbladder fossa abscess. He is being managed for the following: Gallbladder fossa abscess Patient with recent lap addi/01/12, has been dealing with progressive weakness/fatigue/poor appetite since surgery. Patient denies fever or abdominal pain. No tender abd on exam. Admitting CTAP with gallbladder fossa abscess and subcapsular fluid collection at the dome of the liver. Leukocytosis noted. Patient received Zosyn while in ED, will continue with Zosyn. Add probiotic. Gen sx consult, await recs, npo midnigth, f/u RUQ US and MRCP. Elevated INR: Patient apparently took only 1 dose of Coumadin since his surgery, his INR was 6.3 as an outpatient and was sent to the ED for further evaluation. Patient has been taking about 2 g of Tylenol and daily Celebrex during this time to manage his chronic arthritis pain. Also acute liver injury and poor appetite could be contributing to elevated INR. For now we will hold Coumadin, patient received 5 mg IV vitamin K in the ED, monitor PT/INR. Transaminitis: Likely secondary to gallbladder fossa abscess in the setting of recent lap cholecystectomy. Will get hepatitis panel. Will get MRCP and ultrasound right upper quadrant. General surgery on board. Limit Tylenol to less than 2 g a day. Acute kidney injury: Baseline creatinine of around 1, admitting creatinine of 1.41, likely prerenal secondary to poor appetite CLOTH DOFFER. Will continue with IV fluid, avoid nephrotoxic, labs in AM. Demand ischemia: Troponin mildly elevated at 47, patient with no chest pain, EKG with no acute ST or T changes. Will continue to monitor over telemetry. Trend troponin x 1. Demand ischemia in the setting of acute illness. Constipation: Patient reports last bowel movement 3 to 4 days ago, is feeling c onstipated. Tomorrow reporting scheduled and as needed bowel regimen, continue to monitor. Other chronic medical conditions: Continue with/resume home meds as and when able. Atrial fibrillation/TAVR/factor V leiden mutation : Warfarin on hold, continue other cardiac medications. Hypertension: Avoid nephrotoxic, continue home meds as able. CAD:, Aortic stenosis: Continue cardiac meds as able. 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 Of note patient had recent lap addi 06/28/2024, he has taken only 1 dose of Coumadin since then per patient's son, his INR was elevated at 6.3 and he was sent to the ED. Patient has been feeling rundown, progressively weak and tired since the operation, reports decreasing appetite, denies nausea/vomiting/abdominal pain. Patient reports last bowel movement about 3 to 4 days ago, denies pain or burning while passing urine. Patient does deny any fever, also denies any sore throat/cough/chest pain. Per patient's son, patient has been using about 2 g of Tylenol daily and daily Celebrex to manage his chronic arthritic pain. Per ER physician, they reached out to general surgery for abnormal CTAP finding/concern of gallbladder fossa abscess, plan is to get RUQ ultrasound and MRCP which has been ordered. General surgery will follow. Medications reviewed with the patient and his son at bedside. Plan of care discussed with them in detail, they voiced understanding. Full code Allergies Allergy/AdvReac Type Severity Reaction Status Date / Time codeine Allergy Intermediate RASH Verified 10/18/22 14:23 diltiazem Allergy Intermediate ITCHING Verified 10/18/22 14:23 AND FLUSHING Home Medications Medication Instructions Recorded Confirmed Type pantoprazole 40 mg tablet,delayed 40 mg PO QAM 12/21/18 06/25/24 History release (Protonix) melatonin 5 mg capsule 5 mg PO HS 01/14/21 06/25/24 History folic acid 1 mg tablet 1 mg PO QAM 09/18/21 06/25/24 History aspirin 81 mg tablet,delayed 81 mg PO QAM 05/18/22 06/25/24 History release (Adult Low Dose Aspirin) sertraline 50 mg tablet 100 mg PO Q24H 01/18/23 06/25/24 History furosemide 20 mg tablet (Lasix) 20 mg PO DAILY PRN Edema 02/01/23 06/25/24 History diltiazem HCl 300 mg capsule,24 300 mg PO DAILY 10/19/23 06/25/24 History hr,extended release acetaminophen 325 mg tablet 650 mg PO Q6H PRN pain 12/21/23 06/25/24 History metoprolol succinate 25 mg 50 mg PO HS 12/21/23 06/25/24 History tablet,extended release 24 hr (Toprol XL) warfarin 4 mg tablet See Rx Instructions PO DAILY #80 04/02/24 06/25/24 Rx tabs pravastatin 10 mg tablet 10 mg PO DAILY 05/28/24 06/25/24 History oxycodone 5 mg tablet 2.5 mg (1/2 x 5 mg) PO Q3HWA PRN 06/30/24 Rx pain #20 tabs Past Med/Surg History Problem List S/P TAVR (transcatheter aortic valve replacement) Diastolic murmur Acute cholecystitis CHAVA (acute kidney injury) RUQ abdominal pain Gallbladder pain (Acute) Back pain (Acute) Current use of technician terminal and repeater anticoagulation (Acute) Falls (Acute) Encounter for pre-operative examination Factor V Leiden (Chronic) Unstable angina (Acute) DVT prophylaxis Epistaxis Chronic anticoagulation (Chronic) Atrial fibrillation with rapid ventricular response Atrial fibrillation with RVR (Acute) History of atrial flutter (Acute) Hypertension (Acute) 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 S/P hernia repair x3, open inguinal hernia repair 12/07/16 LMA#5. S/P tonsillectomy S/P hemorrhoidectomy S/P cataract surgery rt/lt History of appendectomy Anxiety Arthritis Cervical radiculopathy happens periodically Anticoagulated on Coumadin (Acute) History of DVT (deep vein thrombosis) ~11 years ago, "moderate" History of pulmonary embolism "severe" blood clot, years ago Atrial flutter f/u dr. oglesby, ps HLD (hyperlipidemia) Medical History Aortic stenosis mod-severe CAD (coronary artery disease) CAD s/p cardiac catheterization 05/29/18 with angioplasty and stenting of hazy 95% ostial LAD lesion with mid to distal luminal irregularities; moderate size first diagonal branch with a 50-60% proximal stenosis; large circumflex with a 20% ostial stenosis; large dominant RCA with a 30-40% proximal stenosis. Status post angioplasty and stenting with a 3.0 x 15 mm Xience Lorna drug- eluting stent 2018. Cardiac catheterization 12/08/2020 with normal right-sided and left-sided pressures. Status post angioplasty and stenting of a 90% proximal OM3 lesion. Factor V Leiden GERD (gastroesophageal reflux disease) Retinal vein occlusion of right eye seeing Dr. Gonzales currently for injections for ~8-9 weeks Murmur Surgical History History of cardiac cath 05/2018, [facility], x1 stent 11/2020, [facility] x1 stent; f/u dr. oglesby, ps History of toe surgery Kellert procedure-part of joint removed and toe is now shorter History of esophagogastroduodenoscopy (EGD) Hx of colonoscopy Family History Other Family history of 5, 10-methylenetetrahydofolate deficiency Hypertension Stroke Social History Smoking Status: Never smoker Second Hand Exposure: Yes; Do You Dip or Chew Tobacco: No; Hx Alcohol Use: Yes Alcohol type: beer and wine Hx Substance Use: No Preferred Language: Puerto Rican Communication Ability: Effective [place] Chalker Required: No Beliefs That Will Affect Care: None marital status: / Current Living Situation: Alone current occupation: Retired Feels Safe at Home: Yes Assistive Devices: Walker Review of Systems Review of Systems: Negative otherwise mentioned in HPI. Physical Exam Physical Exam: GENERAL: Alert and oriented x3. NAD, on RA. Appears ill/weak/frail. HEENT: No pallor, no icterus. Pupils equal, round and reactive to light. Oral mucosa moist. NECK: No JVD, no neck masses. HEART: S1 and S2 heard. Regular rate and rhythm. No murmur, no gallop. RESPIRATORY SYSTEM: Normal AP diameter. No accessory muscle use. No wheezing, no crackles. ABDOMEN: Soft, bowel sounds present, nontender, no distention. Well healing lap addi wounds. CENTRAL NERVOUS SYSTEM: No facial droop. Speech is clear. Obeys simple commands. Moves extremities. EXTREMITIES: No edema, no erythema seen. Results & Data Results & Data Vital Signs (Past 12 Hours) Vital Signs Temp Pulse Pulse Resp BP BP Pulse Ox 07/06/24 14:09 64 18 119/64 99 07/06/24 11:12 36.0 C L 80 18 114/79 93 O2 Del Method 07/06/24 14:09 Room Air 07/06/24 11:12 Room Air
[2024-07-06] MEDS: SODIUM CHLORIDE 0.9% 1,000 ML IV SCH (16:10)
--- NOTE | 2024-07-06 16:43 | Surgery Consultation ---
Date of Consultation July 06, 2024 Assessment & Plan (1) RUQ abdominal pain: fluid collection likely post-op; IV abx possible IR drainage if WBC don't respond to abx correct coags MRCP to r/o CBD stone with elevated TB no current surgical intervention indicated History of Present Illness History of Present Illness This is a 83YO post-op from a lap addi over a week ago on warfarin with an INR over 8. He presented with generalized fatigue but no fevers, along with some increasing flank back pain. No nausea or vomiting but again has not been eating real well. A CT scan shows a fluid collection likely just poost-op changes but possibly an abscess. Elevated TB and alk phosphate. Allergies Allergy/AdvReac Type Severity Reaction Status Date / Time codeine Allergy Intermediate RASH Verified 07/06/24 16:08 diltiazem Allergy Intermediate ITCHING Verified 07/06/24 16:08 AND FLUSHING Home Medications Medication Instructions Recorded Confirmed Type pantoprazole 40 mg tablet,delayed 40 mg PO QAM 12/21/18 07/06/24 History release (Protonix) melatonin 5 mg capsule 5 mg PO HS 01/14/21 07/06/24 History folic acid 1 mg tablet 1 mg PO QAM 09/18/21 07/06/24 History aspirin 81 mg tablet,delayed 81 mg PO QAM 05/18/22 07/06/24 History release (Adult Low Dose Aspirin) furosemide 20 mg tablet (Lasix) 20 mg PO DAILY PRN Edema 02/01/23 07/06/24 History acetaminophen 325 mg tablet 650 mg PO Q6H PRN pain 12/21/23 07/06/24 History metoprolol succinate 25 mg 50 mg PO HS 12/21/23 07/06/24 History tablet,extended release 24 hr (Toprol XL) pravastatin 10 mg tablet 10 mg PO DAILY 05/28/24 07/06/24 History diltiazem HCl 300 mg 300 mg PO DAILY 07/06/24 07/06/24 History tablet,extended release 24 hr (Matzim [place]) sertraline 100 mg tablet 100 mg PO QAM 07/06/24 07/06/24 History warfarin 4 mg tablet 4 mg PO [id number] 07/06/24 07/06/24 History Patient History Medical History Aortic stenosis mod-severe CAD (coronary artery disease) CAD s/p cardiac catheterization 05/29/18 with angioplasty and stenting of hazy 95% ostial LAD lesion with mid to distal luminal irregularities; moderate size first diagonal branch with a 50-60% proximal stenosis; large circumflex with a 20% ostial stenosis; large dominant RCA with a 30-40% proximal stenosis. Status post angioplasty and stenting with a 3.0 x 15 mm Xience Lorna drug- eluting stent 2018. Cardiac catheterization 12/08/2020 with normal right-sided and left-sided pressures. Status post angioplasty and stenting of a 90% proximal OM3 lesion. Factor V Leiden GERD (gastroesophageal reflux disease) Retinal vein occlusion of right eye seeing Dr. Gonzales currently for injections for ~8-9 weeks Murmur Surgical History History of cardiac cath 05/2018, [facility], x1 stent 11/2020, [facility] x1 stent; f/u dr. oglesby, [facility] History of toe surgery Kellert procedure-part of joint removed and toe is now shorter History of esophagogastroduodenoscopy (EGD) Hx of colonoscopy Family History Other Family history of 5, 10-methylenetetrahydofolate deficiency Hypertension Stroke Social History Smoking Status: Never smoker Second Hand Exposure: Yes; Do You Dip or Chew Tobacco: No; Hx Alcohol Use: Yes Alcohol type: beer and wine Hx Substance Use: No Preferred Language: Indian Communication Ability: Effective Habilitation Training Specialist Required: No Beliefs That Will Affect Care: None marital status: / Current Living Situation: Alone current occupation: Retired Feels Safe at Home: Yes Assistive Devices: Walker Review of Systems Constitutional: + anorexia; no fever and no chills Eyes: no problem reported Ear, Nose, Mouth, Throat: no problem reported Respiratory: no cough and no dyspnea Cardiovascular: no chest pain Gastrointestinal: + abdominal pain; no nausea, no vomiting and no change in bowel habits Genitourinary: no dysuria Neurologic: + generalized weakness; no localized wea kness Psychiatric: no behavioral changes Endocrine: + fatigue Hematologic / Lymphatic: + easy bleeding and + easy bruising Physical Exam Constitutional: WD/WN, vitals as above Eyes: + scleral abnormality ENMT: external ear and nose normal, oropharynx normal Neck: trachea midline Respiratory: normal respiratory effort, lungs clear to auscultation Cardiovascular: RRR, no murmur, no edema Gastrointestinal (Abdomen): Inspection/Auscultation: abdomen normal to inspection and normal bowel sounds; abdomen not distended Percussion/Palpation: + abdomen tender and abdomen soft; no guarding and abdomen not rigid Musculoskeletal: Head/Neck/Chest: normocephalic and head atraumatic Skin: no rashes, warm and dry Results & Data Vital Signs (Past 12 Hours) Vital Signs Temp Pulse Pulse Resp BP BP Pulse Ox 07/06/24 15:24 63 17 94 07/06/24 15:18 59 L 16 95 07/06/24 15:03 16 88 L 07/06/24 15:00 126/69 07/06/24 15:00 126/69 07/06/24 14:30 119/69 07/06/24 14:30 119/69 07/06/24 14:09 64 18 119/64 99 07/06/24 11:12 36.0 C L 80 18 114/79 93 O2 Del Method 07/06/24 15:24 07/06/24 15:18 07/06/24 15:03 07/06/24 15:00 07/06/24 15:00 07/06/24 14:30 07/06/24 14:30 07/06/24 14:09 Room Air 07/06/24 11:12 Room Air Diagnostic Findings CT DOSE: 1684.75 mGy.cm HISTORY: high wbc, lfts, recent addi TECHNIQUE: Multiaxial CT images of the abdomen and pelvis were performed following the IV administration of 90 cc of Optiray, A dose lowering technique was utilized adhering to the principles of ALARA. COMPARISON STUDY: 06/25/2024 FINDINGS: There is a small right pleural effusion with moderate adjacent consolidation at the right lung base, atelectasis versus pneumonia. ABDOMEN: There is interval cholecystectomy. There is an 8 cm collection of fluid and gas at the gallbladder fossa consistent with abscess. There is an interval subcapsular fluid collection at the dome of the liver measuring 16 cm. Spleen, pancreas, and adrenal glands are unremarkable. The kidneys show no hydronephrosis. There are scattered atherosclerotic calcifications. No abdominal aortic aneurysm. Pelvis: There is trace ascites. There is sigmoid diverticulosis. No acute diverticulitis. There is mild retained stool. No bowel inflammation or obstruction. No free air. Prostate is enlarged mildly. Urinary bladder is nondistended. Osseous structures: There is lumbar degenerative disc disease. No acute osseous findings. IMPRESSION: 1. Atelectasis versus pneumonia right lung base. 2. Abscess at the gallbladder fossa. Subcapsular fluid collection at the dome of the liver. 3. Otherwise as described.
--- NOTE | 2024-07-06 18:04 | Electrocardiogram Report ---
Test Reason : Blood Pressure : */* mmHG Vent. Rate : 64 BPM Atrial Rate : * BPM P-R Int : * ms QRS Dur : 92 ms QT Int : 472 ms P-R-T Axes : * -30 13 degrees QTcB Int : 486 ms Atrial fibrillation with premature ventricular or aberrantly conducted complexes Left axis deviation Possible Anterior infarct , age undetermined Abnormal ECG When compared with ECG of 29-Jun-2024 05:16, No significant change was found Confirmed by Samuel Chang ([id number]) on 07/06/2024 6:04:16 PM Referred By: [facility] Confirmed By: Samuel Chang
--- NOTE | 2024-07-06 18:10 | Ultrasound Report ---
EXAM: US gallbladder CLINICAL HISTORY: Questionable CBD stone, GB fossa fluid collection seen on CT. S/P addi 1 week prior. No pain per patient. TECHNIQUE: Real-time ultrasound exam of the Right upper quadrant abdominal organs were scanned in grayscale and Doppler imaging. COMPARISON: None. FINDINGS: Pancreas: The pancreatic head and body are visualized with the pancreatic duct measuring 0.22 cm. The pancreatic tail is not visualized due to overlying bowel gases. [id number] Liver/OBX.5.1.1OBX.5.1.2Gallbladder fossa:/OBX.5.1.2/OBX.5.1 The liver measures 13.0 cm in its longest dimension. Diffuse hypoechoic liver with prominent portal veins, suggesting acute medical liver disease. For clinical and lab correlation. A large complex fluid collection superior right lobe vs adjacent to the liver is noted. The complex lesion size and location could not be obtained, possibly involving the gallbladder fossa. Postcholecystectomy patient. Fluid is seen in the gallbladder fossa echogenic focus with posterior enhancement, noted with air in the area Double-barrelled sign seen; however, mention of CBD is not visualized at this time, questionable dilated CBD. Right kidney: Heterogeneous right kidney measures 10.7 cm in length. No evidence of hydronephrosis. IMPRESSION: 1. Postcholecystectomy large complex fluid collection with air involving the gallbladder fossa. Measurements could not be obtained due to the large size, and the exact location also could not be assessed. CT images were not provided. However previous CT was obtained, and fluid collection was noted. Please correlate with the CT scan. 2. Diffuse hypoechoic liver with prominent portal veins, suggesting acute medical liver disease. For clinical and lab correlation. Electronically signed by Roberto Sanchez 07-06-2024 6:09 PM
[2024-07-06] MEDS: LORazepam 0.5 MG TAB PO PRN (19:52)
[2024-07-06] MEDS: METOPROLOL SUCC 50MG EXT REL TAB PO SCH (21:27)
[2024-07-06] MEDS: MELATONIN 3 MG TAB PO SCH (21:27)
[2024-07-06] MEDS: DOCUSATE SODIUM 100 MG CAP PO SCH (21:27)
[2024-07-06 21:43] LABS: INR 2.3 (0.9-1.1)
[2024-07-06] MEDS: PIPERACILLIN/TAZOBACTAM 4.5 GM/100 ML BAG IV SCH (22:30)
[2024-07-07 06:21] LABS: Hematocrit (blood only) 35.6 % (42.0-52.0); Hemoglobin 12.2 g/dl (14.0-18.0); Mean Corpuscular Hemoglobin 30.3 pg (25.0-34.0); Mean Corpuscular Hgb Conc 34.3 g/dL (32.0-36.0); Mean Corpuscular Volume 88.3 fL (80.0-100.0); Mean Platelet Volume 9.1 fL (9.4-12.4); Platelet Count 378 K/uL (130-400); RDW Coefficient of Variation 14.2 % (11.5-14.5); RDW Standard Deviation 45.8 fL (36.4-46.3); Red Blood Count 4.03 M/uL (4.70-6.10)
[2024-07-07 06:51] LABS: BUN Creatinine Ratio 18.5 (10-20); Calcium 7.9 mg/dl (8.6-10.3); Creatinine Clr Calc Pharmacy 53.9 ml/min; Phosphorus 3.4 mg/dl (2.5-4.9); Potassium 3.9 mmol/L (3.5-5.1)
[2024-07-07 06:52] LABS: INR 1.5 (0.9-1.1); Prothrombin Time 15.4 Seconds (9.0-12.0)
[2024-07-07] MEDS: FOLIC ACID 1 MG TAB PO SCH (07:46)
[2024-07-07] MEDS: ADVANCED PROBIOTIC 625 MG CAPSULE PO SCH (07:46)
[2024-07-07] MEDS: PANTOprazole 40 MG TAB PO SCH (07:46)
[2024-07-07] MEDS: ASPIRIN 81 MG ECTAB PO SCH (07:46)
[2024-07-07] MEDS: dilTIAZem HCL 300 MG CAPCR PO SCH (07:47)
[2024-07-07] MEDS: PNEUMOCOCCAL VACCINE (PCV20) 20-VAL CONJ-DIP CRM/PF 0.5 ML SYR IM ONE (09:01)
[2024-07-07 09:37] LABS: Basophils # (auto) 0.04 K/uL (0.00-0.20); Basophils % (auto) 0.2 %; Eosinophils # (auto) 0.04 K/uL (0.00-0.50); Eosinophils % (auto) 0.2 %; Hematocrit (blood only) 34.5 % (42.0-52.0); Hemoglobin 11.8 g/dl (14.0-18.0); Immature Granulocytes # (auto) 0.18 K/uL (0.01-0.20); Lymphocytes # (auto) 0.85 K/uL (1.20-3.40); Lymphocytes % (auto) 4.5 %; Mean Corpuscular Hemoglobin 30.1 pg (25.0-34.0); Mean Corpuscular Hgb Conc 34.2 g/dL (32.0-36.0); Mean Platelet Volume 8.9 fL (9.4-12.4); Monocytes # (auto) 0.85 K/uL (0.11-0.59); Monocytes % (auto) 4.5 %; Neutrophils # (auto) 16.78 K/uL (1.40-6.50); Neutrophils % (auto) 89.6 %; Platelet Count 383 K/uL (130-400); RDW Coefficient of Variation 14.1 % (11.5-14.5); RDW Standard Deviation 45.1 fL (36.4-46.3); Red Blood Count 3.92 M/uL (4.70-6.10); White Blood Count 18.74 K/ul (4.8-10.8)
--- NOTE | 2024-07-07 09:50 | Surgery Progress Note ---
Date of Service July 07, 2024 Assessment & Plan (1) History of laparoscopic cholecystectomy: Plan: WBC still elevated on abx likely will need IR drainage of fluid collection, trend WBC and possibly IR evaluation on Tuesday LFTs more likely due to liver disease than CBD stones MRCP pending Admission and Anticipated Discharge Date Admission Date: July 06, 2024 Subjective feels better INR down to 1.5 hungry Review of Systems Constitutional: no fever and no chills Respiratory: no cough and no dyspnea Cardiovascular: no chest pain Gastrointestinal: + abdominal pain; no nausea, no vomiting and no change in bowel habits Musculoskeletal: no back pain Neurologic: no localized weakness Psychiatric: no behavioral changes Physical Exam Constitutional: WD/WN, vitals as above Respiratory: normal respiratory effort, lungs clear to auscultation Cardiovascular: RRR, no murmur, no edema Gastrointestinal (Abdomen): Inspection/Auscultation: abdomen normal to inspection and normal bowel sounds; abdomen not distended Percussion/Palpation: abdomen soft; abdomen nontender, no guarding and abdomen not rigid Musculoskeletal: Head/Neck/Chest: normocephalic and head atraumatic Results & Data Vital Signs (Past 12 Hours) Vital Signs Temp Pulse Pulse Resp BP Pulse Ox O2 Del Method 07/07/24 08:00 36.4 C L 89 24 120/73 94 Room Air 07/07/24 07:45 Room Air 07/07/24 07:00 82 07/07/24 05:09 36.5 C 72 20 119/75 96 Room Air 07/07/24 00:17 36.3 C L 77 20 134/75 95 Room Air 07/06/24 21:55 36.8 C 71 18 128/82 94 Room Air
[2024-07-07] MEDS: HEPARIN 25000 UNIT/500 ML D5W 25,000 UNITS/500 ML BAG IV SCH (09:54)
[2024-07-07] MEDS: HEPARIN SOD (PORCINE) 1000 UNIT/ML IV ONE (09:54)
[2024-07-07 10:11] LABS: INR 1.4 (0.9-1.1); Partial Thromboplastin Ratio 1.6; Partial Thromboplastin Time 42 Seconds (21-31); Prothrombin Time 14.6 Seconds (9.0-12.0)
[2024-07-07] MEDS: Heparin IV Adult Wt-Based Standard w/ INITIAL Bolus Protocol IV SCH (10:13)
--- NOTE | 2024-07-07 13:56 | Hospitalist Progress Note ---
Date of Service July 07, 2024 Assessment & Plan (1) Elevated INR: Plan Patient has been dealing with generalized fatigue, weakness, poor appetite since lap addi on 06/28/2024. He has taken only 1 dose of Coumadin since his operation and his INR was elevated at 6.3, hence he was sent to the ED for elevated INR. In the ED he was noted to have leukocytosis and possible gallbladder fossa abscess. He is being managed for the following: Gallbladder fossa abscess Transaminitis Patient with recent lap addi/01/12, has been dealing with progressive weakness/fatigue/poor appetite since surgery. --CT ABD: Abscess at the gallbladder fossa. Subcapsular fluid collection at the dome of the liver. --Gall Bladder USD:Postcholecystectomy large complex fluid collection with air involving the gallbladder fossa. Measurements could not be obtained due to the large size, and the exact location also could not be assessed. CT images were not provided. However previous CT was obtained, and fluid collection was noted. Please correlate with the CT scan. Diffuse hypoechoic liver with prominent portal veins, suggesting acute medical liver disease. For clinical and lab correlation. -- Consider MRCP if needed --Hepatitis panel pending --Blood cultures pending Continue IV Zosyn, IV fluids Liquid diet for today Appreciate surgery input Will likely need IR intervention on Tuesday Hold statin for now, monitor LFTs Avoid hepatotoxic agents as able Elevated INR: Patient apparently took only 1 dose of Coumadin since his surgery Liver dysfunction, poor appetite likely contributing to elevated INR No acute bleeding issues Received IV vitamin K INR:8.7>1.4 Will hold Coumadin for now Acute kidney injury: Baseline Cr around 1 Continue gentle IV fluids Monitor renal function Avoid nephrotoxic agents as able Troponin elevation Likely demand ischemia: Patient denies any chest pain, dyspnea Monitor Constipation: Patient reports last bowel movement 3 to 4 days ago Continue bowel regimen Monitor Factor V Leiden mutation S/P AVR History of atrial fibrillation Coumadin on hold for possible procedure Will continue IV heparin for now Target INR 2-3 per record Continue Cardizem, metoprolol CAD S/P angioplasty Continue aspirin, metoprolol Statin on hold due to elevated LFTs Monitor Hypertension Continue home medications Monitor DVT Px: IV heparin for now Code Status Full code Admission and Anticipated Discharge Date Admission Date: July 06, 2024 Subjective Patient is seen and examined at bedside Denies any significant abdominal pain Poor historian Denies any nausea, vomiting, chest pain, dyspnea afebrile today Review of Systems Review of Systems: All systems reviewed & are unremarkable except as noted in Subjective Physical Exam Physical Exam: Physical Exam: Vitals signs as noted above General Appearance:Moderately built and nourished, no apparent distress, Elderly Head: normocephalic, Atraumatic Eyes: normal inspection, EOMI Neck: supple, Trachea midline Respiratory/Chest: Normal breath sounds, CTA, No accessory muscle use Cardiovascular: Irregularly irregular +murmur Abdomen/GI:Soft, mildly distended, mild tender, Bowel sounds present, no guarding/rigidity Extremities/Musculoskeletal:normal inspection, Trace edema Neurologic/Psych:AAOX3, grossly no focal neurological deficits Skin: normal color, warm Results & Data Results & Data Vital Signs (Past 12 Hours) Vital Signs Temp Pulse Pulse Resp BP Pulse Ox O2 Del Method 07/07/24 12:29 36.4 C L 82 20 151/66 H 97 Room Air 07/07/24 08:00 36.4 C L 89 24 120/73 94 Room Air 07/07/24 07:45 Room Air 07/07/24 07:00 82 07/07/24 05:09 36.5 C 72 20 119/75 96 Room Air Laboratory Results Short CBC 07/07/24 07/07/24 Range/Units 05:46 09:15 WBC 18.00 H 18.74 H (4.8-10.8) K/ul Hgb 12.2 L 11.8 L (14.0-18.0) g/dl Hct 35.6 L 34.5 L (42.0-52.0) % Plt Count 378 383 (130-400) K/uL [facility] 07/07/24 05:46 Sodium 137 Potassium 3.9 Chloride 102 Carbon Dioxide 28 BUN 24 H Creatinine 1.30 Glucose 91 Calcium 7.9 L
[2024-07-07 14:20] LABS: Hep B Surface Ag with confirm Negative (Negative)
[2024-07-07 14:26] LABS: Hep C Ab Rflx HepCQuant RNA Negative (Negative)
[2024-07-07 16:24] LABS: ANTI-Xa, UFH(UnfractionatedHep 0.43 IU/ml (0.3-0.7)
[2024-07-07] MEDS: SERTRALINE HCL 100 MG TABLET PO SCH (17:13)
[2024-07-08 06:32] LABS: Hematocrit (blood only) 32.4 % (42.0-52.0); Hemoglobin 11.8 g/dl (14.0-18.0); Mean Corpuscular Hemoglobin 31.3 pg (25.0-34.0); Mean Corpuscular Hgb Conc 36.4 g/dL (32.0-36.0); Mean Corpuscular Volume 85.9 fL (80.0-100.0); Platelet Count 406 K/uL (130-400); RDW Coefficient of Variation 14.1 % (11.5-14.5); RDW Standard Deviation 44.3 fL (36.4-46.3); Red Blood Count 3.77 M/uL (4.70-6.10); White Blood Count 18.99 K/ul (4.8-10.8)
[2024-07-08 06:54] LABS: Albumin Globulin Ratio 0.6 (0.9-2); Albumin Level 2.4 gm/dl (3.4-5.0); Bilirubin,Total 2.7 mg/dl (0.2-1.0); Calcium 7.9 mg/dl (8.6-10.3); Creatinine Clr Calc Pharmacy 61.5 ml/min; Globulin 3.8 gm/dl (2.5-4.0); Potassium 3.7 mmol/L (3.5-5.1); Total Protein 6.2 gm/dl (6.0-8.3)
[2024-07-08 07:26] LABS: ANTI-Xa, UFH(UnfractionatedHep 0.33 IU/ml (0.3-0.7); INR 1.4 (0.9-1.1); Prothrombin Time 14.5 Seconds (9.0-12.0)
[2024-07-08] MEDS ORDERED: PHA DELIRIUM CONSULT PRN (09:43)
--- NOTE | 2024-07-08 10:35 | Surgery Progress Note ---
Date of Service July 08, 2024 Assessment & Plan (1) History of laparoscopic cholecystectomy: Plan: possible abscess would recommend ordering IR drainage of GB fossa fluid collection for tomorrow con't abx LFTs stable/improving Admission and Anticipated Discharge Date Admission Date: July 06, 2024 Subjective feels well some abdominal pain Review of Systems Constitutional: no fever and no chills Respiratory: no cough and no dyspnea Cardiovascular: no chest pain Gastrointestinal: + abdominal pain; no nausea, no vomiting and no change in bowel habits Genitourinary: no dysuria Hematologic / Lymphatic: + easy bleeding and + easy bruising Physical Exam Constitutional: WD/WN, vitals as above Eyes: no scleral abnormality Neck: trachea midline Respiratory: normal respiratory effort, lungs clear to auscultation Cardiovascular: RRR, no murmur, no edema Gastrointestinal (Abdomen): Inspection/Auscultation: abdomen normal to inspection and normal bowel sounds; abdomen not distended Percussion/Palpation: abdomen soft; abdomen nontender, no guarding and abdomen not rigid Musculoskeletal: Head/Neck/Chest: normocephalic and head atraumatic Skin: no rashes, warm and dry Results & Data Vital Signs (Past 12 Hours) Vital Signs Temp Pulse Pulse Resp BP Pulse Ox O2 Del Method 07/08/24 08:25 Room Air 07/08/24 07:33 36.6 C 79 20 144/85 H 92 Room Air 07/08/24 07:00 78 07/08/24 03:00 36.5 C 85 18 136/83 93 Room Air 07/07/24 23:20 36.7 C 78 18 130/81 92 Room Air
--- NOTE | 2024-07-08 14:50 | Hospitalist Progress Note ---
Date of Service July 08, 2024 Assessment & Plan (1) Elevated INR: Plan Patient has been dealing with generalized fatigue, weakness, poor appetite since lap addi on 06/28/2024. He has taken only 1 dose of Coumadin since his operation and his INR was elevated at 6.3, hence he was sent to the ED for elevated INR. In the ED he was noted to have leukocytosis and possible gallbladder fossa abscess. He is being managed for the following: Gallbladder fossa abscess Transaminitis Patient with recent lap addi/01/12, has been dealing with progressive weakness/fatigue/poor appetite since surgery. --CT ABD: Abscess at the gallbladder fossa. Subcapsular fluid collection at the dome of the liver. --Gall Bladder USD:Postcholecystectomy large complex fluid collection with air involving the gallbladder fossa. Measurements could not be obtained due to the large size, and the exact location also could not be assessed. CT images were not provided. However previous CT was obtained, and fluid collection was noted. Please correlate with the CT scan. Diffuse hypoechoic liver with prominent portal veins, suggesting acute medical liver disease. For clinical and lab correlation. -- Consider MRCP if needed --Hepatitis panel pending --Blood cultures p negative to date Continue IV Zosyn, IV fluids Appreciate surgery input Will consult IR for gallbladder fossa aspiration Hold statin for now, monitor LFTs Avoid hepatotoxic agents as able LFTs stable Poor oral intake N.p.o. to midnight for possible procedure tomorrow by IR Elevated INR: Patient apparently took only 1 dose of Coumadin since his surgery Liver dysfunction, poor appetite likely contributing to elevated INR No acute bleeding issues Received IV vitamin K INR:8.7>1.4 Will hold Coumadin for now as planned for procedure Acute kidney injury: Baseline Cr around 1 Continue gentle IV fluids Monitor renal function Avoid nephrotoxic agents as able Troponin elevation Likely demand ischemia: Patient denies any chest pain, dyspnea Monitor Constipation: Patient reports last bowel movement 3 to 4 days ago Continue bowel regimen Monitor Factor V Leiden mutation S/P AVR History of atrial fibrillation Coumadin on hold for possible procedure Will continue IV heparin for now Target INR 2-3 per record Continue Cardizem, metoprolol CAD S/P angioplasty Continue aspirin, metoprolol Statin on hold due to elevated LFTs Monitor Hypertension Continue home medications Monitor DVT Px: IV heparin for now Code Status Full code Admission and Anticipated Discharge Date Admission Date: July 06, 2024 Subjective Patient is seen and examined at bedside Offers no new complaints today Discussed with patient's son at bedside Poor oral intake today Patient denies any nausea, vomiting, abdominal pain, chest pain, dyspnea Persistent leukocytosis Afebrile today Review of Systems Review of Systems: All systems reviewed & are unremarkable except as noted in Subjective Physical Exam Physical Exam: Physical Exam: Vitals signs as noted above General Appearance:Moderately built and nourished, no apparent distress, Elderly Head: normocephalic, Atraumatic Eyes: normal inspection, EOMI Neck: supple, Trachea midline Respiratory/Chest: Normal breath sounds, CTA, No accessory muscle use Cardiovascular: Irregularly irregular +murmur Abdomen/GI:Soft, mildly distended, non tender, Bowel sounds present, no guarding/rigidity Extremities/Musculoskeletal:normal inspection, Trace edema Neurologic/Psych:AAOX3, grossly no focal neurological deficits Skin: normal color, warm Results & Data Results & Data Vital Signs (Past 12 Hours) Vital Signs Temp Pulse Pulse Resp BP Pulse Ox O2 Del Method 07/08/24 14:00 76 07/08/24 12:00 36.4 C L 77 20 135/79 94 Room Air 07/08/24 08:25 Room Air 07/08/24 07:33 36.6 C 79 20 144/85 H 92 Room Air 07/08/24 07:00 78 07/08/24 03:00 36.5 C 85 18 136/83 93 Room Air Laboratory Results Short CBC 07/08/24 Range/Units 06:04 WBC 18.99 H (4.8-10.8) K/ul Hgb 11.8 L (14.0-18.0) g/dl Hct 32.4 L (42.0-52.0) % Plt Count 406 H (130-400) K/uL BMP 07/08/24 06:04 Sodium 135 L Potassium 3.7 Chloride 103 Carbon Dioxide 27 BUN 17 Creatinine 1.13 Glucose 109 H Calcium 7.9 L Liver Function 07/08/24 Range/Units 06:04 Total Bilirubin 2.7 H (0.2-1.0) mg/dl AST 56 H (13-39) U/L ALT 55 H (7-52) U/L Alkaline Phosphatase 186 H (34-104) U/L Albumin 2.4 L (3.4-5.0) gm/dl
[2024-07-08 23:38] LABS: Hepatitis A Antibody IgM NON-REACTIVE (NON-REACTIVE); Hepatitis B Core Antibody IgM NON-REACTIVE (NON-REACTIVE)
[2024-07-09 07:20] LABS: Hematocrit (blood only) 34.7 % (42.0-52.0); Hemoglobin 11.9 g/dl (14.0-18.0); Mean Corpuscular Hemoglobin 30.4 pg (25.0-34.0); Mean Corpuscular Hgb Conc 34.3 g/dL (32.0-36.0); Mean Corpuscular Volume 88.5 fL (80.0-100.0); Mean Platelet Volume 8.9 fL (9.4-12.4); Platelet Count 371 K/uL (130-400); RDW Coefficient of Variation 14.4 % (11.5-14.5); RDW Standard Deviation 46.4 fL (36.4-46.3); Red Blood Count 3.92 M/uL (4.70-6.10); White Blood Count 19.99 K/ul (4.8-10.8)
[2024-07-09 07:35] LABS: Albumin Globulin Ratio 0.7 (0.9-2); Albumin Level 2.5 gm/dl (3.4-5.0); BUN Creatinine Ratio 11.3 (10-20); Bilirubin,Total 2.8 mg/dl (0.2-1.0); Calcium 7.9 mg/dl (8.6-10.3); Creatinine Clr Calc Pharmacy 65.5 ml/min; Globulin 3.7 gm/dl (2.5-4.0); Potassium 3.6 mmol/L (3.5-5.1); Total Protein 6.2 gm/dl (6.0-8.3)
[2024-07-09 07:49] LABS: ANTI-Xa, UFH(UnfractionatedHep 0.27 IU/ml (0.3-0.7)
[2024-07-09 08:00] LABS: INR 1.5 (0.9-1.1); Prothrombin Time 15.3 Seconds (9.0-12.0)
[2024-07-09] MEDS ORDERED: PHA DELIRIUM CONSULT PRN (09:45)
--- NOTE | 2024-07-09 13:01 | Surgery Progress Note ---
Date of Service July 09, 2024 Assessment & Plan (1) History of laparoscopic cholecystectomy: (2) Elevated INR (international normalized ratio) due to prior anticoagulant medication ingestion: (3) Weakness: Plan POD # 11 s/p laparoscopic cholecystectomy afebrile leukocytosis of 19K minimal abdominal pain subjectively. abdomen soft, nontender on exam +confusion and +weakness INR corrected (8 on admission) t. bili 2.8 (2.9 on admission) LFTS and alk phos improving + scleral icterus Plan: Awaiting for IR drainage of postop fluid collection at gallbladder fossa likely abscess NPO for procedure Continue IV abx continue medical management repeat am labs, added direct bilirubin to am labs. Highly consider MRCP if t. bili still elevated and d. bili elevated to ensure no biliary obstruction pending IR drainage and repeat am labs. Admission and Anticipated Discharge Date Admission Date: July 06, 2024 Subjective patient sitting up in chair sleeping, family at bedside very sleepy, per family seems to be very fatigued and worsening since admission, + confusion Patient awakens and denies of any abdominal pain, nausea, or vomiting but seems slightly confused Physical Exam Constitutional: WD/WN, vitals as above + frail appearing and + lethargic; no acute distress, not in distress and not diaphoretic Eyes: sclerae not anicteric (+ scleral icterus) Respiratory: normal respiratory effort; no respiratory distress Gastrointestinal (Abdomen): Inspection/Auscultation: abdomen normal to inspection and + abdominal surgical incision (c/d/i with dermabond); abdomen not distended Percussion/Palpation: abdomen soft; abdomen nontender, no guarding, abdomen not rigid and abdomen not firm Skin: no rashes, warm and dry no jaundice Psychiatric: Orientation: alert Results & Data Vital Signs (Past 12 Hours) Vital Signs Temp Pulse Pulse Resp BP Pulse Ox O2 Del Method 07/09/24 11:13 36.7 C 86 14 140/97 95 Room Air 07/09/24 08:30 Room Air 07/09/24 07:18 36.5 C 102 H 14 138/85 Room Air 07/09/24 07:00 76 07/09/24 03:26 36.7 C 97 H 18 148/89 H 95 Room Air Laboratory Results 07/09/24 07/07/24 Range/Units 06:58 05:46 WBC 19.99 H (4.8-10.8) K/ul RBC 3.92 L (4.70-6.10) M/uL Hgb 11.9 L (14.0-18.0) g/dl Hct 34.7 L (42.0-52.0) % MCV 88.5 (80.0-100.0) fL MCH 30.4 (25.0-34.0) pg MCHC 34.3 (32.0-36.0) g/dL RDW Std Deviation 46.4 H (36.4-46.3) fL RDW Coeff of Ryan 14.4 (11.5-14.5) % Plt Count 371 (130-400) K/uL MPV 8.9 L (9.4-12.4) fL PT 15.3 H (9.0-12.0) Seconds INR 1.5 H (0.9-1.1) Heparin Anti-Xa, Unfract 0.27 L (0.3-0.7) IU/ml Sodium 133 L (136-145) mmol/L Potassium 3.6 (3.5-5.1) mmol/L Chloride 101 (98-107) mmol/L Carbon Dioxide 26 (21-32) mmol/L Anion Gap 6 (3-11) BUN 12 (6-23) mg/dl Creatinine 1.06 (0.6-1.4) mg/dl Est Cr Clr Drug Dosing 65.5 ml/min eGFR 70.07 BUN/Creatinine Ratio 11.3 (10-20) Glucose 104 H (70-99(Fasting)) mg/dl Calcium 7.9 L (8.6-10.3) mg/dl Total Bilirubin 2.8 H (0.2-1.0) mg/dl AST 45 H (13-39) U/L ALT 47 (7-52) U/L Alkaline Phosphatase 186 H (34-104) U/L Total Protein 6.2 (6.0-8.3) gm/dl Albumin 2.5 L (3.4-5.0) gm/dl Globulin 3.7 (2.5-4.0) gm/dl Albumin/Globulin Ratio 0.7 L (0.9-2) Hepatitis A IgM Ab NON-REACTIVE (NON-REACTIVE) Hep B Core IgM Ab NON-REACTIVE (NON-REACTIVE)
[2024-07-09] MEDS: fentaNYL citrate PF 100 MCG/2 ML VIAL ONE (15:13)
--- NOTE | 2024-07-09 15:19 | CT Scan Report ---
CT-GUIDED GALLBLADDER FOSSA AND SUBCAPSULAR FLUID COLLECTION PIGTAIL PLACEMENT INDICATION: Large subcapsular fluid collection; gallbladder fossa collection PROCEDURE: Procedure and risks were explained. Informed consent was obtained. A final timeout was com pleted. The patient was placed supine on the CT exam table. The right upper quadrant was prepped and draped in sterile fashion. 1% lidocaine was utilized for skin anesthesia. Utilizing CT guidance, an 18-gauge 10 cm Chiba needle was advanced into the gallbladder fossa fluid c ollection. A 0.035 Amplatz wire was introduced and exchanged for an 8 [place] locking pigtail catheter . Approximately 10 mL of blood-tinged fluid was removed and sent to lab for analysis. The catheter wa s sutured to the skin with 2-0 silk and placed to suction bag drainage. Next, utilizing CT guidance, an 8 [place] locking pigtail catheter was advanced into the subcapsular liver fluid collection. Approx imately 20 mL of a toor-colored fluid was removed and sent to lab for analysis. The catheter was sut ured to the skin with 2-0 silk and placed to suction bag drainage. The patient tolerated both procedu res well. Post CT imaging demonstrated no immediate complication with adequate catheter position with in the gallbladder fossa and subcapsular fluid collections. Vital signs will be monitored on the floo r postprocedure. IMPRESSION: Gallbladder fossa and subcapsular liver fluid collection drainages as detailed above. Performed, dictated, and signed by Jose Angel Wolfe PA-C; to be co-signed by Dr. Cyrus Jones. Electronically signed by: Cyrus Jones M.D. 07/09/2024 4:09 PM
--- NOTE | 2024-07-09 15:26 | Hospitalist Progress Note ---
Date of Service July 09, 2024 Assessment & Plan (1) Elevated INR: Plan Patient has been dealing with generalized fatigue, weakness, poor appetite since lap addi on 06/28/2024. He has taken only 1 dose of Coumadin since his operation and his INR was elevated at 6.3, hence he was sent to the ED for elevated INR. In the ED he was noted to have leukocytosis and possible gallbladder fossa abscess. He is being managed for the following: Gallbladder fossa abscess Transaminitis Patient with recent lap addi/01/12, has been dealing with progressive weakness/fatigue/poor appetite since surgery. --CT ABD: Abscess at the gallbladder fossa. Subcapsular fluid collection at the dome of the liver. --Gall Bladder USD:Postcholecystectomy large complex fluid collection with air involving the gallbladder fossa. Measurements could not be obtained due to the large size, and the exact location also could not be assessed. CT images were not provided. However previous CT was obtained, and fluid collection was noted. Please correlate with the CT scan. Diffuse hypoechoic liver with prominent portal veins, suggesting acute medical liver disease. For clinical and lab correlation. -- Consider MRCP if needed --Hepatitis panel negative --Blood cultures: negative to date Continue IV Zosyn Appreciate surgery input Plan for IR drainage of gallbladder fossa Hold statin for now, monitor LFTs Avoid hepatotoxic agents as able Poor oral intake Surgery following Elevated INR: Patient apparently took only 1 dose of Coumadin since his surgery Liver dysfunction, poor appetite likely contributing to elevated INR No acute bleeding issues Received IV vitamin K INR:8.7>1.5 Coumadin on hold for IR procedure Acute kidney injury: Baseline Cr around 1 Monitor renal function Avoid nephrotoxic agents as able IV fluids as needed Troponin elevation Likely demand ischemia: Patient denies any chest pain, dyspnea Monitor Constipation: Patient reports last bowel movement 3 to 4 days ago Continue bowel regimen Monitor Factor V Leiden mutation S/P AVR History of atrial fibrillation Coumadin on hold for procedure Target INR 2-3 per record Continue Cardizem, metoprolol Resume IV heparin as soon as possible once cleared by surgery CAD S/P angioplasty Continue aspirin, metoprolol Statin on hold due to elevated LFTs Monitor Hypertension Continue home medications Monitor DVT Px: IV heparin on hold SCDs Code Status Full code Admission and Anticipated Discharge Date Admission Date: July 06, 2024 Subjective Patient is seen and examined at bedside No new complaints today Discussed with patient's son at bedside Plan for IR intervention today Patient denies any nausea, vomiting, abdominal pain, chest pain, dyspnea Review of Systems Review of Systems: All systems reviewed & are unremarkable except as noted in Subjective Physical Exam Physical Exam: Physical Exam: Vitals signs as noted above General Appearance:Moderately built and nourished, no apparent distress, Elderly Head: normocephalic, Atraumatic Eyes: normal inspection, EOMI Neck: supple, Trachea midline Respiratory/Chest: Normal breath sounds, CTA, No accessory muscle use Cardiovascular: Irregularly irregular +murmur Abdomen/GI:Soft, non tender, Bowel sounds present, no guarding/rigidity Extremities/Musculoskeletal:normal inspection, Trace edema Neurologic/Psych:AAOX3, grossly no focal neurological deficits Skin: normal color, warm Results & Data Results & Data Vital Signs (Past 12 Hours) Vital Signs Temp Pulse Pulse Resp BP Pulse Ox O2 Del Method 07/09/24 11:13 36.7 C 86 14 140/97 95 Room Air 07/09/24 08:30 Room Air 07/09/24 07:18 36.5 C 102 H 14 138/85 Room Air 07/09/24 07:00 76 07/09/24 03:26 36.7 C 97 H 18 148/89 H 95 Room Air Laboratory Results Short CBC 07/09/24 Range/Units 06:58 WBC 19.99 H (4.8-10.8) K/ul Hgb 11.9 L (14.0-18.0) g/dl Hct 34.7 L (42.0-52.0) % Plt Count 371 (130-400) K/uL BMP 07/09/24 06:58 Sodium 133 L Potassium 3.6 Chloride 101 Carbon Dioxide 26 BUN 12 Creatinine 1.06 Glucose 104 H Calcium 7.9 L Liver Function 07/09/24 Range/Units 06:58 Total Bilirubin 2.8 H (0.2-1.0) mg/dl AST 45 H (13-39) U/L ALT 47 (7-52) U/L Alkaline Phosphatase 186 H (34-104) U/L Albumin 2.5 L (3.4-5.0) gm/dl
[2024-07-09 15:52] LABS: ANTI-Xa, UFH(UnfractionatedHep < 0.10 IU/ml (0.3-0.7)
[2024-07-09] MEDS: HEPARIN 25000 UNIT/500 ML D5W 25,000 UNITS/500 ML BAG IV SCH (23:46)
[2024-07-10 06:16] LABS: Albumin Globulin Ratio 0.6 (0.9-2); Albumin Level 2.4 gm/dl (3.4-5.0); BUN Creatinine Ratio 9.9 (10-20); Bilirubin Direct 1.3 mg/dl (0-0.2); Bilirubin,Total 2.3 mg/dl (0.2-1.0); Calcium 7.9 mg/dl (8.6-10.3); Creatinine Clr Calc Pharmacy 62.2 ml/min; Globulin 3.9 gm/dl (2.5-4.0); Potassium 3.5 mmol/L (3.5-5.1); Total Protein 6.3 gm/dl (6.0-8.3)
[2024-07-10 06:26] LABS: ANTI-Xa, UFH(UnfractionatedHep 0.23 IU/ml (0.3-0.7); INR 1.4 (0.9-1.1); Prothrombin Time 15.1 Seconds (9.0-12.0)
[2024-07-10 06:31] LABS: Hematocrit (blood only) 33.9 % (42.0-52.0); Hemoglobin 11.7 g/dl (14.0-18.0); Mean Corpuscular Hemoglobin 30.9 pg (25.0-34.0); Mean Corpuscular Hgb Conc 34.5 g/dL (32.0-36.0); Mean Corpuscular Volume 89.4 fL (80.0-100.0); Platelet Count 396 K/uL (130-400); RDW Coefficient of Variation 14.6 % (11.5-14.5); RDW Standard Deviation 47.6 fL (36.4-46.3); Red Blood Count 3.79 M/uL (4.70-6.10); White Blood Count 13.65 K/ul (4.8-10.8)
--- NOTE | 2024-07-10 08:51 | Surgery Progress Note ---
Date of Service July 10, 2024 Assessment & Plan (1) History of laparoscopic cholecystectomy: Plan: POD 12 Lap addi POD 1 IR drain x2 for postop fluid collection at gallbladder fossa tolerating clear liquid diet VSS , wbc downtrending Tbili still elevated 2.5 (2.8), D bili 1.3 Recommend GI consult for recs on possible MRCP Will need course of oral ABX on d/c and f/u op with Dr Blank Patient seen and examined with Dr Guevara General surgery will follow from peripheral call with questions/concerns Admission and Anticipated Discharge Date Admission Date: July 06, 2024 Supervising Physician Co-Signing Physician Notes I have seen and examined this patient and I agree with this plan. Please message surgery FREDERICK with questions. Subjective pt denies complaints Review of Systems Gastrointestinal: no nausea and no vomiting Physical Exam Constitutional: cooperative and comfortable; no acute distress Respiratory: normal respiratory effort; no respiratory distress Cardiovascular: Rate/Rhythm: regular rate Gastrointestinal (Abdomen): Inspection/Auscultation: + abdominal surgical drain present; abdomen not distended Results & Data Vital Signs (Past 12 Hours) Vital Signs Temp Pulse Pulse Resp BP Pulse Ox O2 Del Method 07/10/24 08:19 97.5 F L 87 19 132/70 95 Room Air 07/10/24 06:14 91 H 07/10/24 02:53 97.5 F L 83 18 144/80 H 94 Room Air 07/10/24 01:59 77 07/09/24 22:20 97.7 F 85 18 137/74 95 Room Air Results CBC w Diff Results: RBC 3.79 M/uL (4.70-6.10) L 07/10/24 WBC 13.65 K/ul (4.8-10.8) H 07/10/24 Hgb 11.7 g/dl (14.0-18.0) L 07/10/24 Hct 33.9 % (42.0-52.0) L 07/10/24 MCV 89.4 fL (80.0-100.0) 07/10/24 MCH 30.9 pg (25.0-34.0) 07/10/24 MCHC 34.5 g/dL (32.0-36.0) 07/10/24 RDW Standard Deviation 47.6 fL (36.4-46.3) H 07/10/24 RDW Coefficient of Variation 14.6 % (11.5-14.5) H 07/10/24 Plt Count 396 K/uL (130-400) 07/10/24 MPV 9.0 fL (9.4-12.4) L 07/10/24 Neutrophils (%) (Auto) 89.6 % 07/07/24 Lymphocytes (%) (Auto) 4.5 % 07/07/24 Monocytes # (Auto) 0.85 K/uL (0.11-0.59) H 07/07/24 Eosinophils # (Auto) 0.04 K/uL (0.00-0.50) 07/07/24 Immature Granulocyte % (Auto) 1.0 % 07/07/24 Neutrophils # (Auto) 16.78 K/uL (1.40-6.50) H 07/07/24 Lymphocytes # (Auto) 0.85 K/uL (1.20-3.40) L 07/07/24 Monocytes # (Auto) 0.85 K/uL (0.11-0.59) H 07/07/24 Eosinophils # (Auto) 0.04 K/uL (0.00-0.50) 07/07/24 Basophils # (Auto) 0.04 K/uL (0.00-0.20) 07/07/24 Immature Granulocyte # (Auto) 0.18 K/uL (0.01-0.20) 5 PG Care Time/CCT Total # of Minutes Spent Total Time Spent with Patient: Total time spent is greater than 50% in coordination of care (as documented) at patient's floor/unit and/or counseling patient: Coding Level of Care Code 05227 SUB INP/OBS CARE 04/14MIN Diagnoses History of laparoscopic cholecystectomy Z90.49
--- NOTE | 2024-07-10 12:57 | Gastrointestinal Consultation ---
<Statement entered by Tolu Armas MD - 07/10/24 16:43> I have reviewed the history, physical exam, lab and imaging findings as dictated by the mid-level provider, made any necessary modifications, and agree with the stated assessment and recommendations. A total of 55 minutes was spent in the chart/data review, direct observation, decision making and discussion of this case with the mid level provider, patient/family and other providers. Date of Consultation July 10, 2024 Assessment & Plan (1) Elevated bilirubin: Isolated elevated bilirubin - ? obstruction vs reabsorption, nutritional Gen surg requesting GI opinion regarding possible MRCP for this patient per their documentation. Daughter in law (who is a [employer] project manager/design manager) shares with me that he was previously ordered an MRCP this admission by general surgery. Upon review of nursing documentation, patient was taken to MRI and could not proceed with MRCP due to agitation and anxiety surrounding the procedure. Could try again if patient interested in proceeding. I did call MRI who agreed to let his daughter in law accompany him to MRI to see if this helps. Continue to monitor LFTs. Did check VERO, ASMA, AMA, & acute hepatitis panel. Plan l History of Present Illness Reason for Consultation: Elevated T bili, p/o lap addi , IR drain abscess "Recommend GI consult for recs on possible MRCP" Attending Physician: Neo Arteaga MD History of Present Illness Patient is an 83 yo male POD12 cholecystectomy with abscess and drains in place. General surgery consulted GI due to elevated bilirubin and "recs on possible MRCP" per notes. The bilirubin is 2.3. D bilirubin 1.3. AST, ALT unremarkable. Alk phos 165. Family denies significant alcohol use. No supplement use. Antibiotic use since cholecystectomy. Patient is confused, but is accompanied at bedside by his daughter in law who is a skilled nursing case manager here. Patient acknowledges RUQ pain intermittently. CT abd/pelvis: IMPRESSION: 1. Atelectasis versus pneumonia right lung base. 2. Abscess at the gallbladder fossa. Subcapsular fluid collection at the dome of the liver. 3. Otherwise as described. US abdomen: IMPRESSION: 1. Postcholecystectomy large complex fluid collection with air involving the gallbladder fossa. Measurements could not be obtained due to the large size, and the exact location also could not be assessed. CT images were not provided. However previous CT was obtained, and fluid collection was noted. Please correlate with the CT scan. 2. Diffuse hypoechoic liver with prominent portal veins, suggesting acute medical liver disease. For clinical and lab correlation. Allergies Allergy/AdvReac Type Severity Reaction Status Date / Time codeine Allergy Intermediate RASH Verified 07/06/24 16:08 diltiazem Allergy Intermediate ITCHING Verified 07/06/24 16:08 AND FLUSHING Home Medications Medication Instructions Recorded Confirmed Type pantoprazole 40 mg tablet,delayed 40 mg PO QAM 12/21/18 07/06/24 History release (Protonix) melatonin 5 mg capsule 5 mg PO HS 01/14/21 07/06/24 History folic acid 1 mg tablet 1 mg PO QAM 09/18/21 07/06/24 History aspirin 81 mg tablet,delayed 81 mg PO QAM 05/18/22 07/06/24 History release (Adult Low Dose Aspirin) furosemide 20 mg tablet (Lasix) 20 mg PO DAILY PRN Edema 02/01/23 07/06/24 History acetaminophen 325 mg tablet 650 mg PO Q6H PRN pain 12/21/23 07/06/24 History metoprolol succinate 25 mg 50 mg PO HS 12/21/23 07/06/24 History tablet,extended release 24 hr (Toprol XL) pravastatin 10 mg tablet 10 mg PO DAILY 05/28/24 07/06/24 History diltiazem HCl 300 mg 300 mg PO DAILY 07/06/24 07/06/24 History tablet,extended release 24 hr (Matzim LA) sertraline 100 mg tablet 100 mg PO QAM 07/06/24 07/06/24 History warfarin 4 mg tablet 4 mg PO [id number] 07/06/24 07/06/24 History Patient History Medical History Aortic stenosis mod-severe CAD (coronary artery disease) CAD s/p cardiac catheterization 05/29/18 with angioplasty and stenting of hazy 95% ostial LAD lesion with mid to distal luminal irregularities; moderate size first diagonal branch with a 50-60% proximal stenosis; large circumflex with a 20% ostial stenosis; large dominant RCA with a 30-40% proximal stenosis. Status post angioplasty and stenting with a 3.0 x 15 mm Xience Lorna drug- eluting stent 2019. Cardiac catheterization 12/08/2020 with normal right-sided and left-sided pressures. Status post angioplasty and stenting of a 90% proximal OM3 lesion. Factor V Leiden GERD (gastroesophageal reflux disease) Retinal vein occlusion of right eye seeing Dr. Gonzales currently for injections for ~8-9 weeks Murmur Surgical History History of cardiac cath 05/2018, [facility], x1 stent 11/2020, [facility] x1 stent; f/u dr. 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 Beliefs That Will Affect Care: None marital status: / Current Living Situation: Alone current occupation: Retired Other Information That Helps Us Care for You: No Feels Safe at Home: Yes Safety Concerns: Feels Safe At This Time Assistive Devices: Walker Review of Systems Gastrointestinal: + abdominal pain Physical Exam Constitutional: well developed Respiratory: normal respiratory effort Gastrointestinal (Abdomen): normal bowel sounds, soft, nontender, no hepatosplenomegaly Results & Data Vital Signs (Past 12 Hours) Vital Signs Temp Pulse Pulse Resp BP Pulse Ox O2 Del Method 07/10/24 12:11 Room Air 07/10/24 11:39 36.5 C 78 18 137/72 97 Room Air 07/10/24 08:19 36.4 C L 87 19 132/70 95 Room Air 07/10/24 06:14 91 H 07/10/24 02:53 36.4 C L 83 18 144/80 H 94 Room Air 07/10/24 01:59 77 PG Care Time/CCT Total # of Minutes Spent Total Time Spent with Patient: Total time spent is greater than 50% in coordination of care (as documented) at patient's floor/unit and/or counseling patient: Coding Level of Care Code 78435 INT INP/OBS CARE MIN Diagnoses Elevated bilirubin R17
[2024-07-10 13:41] LABS: ANTI-Xa, UFH(UnfractionatedHep 0.21 IU/ml (0.3-0.7)
--- NOTE | 2024-07-10 15:07 | Hospitalist Progress Note ---
Date of Service July 10, 2024 Assessment & Plan (1) Elevated INR: Plan Patient has been dealing with generalized fatigue, weakness, poor appetite since lap addi on 06/28/2024. He has taken only 1 dose of Coumadin since his operation and his INR was elevated at 6.3, hence he was sent to the ED for elevated INR. In the ED he was noted to have leukocytosis and possible gallbladder fossa abscess. He is being managed for the following: Gallbladder fossa abscess Transaminitis Patient with recent lap addi/01/12, has been dealing with progressive weakness/fatigue/poor appetite since surgery. --CT ABD: Abscess at the gallbladder fossa. Subcapsular fluid collection at the dome of the liver. --Gall Bladder USD:Postcholecystectomy large complex fluid collection with air involving the gallbladder fossa. Measurements could not be obtained due to the large size, and the exact location also could not be assessed. CT images were not provided. However previous CT was obtained, and fluid collection was noted. Please correlate with the CT scan. Diffuse hypoechoic liver with prominent portal veins, suggesting acute medical liver disease. For clinical and lab correlation. -- Consider MRCP if needed --Hepatitis panel negative --Blood cultures: negative to date --S/P IR drain x2 placement on 07/09/2024. --Abdominal gallbladder fossa fluid growing Klebsiella aerogenes Continue IV Zosyn Appreciate surgery input Plan for IR drainage of gallbladder fossa Hold statin for now, monitor LFTs Avoid hepatotoxic agents as able Tolerating liquid diet MRCP pending Appreciate GI input: Hepatitis panel, VERO, anti-smooth muscle, antimitochondrial antibody pending Further management to be determined Follow-up cultures, adjust antibiotics as needed Elevated INR: Patient apparently took only 1 dose of Coumadin since his surgery Liver dysfunction, poor appetite likely contributing to elevated INR No acute bleeding issues Received IV vitamin K INR:8.7>1.5>1.4 Coumadin on hold for IR procedure Acute kidney injury: Baseline Cr around 1 Monitor renal function Avoid nephrotoxic agents as able IV fluids as needed Troponin elevation Likely demand ischemia: Patient denies any chest pain, dyspnea Monitor Constipation: Patient reports last bowel movement 3 to 4 days ago Continue bowel regimen Monitor Factor V Leiden mutation S/P AVR History of atrial fibrillation Coumadin on hold for procedure as above Target INR 2-3 per record Continue Cardizem, metoprolol Continue IV heparin for now CAD S/P angioplasty Continue aspirin, metoprolol Statin on hold due to elevated LFTs Monitor Hypertension Continue home medications Monitor DVT Px: IV heparin Code Status Full code Admission and Anticipated Discharge Date Admission Date: July 06, 2024 Subjective Patient is seen and examined at bedside Mildly confused during my encounter this morning, had to be reoriented Denies any abdominal pain, nausea, vomiting, chest pain, dyspnea Tolerating liquid diet Review of Systems Review of Systems: All systems reviewed & are unremarkable except as noted in Subjective Physical Exam Physical Exam: Physical Exam: Vitals signs as noted above General Appearance:Moderately built and nourished, no apparent distress, Elderly Head: normocephalic, Atraumatic Eyes: normal inspection, EOMI Neck: supple, Trachea midline Respiratory/Chest: Normal breath sounds, CTA, No accessory muscle use Cardiovascular: Irregularly irregular +murmur Abdomen/GI:Soft, non tender, Bowel sounds present, no guarding/rigidity, +drain Extremities/Musculoskeletal:normal inspection, Trace edema Neurologic/Psych:AAOX3, grossly no focal neurological deficits Skin: normal color, warm Results & Data Results & Data Vital Signs (Past 12 Hours) Vital Signs Temp Pulse Pulse Resp BP Pulse Ox O2 Del Method 07/10/24 13:05 74 07/10/24 12:11 Room Air 07/10/24 11:39 36.5 C 78 18 137/72 97 Room Air 07/10/24 08:19 36.4 C L 87 19 132/70 95 Room Air 07/10/24 06:14 91 H Laboratory Results Short CBC 07/10/24 Range/Units 05:29 WBC 13.65 H (4.8-10.8) K/ul Hgb 11.7 L (14.0-18.0) g/dl Hct 33.9 L (42.0-52.0) % Plt Count 396 (130-400) K/uL BMP 07/10/24 05:29 Sodium 136 Potassium 3.5 Chloride 102 Carbon Dioxide 28 BUN 11 Creatinine 1.11 Glucose 93 Calcium 7.9 L Liver Function 07/10/24 Range/Units 05:29 Total Bilirubin 2.3 H (0.2-1.0) mg/dl Direct Bilirubin 1.3 H (0-0.2) mg/dl AST 32 (13-39) U/L ALT 39 (7-52) U/L Alkaline Phosphatase 165 H (34-104) U/L Albumin 2.4 L (3.4-5.0) gm/dl
[2024-07-10] MEDS: ACETAMINOPHEN 325 MG TAB PO PRN (19:18)
[2024-07-10 20:14] LABS: ANTI-Xa, UFH(UnfractionatedHep 0.57 IU/ml (0.3-0.7)
[2024-07-11 08:01] LABS: Hematocrit (blood only) 33.2 % (42.0-52.0); Hemoglobin 11.4 g/dl (14.0-18.0); Mean Corpuscular Hemoglobin 30.6 pg (25.0-34.0); Mean Corpuscular Hgb Conc 34.3 g/dL (32.0-36.0); Mean Corpuscular Volume 89.2 fL (80.0-100.0); Platelet Count 399 K/uL (130-400); RDW Coefficient of Variation 14.6 % (11.5-14.5); Red Blood Count 3.72 M/uL (4.70-6.10)
[2024-07-11 08:27] LABS: ANTI-Xa, UFH(UnfractionatedHep 0.63 IU/ml (0.3-0.7); Albumin Globulin Ratio 0.6 (0.9-2); Albumin Level 2.4 gm/dl (3.4-5.0); BUN Creatinine Ratio 9.5 (10-20); Bilirubin,Total 1.8 mg/dl (0.2-1.0); Calcium 7.9 mg/dl (8.6-10.3); Creatinine Clr Calc Pharmacy 65.3 ml/min; Globulin 3.9 gm/dl (2.5-4.0); INR 1.6 (0.9-1.1); Magnesium 1.9 mg/dl (1.7-2.4); Potassium 3.4 mmol/L (3.5-5.1); Prothrombin Time 16.8 Seconds (9.0-12.0); Total Protein 6.3 gm/dl (6.0-8.3)
[2024-07-11 09:44] LABS: Hep C Ab Rflx HepCQuant RNA Negative (Negative)
[2024-07-11 09:47] LABS: Hep B Surface Ag with confirm Negative (Negative)
[2024-07-11] MEDS: D5W AND 1/2NSS + 20MEQ KCL 20 MEQ/1,000 ML BAG IV ONE (09:52)
[2024-07-11] MEDS: POTASSIUM CHLORIDE / WTR 10 MEQ/100 ML PLCT IV SCH (09:53)
[2024-07-11] MEDS: ERTAPENEM 1000MG 1,000 MG/10 ML SYR IV SCH (10:38)
--- NOTE | 2024-07-11 11:32 | Communication Note ---
Date of Service: July 11, 2024 Patient is an 83 yo with hyperbilirubinemia. We are awaiting MRCP at the present time. T bili today improving at 1.8. Will review MRCP when available and make further recommendations.
--- NOTE | 2024-07-11 13:40 | Magnetic Resonance Report ---
MR MRCP HISTORY: 83 years-old Male Elevated bilirubin, RUQ pain, recent cholecystecto acute right upper quad rant abdominal pain COMPARISON: CT abdomen and pelvis 07/06/2024, CT-guided drainage study 07/09/2024 TECHNIQUE: MRCP without IV contrast was obtained according to institutional protocol. FINDINGS: Study is motion degraded. Layering right pleural effusion with right basilar consolidation redemonstr ated. Trace left pleural effusion. Cardiomegaly. Unremarkable spleen, pancreas and adrenal glands. Ch olecystectomy. Status post drainage of the previously noted right upper quadrant fluid collections wh ich have considerably decreased in size compared to the 07/06/2024 study with drainage catheters in pl xochitl. The common bile duct measures up to 7 mm transversely. No choledocholithiasis or biliary strictu re. Pancreatic duct measures up to 4 mm. No bowel obstruction or bowel wall thickening identified. Cortical thinning of the kidneys with bilat eral perinephric stranding. No acute fracture. IMPRESSION: 1. Decreased size of the perihepatic fluid collections status post drainage with catheters in place. 2. Cholecystectomy with mild dilation of the common bile duct measuring 7 mm. 3. No choledocholithiasis or biliary stricture identified. 4. Persistent right pleural effusion with right basilar consolidation. ACT 112: Negative or not required by law. The above report was generated using voice recognition software. It may contain grammatical, syntax o r spelling errors. Electronically signed by: Cyrus Jones M.D. 07/11/2024 1:38 PM
--- NOTE | 2024-07-11 14:40 | Communication Note ---
Date of Service: July 11, 2024 MRCP without evidence of choledocholithiasis. Mild dilatation of the CBD to 7mm in this patient s/p cholecystectomy. Continue to trend bilirubin. No further acute GI plans at this time. VERO, CHLOEA, ASMA to return at a later date. I have reviewed the history, physical exam, lab and imaging findings as dictated by the mid-level provider, made any necessary modifications, and agree with the stated assessment and recommendations.
--- NOTE | 2024-07-11 17:12 | Hospitalist Progress Note ---
Date of Service July 11, 2024 Assessment & Plan (1) Elevated INR: Plan Patient has been dealing with generalized fatigue, weakness, poor appetite since lap addi on 06/28/2024. He has taken only 1 dose of Coumadin since his operation and his INR was elevated at 6.3, hence he was sent to the ED for elevated INR. In the ED he was noted to have leukocytosis and possible gallbladder fossa abscess. He is being managed for the following: Gallbladder fossa abscess Transaminitis Patient with recent lap addi/01/12, has been dealing with progressive weakness/fatigue/poor appetite since surgery. --CT ABD: Abscess at the gallbladder fossa. Subcapsular fluid collection at the dome of the liver. --Gall Bladder USD:Postcholecystectomy large complex fluid collection with air involving the gallbladder fossa. Measurements could not be obtained due to the large size, and the exact location also could not be assessed. CT images were not provided. However previous CT was obtained, and fluid collection was noted. Please correlate with the CT scan. Diffuse hypoechoic liver with prominent portal veins, suggesting acute medical liver disease. For clinical and lab correlation. --MRCP:Decreased size of the perihepatic fluid collections status post drainage with catheters in place. Cholecystectomy with mild dilation of the common bile duct measuring 7 mm. No choledocholithiasis or biliary stricture identified. --Hepatitis panel negative --Blood cultures: negative to date --S/P IR drain x2 placement on 07/09/2024. --Abdominal gallbladder fossa fluid growing Klebsiella aerogenes Continue IV Zosyn>> transition to ertapenem Day #1 Appreciate surgery input Plan for IR drainage of gallbladder fossa Hold statin for now, monitor LFTs Avoid hepatotoxic agents as able Appreciate GI input: Hepatitis panel, VERO, anti-smooth muscle, antimitochondrial antibody pending Started on liquid diet, advance as tolerated Leukocytosis resolved Elevated INR: Patient apparently took only 1 dose of Coumadin since his surgery Liver dysfunction, poor appetite likely contributing to elevated INR No acute bleeding issues Received IV vitamin K INR:8.7>1.5>1.4 Acute kidney injury: Baseline Cr around 1 Monitor renal function Avoid nephrotoxic agents as able IV fluids as needed Troponin elevation Likely demand ischemia: Patient denies any chest pain, dyspnea Monitor Constipation: Patient reports last bowel movement 3 to 4 days ago Continue bowel regimen Monitor Factor V Leiden mutation S/P AVR History of atrial fibrillation Coumadin on hold for procedure as above Target INR 2-3 per record Continue Cardizem, metoprolol Continue IV heparin for now Resume Coumadin if no further procedures planned CAD S/P angioplasty Continue aspirin, metoprolol Statin on hold due to elevated LFTs Monitor Hypertension Continue home medications Monitor DVT Px: IV heparin Code Status Full code Admission and Anticipated Discharge Date Admission Date: July 06, 2024 Subjective Patient is seen and examined at bedside Discussed with patient's son at bedside Patient states having some rib pain Otherwise no complaints today Decreased drainage from gallbladder drain noted Also denies any nausea, vomiting, chest pain, dyspnea Leukocytosis resolved Had MRCP earlier Review of Systems Review of Systems: All systems reviewed & are unremarkable except as noted in Subjective Physical Exam Physical Exam: Physical Exam: Vitals signs as noted above General Appearance:Moderately built and nourished, no apparent distress, Elderly Head: normocephalic, Atraumatic Eyes: normal inspection, EOMI Neck: supple, Trachea midline Respiratory/Chest: Normal breath sounds, CTA, No accessory muscle use Cardiovascular: Irregularly irregular +murmur Abdomen/GI:Soft, non tender, Bowel sounds present, no guarding/rigidity, +drain Extremities/Musculoskeletal:normal inspection, Trace edema Neurologic/Psych:AAOX3, grossly no focal neurological deficits Skin: normal color, warm Results & Data Results & Data Vital Signs (Past 12 Hours) Vital Signs Temp Pulse Pulse Resp BP Pulse Ox O2 Del Method 07/11/24 15:45 36.3 C L 73 20 135/83 98 Room Air 07/11/24 11:05 36.3 C L 79 20 138/79 93 Room Air 07/11/24 07:32 36.3 C L 80 20 149/83 H 91 Room Air 07/11/24 05:45 76 Laboratory Results Short CBC 07/11/24 Range/Units 07:24 WBC 10.70 (4.8-10.8) K/ul Hgb 11.4 L (14.0-18.0) g/dl Hct 33.2 L (42.0-52.0) % Plt Count 399 (130-400) K/uL BMP 07/11/24 07:24 Sodium 136 Potassium 3.4 L Chloride 102 Carbon Dioxide 28 BUN 10 Creatinine 1.05 Glucose 101 H Calcium 7.9 L Liver Function 07/11/24 Range/Units 07:24 Total Bilirubin 1.8 H (0.2-1.0) mg/dl AST 34 (13-39) U/L ALT 35 (7-52) U/L Alkaline Phosphatase 142 H (34-104) U/L Albumin 2.4 L (3.4-5.0) gm/dl
[2024-07-12 07:24] LABS: Hematocrit (blood only) 36.1 % (42.0-52.0); Hemoglobin 12.3 g/dl (14.0-18.0); Mean Corpuscular Hemoglobin 30.8 pg (25.0-34.0); Mean Corpuscular Hgb Conc 34.1 g/dL (32.0-36.0); Mean Corpuscular Volume 90.5 fL (80.0-100.0); Platelet Count 421 K/uL (130-400); RDW Coefficient of Variation 14.6 % (11.5-14.5); RDW Standard Deviation 47.9 fL (36.4-46.3); Red Blood Count 3.99 M/uL (4.70-6.10); White Blood Count 9.95 K/ul (4.8-10.8)
[2024-07-12 07:45] LABS: Albumin Globulin Ratio 0.6 (0.9-2); Albumin Level 2.7 gm/dl (3.4-5.0); BUN Creatinine Ratio 7.1 (10-20); Bilirubin,Total 1.7 mg/dl (0.2-1.0); Calcium 8.3 mg/dl (8.6-10.3); Creatinine Clr Calc Pharmacy 69.6 ml/min; Globulin 4.4 gm/dl (2.5-4.0); Potassium 3.9 mmol/L (3.5-5.1); Total Protein 7.1 gm/dl (6.0-8.3)
[2024-07-12 07:46] LABS: INR 1.8 (0.9-1.1); Prothrombin Time 18.2 Seconds (9.0-12.0)
[2024-07-12 08:03] LABS: ANTI-Xa, UFH(UnfractionatedHep 0.78 IU/ml (0.3-0.7)
--- NOTE | 2024-07-12 15:23 | Hospitalist Progress Note ---
Date of Service July 12, 2024 Assessment & Plan (1) Elevated INR: Plan per Dr. Arteaga's notes with addendum Patient has been dealing with generalized fatigue, weakness, poor appetite since lap addi on 06/28/2024. He has taken only 1 dose of Coumadin since his operation and his INR was elevated at 6.3, hence he was sent to the ED for elevated INR. In the ED he was noted to have leukocytosis and possible gallbladder fossa abscess. He is being managed for the following: Gallbladder fossa abscess Transaminitis Patient with recent lap addi/01/12, has been dealing with progressive weakness/fatigue/poor appetite since surgery. --CT ABD: Abscess at the gallbladder fossa. Subcapsular fluid collection at the dome of the liver. --Gall Bladder USD:Postcholecystectomy large complex fluid collection with air involving the gallbladder fossa. Measurements could not be obtained due to the large size, and the exact location also could not be assessed. CT images were not provided. However previous CT was obtained, and fluid collection was noted. Please correlate with the CT scan. Diffuse hypoechoic liver with prominent portal veins, suggesting acute medical liver disease. For clinical and lab correlation. --MRCP:Decreased size of the perihepatic fluid collections status post drainage with catheters in place. Cholecystectomy with mild dilation of the common bile duct measuring 7 mm. No choledocholithiasis or biliary stricture identified. --Hepatitis panel negative --Blood cultures: negative to date --S/P IR drain x2 placement on 07/09/2024. --Abdominal gallbladder fossa fluid growing Klebsiella aerogenes Continue IV Zosyn>> transition to ertapenem Day #1 Appreciate surgery input Plan for IR drainage of gallbladder fossa Hold statin for now, monitor LFTs Avoid hepatotoxic agents as able Appreciate GI input: Hepatitis panel, VERO, anti-smooth muscle, antimitochondrial antibody pending Started on liquid diet, advance as tolerated Leukocytosis resolved 07/12 Clinically improved Afebrile, leukocytosis resolved MRCP: No choledocholithiasis, obstruction Abdominal fluid drainage culture: Positive Klebsiella Currently on ertapenem ID service consulted for antibiotic regimen recommendation Discussed with general surgery service, continue IR drain for now, until follow- up with Dr. Lucas next week Elevated INR: Patient apparently took only 1 dose of Coumadin since his surgery Liver dysfunction, poor appetite likely contributing to elevated INR No acute bleeding issues Received IV vitamin K INR:8.7>1.5>1.4 07/12 INR 1.8 restart Coumadin at usual home dose of 4 mg, continue heparin bridge INR tomorrow Acute kidney injury: Baseline Cr around 1 Monitor renal function Avoid nephrotoxic agents as able IV fluids as needed Troponin elevation Likely demand ischemia: Patient denies any chest pain, dyspnea Monitor Constipation: Patient reports last bowel movement 3 to 4 days ago Continue bowel regimen Monitor Factor V Leiden mutation S/P AVR History of atrial fibrillation Coumadin on hold for procedure as above Target INR 2-3 per record Continue Cardizem, metoprolol Continue IV heparin for now - resume Coumadin today INR check tomorrow CAD S/P angioplasty Continue aspirin, metoprolol Statin on hold due to elevated LFTs Monitor Hypertension Continue home medications Monitor DVT Px: IV heparin + coumadin Code Status Full code disposition Discharge to home Once ID recommendations for IV antibiotics received and set up would likely need home health services Admission and Anticipated Discharge Date Admission Date: July 06, 2024 Subjective ff up for gallbladder fossa abscess, etc. Seen resting in bedside chair, comfortable, watching TV In good spirits States he feels fine overall Denies abdominal pain, nausea, fevers or chills Positive small BMs No other new symptoms Review of Systems Review of Systems: all noted and negative except for above Physical Exam Physical Exam: General- oriented x 3, not in distress, speaks in sentences with no effort or accessory muscle use Eyes- anicteric Neck- no JVD Lungs- clear breath sounds bilaterally, no rales/wheezes Heart- normal rate, regular rhythm; no murmurs Abdomen- normal bowel sounds, nondistended, soft, nontender drains in place: Draining bilious fluid Extremities- no pretibial edema, no calf tenderness Neuro- alert, oriented x 3; no gross focal neurologic deficits Skin- warm & dry Results & Data Results & Data Vital Signs (Past 12 Hours) Vital Signs Temp Pulse Pulse Pulse Resp BP Pulse Ox 07/12/24 11:32 36.3 C L 67 18 117/78 92 07/12/24 09:51 07/12/24 07:23 36.3 C L 75 18 123/83 95 07/12/24 05:36 68 07/12/24 03:51 36.5 C 80 20 143/87 H 100 O2 Del Method 07/12/24 11:32 Room Air 07/12/24 09:51 Room Air 07/12/24 07:23 Room Air 07/12/24 05:36 07/12/24 03:51 Room Air
[2024-07-12 15:26] LABS: ANTI-Xa, UFH(UnfractionatedHep 0.75 IU/ml (0.3-0.7)
[2024-07-12] MEDS: WARFARIN SOD 4 MG TAB PO SCH (16:24)
[2024-07-12 22:25] LABS: ANTI-Xa, UFH(UnfractionatedHep 0.66 IU/ml (0.3-0.7)
[2024-07-13 06:54] LABS: Hematocrit (blood only) 34.1 % (42.0-52.0); Hemoglobin 11.7 g/dl (14.0-18.0); Mean Corpuscular Hemoglobin 30.8 pg (25.0-34.0); Mean Corpuscular Hgb Conc 34.3 g/dL (32.0-36.0); Mean Corpuscular Volume 89.7 fL (80.0-100.0); Mean Platelet Volume 8.9 fL (9.4-12.4); Platelet Count 378 K/uL (130-400); RDW Coefficient of Variation 14.5 % (11.5-14.5); RDW Standard Deviation 46.9 fL (36.4-46.3); White Blood Count 9.64 K/ul (4.8-10.8)
[2024-07-13 07:18] LABS: Albumin Globulin Ratio 0.7 (0.9-2); Albumin Level 2.6 gm/dl (3.4-5.0); BUN Creatinine Ratio 8.7 (10-20); Bilirubin,Total 1.4 mg/dl (0.2-1.0); Calcium 8.3 mg/dl (8.6-10.3); Creatinine Clr Calc Pharmacy 66.9 ml/min; Potassium 3.7 mmol/L (3.5-5.1); Total Protein 6.6 gm/dl (6.0-8.3)
[2024-07-13 07:25] LABS: ANTI-Xa, UFH(UnfractionatedHep 0.67 IU/ml (0.3-0.7); INR 1.9 (0.9-1.1); Prothrombin Time 19.1 Seconds (9.0-12.0)
--- NOTE | 2024-07-13 07:34 | Hospitalist Progress Note ---
Date of Service July 13, 2024 Assessment & Plan (1) Elevated INR: Plan Mr. 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 #Gallbladder fossa abscess s/p lap addi 06/28/24 #Transaminitis resolved CT ABD: Abscess at the gallbladder fossa. Subcapsular fluid collection at the dome of the liver. Gall Bladder USD:Postcholecystectomy large complex fluid collection with air involving the gallbladder fossa. Measurements could not be obtained due to the large size, and the exact location also could not be assessed. CT images were not provided. However previous CT was obtained, and fluid collection was noted. Please correlate with the CT scan. Diffuse hypoechoic liver with prominent portal veins, suggesting acute medical liver disease. For clinical and lab correlation. MRCP:Decreased size of the perihepatic fluid collections status post drainage with catheters in place. Cholecystectomy with mild dilation of the common bile duct measuring 7 mm. No choledocholithiasis or biliary stricture identified. --Hepatitis panel negative --Blood cultures: negative to date --S/P IR drain x2 placement on 07/09/2024. --Abdominal gallbladder fossa fluid growing Klebsiella aerogenes Continue ertapenem q 8 hours Appreciate surgery input: recommend complete course of IV abx and follow up w/ Dr. Blank Hold statin for now, monitor LFTs Avoid hepatotoxic agents as able Appreciate GI input: Hepatitis panel, VERO, anti-smooth muscle, antimitochondrial antibody pending Started on liquid diet, advance as tolerated Leukocytosis resolved ID service consulted for antibiotic regimen recommendation, awaiting recommendations however likely patient will require PICC with home abx #Supratherapeutic INR iso infection resolved #Factor V Leiden mutation Patient apparently took only 1 dose of Coumadin since his surgery Liver dysfunction, poor appetite likely contributing to elevated INR No acute bleeding issues Received IV vitamin K Resumed Coumadin with heparin bridge iso factor V leiden and a fib Trend INR #Acute kidney injury: resolved Baseline Cr around 1, up to 1.41 Monitor renal function Avoid nephrotoxic agents as able at baseline today #Osteoarthritis home regimen celebrex 200mg daily held on admission will resume given chronic medication necessary for pain management, monitor INR closely myoflex to hands to aid in pain control #Troponin elevation Likely demand ischemia: Patient denies any chest pain, dyspnea Monitor #Constipation: Patient reports last bowel movement 3 to 4 days ago Continue bowel regimen Monitor #Paroxysmal atrial fibrillation #S/P AVR Target INR 2-3 per record Continue Cardizem, metoprolol Continue IV heparin for now - continue coumadin INR check tomorrow #CAD S/P angioplasty Continue aspirin, metoprolol Statin on hold due to elevated LFTs, likely resume upon d/c Monitor #Hypertension Continue home medications Monitor DVT Px: IV heparin + coumadin Code Status Full code disposition Discharge to home Once ID recommendations for IV antibiotics received and set up would likely need home health services Admission and Anticipated Discharge Date Admission Date: July 06, 2024 Subjective Evaluated at bedside with multiple family members present Patient reports ongoing pain, described as multifactorial--he notes pain in his right axilla, mostly positional especially with using right arm to aid in support Patient also reports ongoing arthritic pain which is particularly severe today Family notes concern that day prior he was functioning much better, but now seems to be more fatigued and less mobile Patient notes that he does have an appetite, but given limited mobility in his hands he feels frustrated with the mess and declines to eat further He denies fevers chills or other acute concerns Physical Exam Constitutional: laying supine, no acute distress noted Respiratory: normal respiratory effort, lungs clear to auscultation Cardiovascular: RRR, no murmur, no edema Gastrointestinal (Abdomen): IR drain with brown discharge noted, no surrounding erythema or superficial firmness or tenderness Musculoskeletal: notable deformity of hands 2/2 arthritis 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, no erythema or edema noted Results & Data Results & Data Vital Signs (Past 12 Hours) Vital Signs Temp Pulse Pulse Resp BP Pulse Ox O2 Del Method 07/13/24 05:32 75 07/13/24 03:57 36.8 C 77 20 158/79 H 95 Room Air 07/12/24 23:53 36.5 C 75 20 145/81 H 92 Room Air 07/12/24 21:47 77 07/12/24 20:00 Room Air 07/12/24 19:40 36.6 C 80 20 127/70 96 Room Air Laboratory Results Short CBC 07/13/24 Range/Units 06:38 WBC 9.64 (4.8-10.8) K/ul Hgb 11.7 L (14.0-18.0) g/dl Hct 34.1 L (42.0-52.0) % Plt Count 378 (130-400) K/uL BMP 07/12/24 07/13/24 06:59 06:38 Sodium 137 137 Potassium 3.9 3.7 Chloride 102 104 Carbon Dioxide 29 28 BUN 7 9 Creatinine 0.99 1.03 Glucose 93 96 Calcium 8.3 L 8.3 L Liver Function 07/12/24 07/13/24 Range/Units 06:59 06:38 Total Bilirubin 1.7 H 1.4 H (0.2-1.0) mg/dl AST 35 29 (13-39) U/L ALT 36 29 (7-52) U/L Alkaline Phosphatase 151 H 130 H (34-104) U/L Albumin 2.7 L 2.6 L (3.4-5.0) gm/dl Medications Administered Home Medications Medication Instructions Recorded Confirmed Last Taken pantoprazole 40 mg tablet,delayed 40 mg PO QAM 12/21/18 07/06/24 07/06/24 release (Protonix) melatonin 5 mg capsule 5 mg PO HS 01/14/21 07/06/24 07/05/24 folic acid 1 mg tablet 1 mg PO QAM 09/18/21 07/06/24 07/06/24 aspirin 81 mg tablet,delayed 81 mg PO QAM 05/18/22 07/06/24 07/06/24 release (Adult Low Dose Aspirin) furosemide 20 mg tablet (Lasix) 20 mg PO DAILY PRN Edema 02/01/23 07/06/24 Unknown acetaminophen 325 mg tablet 650 mg PO Q6H PRN pain 12/21/23 07/06/24 Unknown metoprolol succinate 25 mg 50 mg PO HS 12/21/23 07/06/24 07/05/24 tablet,extended release 24 hr (Toprol XL) pravastatin 10 mg tablet 10 mg PO DAILY 05/28/24 07/06/24 Unknown diltiazem HCl 300 mg 300 mg PO DAILY 07/06/24 07/06/24 Unknown tablet,extended release 24 hr (Matzim LA) sertraline 100 mg tablet 100 mg PO QAM 07/06/24 07/06/24 07/06/24 warfarin 4 mg tablet 4 mg PO [id number] 07/06/24 07/06/24 Unknown Active Medications Generic Name Dose Route Start Last Admin Trade Name Freq PRN Reason Stop Dose Admin Acetaminophen 650 mg 07/06/24 15:30 07/13/24 01:53 Acetaminophen 325 Mg Tab PO 08/05/24 15:29 650 mg Q8H PRN Administration Pain or Fever Aspirin 81 mg 07/07/24 09:00 07/12/24 09:15 Aspirin 81 Mg Ectab PO 08/06/24 08:59 81 mg QAM YVON Administration Diltiazem HCl 300 mg 07/07/24 09:00 07/12/24 09:15 Diltiazem Hcl 300 Mg Capcr PO 08/06/24 08:59 300 mg DAILY YVON Administration Docusate Sodium 100 mg 07/06/24 21:00 07/12/24 19:56 Docusate Sodium 100 Mg Cap PO 08/05/24 20:59 100 mg BID YVON Administration Folic Acid 1 mg 07/07/24 09:00 07/12/24 09:16 Folic Acid 1 Mg Tab PO 08/06/24 08:59 1 mg QAM YVON Administration Heparin Sodium/Dextrose 25,000 units in 500 mls @ 33 mls/hr 07/09/24 23:40 07/12/24 19:59 Heparin 26230 Unit/500 Ml D5w IV 08/08/24 23:39 1,650 units/hr .[id number] YVON 33 mls/hr Administration Protocol 1,650 UNITS/HR Ertapenem 1,000 mg in 10 mls @ 2 mls/min 07/11/24 09:30 07/12/24 09:15 Invanz 1000mg IV 07/21/24 09:29 2 mls/min Q24H YVON Administration Lactobacillus Acidophilus 1,250 mg 07/07/24 09:00 07/12/24 09:15 Advanced Probiotic 625 Mg Capsule PO 08/06/24 08:59 1,250 mg DAILY YVON Administration Melatonin 3 mg 07/06/24 21:00 07/12/24 19:56 Melatonin 3 Mg Tab PO 08/05/24 20:59 3 mg HS YVON Administration Metoprolol Succinate 50 mg 07/06/24 21:00 07/12/24 19:56 Metoprolol Succ 50mg Ext Rel Tab PO 08/05/24 20:59 50 mg HS YVON Administration Pantoprazole Sodium 40 mg 07/07/24 09:00 07/12/24 09:16 Pantoprazole 40 Mg Tab PO 08/06/24 08:59 40 mg QAM YVON Administration Sertraline HCl 100 mg 07/07/24 16:00 07/12/24 16:24 Sertraline Hcl 100 Mg Tablet PO 08/06/24 15:59 100 mg Q24H YVON Administration Warfarin Sodium 4 mg 07/12/24 16:00 07/12/24 16:24 Warfarin Sod 4 Mg Tab PO 08/11/24 15:59 4 mg DAILY@1600 YVON Administration
--- NOTE | 2024-07-13 15:34 | Infectious Disease Consult ---
Date of Service July 13, 2024 Telehealth Information I performed this visit using a real-time telehealth connection between my location and the patients location ([facility]). After connecting through interactive tele-video, patient was identified by name and date of and/or wristband check.Patient (or authorized healthcare food service sales representatives) was informed that this was a telemedicine visit and it was being conducted confidentially over secure lines. My office door was closed and no on e else was present in the room with me.Patient (or authorized healthcare food service sales representatives) provided consent to proceed with the visit, expressed an understanding of privacy and security of the telemedicine visit, and gave permission to have a hospital food service sales representatives in the room in order to assist with the visit and to conduct portions of the visit, as needed. I informed the patient (or authorized healthcare food service sales representatives) that I reviewed their record and presented the opportunity for them to ask any questions regarding the visit today. The patient agreed to participate. Assessment & Plan (1) Postprocedural intraabdominal abscess: Plan: Gallbladder fossa and hepatic subcapsular abscesses - S/P IR guided drainage on 07/09/2024 (2) History of laparoscopic cholecystectomy: Plan: on 06/28/2024 (3) Elevated LFTs: (4) Elevated INR (international normalized ratio) due to prior anticoagulant medication ingestion: Plan I would recommend continuing on IV ertapenem 1 g daily. We will aim for at least 4 weeks of IV ertapenem with repeat CT scan of the abdomen and pelvis in 3 weeks to follow up on the size of the abscess. Based on the CT scan result, the duration of the IV antibiotics might be extended. I would really appreciate if the result of the CT scan is faxed to me so that I can review and decide on the final antibiotic duration. Also, please set an appointment for the patient with us in around 4-6 weeks (either in [facility] or via TeleMed). Thank you for consulting Infectious Disease. We will sign off for now. History of Present Illness History of Present Illness Mr. Li is a 83-year-old man with medical history of CAD, history of TAVR in September 2023, paroxysmal AFib, history of pulmonary embolism and DVT (with MTHFR mutation and Factor V laden mutation) who was admitted to [facility] on 07/06 after being referred from the Coumadin clinic for elevated INR. Patient underwent laparoscopic cholecystectomy on 06/28/2024. Since then, he has been getting progressively weak with poor appetite. On presentation, all of his vitals were within normal limits. Initial workup showed leukocytosis of 19.5 (ANC 17.5), creatinine of 1.4 suggesting CHAVA on top of CKD, elevated total bilirubin of 2.9 with mildly elevated AST/ALT/alkaline phosphatase, elevated tr oponin of 47, and CT abdomen pelvis suggesting an abscess in the gallbladder fossa as well as subcapsular fluid collection at the dome of the liver. He eventually underwent an IR guided drainage of the gallbladder fossa abscess as well as subcapsular liver abscess on 07/09 with cultures coming back positive for Klebsiella aerogenes. ID team was consulted for further recommendations and to help guide antibiotic treatment. Allergies Allergy/AdvReac Type Severity Reaction Status Date / Time codeine Allergy Intermediate RASH Verified 07/06/24 16:08 diltiazem Allergy Intermediate ITCHING Verified 07/06/24 16:08 AND FLUSHING Home Medications Medication Instructions Recorded Confirmed Type pantoprazole 40 mg tablet,delayed 40 mg PO QAM 12/21/18 07/06/24 History release (Protonix) melatonin 5 mg capsule 5 mg PO HS 01/14/21 07/06/24 History folic acid 1 mg tablet 1 mg PO QAM 09/18/21 07/06/24 History aspirin 81 mg tablet,delayed 81 mg PO QAM 05/18/22 07/06/24 History release (Adult Low Dose Aspirin) furosemide 20 mg tablet (Lasix) 20 mg PO DAILY PRN Edema 02/01/23 07/06/24 History acetaminophen 325 mg tablet 650 mg PO Q6H PRN pain 12/21/23 07/06/24 History metoprolol succinate 25 mg 50 mg PO HS 12/21/23 07/06/24 History tablet,extended release 24 hr (Toprol XL) pravastatin 10 mg tablet 10 mg PO DAILY 05/28/24 07/06/24 History diltiazem HCl 300 mg 300 mg PO DAILY 07/06/24 07/06/24 History tablet,extended release 24 hr (Matzim LA) sertraline 100 mg tablet 100 mg PO QAM 07/06/24 07/06/24 History warfarin 4 mg tablet 4 mg PO 6XWK 07/06/24 07/06/24 History Patient History Medical History Aortic stenosis mod-severe CAD (coronary artery disease) CAD s/p cardiac catheterization 05/29/18 with angioplasty and stenting of hazy 95% ostial LAD lesion with mid to distal luminal irregularities; moderate size first diagonal branch with a 50-60% proximal stenosis; large circumflex with a 20% ostial stenosis; large dominant RCA with a 30-40% proximal stenosis. Status post angioplasty and stenting with a 3.0 x 15 mm Xience Lorna drug- eluting stent 2018. Cardiac catheterization 12/08/2020 with normal right-sided and left-sided pressures. Status post angioplasty and stenting of a 90% proximal OM3 lesion. Factor V Leiden GERD (gastroesophageal reflux disease) Retinal vein occlusion of right eye seeing Dr. Gonzales currently for injections for ~8-9 weeks Murmur Surgical History History of cardiac cath 05/2018, [facility], x1 stent 11/2020, [facility] x1 stent; f/u dr. oglesby, [facility] History of toe surgery Kellert procedure-part of joint removed and toe is now shorter History of esophagogastroduodenoscopy (EGD) Hx of colonoscopy Family History Other Family history of 5, 10-methylenetetrahydofolate deficiency Hypertension Stroke Social History Smoking Status: Never smoker Second Hand Exposure: Yes; Do You Dip or Chew Tobacco: No; Hx Alcohol Use: Yes Alcohol type: beer and wine Hx Substance Use: No Preferred Language: Estonian Communication Ability: Effective Lumber Loader Required: No Beliefs That Will Affect Care: None marital status: / Current Living Situation: Alone current occupation: Retired Other Information That Helps Us Care for You: No Feels Safe at Home: Yes Safety Concerns: Feels Safe At This Time Assistive Devices: Walker Review of Systems Negative except for what was mentioned in the H&P. Physical Exam Could not be performed as the encounter was conducted via TeleMed. Results & Data Vital Signs (Past 12 Hours) Vital Signs Temp Pulse Pulse Resp BP BP Pulse Ox 04/25/25 11:37 36.4 C L 72 18 147/90 H 97 07/13/24 07:51 88 18 149/89 H 98 07/13/24 07:40 07/13/24 05:32 75 07/13/24 03:57 36.8 C 77 20 158/79 H 95 O2 Del Method 07/13/24 11:37 Room Air 07/13/24 07:51 Room Air 07/13/24 07:40 Room Air 07/13/24 05:32 07/13/24 03:57 Room Air Laboratory Results Microbiology: 07/06: 1 set of blood culture negative to date 07/09: Gallbladder fossa and liver subcapsular abscess cultures growing Klebsiella aerogenes Diagnostic Findings Imaging: CT abdomen pelvis on 07/06: 1. Atelectasis versus pneumonia right lung base. 2. Abscess at the gallbladder fossa. Subcapsular fluid collection at the dome of the liver.
[2024-07-13] MEDS: CeleBREX 200 MG CAP PO SCH (15:43)
[2024-07-13] MEDS: TROLAMINE SALICYLATE 10% CRM 255 APPLN/85 GM TUBE EXT SCH (15:43)
[2024-07-13] MEDS: LIDOCAINE 5% 1 PATCH TD SCH (15:47)
[2024-07-13 16:17] LABS: Anti Mitochondrial Antibody NEGATIVE (NEGATIVE); Anti Nuclear Antibody Screen POSITIVE (NEGATIVE); Hepatitis A Antibody IgM NON-REACTIVE (NON-REACTIVE); Hepatitis B Core Antibody IgM NON-REACTIVE (NON-REACTIVE); Smooth Muscle Antibody NEGATIVE (NEGATIVE)
[2024-07-14 07:07] LABS: Hematocrit (blood only) 37.4 % (42.0-52.0); Hemoglobin 12.7 g/dl (14.0-18.0); Mean Corpuscular Volume 91.2 fL (80.0-100.0); Mean Platelet Volume 8.9 fL (9.4-12.4); Platelet Count 375 K/uL (130-400); RDW Coefficient of Variation 14.5 % (11.5-14.5); RDW Standard Deviation 47.7 fL (36.4-46.3); White Blood Count 9.13 K/ul (4.8-10.8)
[2024-07-14 07:34] LABS: Albumin Globulin Ratio 0.6 (0.9-2); Albumin Level 2.6 gm/dl (3.4-5.0); BUN Creatinine Ratio 10.9 (10-20); Bilirubin,Total 1.3 mg/dl (0.2-1.0); Calcium 8.4 mg/dl (8.6-10.3); Creatinine Clr Calc Pharmacy 67.9 ml/min; Globulin 4.2 gm/dl (2.5-4.0); Magnesium 1.9 mg/dl (1.7-2.4); Phosphorus 2.7 mg/dl (2.5-4.9); Potassium 3.9 mmol/L (3.5-5.1); Total Protein 6.8 gm/dl (6.0-8.3)
[2024-07-14 07:44] LABS: INR 2.2 (0.9-1.1); Prothrombin Time 22.4 Seconds (9.0-12.0)
[2024-07-14 08:02] LABS: ANTI-Xa, UFH(UnfractionatedHep 0.76 IU/ml (0.3-0.7)
--- NOTE | 2024-07-14 13:11 | Hospitalist Progress Note ---
Date of Service July 14, 2024 Assessment & Plan (1) Elevated INR: Plan Mr. 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 Patient now with 2 IR drains placed on 07/09/2024. Patient's transaminitis has improved. Currently, working to manage pain at this time which is seemingly better controlled today. ID finalized recommendations: 1gm ertapenem q 24 hours x 4 weeks at min (~EOT 08/08/2024) , plan for CT AP around 08/01 for ID to assess duration of treatment moving forward. PICC line needed, however, will await for german Bhat for consent per patient request. #Gallbladder fossa abscess s/p lap addi 06/28/24 #Transaminitis resolved CT ABD: Abscess at the gallbladder fossa. Subcapsular fluid collection at the dome of the liver. Gall Bladder USD:Postcholecystectomy large complex fluid collection with air involving the gallbladder fossa. Measurements could not be obtained due to the large size, and the exact location also could not be assessed. CT images were not provided. However previous CT was obtained, and fluid collection was noted. Please correlate with the CT scan. Diffuse hypoechoic liver with prominent portal veins, suggesting acute medical liver disease. For clinical and lab correlation. MRCP:Decreased size of the perihepatic fluid collections status post drainage with catheters in place. Cholecystectomy with mild dilation of the common bile duct measuring 7 mm. No choledocholithiasis or biliary stricture identified. --Hepatitis panel negative --Blood cultures: negative to date --S/P IR drain x2 placement on 07/09/2024. --Abdominal gallbladder fossa fluid growing Klebsiella aerogenes Appreciate surgery input: recommend complete course of IV abx and follow up w/ Dr. Blank Hold statin for now, monitor LFTs Avoid hepatotoxic agents as able Appreciate GI input: Hepatitis panel nonreactive, VERO +, anti-smooth muscle -, antimitochondrial antibody - tolerating low fat diet Leukocytosis resolved PICC line to be placed once consent obtained plan for d/c rehab #Supratherapeutic INR iso infection resolved #Factor V Leiden mutation Patient apparently took only 1 dose of Coumadin since his surgery Liver dysfunction, poor appetite likely contributing to elevated INR No acute bleeding issues Received IV vitamin K Resumed Coumadin with heparin bridge iso factor V leiden and a fib Trend INR #Acute kidney injury: resolved Baseline Cr around 1, up to 1.41 Monitor renal function Avoid nephrotoxic agents as able at baseline today #Osteoarthritis home regimen celebrex 200mg daily, held on admission will resume given chronic medication necessary for pain management myoflex to hands to aid in pain control #Troponin elevation Likely demand ischemia: Patient denies any chest pain, dyspnea Monitor #Constipation: Patient reports last bowel movement 3 to 4 days ago Continue bowel regimen Monitor #Paroxysmal atrial fibrillation #S/P AVR Target INR 2-3 per record Continue Cardizem, metoprolol disontinue IV heparin for now - continue coumadin INR check #CAD S/P angioplasty Continue aspirin, metoprolol Statin on hold due to elevated LFTs, likely resume upon d/c Monitor #Hypertension Continue home medications Monitor DVT Px: coumadin Code Status Full code disposition likely beginning of week to rehab Admission and Anticipated Discharge Date Admission Date: July 06, 2024 Subjective NAEO Reports better appetite today--witnessed eating breakfast and reports eating lunch Inquired about pain today--patient notes that he isnt sure the celebrex has started working yet Denies any new concerns and is eager to discharge as able Attempted PICC consent however patient was not comfortable signing and would rather wait for son to be present Physical Exam Constitutional: WD/WN, vitals as above sitting upright, comfortable Respiratory: normal respiratory effort, lungs clear to auscultation Cardiovascular: RRR, no murmur, no edema Musculoskeletal: no cyanosis or clubbing, extremities motor strength 5/5 Results & Data Results & Data Vital Signs (Past 12 Hours) Vital Signs Temp Pulse Pulse Resp BP Pulse Ox O2 Del Method 07/14/24 11:58 36.3 C L 83 14 144/88 H 96 Room Air 07/14/24 08:16 36.5 C 78 16 158/80 H 96 Room Air 07/14/24 05:53 80 04/26/25 03:06 36.4 C L 56 L 16 145/88 H 97 Room Air Laboratory Results Short CBC 07/14/24 Range/Units 06:47 WBC 9.13 (4.8-10.8) K/ul Hgb 12.7 L (14.0-18.0) g/dl Hct 37.4 L (42.0-52.0) % Plt Count 375 (130-400) K/uL BMP 07/14/24 06:47 Sodium 134 L Potassium 3.9 Chloride 101 Carbon Dioxide 27 BUN 11 Creatinine 1.01 Glucose 92 Calcium 8.4 L Liver Function 07/14/24 Range/Units 06:47 Total Bilirubin 1.3 H (0.2-1.0) mg/dl AST 30 (13-39) U/L ALT 27 (7-52) U/L Alkaline Phosphatase 128 H (34-104) U/L Albumin 2.6 L (3.4-5.0) gm/dl Medications Administered Home Medications Medication Instructions Recorded Confirmed Last Taken pantoprazole 40 mg tablet,delayed 40 mg PO QAM 12/21/18 07/06/24 07/06/24 release (Protonix) melatonin 5 mg capsule 5 mg PO HS 01/14/21 07/06/24 07/05/24 folic acid 1 mg tablet 1 mg PO QAM 09/18/21 07/06/24 07/06/24 aspirin 81 mg tablet,delayed 81 mg PO QAM 05/18/22 07/06/24 07/06/24 release (Adult Low Dose Aspirin) furosemide 20 mg tablet (Lasix) 20 mg PO DAILY PRN Edema 02/01/23 07/06/24 Unknown acetaminophen 325 mg tablet 650 mg PO Q6H PRN pain 12/21/23 07/06/24 Unknown metoprolol succinate 25 mg 50 mg PO HS 12/21/23 07/06/24 07/05/24 tablet,extended release 24 hr (Toprol XL) pravastatin 10 mg tablet 10 mg PO DAILY 05/28/24 07/06/24 Unknown diltiazem HCl 300 mg 300 mg PO DAILY 07/06/24 07/06/24 Unknown tablet,extended release 24 hr (Matzim LA) sertraline 100 mg tablet 100 mg PO QAM 07/06/24 07/06/24 07/06/24 warfarin 4 mg tablet 4 mg PO 6XWK 07/06/24 07/06/24 Unknown Active Medications Generic Name Dose Route Start Last Admin Trade Name Melanie PRN Reason Stop Dose Admin Acetaminophen 650 mg 07/06/24 15:30 07/13/24 12:53 Acetaminophen 325 Mg Tab PO 08/05/24 15:29 650 mg Q8H PRN Administration Pain or Fever Aspirin 81 mg 07/07/24 09:00 07/14/24 08:01 Aspirin 81 Mg Ectab PO 08/06/24 08:59 81 mg QAM YVON Administration Celecoxib 200 mg 07/13/24 15:15 07/14/24 08:02 Celebrex 200 Mg Cap PO 08/12/24 15:14 200 mg QAM YVON Administration Diltiazem HCl 300 mg 07/07/24 09:00 07/14/24 08:02 Diltiazem Hcl 300 Mg Capcr PO 08/06/24 08:59 300 mg DAILY YVON Administration Docusate Sodium 100 mg 07/06/24 21:00 07/14/24 08:14 Docusate Sodium 100 Mg Cap PO 08/05/24 20:59 100 mg BID YVON Administration Folic Acid 1 mg 07/07/24 09:00 07/14/24 08:03 Folic Acid 1 Mg Tab PO 08/06/24 08:59 1 mg QAM YVON Administration Ertapenem 1,000 mg in 10 mls @ 2 mls/min 07/11/24 09:30 07/14/24 08:14 Invanz 1000mg IV 07/21/24 09:29 2 mls/min Q24H YVON Administration Lactobacillus Acidophilus 1,250 mg 07/07/24 09:00 07/14/24 08:03 Advanced Probiotic 625 Mg Capsule PO 08/06/24 08:59 1,250 mg DAILY YVON Administration Lidocaine 1 patch 07/13/24 15:15 07/14/24 08:07 Lidocaine 5% 1 Patch TD 08/12/24 15:14 1 patch QAM YVON Administration Melatonin 3 mg 07/06/24 21:00 07/13/24 21:22 Melatonin 3 Mg Tab PO 08/05/24 20:59 3 mg HS YVON Administration Metoprolol Succinate 50 mg 07/06/24 21:00 07/13/24 21:22 Metoprolol Succ 50mg Ext Rel Tab PO 08/05/24 20:59 50 mg HS YVON Administration Miscellaneous 1 each 07/13/24 21:00 07/13/24 21:23 Remove Lidoderm Patch N/A 08/12/24 20:59 Not Given DAILY@2100 YVON Pantoprazole Sodium 40 mg 07/07/24 09:00 07/14/24 08:04 Pantoprazole 40 Mg Tab PO 08/06/24 08:59 40 mg QAM YVON Administration Sertraline HCl 100 mg 07/07/24 16:00 07/13/24 15:53 Sertraline Hcl 100 Mg Tablet PO 08/06/24 15:59 100 mg Q24H YVON Administration Trolamine Salicylate 1 appln 07/13/24 15:15 07/14/24 02:21 Trolamine Salicylate 10% Crm 255 Appln/85 Gm Tube EXT 08/12/24 15:14 1 appln Q12H YVON Administration
[2024-07-14] MEDS: WARFARIN SOD 2 MG TAB PO SCH (17:09)
[2024-07-14 19:55] VITALS: RESP 16
[2024-07-15 05:47] LABS: Hematocrit (blood only) 38.5 % (42.0-52.0); Hemoglobin 12.9 g/dl (14.0-18.0); Mean Corpuscular Hemoglobin 30.9 pg (25.0-34.0); Mean Corpuscular Hgb Conc 33.5 g/dL (32.0-36.0); Mean Corpuscular Volume 92.1 fL (80.0-100.0); Mean Platelet Volume 8.9 fL (9.4-12.4); Platelet Count 400 K/uL (130-400); RDW Coefficient of Variation 14.6 % (11.5-14.5); RDW Standard Deviation 49.4 fL (36.4-46.3); Red Blood Count 4.18 M/uL (4.70-6.10)
[2024-07-15 06:03] LABS: Albumin Globulin Ratio 0.6 (0.9-2); Albumin Level 2.8 gm/dl (3.4-5.0); BUN Creatinine Ratio 12.5 (10-20); Bilirubin,Total 1.3 mg/dl (0.2-1.0); Calcium 8.7 mg/dl (8.6-10.3); Globulin 4.4 gm/dl (2.5-4.0); Magnesium 1.9 mg/dl (1.7-2.4); Potassium 4.2 mmol/L (3.5-5.1); Total Protein 7.2 gm/dl (6.0-8.3)
[2024-07-15 06:15] LABS: INR 1.8 (0.9-1.1); Prothrombin Time 18.3 Seconds (9.0-12.0)
--- NOTE | 2024-07-15 08:48 | Hospitalist Progress Note ---
Date of Service July 15, 2024 Assessment & Plan (1) Elevated INR: Plan Mr. 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 Patient now with 2 IR drains placed on 07/09/2024. Patient's transaminitis has improved. Currently, working to manage pain at this time which is seemingly better controlled today. ID finalized recommendations: 1gm ertapenem q 24 hours x 4 weeks at min (~EOT 08/08/2024) , plan for CT AP around 08/01 for ID to assess duration of treatment moving forward. PICC line consent to be obtained today once son Home is present at bedside. #Gallbladder fossa abscess s/p lap addi 06/28/24 #Transaminitis resolved CT ABD: Abscess at the gallbladder fossa. Subcapsular fluid collection at the dome of the liver. Gall Bladder USD:Postcholecystectomy large complex fluid collection with air involving the gallbladder fossa. Measurements could not be obtained due to the large size, and the exact location also could not be assessed. CT images were not provided. However previous CT was obtained, and fluid collection was noted. Please correlate with the CT scan. Diffuse hypoechoic liver with prominent portal veins, suggesting acute medical liver disease. For clinical and lab correlation. MRCP:Decreased size of the perihepatic fluid collections status post drainage with catheters in place. Cholecystectomy with mild dilation of the common bile duct measuring 7 mm. No choledocholithiasis or biliary stricture identified. --Hepatitis panel negative --Blood cultures: negative to date --S/P IR drain x2 placement on 07/09/2024. --Abdominal gallbladder fossa fluid growing Klebsiella aerogenes Appreciate surgery input: recommend complete course of IV abx and follow up w/ Dr. Blank Hold statin for now, monitor LFTs Avoid hepatotoxic agents as able Appreciate GI input: Hepatitis panel nonreactive, VERO +, anti-smooth muscle -, antimitochondrial antibody - tolerating low fat diet Leukocytosis resolved PICC line to be placed once consent obtained plan for d/c rehab #Supratherapeutic INR iso infection resolved #Factor V Leiden mutation Patient apparently took only 1 dose of Coumadin since his surgery Liver dysfunction, poor appetite likely contributing to elevated INR No acute bleeding issues Received IV vitamin K Continue coumadin #Acute kidney injury: resolved Baseline Cr around 1, up to 1.41 Monitor renal function Avoid nephrotoxic agents as able at baseline today #Osteoarthritis home regimen celebrex 200mg daily, held on admission will resume given chronic medication necessary for pain management myoflex to hands to aid in pain control #Troponin elevation Likely demand ischemia: Patient denies any chest pain, dyspnea Monitor #Constipation: Patient reports last bowel movement 3 to 4 days ago Continue bowel regimen Monitor #Paroxysmal atrial fibrillation #S/P AVR Target INR 2-3 per record Continue Cardizem, metoprolol - continue coumadin INR check #CAD S/P angioplasty Continue aspirin, metoprolol Statin on hold due to elevated LFTs, likely resume upon d/c Monitor #Hypertension Continue home medications Monitor DVT Px: coumadin Code Status Full code disposition likely beginning of week to rehab Admission and Anticipated Discharge Date Admission Date: July 06, 2024 Subjective NAEO Patient states he is fine today and denies any uncontrolled symptoms. Discussed that son Home will be in later for PICC consent, he replied "good" Physical Exam Constitutional: WD/WN, vitals as above Respiratory: normal respiratory effort, lungs clear to auscultation Cardiovascular: RRR, no murmur, no edema Gastrointestinal (Abdomen): normal bowel sounds, soft, nontender, no hepatosplenomegaly Results & Data Results & Data Vital Signs (Past 12 Hours) Vital Signs Temp Pulse Pulse Resp BP Pulse Ox O2 Del Method 07/15/24 08:05 36.5 C 90 16 128/84 97 Room Air 07/15/24 05:53 85 07/15/24 03:09 36.5 C 76 16 129/68 97 Room Air 07/14/24 23:01 36.4 C L 84 16 126/79 96 Room Air Laboratory Results Short CBC 07/15/24 Range/Units 05:26 WBC 9.60 (4.8-10.8) K/ul Hgb 12.9 L (14.0-18.0) g/dl Hct 38.5 L (42.0-52.0) % Plt Count 400 (130-400) K/uL BMP 07/15/24 05:26 Sodium 136 Potassium 4.2 Chloride 103 Carbon Dioxide 28 BUN 13 Creatinine 1.04 Glucose 89 Calcium 8.7 Liver Function 07/15/24 Range/Units 05:26 Total Bilirubin 1.3 H (0.2-1.0) mg/dl AST 31 (13-39) U/L ALT 26 (7-52) U/L Alkaline Phosphatase 125 H (34-104) U/L Albumin 2.8 L (3.4-5.0) gm/dl Medications Administered Home Medications Medication Instructions Recorded Confirmed Last Taken pantoprazole 40 mg tablet,delayed 40 mg PO QAM 12/21/18 07/06/24 07/06/24 release (Protonix) melatonin 5 mg capsule 5 mg PO HS 01/14/21 07/06/24 07/05/24 folic acid 1 mg tablet 1 mg PO QAM 09/18/21 07/06/24 07/06/24 aspirin 81 mg tablet,delayed 81 mg PO QAM 05/18/22 07/06/24 07/06/24 release (Adult Low Dose Aspirin) furosemide 20 mg tablet (Lasix) 20 mg PO DAILY PRN Edema 02/01/23 07/06/24 Unknown acetaminophen 325 mg tablet 650 mg PO Q6H PRN pain 12/21/23 07/06/24 Unknown metoprolol succinate 25 mg 50 mg PO HS 12/21/23 07/06/24 07/05/24 tablet,extended release 24 hr (Toprol XL) pravastatin 10 mg tablet 10 mg PO DAILY 05/28/24 07/06/24 Unknown diltiazem HCl 300 mg 300 mg PO DAILY 07/06/24 07/06/24 Unknown tablet,extended release 24 hr (Matzim LA) sertraline 100 mg tablet 100 mg PO QAM 07/06/24 07/06/24 07/06/24 warfarin 4 mg tablet 4 mg PO 6XWK 07/06/24 07/06/24 Unknown Active Medications Generic Name Dose Route Start Last Admin Trade Name Freq PRN Reason Stop Dose Admin Acetaminophen 650 mg 07/06/24 15:30 07/13/24 12:53 Acetaminophen 325 Mg Tab PO 08/05/24 15:29 650 mg Q8H PRN Administration Pain or Fever Aspirin 81 mg 07/07/24 09:00 07/14/24 08:01 Aspirin 81 Mg Ectab PO 08/06/24 08:59 81 mg QAM YVON Administration Celecoxib 200 mg 07/13/24 15:15 07/14/24 08:02 Celebrex 200 Mg Cap PO 08/12/24 15:14 200 mg QAM YVON Administration Diltiazem HCl 300 mg 07/07/24 09:00 07/14/24 08:02 Diltiazem Hcl 300 Mg Capcr PO 08/06/24 08:59 300 mg DAILY YVON Administration Docusate Sodium 100 mg 07/06/24 21:00 07/14/24 20:23 Docusate Sodium 100 Mg Cap PO 08/05/24 20:59 100 mg BID YVON Administration Folic Acid 1 mg 07/07/24 09:00 07/14/24 08:03 Folic Acid 1 Mg Tab PO 08/06/24 08:59 1 mg QAM YVON Administration Ertapenem 1,000 mg in 10 mls @ 2 mls/min 07/11/24 09:30 07/14/24 08:14 Invanz 1000mg IV 07/21/24 09:29 2 mls/min Q24H YVON Administration Lactobacillus Acidophilus 1,250 mg 07/07/24 09:00 07/14/24 08:03 Advanced Probiotic 625 Mg Capsule PO 08/06/24 08:59 1,250 mg DAILY YVON Administration Lidocaine 1 patch 07/13/24 15:15 07/14/24 08:07 Lidocaine 5% 1 Patch TD 08/12/24 15:14 1 patch QAM YVON Administration Melatonin 3 mg 07/06/24 21:00 07/14/24 20:23 Melatonin 3 Mg Tab PO 08/05/24 20:59 3 mg HS YVON Administration Metoprolol Succinate 50 mg 07/06/24 21:00 07/14/24 20:24 Metoprolol Succ 50mg Ext Rel Tab PO 08/05/24 20:59 50 mg HS YVON Administration Miscellaneous 1 each 07/13/24 21:00 07/14/24 20:35 Remove Lidoderm Patch N/A 08/12/24 20:59 Not Given DAILY@2100 YVON Pantoprazole Sodium 40 mg 07/07/24 09:00 07/14/24 08:04 Pantoprazole 40 Mg Tab PO 08/06/24 08:59 40 mg QAM YVON Administration Sertraline HCl 100 mg 07/07/24 16:00 07/14/24 17:09 Sertraline Hcl 100 Mg Tablet PO 08/06/24 15:59 100 mg Q24H YVON Administration Trolamine Salicylate 1 appln 07/13/24 15:15 07/15/24 02:51 Trolamine Salicylate 10% Crm 255 Appln/85 Gm Tube EXT 08/12/24 15:14 1 appln Q12H YVON Administration
--- NOTE | 2024-07-15 13:03 | Discharge Summary ---
Discharge Summary Date of Service July 15, 2024 Principal Dx & Hospital Course #1 = Principal Diagnosis (1) Elevated INR: Plan Mr. 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 Patient now with 2 IR drains placed on 07/09/2024. Patient's transaminitis has improved. Currently, working to manage pain at this time which is seemingly better controlled today. ID finalized recommendations: 1gm ertapenem q 24 hours x 4 weeks at min (~EOT 08/08/2024) , plan for CT AP around 08/01 for ID to assess duration of treatment moving forward. On day of discharge, patient was eating well, endorsing chronic pain, and denied any other acute new symptoms. #Gallbladder fossa abscess s/p lap addi 06/28/24 #Transaminitis resolved CT ABD: Abscess at the gallbladder fossa. Subcapsular fluid collection at the dome of the liver. Gall Bladder USD:Postcholecystectomy large complex fluid collection with air involving the gallbladder fossa. Measurements could not be obtained due to the large size, and the exact location also could not be assessed. CT images were not provided. However previous CT was obtained, and fluid collection was noted. Please correlate with the CT scan. Diffuse hypoechoic liver with prominent portal veins, suggesting acute medical liver disease. For clinical and lab correlation. MRCP:Decreased size of the perihepatic fluid collections status post drainage with catheters in place. Cholecystectomy with mild dilation of the common bile duct measuring 7 mm. No choledocholithiasis or biliary stricture identified. --Hepatitis panel negative --Blood cultures: negative to date --S/P IR drain x2 placement on 07/09/2024. --Abdominal gallbladder fossa fluid growing Klebsiella aerogenes Appreciate surgery input: recommend complete course of IV abx and follow up w/ Dr. Blank resume statin, lfts normal Appreciate GI input: Hepatitis panel nonreactive, VERO +, anti-smooth muscle -, antimitochondrial antibody - tolerating low fat diet Leukocytosis resolved PICC placed 07/15 #Supratherapeutic INR iso infection resolved #Factor V Leiden mutation Patient apparently took only 1 dose of Coumadin since his surgery Liver dysfunction, poor appetite likely contributing to elevated INR No acute bleeding issues Continue coumadin #Acute kidney injury: resolved Baseline Cr around 1, up to 1.41 resolved #Osteoarthritis home regimen celebrex 200mg daily, held on admission resumed celebrex myoflex to hands to aid in pain control #Troponin elevation resolved Likely demand ischemia: Patient denies any chest pain, dyspnea Monitor #Constipation: Patient reports last bowel movement 3 to 4 days ago Continue bowel regimen Monitor #Paroxysmal atrial fibrillation #S/P AVR Target INR 2-3 per record Continue Cardizem, metoprolol - continue coumadin INR check #CAD S/P angioplasty Continue aspirin, metoprolol resume statin #Hypertension Continue home medications Notes For Next Care Provider [ ] Please order CT abdomen pelvis with contrast to be obtained roughly by 08/01~ [ ] Please ensure results are obtained by [employer] ID [ ] ID follow up prior to D/c of abx Medication Changes From Visit Ertapenem 1g daily approx EOT 08/08, but may be extended contingent on repeat CT abdomen pelvis Admission HPI Per Admitting Provider 83-year-old male with PMH of CAD status post angioplasty and stenting of LAD in 2018 and OM 3 in 2020, 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 Of note patient had recent lap addi 06/28/2024, he has taken only 1 dose of Coumadin since then per patient's son, his INR was elevated at 6.3 and he was sent to the ED. Patient has been feeling rundown, progressively weak and tired since the operation, reports decreasing appetite, denies nausea/vomiting/abdominal pain. Patient reports last bowel movement about 3 to 4 days ago, denies pain or burning while passing urine. Patient does deny any fever, also denies any sore throat/cough/chest pain. Per patient's son, patient has been using about 2 g of Tylenol daily and daily Celebrex to manage his chronic arthritic pain. Per ER physician, they reached out to general surgery for abnormal CTAP finding/concern of gallbladder fossa abscess, plan is to get RUQ ultrasound and MRCP which has been ordered. General surgery will follow. Medications reviewed with the patient and his son at bedside. Plan of care discussed with them in detail, they voiced understanding. Full code Admission Exam Per Admitting Provider GENERAL: Alert and oriented x3. NAD, on RA. Appears ill/weak/frail. HEENT: No pallor, no icterus. Pupils equal, round and reactive to light. Oral mucosa moist. NECK: No JVD, no neck masses. HEART: S1 and S2 heard. Regular rate and rhythm. No murmur, no gallop. RESPIRATORY SYSTEM: Normal AP diameter. No accessory muscle use. No wheezing, no crackles. ABDOMEN: Soft, bowel sounds present, nontender, no distention. Well healing lap addi wounds. CENTRAL NERVOUS SYSTEM: No facial droop. Speech is clear. Obeys simple commands. Moves extremities. EXTREMITIES: No edema, no erythema seen. Discharge Exam Constitutional WD/WN, vitals as above Respiratory normal respiratory effort, lungs clear to auscultation Cardiovascular RRR, no murmur, no edema Gastrointestinal (Abdomen) normal bowel sounds, soft, nontender, no hepatosplenomegaly [address], no tenderness or surround superficial erythema, dressing CDI Musculoskeletal no cyanosis or clubbing, extremities motor strength 5/5 Updated Medication List Medication Instructions Recorded Confirmed Type pantoprazole 40 mg tablet,delayed 40 mg PO QAM 12/21/18 07/06/24 History release (Protonix) melatonin 5 mg capsule 5 mg PO HS 01/14/21 07/06/24 History folic acid 1 mg tablet 1 mg PO QAM 09/18/21 07/06/24 History aspirin 81 mg tablet,delayed 81 mg PO QAM 05/18/22 07/06/24 History release (Adult Low Dose Aspirin) furosemide 20 mg tablet (Lasix) 20 mg PO DAILY PRN Edema 02/01/23 07/06/24 History acetaminophen 325 mg tablet 650 mg PO Q6H PRN pain 12/21/23 07/06/24 History metoprolol succinate 25 mg 50 mg PO HS 12/21/23 07/06/24 History tablet,extended release 24 hr (Toprol XL) pravastatin 10 mg tablet 10 mg PO DAILY 05/28/24 07/06/24 History diltiazem HCl 300 mg 300 mg PO DAILY 07/06/24 07/06/24 History tablet,extended release 24 hr (Matzim LA) sertraline 100 mg tablet 100 mg PO QAM 07/06/24 07/06/24 History warfarin 4 mg tablet 4 mg PO 6XWK 07/06/24 07/06/24 History L.acidop,casei,lactis,rham-B.lact,giuseppe 1 cap PO DAILY 30 days #30 caps 07/15/24 Rx 625 mg (10 billion cell) capsule (Advanced Probiotic) celecoxib 200 mg capsule (Celebrex) 200 mg PO QAM #0 caps 07/15/24 Rx docusate sodium 100 mg capsule 100 mg PO BID 30 days #60 caps 07/15/24 Rx ertapenem 1 gram solution for 1 g IV DAILY #30 ea 07/15/24 Rx injection lidocaine 5 % topical patch 1 patch transdermal QAM #0 ea 07/15/24 Rx sertraline 100 mg tablet 100 mg PO Q24H #0 tabs 07/15/24 Rx trolamine salicylate 10 % topical 1 applic EXT Q12H #0 grams 07/15/24 Rx cream (Myoflex) Hospital Stay Data Consultations 07/06/24 14:40 Consult General Surgery Routine 07/06/24 14:46 ED Decision to Admit Stat 07/10/24 08:53 Consult Gastroenterology Routine 07/12/24 08:26 Consult Infectious Diseases Routine Diagnostic Imagining Performed 07/06/24 12:27 CT abd pelvis IV con only Stat 07/06/24 14:40 US gallbladder Stat 07/09/24 09:[address] visceral Routine 07/09/24 09:[address] periton/retro w/gdnce Routine 07/10/24 12:00 MR MRCP Routine Discharge Instructions Given to Patient (Per Discharging Provider) You were admitted for elevated INR and progressive weakness You were found to have a gallbladder fossa and hepatic subcapsular abscesses. You underwent drain placement on 07/09/2024. You will be discharged to home with interventional radiology drains in place. Please follow up in the office with Dr. Blank within 1 week to discuss timing of removal. Keep drains to suction. You were seen by Dr. Pabon with Infectious Disease. You will continue with IV ertapenem 1g daily. You will continue for at least 4 weeks (08/08/2024). You will need to get an order for a CT scan with contrast of the abdomen and pelvis in 3 weeks (~08/01/2024). These results will be communicated with Infectious Disease to coordinate the final antibiotic duration An appointment with ID will be coordinated in around 4-6 weeks (either in [facility] or via TeleMed) Please continue your home medications as prescribed. Total Time Total Time Spent Total Time Spent (In Minutes): 45
[2024-07-15] MEDS: WARFARIN SOD 4 MG TAB PO SCH (15:47)
[2024-07-15] MEDS: ALUMINUM/MAGNESIUM SUSP 30 ML UDC PO PRN (16:12)
[2024-07-15 16:26] VITALS: TEMP 97.2; O2SAT 96
--- NOTE | 2024-07-15 16:46 | XRay Report ---
EXAM: Portable AP chest radiograph TECHNIQUE: AP portable radiograph of the chest was obtained. INDICATION: Shortness of breath Comparison: CT of the thorax June 25, 2024. FINDINGS: LINES and TUBES: Right PICC with tip projecting over the right atrium of the heart. Right basilar pleural catheter. CARDIOVASCULAR: Cardiac silhouette is stably enlarged in size. TAVR. LUNGS/PLEURA: Mild pulmonary vascular congestion. Small right pleural fluid. Minimal bibasilar densities may be atelectasis though airspace disease not excluded. No discernible pneumothorax. OSSEOUS/OTHER: No displaced acute osseous process identified. IMPRESSION: Mild congestive changes of the cardiovascular system as above. Small right-sided pleural fluid with right basilar pleural catheter. Electronically signed by Davon Drew 07-15-2024 4:46 PM
--- NOTE | 2024-07-15 18:18 | XRay Report ---
EXAM: XR chest 1V portable CLINICAL HISTORY: PICC placement TECHNIQUE: An X-ray image of the chest is obtained in AP projection. COMPARISON: x-ray at the same day 14:10: 00 [employer]. FINDINGS: Right-sided PICC is noted with its tip at the right atrium. Pulmonary Parenchyma: Prominent bilateral bronchovascular markings. No evidence of consolidation, collapse, or focal opacities. No pulmonary nodules are identified. Blunted right costophrenic angle. Heart and Mediastinum: Increased cardiothoracic ratio . Bony Thorax: Bony thorax appears intact without fractures or deformities. Osteoarthrtic changes of both acromioclavicular joints. Soft Tissues: Soft tissues overlying the chest wall are unremarkable. IMPRESSION: 1. Right-sided PICC is noted with its tip at the right atrium. possibly low-lying. Stable 2. Prominent bilateral bronchovascular markings. likely congestion. Stable 3. Blunted right costophrenic angle, possibly pleural reaction/ small effusion. Stable 4. Mild cardiomegaly. Stable. Electronically signed by Roberto Sanchez 07-15-2024 6:17 PM
--- NOTE | 2024-07-15 19:50 | XRay Report ---
EXAM: Portable AP chest radiograph TECHNIQUE: AP portable radiograph of the chest was obtained. INDICATION: Shortness of breath Comparison: Chest radiograph from earlier the same day at 16: 56. FINDINGS: LINES and TUBES: Right PICC with tip projecting over the distal SVC. Catheter materials again noted projecting over the right lower hemithorax and right upper abdomen CARDIOVASCULAR: Cardiac silhouette is stably enlarged in size. TAVR. LUNGS/PLEURA: Mild pulmonary vascular ingestion is similar to previous. No focal consolidation identified. Small pleural fluids. No large pneumothorax. OSSEOUS/OTHER: No displaced acute osseous process identified. IMPRESSION: Right PICC with tip projecting over the distal SVC. Unchanged mild congestive changes of the cardiovascular system. Electronically signed by Davon Drew 07-15-2024 7:49 PM
[2024-07-15 20:12] VITALS: BP 139/100; PULSE 103
[2024-07-16 10:05] LABS: ANA Pattern Cytoplasmic
== END 2024-07-15 20:32 | DRG 862 ==
LOC: ED 10:50 → 2N 15:30 → SUATTDRO 15:30 → 2N 16:47